=== PATIENT | female | born 1950 | race Caucasian/White ===

== ENCOUNTER 2017-08-06 16:18 | Inpatient (IN) ==
[2017-08-06] MEDS ORDERED: GI Cocktail 40 ML EACH PO ONE (17:57)
[2017-08-06] MEDS ORDERED: Pantoprazole 40 MG VIAL IVP ONE (17:57)
[2017-08-06] MEDS ORDERED: 0.9 % Sodium Chloride 1,000 ML IVC ONE (17:57)
[2017-08-06] MEDS ORDERED: Ondansetron 4 MG/2 ML VIAL IVP ONE (17:57)
--- NOTE | 2017-08-06 18:02 | Emergency Department Note ---
Disposition Clinical Impression: Pancreatic abnormality, Hypokalemia, Brugada syndrome type 3 Disposition: Admitted As Inpatient Condition: Fair Time of Disposition: 20:23 Abdominal Pain HPI - General Chief Complaint: ED Abdominal Pain Stated Complaint: N/V; abominal pain Time Seen by Provider: 08/06/17 17:39 Source: patient Mode of arrival: ambulatory Limitations: no limitations Nursing Notes Reviewed: Yes Vital Signs Reviewed: Yes - History of Present Illness HPI Narrative: Patient presents to the ED with the chief complaint of epigastric abdominal pain and nausea and vomiting. Started about 3 days ago, intermittent abdominal pain in her epigastrium, right flank and right side. States that eating seems to make it worse and she vomits yellow after every time she eats. Had 3-4 episodes of emesis today. No fever, chills, chest pain or shortness of breath. Reports sometimes pushing on her xiphoid process makes it feel a little better. Does still have her gallbladder and appendix. Previous surgeries include repair of a perforated gastric ulcer. Denies any recent NSAID use. States that she also felt really lightheaded and dizzy a few days ago when she was at her grandson's graduation and was having near syncope. No previous history of coronary artery disease. States she is otherwise fairly healthy. HAs had some unintentional weight loss over the last few months and decreased appetite. Pain Scale: 8 - Related Data Home Medications Medication Instructions Recorded Confirmed Amlodipine Besylate [Amlodipine 10 mg PO DAILY 08/06/17 08/06/17 Besylate] Atorvastatin Calcium [Lipitor] 20 mg PO HS 08/06/17 08/06/17 Escitalopram [Lexapro] 20 mg PO DAILY 08/06/17 08/06/17 Multivitamin [One Daily 1 tab PO DAILY 08/06/17 08/06/17 Multivitamin] Omeprazole [PriLOSEC] 20 mg PO DAILY 08/06/17 08/06/17 Triamterene/HCTZ 37.5/25mg 1 tab PO DAILY 08/06/17 08/06/17 [Dyazide] diazePAM [Valium] 5 mg PO DAILY PRN 08/06/17 08/06/17 Allergies Allergy/AdvReac Type Severity Reaction Status Date / Time Penicillins Allergy Hives Verified 08/06/17 19:41 Sulfa (Sulfonamide Allergy Hives Verified 08/06/17 19:41 Antibiotics) Review of Systems: As reviewed in the HPI. All other systems reviewed are negative or normal. Abdominal Pain PMH - Past Medical History Medical history: Reports: hypertension Female Surgical History: Reports: other Psychiatric history: Reports: anxiety - Social History Smoking status: Current every day smoker Alcohol use: Reports: none Drug use: Reports: none Physical Exam CONSTITUTIONAL: [well appearing in no acute distress but does appear uncomfortable] SKIN: [Warm, dry, and intact without rash] EYES: [extraocular movements are grossly intact, clear conjunctiva] HENT: [Normocephalic, atraumatic, moist mucus membranes] NECK: [no obvious swelling, normal range of motion] PULMONARY: [normal chest rise and fall, no respiratory distress or stridor CARDIOVASCULAR: [regular rate, distal extremities are warm and well perfused] GASTROINSTESTINAL: [nondistended, non-tender, large midline well-healed surgical scar, patient points to her epigastrium where she is tender, but states it does not hurt when I press, Ramírez sign negative] GENITOURINARY: [deferred] NEUROLOGIC: [normal speech, moves all extremities] MUSCULOSKELETAL: [no gross deformities, atraumatic] PSYCHIATRIC: [Anxious, seems to be in pain] - General Limitations: no limitations General appearance: alert, in no apparent distress Course Course Narrative: Patient presenting ED with weight loss, epigastric pain, nausea and vomiting. We will get labs and a CT scan. Could have an obstruction versus malignancy. - Reevaluation(s) Reevaluation #1: Patient CT scan shows concern over a pancreatic mass versus mesenteric mass. She does have metastatic disease to liver. The mass is wrapped around her SMA and resulting and biliary dilation. Her LFTs and bilirubin are normal. Admitted to the hospital service. Will attempt PO replacement as we would like to avoid the IV potassium since it has Lidocaine in it and her EKG showed concern over brugada. Vital Signs Temperature 97.6 F 08/06/17 16:39 Pulse Rate 104 08/06/17 16:39 Respiratory Rate 16 08/06/17 16:39 Blood Pressure 115/67 08/06/17 16:39 O2 Sat by Pulse Oximetry 100 08/06/17 16:39 Temperature 97.6 F 08/06/17 16:39 Pulse Rate 104 08/06/17 20:36 Respiratory Rate 18 08/06/17 21:18 Blood Pressure 162/80 08/06/17 21:18 O2 Sat by Pulse Oximetry 100 08/06/17 20:36 Oxygen Delivery Oxygen Delivery Room Air Abdominal Pain - Medical Records Medical records reviewed: Yes I reviewed the patient's medical records. - Lab Data Lab results reviewed: Yes I reviewed the patient's lab results. Result diagrams: 08/06/17 18:44 08/06/17 18:44 Lab Results 08/06/17 08/06/17 08/06/17 Range/Units 18:44 18:44 18:44 WBC 13.6 H (4.3-11.1) K/mcL RBC 3.99 (3.82-4.97) M/mcL Hgb 11.5 (11.5-15.4) g/dL Hct 33.2 L (35.3-44.9) % MCV 83.2 (83.0-100.0) fL MCH 28.8 (28.0-33.3) pg MCHC 34.6 (31.6-35.5) g/dL RDW 13.2 (11.5-14.5) % Plt Count 390 (140-400) K/mcL MPV 10.3 (9.4-12.4) fL Immature Gran % 0.4 (0-4) % Seg Neutrophils % 72.2 % Lymphocytes % 19.8 % Monocytes % 5.6 % Eosinophils % 1.6 % Basophils % 0.4 % Neutrophils # 9.8 H (1.6-8.9) K/mcL Lymphocytes # 2.7 (0.6-4.6) K/mcL Monocytes # 0.8 (0.0-1.3) K/mcL Eosinophils # 0.2 (0.0-0.6) K/mcL Basophils # 0.1 (0.0-0.2) K/mcL Sodium 137 (136-145) mEq/L Potassium 2.2 L* (3.5-5.1) mEq/L Chloride 102 (98-107) mEq/L Carbon Dioxide 19 L (23-29) mEq/L BUN 35 H (8-23) mg/dL Creatinine 0.98 (0.60-1.20) mg/dL Est GFR ( Amer) > 60 (> 60) Est GFR (Non-Af Amer) 56 L (> 60) BUN/Creatinine Ratio 36 H (6-26) Glucose 90 (70-105) mg/dL Calculated Osmolality 292 (280-300) Lactic Acid 1.3 (0.5-2.2) mmol/L Calcium 9.2 (8.6-10.3) mg/dL Total Bilirubin 0.5 (0.3-1.0) mg/dL Direct Bilirubin 0.1 (0.0-0.2) mg/dL Indirect Bilirubin 0.4 (0.0-1.2) mg/dL AST 22 (13-39) Units/L ALT 19 (7-52) Units/L Alkaline Phosphatase 90 (34-104) Units/L Troponin I < 0.03 (< 0.04) ng/mL Serum Total Protein 6.5 (6.4-8.9) g/dL Albumin 3.7 (3.5-5.7) g/dL Globulin 2.8 (2.4-3.5) g/dL Albumin/Globulin Ratio 1.3 (1.1-2.2) Lipase 15 (11-82) Units/L - Radiology Data Radiology results reviewed: Yes I reviewed the patient's radiology results. - EKG Data EKG attestation: Yes I reviewed and interpreted this EKG. EKG results narrative: Sinus rhythm, rate 98, NM interval 164, QRS 125, QTC 448, normal axis, Brugada type 3 pattern Critical Care Time Critical Care Time: Yes Total Critical Care Time: 30 Attestation: I personally spent ___30___ minutes devoted to the care of this critically ill patient. This time excludes the time for billable procedures. S.B.A.R. - S.B.A.R. Situation: Demographics, MOA Background: Presenting Complaint, Relevant PMH, Meds, & Allergies Assessment: Vital Signs, Course and respsone to treatment, Exam Concerns, Patient/Family Expectation, Pertinant Lab Results, Outstanding Labs Recommendation: Recommendation based on pending studies, treatments, or consults S.B.A.R. Report Given to: Dr. Delgado Aiken Repor Time: 20:30 Attestation Statement - Attestation Attestation: I examined this patient and my medical decision-making was reviewed with the Resident Physician. I agree with the documented findings, disposition and treatment plan as described except to the extent set forth below.
[2017-08-06 19:02] LABS: Basophils # 0.1 K/mcL (0.0-0.2); Basophils % 0.4 %; Eosinophils # 0.2 K/mcL (0.0-0.6); Eosinophils % 1.6 %; Hematocrit 33.2 % (35.3-44.9); Hemoglobin 11.5 g/dL (11.5-15.4); Immature Granulocytes % 0.4 % (0-4); Lymphocytes # 2.7 K/mcL (0.6-4.6); Lymphocytes % 19.8 %; Mean Corpuscular HGB Conc 34.6 g/dL (31.6-35.5); Mean Corpuscular Hemoglobin 28.8 pg (28.0-33.3); Mean Corpuscular Volume 83.2 fL (83.0-100.0); Mean Platelet Volume 10.3 fL (9.4-12.4); Monocytes # 0.8 K/mcL (0.0-1.3); Monocytes % 5.6 %; Neutrophils # 9.8 K/mcL (1.6-8.9); Platelet Count 390 K/mcL (140-400); Red Blood Count 3.99 M/mcL (3.82-4.97); Red Cell Distribution Width 13.2 % (11.5-14.5); Segmented Neutrophils % 72.2 %
[2017-08-06 19:20] LABS: Troponin I < 0.03 ng/mL (< 0.04)
[2017-08-06 19:22] LABS: Alanine Aminotransferase 19 Units/L (7-52); Albumin 3.7 g/dL (3.5-5.7); Albumin/Globulin Ratio 1.3 (1.1-2.2); Alkaline Phosphatase 90 Units/L (34-104); Aspartate Amino Transferase 22 Units/L (13-39); BUN/Creatinine Ratio 36 (6-26); Bilirubin,Direct 0.1 mg/dL (0.0-0.2); Bilirubin,Indirect 0.4 mg/dL (0.0-1.2); Bilirubin,Total 0.5 mg/dL (0.3-1.0); Blood Urea Nitrogen 35 mg/dL (8-23); Calcium 9.2 mg/dL (8.6-10.3); Carbon Dioxide 19 mEq/L (23-29); Chloride 102 mEq/L (98-107); Globulin 2.8 g/dL (2.4-3.5); Glucose 90 mg/dL (70-105); Lipase 15 Units/L (11-82); Osmolality,Calculated 292 (280-300); Sodium 137 mEq/L (136-145); Total Protein 6.5 g/dL (6.4-8.9); eGFR For African Americans > 60 (> 60); eGFR For Non-African Americans 56 (> 60)
[2017-08-06] MEDS ORDERED: Ringers Solution, Lactated 1,000 ML IVC ONE (19:34)
[2017-08-06] MEDS ORDERED: Potassium Chloride Elixir 20 MEQ/15 ML UDC PO ONE ×2 (19:35→20:30)
[2017-08-06] MEDS ORDERED: Ondansetron 4 MG/2 ML VIAL IVP PRN (20:01)
[2017-08-06] MEDS ORDERED: Potassium Chloride 10 MEQ in 0.9 % Sodium Chloride 100 ML IVPB SCH (20:45)
[2017-08-06] MEDS ORDERED: Naloxone 0.4 MG/ML INJ IVP PRN ×2 (20:54)
[2017-08-06] MEDS ORDERED: OXYCODONE Oral CONC 10 MG/0.5 ML ORAL.SYG SL PRN (20:54)
[2017-08-06] MEDS ORDERED: D5% in 0.45% NACL 1,000 ML IVC SCH (21:00)
[2017-08-06] MEDS ORDERED: diazePAM 5 MG TABLET PO PRN (21:05)
--- NOTE | 2017-08-06 21:12 | Internal Med History&Physical ---
Date of Encounter: 08/06/17 Time of Encounter: 20:00 Internal Medicine - H&P: HPI Chief complaint: Abdominal pain, nausea and vomiting Admitted From: Home Plans for Post Hospital Care: Home History of present illness: Ms. Salas is a 67 year old female present to ER for abdominal pain and nausea vomiting for about 1-2 weeks. Past medical history is significant for peptic ulcer, hypertension. Patient said she started to have epigastric area pain 1-2 weeks ago, radiated to back. Patient also has nausea and vomiting. The vomiting is yellowish fluid , no blood in it. Patient has average 2-3 times vomiting a day. Patient has generally poor intake. Patient denies fever. Patient has lost around 9 pounds in last 1-2 weeks. Patient denies chest pain, shortness of breath, diarrhea, or leg swelling or leg pain. In the emergency room, CT abdomen shows abdominal mass, most likely pancreas mass with liver metastasis. Patient also has significant hypokalemia with potassium level 2.2. EKG shows Brugada pattern on V1 and V2. Patient was admitted for further management. Past Med Surg Social Fam HX - Past Medical History Medical history: hypertension Psychiatric history: anxiety - Social History Smoking Status: Current every day smoker Smokeless Tobacco Status: No Alcohol use: none Drug use: none - Family History Father Living Status: Still Living Internal Medicine - H&P: Meds Amlodipine Besylate [Amlodipine Besylate] 10 mg PO DAILY 08/06/17 [History] Atorvastatin Calcium [Lipitor] 20 mg PO HS 08/06/17 [History] Escitalopram [Lexapro] 20 mg PO DAILY 08/06/17 [History] Multivitamin [One Daily Multivitamin] 1 tab PO DAILY 08/06/17 [History] Omeprazole [PriLOSEC] 20 mg PO DAILY 08/06/17 [History] Triamterene/HCTZ 37.5/25mg [Dyazide] 1 tab PO DAILY 08/06/17 [History] diazePAM [Valium] 5 mg PO DAILY PRN 08/06/17 [History] 3 Allergy/AdvReac Type Severity Reaction Status Date / Time Penicillins Allergy Hives Verified 08/06/17 19:41 Sulfa (Sulfonamide Allergy Hives Verified 08/06/17 19:41 Antibiotics) All Systems PM: A 10-system review of systems was performed and is negative for pertinent findings except as documented above in the HPI. - Constitutional Vitals: Temp Pulse Resp BP Pulse Ox 97.6 F 104 18 146/76 100 08/06/17 16:39 08/06/17 20:36 08/06/17 20:36 08/06/17 20:36 08/06/17 20:36 General appearance: Present: mild distress, A&O X 3, answers questions appropriately - Head Head exam: Present: atraumatic, normocephalic - Eye Eye exam: Present: PERRL, conjuntiva pink, sclera anicteric Pupils: Present: PERRL - Neck Neck exam general surgery: Present: supple, trachea midline. Absent: lymphadenopathy - Respiratory Respiratory exam: Present: CTAB. Absent: accessory muscle use, rales, rhonchi, wheezes - Cardiovascular Cardiovascular exam: Present: RRR, +S1, +S2. Absent: diastolic murmur, gallop, rubs, systolic murmur - GI/Abdominal GI/Abdominal exam: Present: normal bowel sounds, soft, tenderness (Mild tenderness on epigastric area), no peritoneal signs. Absent: distended - Extremities Exam Extremities exam: Present: warm, radial pulses palpable and symmetrical. Absent : calf tenderness, cyanotic, pedal edema - Neurological Exam Neurological exam: Present: CN II-XII intact, oriented X3, no focal deficits. Absent: pronater drift, facial droop, speech deficit - Skin Skin exam: Present: dry, intact Internal Med - H&P Results - Labs CBC & Chem 7: 08/06/17 18:44 08/06/17 18:44 - Assessment and plan (1) Abdominal mass Current Visit: Yes Status: Acute Assessment and plan: Abdominal CT reveals abdominal mass, most likely pancreas mass. Also has signs of liver metastasis. Most likely malignant neoplasm. Will consult oncology and GI for recommendation of further workup. Qualifiers: Abdominal location: epigastric Qualified Code(s): R19.06 - Epigastric swelling, mass or lump (2) Hypertension Current Visit: Yes Status: Acute Assessment and plan: We will continue home medication amlodipine. Hold diuretics as patient has signs of dehydration. Closely monitor BP. Qualifiers: Hypertension type: essential hypertension Qualified Code(s): I10 - Essential (primary) hypertension (3) Abnormal finding on EKG Current Visit: Yes Status: Acute Assessment and plan: EKG shows Brugada pattern on V1 and V2. Patient has no previous EKG available to compare. Patient has no symptoms of syncope, chest pain, or palpitation. - Continuous cardiac monitoring - correct electrolyte abnormalities. - Repeat EKG in a.m. Echocardiogram in a.m. - Consul cardiology (4) DVT prophylaxis Current Visit: Yes Status: Acute Assessment and plan: Heparin subcutaneously (5) Dehydration Current Visit: Yes Status: Acute Assessment and plan: Patient has nausea and vomiting for around 2 weeks. BUN/creatinine ratio 36, consider dehydration. Will give patient IV fluid and closely monitor BMP. (6) Hypokalemia Current Visit: Yes Status: Acute Assessment and plan: Most likely due to continuous vomiting and per oral intake. Will give patient by mouth and IV potassium supplement. Closely monitor potassium level. Place patient on continuous cardiac monitoring. (7) Nausea and vomiting Current Visit: Yes Status: Acute Assessment and plan: Most likely due to abdominal mass. Place patient on clear liquid diet. Zofran IV when necessary for symptomatic control. Pain medication as needed for abdominal pain. IV fluid for dehydration. Closely monitor electrolytes level and give supplement accordingly. Qualifiers: Vomiting type: unspecified Vomiting Intractability: non-intractable Qualified Code(s): R11.2 - Nausea with vomiting, unspecified - Time Spent With Patient Total time spent is greater than 50% in coordination of care (as documented) at patient's floor/unit and/or counseling patient: 40 minutes Greater than 35 minutes
--- NOTE | 2017-08-06 21:47 | Emergency Department Note ---
Disposition Clinical Impression: Pancreatic abnormality, Hypokalemia, Brugada syndrome type 3 Disposition: Admitted As Inpatient Condition: Fair General Adult HPI - General Chief complaint: ED Abdominal Pain Stated complaint: N/V; abominal pain Time Seen by Provider: 08/06/17 17:39 Source: patient Mode of arrival: ambulatory Limitations: no limitations - History of Present Illness Pain Scale: 0 - Related Data Home Medications Medication Instructions Recorded Confirmed Amlodipine Besylate [Amlodipine 10 mg PO DAILY 08/06/17 08/06/17 Besylate] Atorvastatin Calcium [Lipitor] 20 mg PO HS 08/06/17 08/06/17 Escitalopram [Lexapro] 20 mg PO DAILY 08/06/17 08/06/17 Multivitamin [One Daily 1 tab PO DAILY 08/06/17 08/06/17 Multivitamin] Omeprazole [PriLOSEC] 20 mg PO DAILY 08/06/17 08/06/17 Triamterene/HCTZ 37.5/25mg 1 tab PO DAILY 08/06/17 08/06/17 [Dyazide] diazePAM [Valium] 5 mg PO DAILY PRN 08/06/17 08/06/17 Allergies Allergy/AdvReac Type Severity Reaction Status Date / Time Penicillins Allergy Hives Verified 08/06/17 19:41 Sulfa (Sulfonamide Allergy Hives Verified 08/06/17 19:41 Antibiotics) Past Medical History - Past Medical History Medical history: Reports: hypertension Psychiatric history: Reports: anxiety - Social History Smoking Status: Current every day smoker Smokeless Tobacco Status: No Alcohol use: Reports: none Drug use: Reports: none Physical Exam - General Limitations: no limitations General appearance: alert, in no apparent distress Course Vital Signs Temperature 97.6 F 08/06/17 16:39 Pulse Rate 104 08/06/17 16:39 Respiratory Rate 16 08/06/17 16:39 Blood Pressure 115/67 08/06/17 16:39 O2 Sat by Pulse Oximetry 100 08/06/17 16:39 Temperature 97.6 F 08/06/17 16:39 Pulse Rate 104 08/06/17 20:36 Respiratory Rate 18 08/06/17 21:18 Blood Pressure 162/80 08/06/17 21:18 O2 Sat by Pulse Oximetry 100 08/06/17 20:36 Oxygen Delivery Oxygen Delivery Room Air Medical Decision Making - Lab Data Result diagrams: 08/06/17 18:44 08/06/17 18:44 Lab Results 08/06/17 08/06/17 08/06/17 Range/Units 18:44 18:44 18:44 WBC 13.6 H (4.3-11.1) K/mcL RBC 3.99 (3.82-4.97) M/mcL Hgb 11.5 (11.5-15.4) g/dL Hct 33.2 L (35.3-44.9) % MCV 83.2 (83.0-100.0) fL MCH 28.8 (28.0-33.3) pg MCHC 34.6 (31.6-35.5) g/dL RDW 13.2 (11.5-14.5) % Plt Count 390 (140-400) K/mcL MPV 10.3 (9.4-12.4) fL Immature Gran % 0.4 (0-4) % Seg Neutrophils % 72.2 % Lymphocytes % 19.8 % Monocytes % 5.6 % Eosinophils % 1.6 % Basophils % 0.4 % Neutrophils # 9.8 H (1.6-8.9) K/mcL Lymphocytes # 2.7 (0.6-4.6) K/mcL Monocytes # 0.8 (0.0-1.3) K/mcL Eosinophils # 0.2 (0.0-0.6) K/mcL Basophils # 0.1 (0.0-0.2) K/mcL Sodium 137 (136-145) mEq/L Potassium 2.2 L* (3.5-5.1) mEq/L Chloride 102 (98-107) mEq/L Carbon Dioxide 19 L (23-29) mEq/L BUN 35 H (8-23) mg/dL Creatinine 0.98 (0.60-1.20) mg/dL Est GFR ( Amer) > 60 (> 60) Est GFR (Non-Af Amer) 56 L (> 60) BUN/Creatinine Ratio 36 H (6-26) Glucose 90 (70-105) mg/dL Calculated Osmolality 292 (280-300) Lactic Acid 1.3 (0.5-2.2) mmol/L Calcium 9.2 (8.6-10.3) mg/dL Total Bilirubin 0.5 (0.3-1.0) mg/dL Direct Bilirubin 0.1 (0.0-0.2) mg/dL Indirect Bilirubin 0.4 (0.0-1.2) mg/dL AST 22 (13-39) Units/L ALT 19 (7-52) Units/L Alkaline Phosphatase 90 (34-104) Units/L Troponin I < 0.03 (< 0.04) ng/mL Serum Total Protein 6.5 (6.4-8.9) g/dL Albumin 3.7 (3.5-5.7) g/dL Globulin 2.8 (2.4-3.5) g/dL Albumin/Globulin Ratio 1.3 (1.1-2.2) Lipase 15 (11-82) Units/L Attestation Statement - Attestation Attestation: I examined this patient and my medical decision-making was reviewed with the Resident Physician. I agree with the documented findings, disposition and treatment plan as described except to the extent set forth below. 67-year-old female presents ED because of abdominal pain, vomiting and weight loss. Symptoms of been evolving for the past month. Denies diarrhea. Denies abdominal bloating. No chest pain or dyspnea. Complains of feeling generally weak because she is unable to eat and has a decrease in fluid intake. No change in medications. No productive cough. No exertional symptoms. No headache. No focal weakness. She has been a pack-a-day smoker for 40 years. Pleasant female in no apparent distress. She is awake alert and talkative. Oropharynx is clear mucous membranes membranes dry. Sclera is nonicteric. Neck is supple trachea midline. Chest is clear to auscultation bilaterally. Abdomen soft, nondistended but tender in the epigastrium. Lower abdomen unremarkable. Flanks nontender. Extremities warm and dry without edema. Liver functions and renal function is normal. Potassium is low at 2.2. CT abdomen suggestive of a pancreatic mass with metastatic still liver. EKG consistent with Brugada syndrome. Initiated IV replacement of her potassium minus any lidocaine infusion due to the EKG findings. She will be admitted for further workup and staging of this process in addition to IV hydration and treatment of the hypokalemia There has Not been any recent syncopal episodes so the findings of Brugada syndrome on EKG is incidental
[2017-08-06] MEDS: OXYCODONE Oral CONC 10 MG/0.5 ML ORAL.SYG SL PRN (22:19)
[2017-08-06] MEDS ORDERED: Potassium Chloride 40 MEQ, Lidocaine 1% 2 ML in D5% in Water 500 ML IVPB ONE (22:30)
[2017-08-07 00:23] LABS: Potassium 2.2 mEq/L (3.5-5.1)
[2017-08-07 02:00] LABS: Basophils # 0.1 K/mcL (0.0-0.2); Basophils % 0.5 %; Eosinophils # 0.2 K/mcL (0.0-0.6); Eosinophils % 1.9 %; Hematocrit 30.3 % (35.3-44.9); Hemoglobin 10.6 g/dL (11.5-15.4); Immature Granulocytes % 0.4 % (0-4); Lymphocytes # 2.4 K/mcL (0.6-4.6); Lymphocytes % 20.4 %; Mean Corpuscular Volume 82.8 fL (83.0-100.0); Mean Platelet Volume 10.4 fL (9.4-12.4); Monocytes # 0.7 K/mcL (0.0-1.3); Monocytes % 5.5 %; Neutrophils # 8.4 K/mcL (1.6-8.9); Platelet Count 329 K/mcL (140-400); Red Blood Count 3.66 M/mcL (3.82-4.97); Red Cell Distribution Width 13.2 % (11.5-14.5); Segmented Neutrophils % 71.3 %
[2017-08-07] MEDS: OXYCODONE Oral CONC 10 MG/0.5 ML ORAL.SYG SL PRN ×2 (03:48→08:35)
[2017-08-07 06:00] LABS: Prothrombin Time 12.7 Seconds (9.4-12.1)
[2017-08-07 06:01] LABS: INR 1.2
[2017-08-07] MEDS: *HR* Heparin 5,000 UNIT/ML VIAL SQ SCH ×2 (06:44→18:25)
[2017-08-07 07:35] LABS: BUN/Creatinine Ratio 36 (6-26); Blood Urea Nitrogen 28 mg/dL (8-23); Calcium 8.8 mg/dL (8.6-10.3); Carbon Dioxide 20 mEq/L (23-29); Chloride 104 mEq/L (98-107); Glucose 185 mg/dL (70-105); Magnesium 1.9 mg/dL (1.6-2.6); Osmolality,Calculated 290 (280-300); Phosphorous 2.8 mg/dL (2.7-4.5); Potassium 3.3 mEq/L (3.5-5.1); Sodium 135 mEq/L (136-145); eGFR For African Americans > 60 (> 60); eGFR For Non-African Americans > 60 (> 60)
[2017-08-07] MEDS: Multivit/Ca/Min/Fe/FA 1 TAB TABLET PO SCH (08:34)
[2017-08-07] MEDS: Ondansetron 4 MG/2 ML VIAL IVP PRN ×2 (08:35→18:23)
[2017-08-07] MEDS: amLODIPine 5 MG TABLET PO SCH (08:35)
[2017-08-07] MEDS: Pantoprazole 40 MG VIAL IVP SCH (08:35)
[2017-08-07] MEDS ORDERED: *HR* Promethazine 25 MG/ML VIAL IM PRN (08:43)
[2017-08-07] MEDS: 0.9 % Sodium Chloride 1,000 ML IVC SCH ×2 (09:14→19:00)
--- NOTE | 2017-08-07 09:53 | Cardiology Consult Note ---
Date of Encounter: 08/07/17 Time of Encounter: 09:00 Assessment and Plan (1) Abdominal mass Current Visit: Yes Status: Acute Per cardiology:; -Abdominal mass noted per CT. -Electrolyte imbalances noted. -Management per primary service. Qualifiers: Abdominal location: epigastric Qualified Code(s): R19.06 - Epigastric swelling, mass or lump (2) Abnormal finding on EKG Current Visit: Yes Status: Acute Per cardiology: -Brugada pattern noted per ECG. -Denies syncope, near syncope. Denies family history of syncope. -Denies family history of sudden cardiac . -TTE with LVEF preserved, no segmental wall motion abnormalities. -Anticipate cardiology sign off with outpatient follow up. Discussion w patient/family: The assessment and plan as outlined above was discussed with the patient and/or family members who expressed understanding and agreement. All questions were answered. Thank you for involving us in the care of your patient. Please call with any questions. Discussed and reviewed with . History of Present Illness Consult date: 08/06/17 Requesting physician: Florence Scott Consult reason: brugada pattern on ECG Chief complaint: abdominal pain History of present illness: Ms. Salas is a 67 year old female with a relevant past medical history of HTN, anxiety. Patient presented to [facility] with complaints of abdominal pain. Cardiology has been consulted for abnormal ECG. Patient denies chest pain or shortness of breath. Denies previous cardiac history or work up. Denies syncope or near syncope. Patient denies history of sudden cardiac . Past Med Surg Social Fam HX - Past Medical History Attestation: Yes The following information was validated with the patient. Source: patient, old records reviewed, obtained from family Medical history: cancer, GI bleed, hypertension, other Psychiatric history: anxiety - Past Surgical History Surgical History: no surgical history - Social History Smoking Status: Current every day smoker Packs per day: 1 pack/daily Smokeless Tobacco Status: No Alcohol use: none Drug use: none - Family History Father Adopted: No Twin of Family Member: Yes, Fraternal Living Status: Still Living Hx Family Cardiac Disorders: No Hx Family Respiratory Disorders: No Hx Family Cancer: No Hx Family GI Disorders: No Hx Family Genitourinary Disorders: No Hx Family Endocrine Disorder: No Hx Family Musculoskeletal Disorders: No Hx Family Neuromuscular Disorders: No Hx Family Neurologic Disorders: No Hx Family HEENT Disorders: No Hx Family Autoimmune Disorders: No Hx Family Reproductive Disorders: No Hx Family Psychosocial Disorders: No Hx Family Medical Disorders: No Medications and Allergies Amlodipine Besylate [Amlodipine Besylate] 10 mg PO DAILY 08/06/17 [History] Atorvastatin Calcium [Lipitor] 20 mg PO HS 08/06/17 [History] Escitalopram [Lexapro] 20 mg PO DAILY 08/06/17 [History] Multivitamin [One Daily Multivitamin] 1 tab PO DAILY 08/06/17 [History] Omeprazole [PriLOSEC] 20 mg PO DAILY 08/06/17 [History] Triamterene/HCTZ 37.5/25mg [Dyazide] 1 tab PO DAILY 08/06/17 [History] diazePAM [Valium] 5 mg PO DAILY PRN 08/06/17 [History] 3 Allergy/AdvReac Type Severity Reaction Status Date / Time Penicillins Allergy Hives Verified 08/06/17 19:41 Sulfa (Sulfonamide Allergy Hives Verified 08/06/17 19:41 Antibiotics) All Systems Review: The remainder of the systems were reviewed and are negative - Cardiovascular Cardiovascular: as per HPI Physical Examination Vital Signs, Last 4 Hours Temp Pulse Resp BP Pulse Ox 08/07/17 08:45 97 08/07/17 07:57 98.1 F 84 16 121/66 97 General: Conversant, No Apparent Distress HEENT: Atraumatic, Normocephaly, Mucus Membranes Moist Neck: No JVD, Normal carotid pulses Cardiac: Reg Rate and Rhythm, Normal S1 and S2, No Murmur Lungs: Normal Breath Sounds, No Wheeze, Rales, Rhonchi Neuro: Alert and responsive, No focal deficits noted Abdomen: Soft, Other (Tender. ) Skin: No rashes noted on visualized skin Musculoskeletal: No Chest Wall Tenderness Extremities: No Clubbing, No Cyanosis, No Edema, Normal Pulses Results 08/07/17 01:32 08/07/17 01:32 Lab Results Impressions Abdomen/Pelvis CT 08/06/17 17:58 IMPRESSION: 1. Mid abdominal mass slightly projecting to the left appears to be contiguous with the head of the pancreas and may originate from the pancreas. This may represent a pancreatic cancer. Alternatively, the mass may be mesenteric in origin and may represent a sarcoma or other neoplastic process. The mass appears to infiltrate around the SMA and also the portal confluence. 2. Extensive metastatic disease to the liver. 3. Cholelithiasis but no acute cholecystitis. 4. Some prominence of the biliary system which may be related to distal encasement of the common bile duct by the mass. RECOMMENDATIONS: Proper CT scan with contrast, biopsy, PET scan. D/ / 08/06/2017 18:49:07 Arlin Lenz MD / earnold Interpreting Provider: Arlin Lenz MD Echocardiogram 08/07/17 21:01 Impressions: LVEF 60-65%. Mild left ventricular diastolic dysfunction. Normal right ventricular structure and function. Mild tricuspid regurgitation. No pulmonary hypertension. Left Ventricular Wall Motion: Rest Echo Findings All wall segments showed normal motion. Findings: Study Quality * Technically adequate exam. ECG Findings * Normal sinus rhythm. Left Ventricle * LVEF 60-65%. * Normal LV chamber size, wall thickness and function. * Mild left ventricular diastolic dysfunction. Right Ventricle * Normal right ventricular structure and function. Left Atrium * Moderately dilated left atrium. Right Atrium * Normal right atrial size. Mitral Valve * No mitral stenosis. * No mitral regurgitation. * Possible mild billowing of the anterior mitral valve leaflet. Aortic Valve * No aortic regurgitation. * Aortic valve not well visualized. * No aortic stenosis. Tricuspid Valve * Tricuspid valve not well visualized. * Mild tricuspid regurgitation. * Estimated RA pressure is 3 mmHg. * Estimated RVSP is 25 mmHg. * No pulmonary hypertension. Pulmonic Valve * Pulmonic valve is not well visualized. * No pulmonic stenosis. * No pulmonic regurgitation. Pulmonary Artery * Pulmonary artery not well visualized. Aorta * Not well visualized. Pericardium * There is no pericardial effusion present. Interatrial Septum * No evidence of PFO by color Doppler. IVC * Normal IVC dimensions and inspiratory collapse. Active Medications Amlodipine Besylate (Norvasc) 10 mg PO DAILY PATTI Stop: 02/06/18 09:01 Last Admin: 08/07/17 08:35 Dose: 10 mg Atorvastatin Calcium (Lipitor) 20 mg PO HS PATTI Stop: 02/06/18 21:01 Diazepam (Valium) 5 mg PO DAILY PRN PRN Reason: Anxiety Stop: 02/05/18 21:06 Escitalopram Oxalate (Lexapro) 20 mg PO DAILY [facility] Stop: 02/06/18 09:01 Last Admin: 08/07/17 09:14 Dose: 20 mg Heparin Sodium (Porcine) (Heparin) 5,000 unit SQ Q12HR PATTI Stop: 02/06/18 06:01 Last Admin: 08/07/17 06:44 Dose: 5,000 unit Sodium Chloride (0.9 % Sodium Chloride) 1,000 mls @ 100 mls/hr IVC .Q10H [facility] Stop: 02/06/18 08:46 Last Admin: 08/07/17 09:14 Dose: 100 mls/hr Multivitamins/Calcium (Thera M Plus) 1 tab PO DAILY [facility] Stop: 02/06/18 09:01 Last Admin: 08/07/17 08:34 Dose: 1 tab Naloxone HCl (Narcan) 0.4 mg IVP Q2MIN PRN PRN Reason: SEE COMMENTS Stop: 02/05/18 20:55 Ondansetron HCl (Zofran) 4 mg IVP Q4H PRN PRN Reason: Nausea And Vomiting Stop: 02/05/18 20:55 Last Admin: 08/07/17 08:35 Dose: 4 mg Oxycodone HCl (Oxycodone Oral Conc) 5 mg SL Q4H PRN; Protocol PRN Reason: mild to moderate pain Stop: 02/05/18 20:55 Last Admin: 08/07/17 08:35 Dose: 5 mg Oxycodone HCl (Oxycodone Oral Conc) 10 mg SL Q4H PRN; Protocol PRN Reason: Severe Pain Stop: 02/05/18 20:55 Last Admin: 08/07/17 00:09 Dose: 10 mg Pantoprazole Sodium (Protonix) 40 mg IVP DAILY [facility] Stop: 02/06/18 09:01 Last Admin: 08/07/17 08:35 Dose: 40 mg Promethazine HCl (Phenergan) 12.5 mg IM Q6HR PRN PRN Reason: Nausea And Vomiting Stop: 02/06/18 08:44 Triamterene/HCTZ (Dyazide) 1 each PO DAILY [facility] Stop: 02/06/18 09:01 Last Admin: 08/07/17 09:14 Dose: 1 each Laboratory Tests 08/06/17 08/07/17 08/07/17 18:44 01:32 01:32 Hgb 10.6 L Potassium 2.2 L* 3.3 L D Creatinine 0.77 Troponin I < 0.03 - Imaging and Cardiology Chest Xray: report reviewed Echo: report reviewed - EKG Interpretation EKG results cardiology: personally reviewed (ECG with SR, brugada pattern in leads V1 and V2.), other (Telemetry reviewed with average HR previous 12 hours noted to be 88, SR. PVCs, PACs noted. One run of atrial tachycardia noted, lasting 7 beats.) Consult Discharge Plan - Plan Referrals: Brenda Titus MD [Primary Care Provider] -
--- NOTE | 2017-08-07 12:05 | Gastroenterology Consult Note ---
<Franklin Barfield Garfield - Last Filed: 08/07/17 12:03> Date of Encounter: 08/07/17 Time of Encounter: 11:30 - Assessment and plan (1) Pancreatic abnormality Current Visit: Yes Status: Acute Assessment and plan: CT A/P Mid abdominal mass slightly projecting to the left appears to be contiguous with the head of the pancreas and may originate from the pancreas. Alternatively, the mass may be mesenteric in origin and may represent a sarcoma or other neoplastic process. The mass appears to infiltrate around the SMA and also the portal confluence. Extensive metastatic disease to the liver. Some prominence of the biliary system which may be related to distal encasement of the common bile duct by the mass. Plan for EUS today with biopsy, possible ERCP as outpatient. - Time Spent With Patient Total time spent is greater than 50% in coordination of care (as documented) at patient's floor/unit and/or counseling patient: GI History of Present Illness - Data of Consult Patient: new to practice Consult date: 08/07/17 Requesting Physician: Quinton Natarajan MD - Consult Narrative Reason for consult: Pancreas cancer History of present illness: Ms. Salas is a 67 year old female with PMHx of HTN who presented to the ED for evaluation of abdominal pain, nausea, and vomiting for the past 1-2 weeks. Patient reports the pain started in the epigastric area 1-2 weeks ago and is associated with nausea and vomiting. He reports weight loss of around 9 lbs in the past 1-2 weeks. He denies fever, chills, chest pain, shortness of breath, diarrhea. CT A/P shows abdominal mass, most likely pancreas mass with liver metastasis. Procedures: None NSAIDs: None Anticoagulation: None Past Med Surg Social Fam HX - Past Medical History Medical history: cancer, GI bleed, hypertension, other Psychiatric history: anxiety - Past Surgical History Surgical History: no surgical history - Social History Smoking Status: Current every day smoker Packs per day: 1 pack/daily Smokeless Tobacco Status: No Alcohol use: none Drug use: none - Family History Father Adopted: No Twin of Family Member: Yes, Fraternal Living Status: Still Living Hx Family Cardiac Disorders: No Hx Family Respiratory Disorders: No Hx Family Cancer: No Hx Family GI Disorders: No Hx Family Genitourinary Disorders: No Hx Family Endocrine Disorder: No Hx Family Musculoskeletal Disorders: No Hx Family Neuromuscular Disorders: No Hx Family Neurologic Disorders: No Hx Family HEENT Disorders: No Hx Family Autoimmune Disorders: No Hx Family Reproductive Disorders: No Hx Family Psychosocial Disorders: No Hx Family Medical Disorders: No - Gastrointestinal Gastrointestinal: Present: as per HPI - Constitutional Constitutional: as per HPI - EENT Eyes: as per HPI Ears: Present: as per HPI Nose, mouth and throat: Present: as per HPI - Cardiovascular Cardiovascular ROS: Present: as per HPI - Respiratory Respiratory IM: Present: as per HPI - Genitourinary Genitourinary: Absent: change in color, Urinary frequency - Neurological ROS Neurological GI: Present: as per HPI - Hematologic/Lymphatic Hematologic/Lymphatic pediatric: Present: as per HPI - Musculoskeletal Musculoskeletal ROS GI: Present: as per HPI - Integumentary Integumentary GI: Present: as per HPI - Psychiatric ROS Psychiatric GI: Present: as per HPI - Endocrine Endocrine IM: Present: as per HPI - Constitutional Vitals: Temp Pulse Resp BP Pulse Ox 97.4 F L 98 16 148/75 98 08/07/17 11:31 08/07/17 11:31 08/07/17 11:31 08/07/17 11:31 08/07/17 11:31 General appearance: Present: cooperative, A&O X 3, no acute distress, answers questions appropriately - Head Head exam: Present: atraumatic, normocephalic - Eye Eye exam: Present: normal appearance, sclera anicteric - ENT ENT exam: Present: mucous membranes dry - Neck Neck exam general surgery: Present: normal inspection, trachea midline - Respiratory Respiratory exam: Present: CTAB. Absent: rales, rhonchi - Cardiovascular Cardiovascular exam: Present: RRR, +S1, +S2 - GI/Abdominal GI/Abdominal exam: Present: soft, tenderness (mild epigastric tenderness), no peritoneal signs. Absent: distended, firm, guarding - Rectal Rectal exam: Present: deferred - Extremities Exam Extremities exam: Present: warm - Neurological Exam Neurological exam: Present: no focal deficits - Psychiatric Psychiatric exam: Present: normal affect, normal mood - Skin Skin exam: Present: dry, intact, normal color, warm Results - Labs CBC & Chem 7: 08/07/17 01:32 08/07/17 01:32 Labs: Last Result Calcium 8.8 mg/dL (8.6-10.3) 08/07/17 01:32 Troponin I < 0.03 ng/mL (< 0.04) 08/06/17 18:44 Entire Visit Hgb 10.6 g/dL (11.5-15.4) L 08/07/17 01:32 Hct 30.3 % (35.3-44.9) L 08/07/17 01:32 PT 12.7 Seconds (9.4-12.1) H 08/07/17 01:32 Total Bilirubin 0.5 mg/dL (0.3-1.0) 08/06/17 18:44 AST 22 Units/L (13-39) 08/06/17 18:44 ALT 19 Units/L (7-52) 08/06/17 18:44 Lipase 15 Units/L (11-82) 08/06/17 18:44 - ABG ABG results: PT/INR, D-dimer PT 12.7 Seconds (9.4-12.1) H 08/07/17 01:32 - Impressions Impressions Echocardiogram 08/07/17 21:01 Impressions: LVEF 60-65%. Mild left ventricular diastolic dysfunction. Normal right ventricular structure and function. Mild tricuspid regurgitation. No pulmonary hypertension. Left Ventricular Wall Motion: Rest Echo Findings All wall segments showed normal motion. Findings: Study Quality * Technically adequate exam. ECG Findings * Normal sinus rhythm. Left Ventricle * LVEF 60-65%. * Normal LV chamber size, wall thickness and function. * Mild left ventricular diastolic dysfunction. Right Ventricle * Normal right ventricular structure and function. Left Atrium * Moderately dilated left atrium. Right Atrium * Normal right atrial size. Mitral Valve * No mitral stenosis. * No mitral regurgitation. * Possible mild billowing of the anterior mitral valve leaflet. Aortic Valve * No aortic regurgitation. * Aortic valve not well visualized. * No aortic stenosis. Tricuspid Valve * Tricuspid valve not well visualized. * Mild tricuspid regurgitation. * Estimated RA pressure is 3 mmHg. * Estimated RVSP is 25 mmHg. * No pulmonary hypertension. Pulmonic Valve * Pulmonic valve is not well visualized. * No pulmonic stenosis. * No pulmonic regurgitation. Pulmonary Artery * Pulmonary artery not well visualized. Aorta * Not well visualized. Pericardium * There is no pericardial effusion present. Interatrial Septum * No evidence of PFO by color Doppler. IVC * Normal IVC dimensions and inspiratory collapse. Consult Discharge Plan - Plan Referrals: Brenda Titus MD [Primary Care Provider] - <Jac Turner - Last Filed: 08/07/17 17:37> Date of Encounter: 08/07/17 Time of Encounter: 12:00 - Time Spent With Patient Total time spent is greater than 50% in coordination of care (as documented) at patient's floor/unit and/or counseling patient: GI History of Present Illness - Data of Consult Requesting Physician: Quinton Natarajan MD - Consult Narrative History of present illness: Ms. Salas is a 67 year old female - Constitutional Vitals: Temp Pulse Resp BP Pulse Ox 98.7 F 97 18 146/74 96 08/07/17 14:44 08/07/17 14:44 08/07/17 17:00 08/07/17 14:44 08/07/17 17:00 Results - Labs CBC & Chem 7: 08/07/17 01:32 08/07/17 01:32 Labs: Last Result Calcium 8.8 mg/dL (8.6-10.3) 08/07/17 01:32 Troponin I < 0.03 ng/mL (< 0.04) 08/06/17 18:44 Entire Visit Hgb 10.6 g/dL (11.5-15.4) L 08/07/17 01:32 Hct 30.3 % (35.3-44.9) L 08/07/17 01:32 PT 12.7 Seconds (9.4-12.1) H 08/07/17 01:32 Total Bilirubin 0.5 mg/dL (0.3-1.0) 08/06/17 18:44 AST 22 Units/L (13-39) 08/06/17 18:44 ALT 19 Units/L (7-52) 08/06/17 18:44 Lipase 15 Units/L (11-82) 08/06/17 18:44 - ABG ABG results: PT/INR, D-dimer PT 12.7 Seconds (9.4-12.1) H 08/07/17 01:32 - Impressions Impressions Chest X-Ray 08/07/17 15:55 IMPRESSION: Endotracheal tube in good position. Minimal patchy airspace opacity left lung base - differential diagnosis includes atelectasis, minimal pneumonia, or possible aspiration. D/ / Tito Bonilla MD / Tito Bonilla MD Interpreting Provider: Tito Bonilla MD Echocardiogram 08/07/17 21:01 Impressions: LVEF 60-65%. Mild left ventricular diastolic dysfunction. Normal right ventricular structure and function. Mild tricuspid regurgitation. No pulmonary hypertension. Left Ventricular Wall Motion: Rest Echo Findings All wall segments showed normal motion. Findings: Study Quality * Technically adequate exam. ECG Findings * Normal sinus rhythm. Left Ventricle * LVEF 60-65%. * Normal LV chamber size, wall thickness and function. * Mild left ventricular diastolic dysfunction. Right Ventricle * Normal right ventricular structure and function. Left Atrium * Moderately dilated left atrium. Right Atrium * Normal right atrial size. Mitral Valve * No mitral stenosis. * No mitral regurgitation. * Possible mild billowing of the anterior mitral valve leaflet. Aortic Valve * No aortic regurgitation. * Aortic valve not well visualized. * No aortic stenosis. Tricuspid Valve * Tricuspid valve not well visualized. * Mild tricuspid regurgitation. * Estimated RA pressure is 3 mmHg. * Estimated RVSP is 25 mmHg. * No pulmonary hypertension. Pulmonic Valve * Pulmonic valve is not well visualized. * No pulmonic stenosis. * No pulmonic regurgitation. Pulmonary Artery * Pulmonary artery not well visualized. Aorta * Not well visualized. Pericardium * There is no pericardial effusion present. Interatrial Septum * No evidence of PFO by color Doppler. IVC * Normal IVC dimensions and inspiratory collapse. - Attending Attestation I have personally performed a face to face evaluation on this patient. I have reviewed and agree with the care plan. History and Exam by me shows: Patient seen at the bedside. Complaining of abdominal pain and weight loss for the last 3-4 weeks. On examination does has mild epigastric tenderness. Assessment: Patient with possible pancreatic mass with liver metastases Recommendation: C 199 is pending, EUS with possible biopsy of the pancreatic and liver lesions
--- NOTE | 2017-08-07 13:32 | Electrocardiograph Report ---
[place] [facility] Test Date: 2017-08-06 Pat Name: Destiny Salas Department: 104 Room: 2A32 Gender: F Cto: TOD : 1950 Requested By: [id number] Order Number: [id number] Reading MD: Guilherme Hernandez MD Measurements Intervals [place] Rate: 98 P: 79 MD: 164 QRS: 12 QRSD: 125 T: 61 QT: 393 QTc: 448 Interpretive Statements SINUS RHYTHM POSSIBLE RIGHT VENTRICULAR CONDUCTION DELAY [RSR (QR) IN V1/V2] INFERIOR MYOCARDIAL INFARCTION [40+ ms Q WAVE AND/OR ST/T ABNORMALITY IN II/aVF], PROBABLY OLD PROBABLE ANTEROLATERAL MYOCARDIAL INFARCTION [35 ms Q WAVE IN I/aVL/V3-V6], PROBABLY OLD Electronically Signed On 08-07-2017 13:30:55 EDT by Guilherme Hernandez MD
--- NOTE | 2017-08-07 13:52 | Anesthesia Evaluation PreOp ---
Date of Encounter: 08/07/17 Time of Encounter: 13:47 - Past History Planned Operation: EUS Cardiac History: HTN, Hyperlipidemia, Other (ECHO 08/07/17: EV /EV echocardiogram Impressions: LVEF 60-65%. Mild left ventricular diastolic dysfunction. Normal right ventricular structure and function. Mild tricuspid regurgitation. No pulmonary hypertension.) Pulmonary History: Smoker, Pack/yr (20) [employer]OR [employer]ICATION[employer] History: Other (anxiety) Other Medical History: GERD, Other (abdominal mass) Anesthesia History: No Prior Anesthetic Complications, Past Anesthesia (exlap for GI bleed, csection) Alcohol Use: none Drug use: none Medications and Allergies Amlodipine Besylate [Amlodipine Besylate] 10 mg PO DAILY 08/06/17 [History] Atorvastatin Calcium [Lipitor] 20 mg PO HS 08/06/17 [History] Escitalopram [Lexapro] 20 mg PO DAILY 08/06/17 [History] Multivitamin [One Daily Multivitamin] 1 tab PO DAILY 08/06/17 [History] Omeprazole [PriLOSEC] 20 mg PO DAILY 08/06/17 [History] Triamterene/HCTZ 37.5/25mg [Dyazide] 1 tab PO DAILY 08/06/17 [History] diazePAM [Valium] 5 mg PO DAILY PRN 08/06/17 [History] 3 Allergy/AdvReac Type Severity Reaction Status Date / Time Penicillins Allergy Hives Verified 08/06/17 19:41 Sulfa (Sulfonamide Allergy Hives Verified 08/06/17 19:41 Antibiotics) - Meds/Allergy Pre-op Review Medications Reviewed: Yes Allergies Reviewed: Yes Beta Blockers on Current Med List: No Anesthesia Results - Labs 08/07/17 01:32 08/07/17 01:32 - Imaging EKG: report reviewed (SINUS RHYTHM POSSIBLE RIGHT VENTRICULAR CONDUCTION DELAY [ RSR (QR) IN V1/V2] INFERIOR MYOCARDIAL INFARCTION [40+ ms Q WAVE AND/OR ST/T ABNORMALITY IN II/aVF], PROBABLY OLD PROBABLE ANTEROLATERAL MYOCARDIAL INFARCTION [35 ms Q WAVE IN I/aVL/V3-V6], PROBABLY OLD Electronically Signed On 08-07-2017 13:30:55 EDT by Guilherme Hernandez MD) Anesthesia Exam Vital Signs/O2 Sat, Most Current Temp Pulse Resp BP Pulse Ox 97.4 F L 98 16 148/75 98 05/10/18 11:31 08/07/17 11:31 08/07/17 11:31 08/07/17 11:31 08/07/17 11:31 Height: 1.68m Weight: 60kg NPO (# of Hours): >8 - HEENT Pupil (Motor): Pupils equal, EOMI Mallampati: II Teeth: Edentulous Oral Opening: Greater than 3 - DIRECTOR INTERNAL COMMUNICATIONS LOC: Oriented [employer]OR INTERNAL COMMUNICATIONS Motor: Normal RUE, Normal LUE, Normal RLE, Normal LLE, Normal Face [employer] Sensory: Normal: RUE, LUE, RLE, LLE, Face - Cardiac Rhythm: Regular - Pulmonary Breath Sounds: bilateral Clear Respiratory Effort: Symmetrical Anesthesia Assess/Plan ASA Score: 2 Modified Raul Scale for Level of Consciousness: Cooperative, oriented, and tranquil Anesthetic Plan: General (plan b), MAC Monitoring Plan: Standard Monitors Recovery Plan: PACU
--- NOTE | 2017-08-07 15:06 | Electrocardiograph Report ---
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
[2017-08-07] MEDS ORDERED: Propofol 500 MG/50 ML INFUS..BTL ONE (15:56)
[2017-08-07] MEDS ORDERED: *HR* PHENYLEPHRINE 1,000 MCG/10 ML SYRINGE IVP ONE (15:56)
[2017-08-07] MEDS ORDERED: Ondansetron 4 MG/2 ML VIAL ONE (15:56)
[2017-08-07] MEDS ORDERED: *HR* Succinylcholine 200 MG/10 ML VIAL IVP ONE (15:56)
--- NOTE | 2017-08-07 16:17 | Anesthesia Progress Note ---
Date of Encounter: 08/07/17 Time of Encounter: 16:09 Anesthesia Note - Note Note: 08/07/17 16:09 Pt was undergoing an EUS per Dr Turner under mac anethesia and was doing well, however at the conclusion of the case, pt vomitted and dropped sats to 60%, aspiration was suspected, pt was intubated and sats came up to 100% on FIO2 I, i spoke to Dr Pope and pt will be admitted to ICU for further management. Vital signs are stable at this time
--- NOTE | 2017-08-07 16:49 | Pulmonology Consult Note ---
<Vinh Billy M - Last Filed: 08/07/17 17:43> Date of Encounter: 08/07/17 Medications and Allergies Amlodipine Besylate [Amlodipine Besylate] 10 mg PO DAILY 08/06/17 [History] Atorvastatin Calcium [Lipitor] 20 mg PO HS 08/06/17 [History] Escitalopram [Lexapro] 20 mg PO DAILY 08/06/17 [History] Multivitamin [One Daily Multivitamin] 1 tab PO DAILY 08/06/17 [History] Omeprazole [PriLOSEC] 20 mg PO DAILY 08/06/17 [History] Triamterene/HCTZ 37.5/25mg [Dyazide] 1 tab PO DAILY 08/06/17 [History] diazePAM [Valium] 5 mg PO DAILY PRN 08/06/17 [History] 3 Allergy/AdvReac Type Severity Reaction Status Date / Time Penicillins Allergy Hives Verified 08/06/17 19:41 Sulfa (Sulfonamide Allergy Hives Verified 08/06/17 19:41 Antibiotics) All Systems: The remainder of the systems were reviewed and are negative Physical Examination Vital Signs: Vital Signs, Last 4 Hours Temp Pulse Resp BP Pulse Ox 08/07/17 17:00 18 96 08/07/17 16:32 96 08/07/17 14:44 98.7 F 97 18 146/74 97 Ventilator Settings Ventilator Settings: Ventilator Settings, Last 8 Hours Actual Respiratory Rate 20 Positive End Expiratory 5 Pressure Peak Inspiratory Airway 15 Pressure Results - Laboratory Findings CBC and BMP: 08/07/17 01:32 08/07/17 01:32 PT/INR, D-dimer PT 12.7 Seconds (9.4-12.1) H 08/07/17 01:32 Abnormal lab findings: Abnormal lab results WBC 11.8 K/mcL (4.3-11.1) H 08/07/17 01:32 RBC 3.66 M/mcL (3.82-4.97) L 08/07/17 01:32 Hgb 10.6 g/dL (11.5-15.4) L 08/07/17 01:32 Hct 30.3 % (35.3-44.9) L 08/07/17 01:32 MCV 82.8 fL (83.0-100.0) L 08/07/17 01:32 PT 12.7 Seconds (9.4-12.1) H 08/07/17 01:32 Sodium 135 mEq/L (136-145) L 08/07/17 01:32 Potassium 3.3 mEq/L (3.5-5.1) L D 08/07/17 01:32 Carbon Dioxide 20 mEq/L (23-29) L 08/07/17 01:32 BUN 28 mg/dL (8-23) H 08/07/17 01:32 BUN/Creatinine Ratio 36 (6-26) H 08/07/17 01:32 Glucose 185 mg/dL (70-105) H 08/07/17 01:32 POC Glucose 129 mg/dL (70-99) H 08/07/17 16:30 - Clinical Findings Intake & Output: Intake & Output 08/07/17 08/07/17 08/07/17 07:59 15:59 23:59 Intake Total 240 / 240 Balance 240 / 240 Weight 60.328 kg Consult Discharge Plan - Plan Referrals: Brenda Titus MD [Primary Care Provider] - - Attending Attestation I examined this patient and my medical decision-making was reviewed with the Resident Physician. I agree with the documented findings, disposition and treatment plan as described except to the extent set forth below. Patient seen and examined. Labs, radiology, chart personally reviewed. I was called by the anesthesiologist is patient possibly had aspiration pneumonitis/pneumonia. Agree with resident's history and physical, assessment, plan with following comments: BI CONSULTANT: Patient follows commands after extubation, Pulmonary: Patient was transferred to ICU and after placing The Ventilator and Reviewing Her Chest X-Ray I Did Not See Any Significant Pneumonitis and She Already Have Underlying History of COPD. Patient Had Significant Secretion Which Was Suctioned and after That She Was Successfully Extubated to BiPAP without Any Significant Problem. Patient to be on bronchodilators and short course of systemic steroid. Cardiovascular: stable GI: Nutrition per dietary and GI prophylaxis per routine Heme: DVT prophylaxis per routine. Oncology follow-up. ID: Continue antibiotics and plan to de-escalation Renal; urine out put and renal funtion reviewed Endorcine: blood glucose is monitored Lines: all lines checked and no evidence of infections Skin: skin care to prevent pressure ulcers per nursing routine care I spent 35 min of Critical Care time with this patient. It involved decision making of high complexity to assess, manipulate, and support vital organ system failure and/or to prevent further life threatening deterioration of the patient' s condition. The time involved in the performance of separately reportable procedures was not counted toward critical care time. <Shin House - Last Filed: 08/07/17 18:11> Date of Encounter: 08/07/17 Time of Encounter: 16:49 Assessment and Plan (1) Aspiration pneumonia Current Visit: Yes Status: Acute Patient did have one episode of emesis during her endoscopic procedure which was done under propofol MAC sedation After the endoscopic tube was removed patient had bilious emesis, out. At that time there unable to protect her airway so they intubated the patient immediately and transferred to the ICU. Patient here was intubated. Patient was extubated and placed on CPAP. She was on CPAP for approximately 5- 10 minutes and then it was removed and she is on 4 L nasal cannula satting at 98 %. Patient was allergic to Zosyn our first choice for antibiotics so we place patient on Levaquin and Flagyl We will also give DuoNeb's every 4 hours and steroids 60 mg every 12 hours We will continue to monitor if patient does well overnight we will consider transfer of the ICU back to hospital floor bed. Qualifiers: Aspiration pneumonia type: due to vomit Laterality: unspecified laterality Lung location: unspecified part of lung Qualified Code(s): J69.0 - Pneumonitis due to inhalation of food and vomit (2) Hypokalemia Current Visit: Yes Status: Acute Patient was hypokalemic at 3.3 but up from 2.2 from previous. This is being managed by the hospitalist team. Please refer to their note for recommendations. (3) Abdominal mass Current Visit: Yes Status: Acute Patient does have an abdominal mass most likely pancreatic cancer that is why the endoscopic ultrasound is being done. This is being followed by both GI and the hospital team please refer to their note for recommendations Qualifiers: Abdominal location: epigastric Qualified Code(s): R19.06 - Epigastric swelling, mass or lump (4) Abnormal finding on EKG Current Visit: Yes Status: Acute Patient did have a finding of Brugada syndrome Will have continuous cardiac monitoring and repeat EKGs cardiology has been consulted this is being managed by both cardiology and the hospitalist team please refer to their note for recommendations (5) Dehydration Current Visit: Yes Status: Acute Patient does have nausea and vomiting for around 2 weeks BUN/creatinine was 36 patient was given IV fluids the hospital seen is monitoring this facility if there are no further recommendations (6) DVT prophylaxis Current Visit: Yes Status: Acute Heparin subcutaneously History of Present Illness Consult date: 08/07/17 Requesting physician: Florence Scott Reason for consult: other (Aspiration pneumonia) Chief complaint: Abdominal pain/nausea/vomiting History of present illness: Ms. Salas is a 67-year-old female presenting to the ER on 08/06/17 for abdominal pain and nausea and vomiting patient has had 9 pound weight loss in the last 1-2 weeks she has had bilious vomit but no hematemesis. CT abdomen was done in the emergency department which did show an abdominal mass most likely pancreatic mass with liver metastases. Patient also had significant hypokalemia which has been corrected. EKG did show a Brugada pattern. Patient was seen by GI and was having an endoscopic ultrasound done to look at the pancreas. During the endoscopy patient did vomit once as they removed the endoscopy tube patient had bilious vomit coming everywhere slightly medially intubated the patient as she was unable to protect her airway. She was then transferred to the ICU with worry for possible aspiration pneumonia. Past Med Surg Social Fam HX - Past Medical History Medical history: cancer, GI bleed, hypertension, other Psychiatric history: anxiety - Past Surgical History Surgical History: no surgical history - Social History Smoking Status: Current every day smoker Packs per day: 1 pack/daily Smokeless Tobacco Status: No Alcohol use: none Drug use: none - Family History Father Adopted: No Twin of Family Member: Yes, Fraternal Living Status: Still Living Hx Family Cardiac Disorders: No Hx Family Respiratory Disorders: No Hx Family Cancer: No Hx Family GI Disorders: No Hx Family Genitourinary Disorders: No Hx Family Endocrine Disorder: No Hx Family Musculoskeletal Disorders: No Hx Family Neuromuscular Disorders: No Hx Family Neurologic Disorders: No Hx Family HEENT Disorders: No Hx Family Autoimmune Disorders: No Hx Family Reproductive Disorders: No Hx Family Psychosocial Disorders: No Hx Family Medical Disorders: No ROS unobtainable: due to endotracheal tube All Systems: The remainder of the systems were reviewed and are negative Physical Examination Vital Signs: Vital Signs, Last 4 Hours Temp Pulse Resp BP Pulse Ox 05/10/18 16:32 96 08/07/17 14:44 98.7 F 97 18 146/74 97 General appearance: no acute distress, other (Patient is intubated and somnolent while sedated.) Eyes: nonicteric ENT: oropharynx moist Neck: supple Effort: normal Inspection: normal Auscultation: bilateral: diminished breath sounds, rhonchi Cardiovascular: regular rate and rhythm Gastrointestinal: normoactive bowel sounds, soft, non-tender, non-distended Integumentary: normal Extremities: no cyanosis, no edema, no clubbing Musculoskeletal: no deformities, ROM normal normal mental status, non-focal exam Ventilator Settings Ventilator Settings: Ventilator Settings, Last 8 Hours Actual Respiratory Rate 20 Positive End Expiratory 5 Pressure Peak Inspiratory Airway 15 Pressure Results - Laboratory Findings CBC and BMP: 08/07/17 01:32 08/07/17 01:32 PT/INR, D-dimer PT 12.7 Seconds (9.4-12.1) H 08/07/17 01:32 Abnormal lab findings: Abnormal lab results WBC 11.8 K/mcL (4.3-11.1) H 08/07/17 01:32 RBC 3.66 M/mcL (3.82-4.97) L 08/07/17 01:32 Hgb 10.6 g/dL (11.5-15.4) L 08/07/17 01:32 Hct 30.3 % (35.3-44.9) L 08/07/17 01:32 MCV 82.8 fL (83.0-100.0) L 08/07/17 01:32 PT 12.7 Seconds (9.4-12.1) H 08/07/17 01:32 Sodium 135 mEq/L (136-145) L 08/07/17 01:32 Potassium 3.3 mEq/L (3.5-5.1) L D 08/07/17 01:32 Carbon Dioxide 20 mEq/L (23-29) L 08/07/17 01:32 BUN 28 mg/dL (8-23) H 08/07/17 01:32 BUN/Creatinine Ratio 36 (6-26) H 08/07/17 01:32 Glucose 185 mg/dL (70-105) H 08/07/17 01:32 - Diagnostic Findings Chest x-ray: image reviewed - Clinical Findings Intake & Output: Intake & Output 08/07/17 08/07/17 08/07/17 07:59 15:59 23:59 Intake Total 240 / 240 Balance 240 / 240 Weight 60.328 kg
--- NOTE | 2017-08-07 16:53 | Anesthesia Evaluation Post Op ---
Date of Encounter: 08/07/17 Time of Encounter: 16:51 - Vital Signs Vital Signs: 103/51, hr 72, spo2 94% on 50%FiO2, rr 12, T 97.7F - Lungs Lungs: Rhonchi (NAOMI > RUL) - Airway Airway: Intubated - Cardiovascular Regular Rate, Baseline Rhythm - Mental Status Mental Status: Sedated - Pain Pain Scale used: Unable to assess - Nausea Vomiting Nausea Vomiting: Unable to assess - Hydration Hydration: NPO, Has not voided - Discharge PostOp Status: Transfer Patient to floor
[2017-08-07] MEDS ORDERED: Ipratropium/Albuterol Neb 3 ML ONE (16:55)
--- NOTE | 2017-08-07 16:57 | Oncology Inp Consult Note ---
<Karly Wallace S - Last Filed: 08/07/17 19:10> Date of Encounter: 08/07/17 - Data of Consult Requesting Physician: Quinton Natarajan MD Primary Care Provider: Brenda Packer-[facility] - Consult Narrative History of present illness: Ms. Salas is a 67 year old female Medications and Allergies Amlodipine Besylate 10 mg PO DAILY 08/06/17 [History] Atorvastatin Calcium [Lipitor] 20 mg PO HS 08/06/17 [History] Escitalopram [Lexapro] 20 mg PO DAILY 08/06/17 [History] Multivitamin [One Daily Multivitamin] 1 tab PO DAILY 08/06/17 [History] Omeprazole [PriLOSEC] 20 mg PO DAILY 08/06/17 [History] Triamterene/HCTZ 37.5/25mg [Dyazide] 1 tab PO DAILY 08/06/17 [History] diazePAM [Valium] 5 mg PO DAILY PRN 08/06/17 [History] Albuterol Sulfate [Albuterol Inhaler] 2 puff IH Q4HR PRN #1 hfa.aer.ad 08/08/17 [Rx] Doxycycline 100 mg PO BID 10 Days #20 capsule 08/08/17 [Rx] Ondansetron ODT [Zofran ODT] 4 mg SL Q6HR PRN #6 tab.rapdis 08/08/17 [Rx] Potassium Chloride 20 meq PO BID #4 tab.er.prt 08/08/17 [Rx] 3 Allergy/AdvReac Type Severity Reaction Status Date / Time Penicillins Allergy Hives Verified 08/06/17 19:41 Sulfa (Sulfonamide Allergy Hives Verified 08/06/17 19:41 Antibiotics) Oncology - Exam - Constitutional Vitals: Temp Pulse Resp BP Pulse Ox 97.7 F 89 18 129/60 97 08/07/17 17:00 08/07/17 17:00 08/07/17 18:00 08/07/17 18:00 08/07/17 18:00 Oncology - Results Labs: Short CBC 08/07/17 Range/Units 01:32 WBC 11.8 H (4.3-11.1) K/mcL Hgb 10.6 L (11.5-15.4) g/dL Hct 30.3 L (35.3-44.9) % Plt Count 329 (140-400) K/mcL Neutrophils # 8.4 (1.6-8.9) K/mcL BMP 08/07/17 01:32 Sodium 135 L Potassium 3.3 L D Chloride 104 Carbon Dioxide 20 L BUN 28 H Creatinine 0.77 Glucose 185 H Calcium 8.8 Consult Discharge Plan - Plan Additional Instructions: 1) follow-up with her primary care doctor as scheduled on Friday. 2) take antibiotics as well as the potassium as directed. You will need repeat labs on Friday. 3) follow-up with oncology as well as GI as discussed. 4) return to the emergency department give any worsening or concerning symptoms. Referrals: Karly Wallace MD [Partnered Physician] - Brenda Titus MD [Primary Care Provider] - 08/11/17 8:30 am Jac Turner MD [Partnered Physician] - Prescriptions: Albuterol Sulfate [Albuterol Inhaler] 2 puff IH Q4HR PRN #1 hfa.aer.ad PRN Reason: wheeze Ondansetron ODT [Zofran ODT] 4 mg SL Q6HR PRN #6 tab.rapdis PRN Reason: Nausea Doxycycline 100 mg PO BID 10 Days #20 capsule Potassium Chloride 20 meq PO BID #4 tab.er.prt - Attending Attestation 1. Likely metastatic pancreatic cancer. Stage IV. CT abdomen and pelvis 08/06/2017 showed mass in the uncinate process of pancreas. Also multiple liver lesions consistent with metastasis She had EUS and biopsy of the pancreas by which showed suspicious cells or malignancy. Final results pending. Discussed with . Currently she is not jaundiced. May consider ERCP and stent placement prophylactically if necessary to prevent jaundice CEA 2.6. CA 19-9 pending To complete workup may consider PET scan as an outpatient 2. After the EUS she had desaturation was temporarily intubated and smoked ICU. Currently she is extubated She has long-term history of smoking. But no major COPD Follow up as an outpatient in 1 week. Further treatment recommendation after above results <Katya Mullins - Last Filed: 08/11/17 13:02> Date of Encounter: 08/11/17 Time of Encounter: 16:45 - Data of Consult Patient: new to practice Consult date: 08/07/17 Requesting Physician: Quinton Natarajan MD Primary Care Provider: Brenda Packer-[facility] - Consult Narrative Reason for consult: Mid abdominal mass History of present illness: Ms. Salas is a 67 year old female with past medical history significant for HTN who presented to the ED for evaluation of epi-gastric abdominal pain, nausea , and vomiting for the past 1-2 weeks. She reports weight loss of around 9 lbs in the past 1-[address] abdomen/pelvis without contrast reveals 1. Mid abdominal mass slightly projecting to the left appears to be contiguous with the head of the pancreas and may originate from the pancreas. This may represent a pancreatic cancer. Alternatively, the mass may be mesenteric in origin and may represent a sarcoma or other neoplastic process. The mass appears to infiltrate around the SMA and also the portal confluence. 2. Extensive metastatic disease to the liver. 3. Cholelithiasis but no acute cholecystitis. 4. Some prominence of the biliary system which may be related to distal encasement of the common bile duct by the mass. She underwent EUS today and has since been admitted to ICU. Following the conclusion of her EUS, patient vomited and her oxygen saturation dropped into the 60s, she was intubated as a result and transferred to the ICU in stable condition. Unable to obtain full ROS or exam at this time-will report to Dr. Wallace who will follow up with patient/family later after admission to ICU. Past Med Surg Social Fam HX - Past Medical History Medical history: cancer, GI bleed, hypertension, other Psychiatric history: anxiety - Past Surgical History Surgical History: no surgical history - Social History Smoking Status: Current every day smoker Packs per day: 1 pack/daily Smokeless Tobacco Status: No Alcohol use: none Drug use: none - Family History Father Adopted: No Twin of Family Member: Yes, Fraternal Living Status: Still Living Hx Family Cardiac Disorders: No Hx Family Respiratory Disorders: No Hx Family Cancer: No Hx Family GI Disorders: No Hx Family Genitourinary Disorders: No Hx Family Endocrine Disorder: No Hx Family Musculoskeletal Disorders: No Hx Family Neuromuscular Disorders: No Hx Family Neurologic Disorders: No Hx Family HEENT Disorders: No Hx Family Autoimmune Disorders: No Hx Family Reproductive Disorders: No Hx Family Psychosocial Disorders: No Hx Family Medical Disorders: No ROS unobtainable: due to endotracheal tube Oncology - Exam - Constitutional Vitals: Temp Pulse Resp BP Pulse Ox 98.7 F 97 18 146/74 96 08/07/17 14:44 08/07/17 14:44 08/07/17 14:44 08/07/17 14:44 08/07/17 16:32 Oncology - Results Labs: Short CBC 08/07/17 Range/Units 01:32 WBC 11.8 H (4.3-11.1) K/mcL Hgb 10.6 L (11.5-15.4) g/dL Hct 30.3 L (35.3-44.9) % Plt Count 329 (140-400) K/mcL Neutrophils # 8.4 (1.6-8.9) K/mcL BMP 08/07/17 01:32 Sodium 135 L Potassium 3.3 L D Chloride 104 Carbon Dioxide 20 L BUN 28 H Creatinine 0.77 Glucose 185 H Calcium 8.8
[2017-08-07] MEDS: methylPREDNISolone 125 MG/2 ML VIAL IVP SCH (18:23)
[2017-08-07] MEDS: Levofloxacin 750 MG/150 ML 750 MG/150 ML BAG IVPB SCH (18:25)
[2017-08-07] MEDS: Ipratropium/Albuterol Neb 3 ML IH SCH ×2 (20:24→23:32)
[2017-08-08] MEDS: Ondansetron 4 MG/2 ML VIAL IVP PRN (01:18)
[2017-08-08] MEDS: MetroNIDAZOLE 500 MG/100 ML 500 MG/100 ML BAG IVPB SCH ×2 (01:19→08:20)
[2017-08-08] MEDS: Ipratropium/Albuterol Neb 3 ML IH SCH ×4 (03:36→16:27)
[2017-08-08 04:40] LABS: Basophils % 0.1 %; Hematocrit 29.1 % (35.3-44.9); Hemoglobin 10.3 g/dL (11.5-15.4); Immature Granulocytes % 0.5 % (0-4); Lymphocytes # 0.7 K/mcL (0.6-4.6); Mean Corpuscular HGB Conc 35.4 g/dL (31.6-35.5); Mean Corpuscular Hemoglobin 30.1 pg (28.0-33.3); Mean Corpuscular Volume 85.1 fL (83.0-100.0); Mean Platelet Volume 10.3 fL (9.4-12.4); Monocytes # 0.4 K/mcL (0.0-1.3); Monocytes % 1.7 %; Platelet Count 282 K/mcL (140-400); Red Blood Count 3.42 M/mcL (3.82-4.97); Red Cell Distribution Width 13.3 % (11.5-14.5); Segmented Neutrophils % 94.7 %
[2017-08-08 04:54] LABS: Neutrophils # 22.1 K/mcL (1.6-8.9)
[2017-08-08 05:00] LABS: BUN/Creatinine Ratio 21 (6-26); Blood Urea Nitrogen 11 mg/dL (8-23); Calcium 8.6 mg/dL (8.6-10.3); Carbon Dioxide 24 mEq/L (23-29); Chloride 106 mEq/L (98-107); Glucose 129 mg/dL (70-105); Osmolality,Calculated 289 (280-300); Potassium 2.6 mEq/L (3.5-5.1); Sodium 139 mEq/L (136-145); eGFR For African Americans > 60 (> 60); eGFR For Non-African Americans > 60 (> 60)
[2017-08-08 05:31] LABS: Platelet Estimate Normal (Normal)
[2017-08-08] MEDS: *HR* Heparin 5,000 UNIT/ML VIAL SQ SCH (06:27)
[2017-08-08] MEDS: methylPREDNISolone 125 MG/2 ML VIAL IVP SCH (06:29)
--- NOTE | 2017-08-08 07:39 | Pulmonology Progress Note ---
<Junior Wheatley - Last Filed: 08/08/17 09:35> Date of Encounter: 08/08/17 Time of Encounter: 07:41 Assessment and Plan (1) Aspiration pneumonia Current Visit: Yes Status: Acute During her procedures reported the patient aspirated bilious emesis. Patient became hypoxic requiring intubation. Patient was transferred to the ICU where the patient was extubated. Patient was activated without difficulty. Patient required some supplemental oxygen which has since improved. Immediate chest x- ray showed possible aspiration the left lung base. Repeat chest x-ray shows a questionable patchy airspace disease at the lung base. Patient was started on antibiotics for presumed aspiration pneumonia. Patient appears to be improving clinically. Patient will be transferred from the ICU. PLAN -Antibiotics for aspiration pneumonia -Supplemental oxygen as needed -Bedside swallow study -Aerosols Qualifiers: Aspiration pneumonia type: due to vomit Laterality: unspecified laterality Lung location: unspecified part of lung Qualified Code(s): J69.0 - Pneumonitis due to inhalation of food and vomit (2) Abdominal mass Current Visit: Yes Status: Acute Identified by imaging. Hematology/oncology consulted. Concerns for pancreatic malignancy. Oncology is on board. Patient underwent an EUS yesterday with GI. Discussed the case with Dr. Riggins who does not plan on further interventions today. Patient is okay to go home today from a GI standpoint with instructions to follow-up next week in the office. Qualifiers: Abdominal location: epigastric Qualified Code(s): R19.06 - Epigastric swelling, mass or lump (3) Hypokalemia Current Visit: Yes Status: Acute Potassium 2.6. Mag pending, prior magnesium levels were unremarkable. No changes on tele. PLAN: -Potassium replacement per protocol. Subjective Principal diagnosis: abdominal mass, aspiration Interval history: Patient seen and examined this morning. Patient was extubated without difficulty yesterday following transfer to ICU for likely aspiration. Patient had an uneventful overnight. Patient denies any issues at this time. Patient denies any significant cough. No increased work of breathing. No abdominal pain. Patient states that she has a wedding that she needs to attend tomorrow. Patient's requesting to be discharged today. Objective PUL Vital signs: Last Vital Signs Temp 99.0 F 08/08/17 03:49 Pulse 105 08/08/17 06:00 Resp 14 08/08/17 06:00 BP 141/62 05/11/18 06:00 Pulse Ox 98 08/08/17 06:00 General appearance: no acute distress Eyes: nonicteric ENT: oropharynx moist Neck: supple Effort: normal Auscultation: bilateral: clear Cardiovascular: other (Tachycardic) Gastrointestinal: normoactive bowel sounds, soft Integumentary: normal Extremities: no cyanosis Musculoskeletal: no deformities normal mental status, non-focal exam mood appropriate Results - Laboratory Findings CBC and BMP: 08/08/17 04:15 08/08/17 04:15 PT/INR, D-dimer PT 12.7 Seconds (9.4-12.1) H 08/07/17 01:32 Abnormal lab findings: Abnormal lab results WBC 23.3 K/mcL (4.3-11.1) H D 08/08/17 04:15 RBC 3.42 M/mcL (3.82-4.97) L 08/08/17 04:15 Hgb 10.3 g/dL (11.5-15.4) L 08/08/17 04:15 Hct 29.1 % (35.3-44.9) L 08/08/17 04:15 Neutrophils # 22.1 K/mcL (1.6-8.9) H 08/08/17 04:15 PT 12.7 Seconds (9.4-12.1) H 08/07/17 01:32 Potassium 2.6 mEq/L (3.5-5.1) L 08/08/17 04:15 Creatinine 0.53 mg/dL (0.60-1.20) L 08/08/17 04:15 Glucose 129 mg/dL (70-105) H 08/08/17 04:15 POC Glucose 129 mg/dL (70-99) H 08/07/17 16:30 - Diagnostic Findings Chest x-ray: report reviewed, image reviewed - Clinical Findings Intake & Output: Intake & Output 08/07/17 08/07/17 08/08/17 15:59 23:59 07:59 Intake Total 240 / 240 1150 / 1150 100 / 100 Output Total 0 / 0 Balance 240 / 240 1150 / 1150 100 / 100 Consult Discharge Plan - Plan Referrals: Brenda Titus MD [Primary Care Provider] - Karly Wallace MD [Partnered Physician] - Jac Turner MD [Partnered Physician] - <RebekaranjithVinh hartman M - Last Filed: 08/08/17 12:59> Date of Encounter: 08/08/17 Objective PUL Vital signs: Last Vital Signs Temp 98.8 F 08/08/17 07:55 Pulse 117 08/08/17 12:00 Resp 16 08/08/17 12:00 BP 137/68 08/08/17 12:00 Pulse Ox 97 08/08/17 11:22 Results - Laboratory Findings CBC and BMP: 08/08/17 04:15 08/08/17 04:15 PT/INR, D-dimer PT 12.7 Seconds (9.4-12.1) H 08/07/17 01:32 Abnormal lab findings: Abnormal lab results WBC 23.3 K/mcL (4.3-11.1) H D 08/08/17 04:15 RBC 3.42 M/mcL (3.82-4.97) L 08/08/17 04:15 Hgb 10.3 g/dL (11.5-15.4) L 08/08/17 04:15 Hct 29.1 % (35.3-44.9) L 08/08/17 04:15 Neutrophils # 22.1 K/mcL (1.6-8.9) H 08/08/17 04:15 PT 12.7 Seconds (9.4-12.1) H 08/07/17 01:32 Potassium 2.6 mEq/L (3.5-5.1) L 08/08/17 04:15 Creatinine 0.53 mg/dL (0.60-1.20) L 08/08/17 04:15 Glucose 129 mg/dL (70-105) H 08/08/17 04:15 POC Glucose 129 mg/dL (70-99) H 08/07/17 16:30 Magnesium 1.5 mg/dL (1.6-2.6) L 08/08/17 04:15 - Clinical Findings Intake & Output: Intake & Output 08/07/17 08/08/17 08/08/17 23:59 07:59 15:59 Intake Total 1150 / 1150 100 / 100 1940 / 1940 Output Total 100 / 100 225 / 225 Balance 1150 / 1150 0 / 0 1715 / 1715 - Attending Attestation I examined this patient and my medical decision-making was reviewed with the Resident Physician. I agree with the documented findings, disposition and treatment plan as described except to the extent set forth below. Patient seen and examined. Labs, radiology, chart personally reviewed. Agree with resident's history and physical, assessment, plan with following comments: SR. OPERATIONS MANAGER: Patient follows commands, Pulmonary: Acceptable oxygenation and ventilation and continue bronchodilators Cardiovascular: stable GI: Nutrition per dietary and GI prophylaxis per routine. Follow up with oncology and GI Heme: DVT prophylaxis per routine ID: Continue antibiotics and plan to de-escalation Renal; urine out put and renal funtion reviewed. Replace electrolytes Endorcine: blood glucose is monitored Lines: all lines checked and no evidence of infections Skin: skin care to prevent pressure ulcers per nursing routine care Patient hemodynamically stable and can be transferred to the floor.
[2017-08-08 08:07] LABS: Magnesium 1.5 mg/dL (1.6-2.6)
[2017-08-08] MEDS: Multivit/Ca/Min/Fe/FA 1 TAB TABLET PO SCH (08:09)
[2017-08-08] MEDS: amLODIPine 5 MG TABLET PO SCH (08:12)
[2017-08-08] MEDS: Pantoprazole 40 MG VIAL IVP SCH (08:12)
[2017-08-08] MEDS: 0.9 % Sodium Chloride 1,000 ML IVC SCH ×2 (09:58→15:55)
[2017-08-08] MEDS: Levofloxacin 750 MG/150 ML 750 MG/150 ML BAG IVPB SCH (10:37)
--- NOTE | 2017-08-08 15:52 | Discharge Summary ---
<Junior Wheatley - Last Filed: 08/08/17 16:55> - NOTES TO OUTPATIENT PROVIDER Notes to Outpatient Provider: Being treated for aspiration during EUS procedure. Would benefit from follow-up chest XRY. Also has been on Potassium and will need repeat labs. Expected to follow-up with GI and Onc. Orders not resulted at time of discharge: Pending orders 08/07/17 15:49 Surgical Pathology [PTH] Routine 08/08/17 16:00 Magnesium Routine Potassium Timed 08/09/17 07:00 Basic Metabolic Panel DAILY 08/10/17 07:00 Basic Metabolic Panel DAILY Date of Encounter: 08/08/17 Time of Encounter: 15:54 - Discharge Diagnosis (1) Aspiration pneumonia Priority: Primary Status: Acute Qualifiers: Aspiration pneumonia type: due to vomit Laterality: unspecified laterality Lung location: unspecified part of lung Qualified Code(s): J69.0 - Pneumonitis due to inhalation of food and vomit (2) Abdominal mass Priority: Secondary Status: Acute Qualifiers: Abdominal location: epigastric Qualified Code(s): R19.06 - Epigastric swelling, mass or lump (3) Hypokalemia Priority: Secondary Status: Acute (4) Tobacco abuse Priority: Secondary Status: Acute - Discharge Medications Prescriptions: Albuterol Sulfate [Albuterol Inhaler] 2 puff IH Q4HR PRN #1 hfa.aer.ad PRN Reason: wheeze Ondansetron ODT [Zofran ODT] 4 mg SL Q6HR PRN #6 tab.rapdis PRN Reason: Nausea Doxycycline 100 mg PO BID 10 Days #20 capsule Potassium Chloride 20 meq PO BID #4 tab.er.prt Home Medications: Amlodipine Besylate 10 mg PO DAILY 08/06/17 [History] Atorvastatin Calcium [Lipitor] 20 mg PO HS 08/06/17 [History] Escitalopram [Lexapro] 20 mg PO DAILY 08/06/17 [History] Multivitamin [One Daily Multivitamin] 1 tab PO DAILY 08/06/17 [History] Omeprazole [PriLOSEC] 20 mg PO DAILY 08/06/17 [History] Triamterene/HCTZ 37.5/25mg [Dyazide] 1 tab PO DAILY 08/06/17 [History] diazePAM [Valium] 5 mg PO DAILY PRN 08/06/17 [History] Albuterol Sulfate [Albuterol Inhaler] 2 puff IH Q4HR PRN #1 hfa.aer.ad 08/08/17 [Rx] Doxycycline 100 mg PO BID 10 Days #20 capsule 08/08/17 [Rx] Ondansetron ODT [Zofran ODT] 4 mg SL Q6HR PRN #6 tab.rapdis 08/08/17 [Rx] Potassium Chloride 20 meq PO BID #4 tab.er.prt 08/08/17 [Rx] Allergies/Adverse Reactions: 3 Allergy/AdvReac Type Severity Reaction Status Date / Time Penicillins Allergy Hives Verified 08/06/17 19:41 Sulfa (Sulfonamide Allergy Hives Verified 08/06/17 19:41 Antibiotics) Labs on day of discharge: Labs from last 24 hours 08/08/17 08/08/17 08/07/17 04:15 04:15 18:12 WBC 23.3 H D RBC 3.42 L Hgb 10.3 L Hct 29.1 L MCV 85.1 MCH 30.1 MCHC 35.4 RDW 13.3 Plt Count 282 MPV 10.3 Immature Gran % 0.5 Seg Neutrophils % 94.7 Lymphocytes % 3.0 Monocytes % 1.7 Eosinophils % 0.0 Basophils % 0.1 Neutrophils # 22.1 H Lymphocytes # 0.7 Monocytes # 0.4 Eosinophils # 0.0 Basophils # 0.0 Platelet Estimate Normal Sodium 139 Potassium 2.6 L Chloride 106 Carbon Dioxide 24 BUN 11 Creatinine 0.53 L Est GFR ( Amer) > 60 Est GFR (Non-Af Amer) > 60 BUN/Creatinine Ratio 21 Glucose 129 H POC Glucose Calculated Osmolality 289 Calcium 8.6 Magnesium 1.5 L Carcinoembryonic Ag 2.6 CA 19-9 Antigen 08/07/17 08/07/17 16:30 01:32 WBC RBC Hgb Hct MCV MCH MCHC RDW Plt Count MPV Immature Gran % Seg Neutrophils % Lymphocytes % Monocytes % Eosinophils % Basophils % Neutrophils # Lymphocytes # Monocytes # Eosinophils # Basophils # Platelet Estimate Sodium Potassium Chloride Carbon Dioxide BUN Creatinine Est GFR ( Amer) Est GFR (Non-Af Amer) BUN/Creatinine Ratio Glucose POC Glucose 129 H Calculated Osmolality Calcium Magnesium Carcinoembryonic Ag CA 19-9 Antigen 1251 H - Impressions ITS Impressions Chest X-Ray 08/07/17 15:55 IMPRESSION: Endotracheal tube in good position. Minimal patchy airspace opacity left lung base - differential diagnosis includes atelectasis, minimal pneumonia, or possible aspiration. D/ / Tito Bonilla MD / Tito Bonilla MD Interpreting Provider: Tito Bonilla MD Echocardiogram 08/07/17 21:01 Impressions: LVEF 60-65%. Mild left ventricular diastolic dysfunction. Normal right ventricular structure and function. Mild tricuspid regurgitation. No pulmonary hypertension. Left Ventricular Wall Motion: Rest Echo Findings All wall segments showed normal motion. Findings: Study Quality * Technically adequate exam. ECG Findings * Normal sinus rhythm. Left Ventricle * LVEF 60-65%. * Normal LV chamber size, wall thickness and function. * Mild left ventricular diastolic dysfunction. Right Ventricle * Normal right ventricular structure and function. Left Atrium * Moderately dilated left atrium. Right Atrium * Normal right atrial size. Mitral Valve * No mitral stenosis. * No mitral regurgitation. * Possible mild billowing of the anterior mitral valve leaflet. Aortic Valve * No aortic regurgitation. * Aortic valve not well visualized. * No aortic stenosis. Tricuspid Valve * Tricuspid valve not well visualized. * Mild tricuspid regurgitation. * Estimated RA pressure is 3 mmHg. * Estimated RVSP is 25 mmHg. * No pulmonary hypertension. Pulmonic Valve * Pulmonic valve is not well visualized. * No pulmonic stenosis. * No pulmonic regurgitation. Pulmonary Artery * Pulmonary artery not well visualized. Aorta * Not well visualized. Pericardium * There is no pericardial effusion present. Interatrial Septum * No evidence of PFO by color Doppler. IVC * Normal IVC dimensions and inspiratory collapse. Chest X-Ray 08/08/17 04:00 IMPRESSION: Questionable patchy airspace disease at left lung base versus summation artifact with overlying ribs. Interval extubation. No pneumothorax. D/ / Julito Martinez / Julito Martinez Interpreting Provider: Julito Martinez Date of admission: 08/06/17 20:54 Primary care physician: Brenda Kaufman Consults: 08/06/17 21:01 Consult to Gastroenterology [CONS] Routine Consulting Provider: Riya Faye Reason for Consult: New diagnosed pancrease cancer Call Completed: No Consult to Oncology Hematology [CONS] Routine Consulting Provider: Karly Wallace Reason for Consult: Newly find pancrease cancer Call Completed: Yes Discharging clinician: Junior Wheatley Anticipated date of discharge: 08/08/17 - Patient Status Disposition: Home, Self-Care Condition: Fair Overall status at discharge: patient is progressing back to baseline - Discharge Instructions Follow Up With: Karly Wallace MD [Partnered Physician] - Jac Turner MD [Partnered Physician] - Brenda Titus MD [Primary Care Provider] - 08/11/17 8:30 am Additional Instructions: 1) follow-up with her primary care doctor as scheduled on Friday. 2) take antibiotics as well as the potassium as directed. You will need repeat labs on Friday. 3) follow-up with oncology as well as GI as discussed. 4) return to the emergency department give any worsening or concerning symptoms. - Diet and Activity Activity: increase activity as tolerated Diet: advance to your usual diet (increase the amount of potassium containing foods in your diet.) - Hospital Course Hospital course: Ms. Salas is a 67 year old female who is admitted for nausea vomiting and abdominal pain. Throughout the patient's hospital stay the patient had a pancreatic mass which was suspicious for malignancy. Patient also had evidence of likely metastatic disease. Patient was admitted to the hospitalist service. Oncology as well as gastroenterology were consulted. Patient was undergoing a procedure with gastroenterology where she likely aspirated requiring intubation and transfer to the ICU. Immediately upon arrival to the ICU, the patient was extubated to nasal cannula and gradually decrease oxygen support. Patient was observed in the ICU overnight. Patient has required multiple replacements of potassium. Initially the patient's potassium is likely related to GI losses and vomiting. Patient states that she would like to be discharged as she has a wedding that she has a family wedding to go to tomorrow. Patient did get repleted several times with IV as well as enteral potassium and magnesium. At time of discharge the potassium level was appropriate and the patient will be discharged on additional potassium supplementation over the next 2 days with instructions to follow-up with her primary care doctor on Friday. Patient does have a scheduled appointment on Friday. This case was also discussed with Dr. Turner who felt it was appropriate for the patient from a GI standpoint to be discharged. Patient is aware of the risks of leaving prior to continue the evaluation however despite these risks the patient states that she would like to go to a wedding tomorrow. Patient's [place] family agree. Believe this is a reasonable compromise of the patient does have close follow- up with an appointment rescheduled in 2 days. Patient is aware to return to the emergency department if symptoms worsen. Patient was instructed that she is going to need additional potassium over the next couple days with repeat evaluation. Patient was covered initially for possible aspiration pneumonia. Given the post chest x-ray and the fact the patient respiratory status is improving patient less likely has a significant aspiration. Patient will be discharged on doxycycline for potential aspiration as there is no or little concern for anaerobes. Patient also be prescribed albuterol inhaler, Zofran. At time of discharge the patient is able to ambulate without difficulty without being hypoxic and is expected to progress with outpatient treatment plan. Time spent discussing smoking cessation with patient: 3 to 10 minutes - Time Spent with Patient Total time spent providing and/or coordinating discharge services: Greater than 30 minutes Physical Examination Vital Signs: Vital Signs, Last 4 Hours Pulse Resp BP 08/08/17 14:00 108 18 133/63 08/08/17 12:00 117 16 137/68 General appearance: no acute distress Eyes: nonicteric ENT: oropharynx moist Neck: supple Effort: normal Inspection: normal Auscultation: bilateral: clear Cardiovascular: regular rate and rhythm Gastrointestinal: normoactive bowel sounds Integumentary: normal Extremities: no cyanosis Musculoskeletal: no deformities normal mental status, non-focal exam <Vinh Billy M - Last Filed: 08/08/17 17:12> Orders not resulted at time of discharge: Pending orders 08/07/17 15:49 Surgical Pathology [PTH] Routine Date of Encounter: 08/08/17 Labs on day of discharge: Labs from last 24 hours 08/08/17 08/08/17 08/08/17 15:43 15:43 04:15 WBC RBC Hgb Hct MCV MCH MCHC RDW Plt Count MPV Immature Gran % Seg Neutrophils % Lymphocytes % Monocytes % Eosinophils % Basophils % Neutrophils # Lymphocytes # Monocytes # Eosinophils # Basophils # Platelet Estimate Sodium 139 Potassium 3.0 L 2.6 L Chloride 106 Carbon Dioxide 24 BUN 11 Creatinine 0.53 L Est GFR ( Amer) > 60 Est GFR (Non-Af Amer) > 60 BUN/Creatinine Ratio 21 Glucose 129 H Calculated Osmolality 289 Calcium 8.6 Magnesium 1.9 1.5 L Carcinoembryonic Ag CA 19-9 Antigen 08/08/17 08/07/17 08/07/17 04:15 18:12 01:32 WBC 23.3 H D RBC 3.42 L Hgb 10.3 L Hct 29.1 L MCV 85.1 MCH 30.1 MCHC 35.4 RDW 13.3 Plt Count 282 MPV 10.3 Immature Gran % 0.5 Seg Neutrophils % 94.7 Lymphocytes % 3.0 Monocytes % 1.7 Eosinophils % 0.0 Basophils % 0.1 Neutrophils # 22.1 H Lymphocytes # 0.7 Monocytes # 0.4 Eosinophils # 0.0 Basophils # 0.0 Platelet Estimate Normal Sodium Potassium Chloride Carbon Dioxide BUN Creatinine Est GFR ( Amer) Est GFR (Non-Af Amer) BUN/Creatinine Ratio Glucose Calculated Osmolality Calcium Magnesium Carcinoembryonic Ag 2.6 CA 19-9 Antigen 1251 H - Impressions ITS Impressions Chest X-Ray 08/07/17 15:55 IMPRESSION: Endotracheal tube in good position. Minimal patchy airspace opacity left lung base - differential diagnosis includes atelectasis, minimal pneumonia, or possible aspiration. D/ / Tito Bonilla MD / Tito Bonilla MD Interpreting Provider: Tito Bonilla MD Echocardiogram 08/07/17 21:01 Impressions: LVEF 60-65%. Mild left ventricular diastolic dysfunction. Normal right ventricular structure and function. Mild tricuspid regurgitation. No pulmonary hypertension. Left Ventricular Wall Motion: Rest Echo Findings All wall segments showed normal motion. Findings: Study Quality * Technically adequate exam. ECG Findings * Normal sinus rhythm. Left Ventricle * LVEF 60-65%. * Normal LV chamber size, wall thickness and function. * Mild left ventricular diastolic dysfunction. Right Ventricle * Normal right ventricular structure and function. Left Atrium * Moderately dilated left atrium. Right Atrium * Normal right atrial size. Mitral Valve * No mitral stenosis. * No mitral regurgitation. * Possible mild billowing of the anterior mitral valve leaflet. Aortic Valve * No aortic regurgitation. * Aortic valve not well visualized. * No aortic stenosis. Tricuspid Valve * Tricuspid valve not well visualized. * Mild tricuspid regurgitation. * Estimated RA pressure is 3 mmHg. * Estimated RVSP is 25 mmHg. * No pulmonary hypertension. Pulmonic Valve * Pulmonic valve is not well visualized. * No pulmonic stenosis. * No pulmonic regurgitation. Pulmonary Artery * Pulmonary artery not well visualized. Aorta * Not well visualized. Pericardium * There is no pericardial effusion present. Interatrial Septum * No evidence of PFO by color Doppler. IVC * Normal IVC dimensions and inspiratory collapse. Chest X-Ray 08/08/17 04:00 IMPRESSION: Questionable patchy airspace disease at left lung base versus summation artifact with overlying ribs. Interval extubation. No pneumothorax. D/ / Julito Martinez / Julito Martinez Interpreting Provider: Julito Martinez Date of admission: 08/06/17 20:54 Primary care physician: Brenda Packer-Bisi Consults: 08/06/17 21:01 Consult to Gastroenterology [CONS] Routine Consulting Provider: Gastroenterology Neyda Reason for Consult: New diagnosed pancrease cancer Call Completed: No Consult to Oncology Hematology [CONS] Routine Consulting Provider: Karly Wallace Reason for Consult: Newly find pancrease cancer Call Completed: Yes - Hospital Course Hospital course: Ms. Salas is a 67 year old female - Time Spent with Patient Total time spent providing and/or coordinating discharge services: Physical Examination Vital Signs: Vital Signs, Last 4 Hours Pulse Resp BP 08/08/17 16:00 106 20 130/67 08/08/17 14:00 108 18 133/63 - Attending Attestation I examined this patient and my medical decision-making was reviewed with the Resident Physician. I agree with the documented findings, disposition and treatment plan as described except to the extent set forth below. Patient remained hemodynamically stable and she insisted that she wants to go home and she understand her electrolyte still needs to be corrected, however is mild and can be treated as outpatient. Patient already has a follow-up appointment with the primary care to follow up with blood work. Patient also to follow up with oncology and gastroenterology. Continue empiric antibiotics for possible aspiration pneumonia.
[2017-08-08 16:09] VITALS: BP 130/67
== END 2017-08-08 17:10 | disposition home or self-care (01) | DRG 435 ==
LOC: EMEROO 16:18 → 2ANU 16:18 → ICNU 08-07 15:57
PROVIDERS: ADMIT Pediatrics; ATTEND Pediatrics
PROC: ENDOEUS (2017-08-07 14:00)

== ENCOUNTER 2017-08-19 12:43 | Inpatient (IN) ==
[2017-08-19] MEDS ORDERED: Metoclopramide 10 MG/2 ML VIAL IVP ONE (13:09)
[2017-08-19] MEDS ORDERED: 0.9 % Sodium Chloride 1,000 ML IVC ONE (13:09)
[2017-08-19] MEDS ORDERED: *HR* FentaNYL (PF) 100 MCG/2 ML VIAL IVP ONE (13:35)
--- NOTE | 2017-08-19 13:36 | Emergency Department Note ---
Disposition Clinical Impression: Hypokalemia, Acute kidney injury, Dehydration Nausea and vomiting Qualifiers: Vomiting type: unspecified Vomiting Intractability: unspecified Qualified Code( s): R11.2 - Nausea with vomiting, unspecified Disposition: Admitted As Inpatient Condition: Fair Forms: ED Satisfaction Letter, Work/School Release Time of Disposition: 14:45 General Adult HPI - General Chief complaint: ED General Medical Stated complaint: N/V, Hypotension Time Seen by Provider: 08/19/17 12:52 Source: patient, EMS Mode of arrival: ambulatory Limitations: no limitations Nursing Notes Reviewed: Yes Vital Signs Reviewed: Yes - History of Present Illness HPI Narrative: 67-year-old female presents emergency Department with concerns of persistent nausea and vomiting. Patient states she was recently diagnosed with pancreatic cancer, she had endoscopy performed within the past few weeks and aspirated and has since been on antibiotics. Patient states that she has not syncopized, she denies hematemesis or coffee-ground emesis. Family states she vomits at least 4 -5 times a day and is unable to keep down her medications or other by mouth intake. Patient denies fever, chest pain, shortness of breath, palpitations. Patient has not started chemotherapy prior to today. She is following with Dr. Wallace regarding her pancreatic cancer. She is scheduled for placement of a port as well as for a repeat endoscopy to place a stent in her pancreas and common bile duct. Pain Scale: 0 - Related Data Home Medications Medication Instructions Recorded Confirmed Amlodipine Besylate 10 mg PO DAILY 08/06/17 08/19/17 Atorvastatin Calcium [Lipitor] 20 mg PO HS 08/06/17 08/19/17 Escitalopram [Lexapro] 20 mg PO DAILY 08/06/17 08/19/17 Multivitamin [One Daily 1 tab PO DAILY 08/06/17 08/19/17 Multivitamin] Omeprazole [PriLOSEC] 20 mg PO DAILY 08/06/17 08/19/17 Triamterene/HCTZ 37.5/25mg 1 tab PO DAILY 08/06/17 08/19/17 [Dyazide] diazePAM [Valium] 5 mg PO DAILY PRN 08/06/17 08/19/17 Previous Rx's Medication Instructions Recorded Albuterol Sulfate [Albuterol 2 puff IH Q4HR PRN #1 hfa.aer.ad 08/08/17 Inhaler] Doxycycline 100 mg PO BID 10 Days #20 capsule 08/08/17 Ondansetron ODT [Zofran ODT] 4 mg SL Q6HR PRN #6 tab.rapdis 08/08/17 Potassium Chloride 20 meq PO BID #4 tab.er.prt 08/08/17 Docusate Sodium [Colace] 1 cap PO BID #60 capsule 08/14/17 FentaNYL PATCH [Duragesic] 1 patch TD Q72H 30 Days #10 08/14/17 patch.td72 Hydromorphone HCl [Dilaudid] 1 tab PO Q6H PRN 15 Days #60 tablet 08/14/17 Lipase/Protease/Amylase [Creon Dr 1 each PO ACHS #90 cap 08/14/17 24,000 Units Capsule] Polyethylene Glycol 3350 [MiraLAX] 17 gm PO DAILY #30 powd.pack 08/14/17 Allergies Allergy/AdvReac Type Severity Reaction Status Date / Time Penicillins Allergy Hives Verified 08/19/17 11:49 Sulfa (Sulfonamide Allergy Hives Verified 08/19/17 11:49 Antibiotics) All systems ED: reviewed and negative except as stated. Review of Systems: As Per HPI Past Medical History - Past Medical History Attestation: Yes The following information was validated with the patient. Source: patient, obtained from family Medical history: Reports: cancer, GI bleed, hypertension, other Surgical history: Reports: no surgical history Psychiatric history: Reports: anxiety - Social History Smoking Status: Former smoker Smokeless Tobacco Status: No Alcohol use: Reports: none Drug use: Reports: none Physical Exam General: Alert and in no acute distress Skin: Warm, dry, intact Head: Normocephalic and atraumatic Neck: Supple, trachea midline and no tenderness Cardiovascular: Tachycardia, no murmur, normal perfusion Respiratory: CTAB, no wheezing, cough, or respiratory distress Musculoskeletal: Normal strength, no tenderness, swelling or deformity GI: Soft, nontender, nondistended. Bowel sounds present Neuro: A&O to person, place, time and situation. No focal deficits noted on exam Psychiatric: cooperative and appropriate mood and affect. - General Limitations: no limitations General appearance: alert, in no apparent distress Course Vital Signs Temperature 98.3 F 08/19/17 12:50 Pulse Rate 113 08/19/17 12:50 Respiratory Rate 18 08/19/17 12:50 Blood Pressure 123/82 08/19/17 12:50 O2 Sat by Pulse Oximetry 98 08/19/17 12:50 Temperature 98.3 F 08/19/17 12:50 Pulse Rate 99 08/19/17 13:27 Respiratory Rate 20 08/19/17 13:27 Blood Pressure 119/76 08/19/17 13:27 O2 Sat by Pulse Oximetry 97 08/19/17 13:27 Oxygen Delivery Oxygen Delivery Room Air Medical Decision Making - MDM Narrative Medical decision making narrative: Patient given potassium to treat her hypokalemia. Patient has acute kidney injury likely from dehydration. Patient's nausea and vomiting improved with Reglan and Benadryl and IV fluids in the emergency department. Patient will be admitted to the hospitalist for further care and evaluation - Medical Records Medical records reviewed: Yes I reviewed the patient's medical records. - Lab Data Lab results reviewed: Yes I reviewed the patient's lab results. Result diagrams: 08/19/17 13:08 08/19/17 13:08 Lab Results 08/19/17 08/19/17 08/19/17 Range/Units 13:08 13:08 13:08 WBC 19.4 H (4.3-11.1) K/mcL RBC 4.50 (3.82-4.97) M/mcL Hgb 12.7 (11.5-15.4) g/dL Hct 37.8 (35.3-44.9) % MCV 84.0 (83.0-100.0) fL MCH 28.2 (28.0-33.3) pg MCHC 33.6 (31.6-35.5) g/dL RDW 13.2 (11.5-14.5) % Plt Count 387 (140-400) K/mcL MPV 10.5 (9.4-12.4) fL Immature Gran % 0.6 (0-4) % Seg Neutrophils % 86.9 % Lymphocytes % 7.9 % Monocytes % 3.7 % Eosinophils % 0.4 % Basophils % 0.5 % Neutrophils # 16.9 H (1.6-8.9) K/mcL Lymphocytes # 1.5 (0.6-4.6) K/mcL Monocytes # 0.7 (0.0-1.3) K/mcL Eosinophils # 0.1 (0.0-0.6) K/mcL Basophils # 0.1 (0.0-0.2) K/mcL PT 18.0 H (9.4-12.1) Seconds INR 1.7 APTT 33.3 (26.0-36.0) Seconds Sodium 135 L (136-145) mEq/L Potassium 2.7 L (3.5-5.1) mEq/L Chloride 83 L (98-107) mEq/L Carbon Dioxide 30 H (23-29) mEq/L BUN 48 H (8-23) mg/dL Creatinine 1.43 H (0.60-1.20) mg/dL Est GFR ( Amer) 44 L (> 60) Est GFR (Non-Af Amer) 36 L (> 60) BUN/Creatinine Ratio 34 H (6-26) Glucose 81 (70-105) mg/dL Calculated Osmolality 292 (280-300) Lactic Acid (0.5-2.2) mmol/L Calcium 10.4 H (8.6-10.3) mg/dL Total Bilirubin 0.6 (0.3-1.0) mg/dL Direct Bilirubin 0.2 (0.0-0.2) mg/dL Indirect Bilirubin 0.4 (0.0-1.2) mg/dL AST 44 H (13-39) Units/L ALT 32 (7-52) Units/L Alkaline Phosphatase 162 H (34-104) Units/L Troponin I 0.03 (< 0.04) ng/mL Serum Total Protein 7.4 (6.4-8.9) g/dL Albumin 3.8 (3.5-5.7) g/dL Globulin 3.6 H (2.4-3.5) g/dL Albumin/Globulin Ratio 1.1 (1.1-2.2) Amylase 84 (29-103) Units/L Lipase 48 (11-82) Units/L Specimen Rejected 08/19/17 08/19/17 Range/Units 13:19 14:27 WBC (4.3-11.1) K/mcL RBC (3.82-4.97) M/mcL Hgb (11.5-15.4) g/dL Hct (35.3-44.9) % MCV (83.0-100.0) fL MCH (28.0-33.3) pg MCHC (31.6-35.5) g/dL RDW (11.5-14.5) % Plt Count (140-400) K/mcL MPV (9.4-12.4) fL Immature Gran % (0-4) % Seg Neutrophils % % Lymphocytes % % Monocytes % % Eosinophils % % Basophils % % Neutrophils # (1.6-8.9) K/mcL Lymphocytes # (0.6-4.6) K/mcL Monocytes # (0.0-1.3) K/mcL Eosinophils # (0.0-0.6) K/mcL Basophils # (0.0-0.2) K/mcL PT (9.4-12.1) Seconds INR APTT (26.0-36.0) Seconds Sodium (136-145) mEq/L Potassium (3.5-5.1) mEq/L Chloride (98-107) mEq/L Carbon Dioxide (23-29) mEq/L BUN (8-23) mg/dL Creatinine (0.60-1.20) mg/dL Est GFR ( Amer) (> 60) Est GFR (Non-Af Amer) (> 60) BUN/Creatinine Ratio (6-26) Glucose (70-105) mg/dL Calculated Osmolality (280-300) Lactic Acid 0.9 (0.5-2.2) mmol/L Calcium (8.6-10.3) mg/dL Total Bilirubin (0.3-1.0) mg/dL Direct Bilirubin (0.0-0.2) mg/dL Indirect Bilirubin (0.0-1.2) mg/dL AST (13-39) Units/L ALT (7-52) Units/L Alkaline Phosphatase (34-104) Units/L Troponin I (< 0.04) ng/mL Serum Total Protein (6.4-8.9) g/dL Albumin (3.5-5.7) g/dL Globulin (2.4-3.5) g/dL Albumin/Globulin Ratio (1.1-2.2) Amylase (29-103) Units/L Lipase (11-82) Units/L Specimen Rejected Accident - Radiology Data Radiology results reviewed: Yes I reviewed the patient's radiology results.
[2017-08-19 13:43] LABS: Basophils # 0.1 K/mcL (0.0-0.2); Basophils % 0.5 %; Eosinophils # 0.1 K/mcL (0.0-0.6); Eosinophils % 0.4 %; Hematocrit 37.8 % (35.3-44.9); Hemoglobin 12.7 g/dL (11.5-15.4); Immature Granulocytes % 0.6 % (0-4); Lymphocytes # 1.5 K/mcL (0.6-4.6); Lymphocytes % 7.9 %; Mean Corpuscular HGB Conc 33.6 g/dL (31.6-35.5); Mean Corpuscular Hemoglobin 28.2 pg (28.0-33.3); Mean Platelet Volume 10.5 fL (9.4-12.4); Monocytes # 0.7 K/mcL (0.0-1.3); Monocytes % 3.7 %; Neutrophils # 16.9 K/mcL (1.6-8.9); Platelet Count 387 K/mcL (140-400); Red Cell Distribution Width 13.2 % (11.5-14.5); Segmented Neutrophils % 86.9 %
[2017-08-19 13:44] LABS: INR 1.7
[2017-08-19 13:52] LABS: Activated Partial Thrombo Time 33.3 Seconds (26.0-36.0)
[2017-08-19 14:00] LABS: Troponin I 0.03 ng/mL (< 0.04)
[2017-08-19 14:06] LABS: Albumin 3.8 g/dL (3.5-5.7); Albumin/Globulin Ratio 1.1 (1.1-2.2); Bilirubin,Direct 0.2 mg/dL (0.0-0.2); Bilirubin,Indirect 0.4 mg/dL (0.0-1.2); Bilirubin,Total 0.6 mg/dL (0.3-1.0); Calcium 10.4 mg/dL (8.6-10.3); Globulin 3.6 g/dL (2.4-3.5); Potassium 2.7 mEq/L (3.5-5.1); Total Protein 7.4 g/dL (6.4-8.9)
[2017-08-19] MEDS ORDERED: Potassium Chloride Elixir 20 MEQ/15 ML UDC PO ONE (15:45)
[2017-08-19 15:51] LABS: Magnesium 2.4 mg/dL (1.6-2.6)
--- NOTE | 2017-08-19 15:57 | Internal Med History&Physical ---
Date of Encounter: 08/19/17 Time of Encounter: 04:00 Internal Medicine - H&P: HPI Chief complaint: N/V History of present illness: Ms. Salas is a 67 year old female was best medical history significant for recently diagnosed with pancreatic cancer, s/p aspiration during endoscopy who presents emergency Department with concerns of persistent nausea and vomiting and unable to keep anything down including her medication. She is following with Dr. Wallace for pancreatic cancer. She is scheduled for placement of a port as well as for a repeat endoscopy to place a stent in her pancreas and common bile duct. the patient was evaluated by the ER staff and her laboratory data revealed significant hypokalemia associated with acute kidney injury and hyponatremia, she was admitted for further evaluation and management. Past Med Surg Social Fam HX - Past Medical History Medical history: cancer, GI bleed, hypertension, other Psychiatric history: anxiety - Past Surgical History Surgical History: no surgical history - Social History Smoking Status: Former smoker Smokeless Tobacco Status: No Alcohol use: none Drug use: none - Family History Father Adopted: No Twin of Family Member: Yes, Fraternal Living Status: Still Living Hx Family Cardiac Disorders: No Hx Family Respiratory Disorders: No Hx Family Cancer: No Hx Family GI Disorders: No Hx Family Endocrine Disorder: No Hx Family Neuromuscular Disorders: No Hx Family Neurologic Disorders: No Hx Family HEENT Disorders: No Hx Family Autoimmune Disorders: No Internal Medicine - H&P: Meds Amlodipine Besylate 10 mg PO DAILY 08/06/17 [History] Atorvastatin Calcium [Lipitor] 20 mg PO HS 08/06/17 [History] Escitalopram [Lexapro] 20 mg PO DAILY 08/06/17 [History] Multivitamin [One Daily Multivitamin] 1 tab PO DAILY 08/06/17 [History] Omeprazole [PriLOSEC] 20 mg PO DAILY 08/06/17 [History] Triamterene/HCTZ 37.5/25mg [Dyazide] 1 tab PO DAILY 08/06/17 [History] diazePAM [Valium] 5 mg PO DAILY PRN 08/06/17 [History] Albuterol Sulfate [Albuterol Inhaler] 2 puff IH Q4HR PRN #1 hfa.aer.ad 08/08/17 [Rx] Ondansetron ODT [Zofran ODT] 4 mg SL Q6HR PRN #6 tab.rapdis 08/08/17 [Rx] Potassium Chloride 20 meq PO BID #4 tab.er.prt 08/08/17 [Rx] Docusate Sodium [Colace] 1 cap PO BID #60 capsule 08/14/17 [Rx] FentaNYL PATCH [Duragesic] 1 patch TD Q72H 30 Days #10 patch.td72 08/14/17 [Rx] Hydromorphone HCl [Dilaudid] 1 tab PO Q6H PRN 15 Days #60 tablet 08/14/17 [Rx] Lipase/Protease/Amylase [Creon Dr 24,000 Units Capsule] 1 each PO ACHS #90 cap 08/14/17 [Rx] Polyethylene Glycol 3350 [MiraLAX] 17 gm PO DAILY #30 powd.pack 08/14/17 [Rx] 3 Allergy/AdvReac Type Severity Reaction Status Date / Time Penicillins Allergy Hives Verified 08/19/17 15:30 Sulfa (Sulfonamide Allergy Hives Verified 08/19/17 15:30 Antibiotics) All Systems PM: A 10-system review of systems was performed and is negative for pertinent findings except as documented above in the HPI. - Constitutional Constitutional: fatigue, no chills, no fever(s), no night sweats - Cardiovascular Cardiovascular ROS IM: no chest pain, no diaphoresis, no dyspnea, no lightheadedness, no palpitations, no syncope - Respiratory Respiratory: no cough, no dyspnea, no wheezing, no excessive phlegm production - Gastrointestinal Gastrointestinal: abdominal pain, nausea, vomiting, no diarrhea, no hematemesis , no hematochezia, no melena - Neurological Neurological ROS: no confusion, no convulsions, no focal weakness, no numbness, no tingling, no tremor(s) - Constitutional Vitals: Temp Pulse Resp BP Pulse Ox 98.3 F 99 20 119/76 97 08/19/17 12:50 08/19/17 13:27 08/19/17 13:27 08/19/17 13:27 08/19/17 13:27 General appearance: Present: A&O X 3 - Head Head exam: Present: atraumatic, normocephalic - Respiratory Respiratory exam: Present: CTAB. Absent: accessory muscle use, rales, rhonchi, wheezes - Cardiovascular Cardiovascular exam: Present: RRR, +S1, +S2. Absent: diastolic murmur, gallop, rubs, systolic murmur - GI/Abdominal GI/Abdominal exam: Present: normal bowel sounds, soft, no peritoneal signs. Absent: distended, tenderness - Extremities Exam Extremities exam: Present: warm, radial pulses palpable and symmetrical. Absent : calf tenderness, cyanotic, pedal edema Internal Med - H&P Results - Labs CBC & Chem 7: 08/20/17 00:54 08/20/17 00:54 Labs: Short CBC 08/19/17 Range/Units 13:08 WBC 19.4 H (4.3-11.1) K/mcL Hgb 12.7 (11.5-15.4) g/dL Hct 37.8 (35.3-44.9) % Plt Count 387 (140-400) K/mcL Neutrophils # 16.9 H (1.6-8.9) K/mcL BMP 08/19/17 13:08 Sodium 135 L Potassium 2.7 L Chloride 83 L Carbon Dioxide 30 H BUN 48 H Creatinine 1.43 H Glucose 81 Calcium 10.4 H Cardiac Enzymes 08/19/17 Range/Units 13:08 Troponin I 0.03 (< 0.04) ng/mL Liver Function 08/19/17 Range/Units 13:08 Total Bilirubin 0.6 (0.3-1.0) mg/dL Direct Bilirubin 0.2 (0.0-0.2) mg/dL AST 44 H (13-39) Units/L ALT 32 (7-52) Units/L Alkaline Phosphatase 162 H (34-104) Units/L Albumin 3.8 (3.5-5.7) g/dL - Impressions ITS Impressions Chest X-Ray 08/19/17 14:01 IMPRESSION: No evidence of acute cardiopulmonary disease. D/ / Yair Cotto MD / Yair Cotto MD Interpreting Provider: Yair Cotto MD - Assessment and plan (1) Hypokalemia Current Visit: Yes Status: Acute Assessment and plan: Most likely 2/2 volume depletion in the setting of persistent nausea and vomiting, we will replace and repeat potassium level (2) Dehydration Current Visit: Yes Status: Acute Assessment and plan: we will start the patient on isotonic fluid for hydration, starting PPIs and antiemetics, strict I&O's. (3) Hypertension Current Visit: No Status: Acute Assessment and plan: we will continue home medication was holding parameters Qualifiers: Hypertension type: essential hypertension Qualified Code(s): I10 - Essential (primary) hypertension (4) Nausea and vomiting Current Visit: Yes Status: Acute Assessment and plan: the patient is not on chemotherapy yet, symptoms might be secondary to self- limited gastritis, we will start IV fluid hydration and antiemetics and protein pump inhibitors Qualifiers: Vomiting type: unspecified Vomiting Intractability: unspecified Qualified Code(s): R11.2 - Nausea with vomiting, unspecified (5) Acute kidney injury Current Visit: Yes Status: Acute Assessment and plan: most likely secondary to prerenal etiology due to decreased renal perfusion in the setting of persistent nausea and vomiting and Molina and the patient, we'll restart IV hydration was isotonic fluid and repeat renal panel, renal dosing of medication but current EGFR, avoid nephrotoxins. (6) Adenocarcinoma of pancreas, stage 4 Current Visit: No Status: Acute Assessment and plan: the patient is following with oncology as an outpatient and declined inpatient consult. (7) DVT prophylaxis Current Visit: No Status: Acute Assessment and plan: subcutaneous heparin - Time Spent With Patient Total time spent is greater than 50% in coordination of care (as documented) at patient's floor/unit and/or counseling patient:
[2017-08-19] MEDS ORDERED: *HR* HYDROcodone/Acet 7.5/325 mg TABLET PO PRN (17:49)
[2017-08-19] MEDS ORDERED: Acetaminophen 325 MG TABLET PO PRN (17:49)
[2017-08-19] MEDS ORDERED: diazePAM 5 MG TABLET PO PRN (17:54)
[2017-08-19] MEDS ORDERED: *HR* FentaNYL PATCH 25 MCG PATCH TD SCH (18:00)
[2017-08-19] MEDS ORDERED: Naloxone 0.4 MG/ML INJ IVP PRN (18:02)
[2017-08-19] MEDS: 0.9 % Sodium Chloride 1,000 ML IVC SCH (18:29)
[2017-08-19] MEDS: *HR* HYDROmorphone 2 MG TABLET PO PRN (18:30)
[2017-08-19] MEDS: Ondansetron ODT 4 MG TAB.RAPDIS SL PRN (18:37)
[2017-08-19] MEDS ORDERED: traMADol 50 MG TABLET PO PRN (21:13)
[2017-08-19 22:30] LABS: Bilirubin,Urine Moderate (Negative); Blood,Urine Negative (Negative); Clarity,Urine Cloudy (Clear); Color,Urine Yellow (Yellow); Glucose,Urine (UA) Normal (Normal); Ketones,Urine 80 mg/dL (Negative); Leukocyte Esterase,Urine Small (Negative); Nitrite,Urine Negative (Negative); PH,Urine 5.5 pH Units (5.0-8.0); Protein,Urine Trace mg/dL (Neg-Trace); Specific Gravity,Urine 1.022 (1.010-1.025); Urobilinogen,Urine Normal (Normal)
[2017-08-19 22:32] LABS: Squamous Epithelial Cell,Urine Many per lpf (None-Few)
[2017-08-19 22:44] LABS: Bacteria,Urine Few per hpf (None-Few); Hyaline Casts,Urine Few per lpf (None-Few)
[2017-08-20 01:10] LABS: Basophils % 0.4 %; Eosinophils % 1.6 %; Hematocrit 37.1 % (35.3-44.9); Hemoglobin 12.3 g/dL (11.5-15.4); Immature Granulocytes % 0.5 % (0-4); Lymphocytes % 19.3 %; Mean Corpuscular HGB Conc 33.2 g/dL (31.6-35.5); Mean Corpuscular Hemoglobin 28.3 pg (28.0-33.3); Mean Corpuscular Volume 85.5 fL (83.0-100.0); Mean Platelet Volume 10.1 fL (9.4-12.4); Monocytes % 4.1 %; Platelet Count 307 K/mcL (140-400); Red Blood Count 4.34 M/mcL (3.82-4.97); Red Cell Distribution Width 13.2 % (11.5-14.5); Segmented Neutrophils % 74.1 %
[2017-08-20 01:11] LABS: Basophils # 0.1 K/mcL (0.0-0.2); Eosinophils # 0.2 K/mcL (0.0-0.6); Lymphocytes # 2.3 K/mcL (0.6-4.6); Monocytes # 0.5 K/mcL (0.0-1.3); Neutrophils # 8.7 K/mcL (1.6-8.9)
[2017-08-20 01:16] LABS: INR 1.7; Prothrombin Time 18.1 Seconds (9.4-12.1)
[2017-08-20 01:30] LABS: Alanine Aminotransferase 29 Units/L (7-52); Albumin 3.7 g/dL (3.5-5.7); Albumin/Globulin Ratio 1.1 (1.1-2.2); Alkaline Phosphatase 151 Units/L (34-104); Aspartate Amino Transferase 41 Units/L (13-39); BUN/Creatinine Ratio 38 (6-26); Bilirubin,Total 0.5 mg/dL (0.3-1.0); Blood Urea Nitrogen 40 mg/dL (8-23); Calcium 9.3 mg/dL (8.6-10.3); Carbon Dioxide 28 mEq/L (23-29); Chloride 91 mEq/L (98-107); Chol/HDL Ratio 4.2 (0-4.9); Cholesterol 144 mg/dL (< 200); Globulin 3.3 g/dL (2.4-3.5); Glucose 81 mg/dL (70-105); HDL Cholesterol 34 mg/dL (40-59); LDL Cholesterol,Calculated 74 mg/dL (0-99); Osmolality,Calculated 289 (280-300); Phosphorous 3.5 mg/dL (2.7-4.5); Potassium 3.1 mEq/L (3.5-5.1); Sodium 135 mEq/L (136-145); Triglycerides 179 mg/dL (< 150); eGFR For African Americans > 60 (> 60); eGFR For Non-African Americans 51 (> 60)
[2017-08-20 01:45] LABS: Activated Partial Thrombo Time 30.9 Seconds (26.0-36.0)
[2017-08-20] MEDS: 0.9 % Sodium Chloride 1,000 ML IVC SCH (04:47)
[2017-08-20] MEDS: *HR* Heparin 5,000 UNIT/ML VIAL SQ SCH ×2 (05:44→18:43)
[2017-08-20] MEDS ORDERED: *HR* FentaNYL PATCH 25 MCG PATCH TD SCH (08:00)
[2017-08-20] MEDS: Ondansetron ODT 4 MG TAB.RAPDIS SL PRN ×2 (08:35→14:46)
[2017-08-20] MEDS: *HR* HYDROmorphone 2 MG TABLET PO PRN (08:35)
[2017-08-20] MEDS: amLODIPine 5 MG TABLET PO SCH (08:39)
[2017-08-20] MEDS ORDERED: Multivit/Ca/Min/Fe/FA 1 TAB TABLET PO SCH (09:00)
[2017-08-20] MEDS ORDERED: Potassium Chloride 40 MEQ, Lidocaine 1% 2 ML in D5% in Water 500 ML IVPB ONE (11:58)
[2017-08-20] MEDS ORDERED: Saliva Stimulant 100ml BOTTLE PO PRN (12:00)
[2017-08-20] MEDS ORDERED: OXYCODONE Oral CONC 10 MG/0.5 ML ORAL.SYG SL PRN (12:04)
[2017-08-20] MEDS ORDERED: *HR* FentaNYL PATCH 50 MCG PATCH TD SCH (12:15)
--- NOTE | 2017-08-20 12:50 | Oncology Inp Consult Note ---
<Vernon Perez - Last Filed: 08/21/17 07:32> Date of Encounter: 08/21/17 - Data of Consult Requesting Physician: Beto Dave Primary Care Provider: [facility] - Consult Narrative History of present illness: I examined this patient and my medical decision-making was reviewed with the Advanced Practice Nurse, Katya Mullins. I agree with the documented findings, disposition and treatment plan as described except to the extent set forth below. Medications and Allergies Amlodipine Besylate 10 mg PO DAILY 08/06/17 [History] Atorvastatin Calcium [Lipitor] 20 mg PO HS 08/06/17 [History] Escitalopram [Lexapro] 20 mg PO DAILY 08/06/17 [History] Multivitamin [One Daily Multivitamin] 1 tab PO DAILY 08/06/17 [History] Omeprazole [PriLOSEC] 20 mg PO DAILY 08/06/17 [History] Triamterene/HCTZ 37.5/25mg [Dyazide] 1 tab PO DAILY 08/06/17 [History] diazePAM [Valium] 5 mg PO DAILY PRN 08/06/17 [History] Albuterol Sulfate [Albuterol Inhaler] 2 puff IH Q4HR PRN #1 hfa.aer.ad 08/08/17 [Rx] Ondansetron ODT [Zofran ODT] 4 mg SL Q6HR PRN #6 tab.rapdis 08/08/17 [Rx] Potassium Chloride 20 meq PO BID #4 tab.er.prt 08/08/17 [Rx] Docusate Sodium [Colace] 1 cap PO BID #60 capsule 08/14/17 [Rx] FentaNYL PATCH [Duragesic] 1 patch TD Q72H 30 Days #10 patch.td72 08/14/17 [Rx] Hydromorphone HCl [Dilaudid] 1 tab PO Q6H PRN 15 Days #60 tablet 08/14/17 [Rx] Lipase/Protease/Amylase [Creon Dr 24,000 Units Capsule] 1 each PO ACHS #90 cap 08/14/17 [Rx] Polyethylene Glycol 3350 [MiraLAX] 17 gm PO DAILY #30 powd.pack 08/14/17 [Rx] 3 Allergy/AdvReac Type Severity Reaction Status Date / Time Penicillins Allergy Hives Verified 08/19/17 15:30 Sulfa (Sulfonamide Allergy Hives Verified 08/19/17 15:30 Antibiotics) Oncology - Exam - Constitutional Vitals: Temp Pulse Resp BP Pulse Ox 98.2 F 97 16 148/73 93 08/21/17 07:28 08/21/17 07:28 08/21/17 07:28 08/21/17 07:28 08/21/17 07:28 Oncology - Results Labs: 08/21/17 08/20/17 08/20/17 05:36 16:12 06:38 WBC RBC Hgb Hct MCV MCH MCHC RDW Plt Count MPV Immature Gran % Seg Neutrophils % Lymphocytes % Monocytes % Eosinophils % Basophils % Neutrophils # Lymphocytes # Monocytes # Eosinophils # Basophils # PT 21.4 H INR 2.0 APTT Sodium Potassium Chloride Carbon Dioxide BUN Creatinine Est GFR ( Amer) Est GFR (Non-Af Amer) BUN/Creatinine Ratio Glucose Calculated Osmolality Calcium Phosphorus Total Bilirubin AST ALT Alkaline Phosphatase Troponin I 0.03 Serum Total Protein Albumin Globulin Albumin/Globulin Ratio Triglycerides Cholesterol LDL Cholesterol, Calc VLDL Cholesterol, Calc HDL Cholesterol Cholesterol/HDL Ratio Urine Color Urine Clarity Urine pH Ur Specific [place] Urine Protein Urine Glucose (UA) Urine Ketones Urine Blood Urine Nitrite Urine Bilirubin Urine Urobilinogen Ur Leukocyte Esterase Urine Microscopic RBC Urine Microscopic WBC Ur Squamous Epith Cells Urine Bacteria Hyaline Casts Blood Type O POSITIVE Antibody Screen NEGATIVE 08/20/17 08/20/17 08/20/17 00:54 00:54 00:54 WBC 11.8 H RBC 4.34 Hgb 12.3 Hct 37.1 MCV 85.5 MCH 28.3 MCHC 33.2 RDW 13.2 Plt Count 307 MPV 10.1 Immature Gran % 0.5 Seg Neutrophils % 74.1 Lymphocytes % 19.3 Monocytes % 4.1 Eosinophils % 1.6 Basophils % 0.4 Neutrophils # 8.7 Lymphocytes # 2.3 Monocytes # 0.5 Eosinophils # 0.2 Basophils # 0.1 PT 18.1 H INR 1.7 APTT 30.9 Sodium 135 L Potassium 3.1 L Chloride 91 L Carbon Dioxide 28 BUN 40 H Creatinine 1.06 Est GFR ( Amer) > 60 Est GFR (Non-Af Amer) 51 L BUN/Creatinine Ratio 38 H Glucose 81 Calculated Osmolality 289 Calcium 9.3 Phosphorus 3.5 Total Bilirubin 0.5 AST 41 H ALT 29 Alkaline Phosphatase 151 H Troponin I Serum Total Protein 7.0 Albumin 3.7 Globulin 3.3 Albumin/Globulin Ratio 1.1 Triglycerides 179 H Cholesterol 144 LDL Cholesterol, Calc 74 VLDL Cholesterol, Calc 36 H HDL Cholesterol 34 L Cholesterol/HDL Ratio 4.2 Urine Color Urine Clarity Urine pH Ur Specific [place] Urine Protein Urine Glucose (UA) Urine Ketones Urine Blood Urine Nitrite Urine Bilirubin Urine Urobilinogen Ur Leukocyte Esterase Urine Microscopic RBC Urine Microscopic WBC Ur Squamous Epith Cells Urine Bacteria Hyaline Casts Blood Type Antibody Screen 08/20/17 08/19/17 08/19/17 00:54 22:10 18:39 WBC RBC Hgb Hct MCV MCH MCHC RDW Plt Count MPV Immature Gran % Seg Neutrophils % Lymphocytes % Monocytes % Eosinophils % Basophils % Neutrophils # Lymphocytes # Monocytes # Eosinophils # Basophils # PT INR APTT Sodium Potassium Chloride Carbon Dioxide BUN Creatinine Est GFR ( Amer) Est GFR (Non-Af Amer) BUN/Creatinine Ratio Glucose Calculated Osmolality Calcium Phosphorus Total Bilirubin AST ALT Alkaline Phosphatase Troponin I 0.03 0.03 Serum Total Protein Albumin Globulin Albumin/Globulin Ratio Triglycerides Cholesterol LDL Cholesterol, Calc VLDL Cholesterol, Calc HDL Cholesterol Cholesterol/HDL Ratio Urine Color Yellow Urine Clarity Cloudy A Urine pH 5.5 Ur Specific [place] 1.022 Urine Protein Trace Urine Glucose (UA) Normal Urine Ketones 80 H Urine Blood Negative Urine Nitrite Negative Urine Bilirubin Moderate H Urine Urobilinogen Normal Ur Leukocyte Esterase Small H Urine Microscopic RBC 5-15 H Urine Microscopic WBC 5-15 H Ur Squamous Epith Cells Many H Urine Bacteria Few Hyaline Casts Few Blood Type Antibody Screen Consult Discharge Plan - Plan Referrals: Brenda Titus MD [Primary Care Provider] - <Katya Mullins - Last Filed: 08/21/17 16:48> Date of Encounter: 08/20/17 Time of Encounter: 11:30 Assessment and Plan (1) Adenocarcinoma of pancreas, stage 4 Status: Acute Assessment and plan: Newly diagnosed. Planned for upcoming second opinion at [facility] to discuss potential eligibility for clinical trials, otherwise planned to start Gemzar/Abraxane. Presented with intractable Nausea, Vomiting, Abdominal pain that is intense with eating and electrolyte abnormalities. Appreciate assistance from hospitalist team in treating electrolytes and dehydration. For better pain control, her fentanyl patch has been increased to 50 mcg and she has dilaudid IV for break through. Nutrition has been consulted. GI consultation reviewed- She is planned for EGD with celiac plexus block tomorrow with GI and potential repeat EUS/ERCP. She does not have evidence of obstruction presently with normal bilirubin. FFP to be administered prior to her procedure. She will need port placement in near future-plan to consult IR following GI procedures. Please refer to Dr. Yanez's attestation below for additional details. - Data of Consult Patient: known to practice within the last 3 years Consult date: 08/20/17 Requesting Physician: Beto Dave Primary Care Provider: [facility] - Consult Narrative Reason for consult: Pancreatic cancer stage IV History of present illness: Ms. Salas is a 67 year old female with newly diagnosed pancreatic adenocarcinoma, stage IV with multiple liver metastases. She presented following a clinic appointment at the cancer center for intractable nausea, vomiting, abdominal pain, weakness and dehydration. She was found to have hypokalemia, hyponatremia and PEEWEE. She was admitted with a GI consult and is planned for EGD/EUS/celiac block tomorrow following administration of FFP for an INR of 1.7. She is in the process to obtain a second opinion at [facility] to discuss any potential open clinical trials. If [facility] does not have other therapy options to offer she will likely proceed with palliative chemotherapy with Gemzar/Abraxane every 2 weeks. Past Med Surg Social Fam HX - Past Medical History Medical history: cancer, GI bleed, hypertension, other Psychiatric history: anxiety - Past Surgical History Surgical History: no surgical history - Social History Smoking Status: Former smoker Smokeless Tobacco Status: No Alcohol use: none Drug use: none - Family History Father Adopted: No Twin of Family Member: Yes, Fraternal Living Status: Still Living Hx Family Cardiac Disorders: No Hx Family Respiratory Disorders: No Hx Family Cancer: No Hx Family GI Disorders: No Hx Family Endocrine Disorder: No Hx Family Neuromuscular Disorders: No Hx Family Neurologic Disorders: No Hx Family HEENT Disorders: No Hx Family Autoimmune Disorders: No Constitutional: Present: as per HPI, anorexia, fatigue, weakness, weight loss. Absent: chills, fever(s) Eyes: Absent: change in vision Nose, mouth and throat: Absent: dysphagia Cardiovascular: Absent: chest pain, irregular heart rhythm Respiratory: Absent: cough, dyspnea Gastrointestinal: Present: as per HPI Genitourinary: Absent: dysuria, hematuria Musculoskeletal: Present: muscle weakness Integumentary: Absent: rash, wounds Neurological: Absent: focal weakness, frequent falls Hematologic/Lymphatic: Present: as per HPI Oncology - Exam - Constitutional Vitals: Temp Pulse Resp BP Pulse Ox 99.4 F 90 17 116/66 98 08/20/17 12:01 08/20/17 12:01 08/20/17 12:01 08/20/17 12:01 08/20/17 12:01 Oncology - Results Labs: Short CBC 08/20/17 Range/Units 00:54 WBC 11.8 H (4.3-11.1) K/mcL Hgb 12.3 (11.5-15.4) g/dL Hct 37.1 (35.3-44.9) % Plt Count 307 (140-400) K/mcL Neutrophils # 8.7 (1.6-8.9) K/mcL BMP 08/20/17 00:54 Sodium 135 L Potassium 3.1 L Chloride 91 L Carbon Dioxide 28 BUN 40 H Creatinine 1.06 Glucose 81 Calcium 9.3 Cardiac Enzymes 08/19/17 08/20/17 08/20/17 Range/Units 18:39 00:54 06:38 Troponin I 0.03 0.03 0.03 (< 0.04) ng/mL Liver Function 08/20/17 Range/Units 00:54 Total Bilirubin 0.5 (0.3-1.0) mg/dL AST 41 H (13-39) Units/L ALT 29 (7-52) Units/L Alkaline Phosphatase 151 H (34-104) Units/L Albumin 3.7 (3.5-5.7) g/dL Urine 08/19/17 Range/Units 22:10 Urine Color Yellow (Yellow) Urine Clarity Cloudy A (Clear) Urine pH 5.5 (5.0-8.0) pH Units Ur Specific [place] 1.022 (1.010-1.025) Urine Protein Trace (Neg-Trace) mg/dL Urine Glucose (UA) Normal (Normal) mg/dL
--- NOTE | 2017-08-20 13:19 | Gastroenterology Consult Note ---
<Ritu Camejo - Last Filed: 08/20/17 13:14> Date of Encounter: 08/20/17 Time of Encounter: 09:50 - Assessment and plan (1) Adenocarcinoma of pancreas, stage 4 Current Visit: No Status: Acute Assessment and plan: 67 year old female who was recently diagnosed with pancreatic CA. She presents with nausea, vomiting, and back pain with eating. She is being followed by Dr Wallace. Labs are normal, there does not appear to be an blockage at this time. Will proceed with EGD to rule out peptic ulcer, gastritis, esophagitis. She needs a repeat EUS with celiac block for pain control. She may need ERCP with stent if lab values become abnormal. She had aspiration pneumonia with last EUS. - Time Spent With Patient Total time spent is greater than 50% in coordination of care (as documented) at patient's floor/unit and/or counseling patient: GI History of Present Illness - Data of Consult Patient: known to practice within the last 3 years Consult date: 08/20/17 Requesting Physician: Beto Dave - Consult Narrative Reason for consult: nausea and vomiting, pancreatic cancer History of present illness: Ms. Salas is a 67 year old female with a past medical history significant for recently diagnosed with pancreatic cancer, s/p aspiration during endoscopy. She presented to the emergency Department with concerns of persistent nausea and vomiting and unable to keep anything down including her medication. She states has been ongoing since she had the EUS on August 06. She states she has lost approximately 20 pounds. She reports if she eats anything she will have severe pain in her mid back that can last for hours. She states water is the only thing she can tolerate at this time. She is following with Dr. Wallace for pancreatic cancer. She is scheduled for placement of a port. In ER her laboratory data revealed significant hypokalemia associated with acute kidney injury and hyponatremia, she was admitted for further evaluation and management. Past Med Surg Social Fam HX - Past Medical History Medical history: cancer, GI bleed, hypertension, other Psychiatric history: anxiety - Past Surgical History Surgical History: no surgical history - Social History Smoking Status: Former smoker Smokeless Tobacco Status: No Alcohol use: none Drug use: none - Family History Father Adopted: No Twin of Family Member: Yes, Fraternal Living Status: Still Living Hx Family Cardiac Disorders: No Hx Family Respiratory Disorders: No Hx Family Cancer: No Hx Family GI Disorders: No Hx Family Endocrine Disorder: No Hx Family Neuromuscular Disorders: No Hx Family Neurologic Disorders: No Hx Family HEENT Disorders: No Hx Family Autoimmune Disorders: No Review of Systems: GI: as per [place] [facility]: denies fever, has some chills EYES: denies yellow discoloration ENT: denies pain with swallowing or difficulty swallowing CARDIO: denies chest pain, palpitations RESP: No Shortness of breath with exertion : denies change in color of urine NEURO: weakness HEME: Denies any bruising MS: denies joint pain, joint swelling or back pain. DERM: denies rash or itching PSYCH: history of anxiety and depression - Constitutional Vitals: Temp Pulse Resp BP Pulse Ox 99.4 F 90 17 116/66 98 08/20/17 12:01 08/20/17 12:01 08/20/17 12:01 08/20/17 12:01 08/20/17 12:01 Exam: CONSTITUTIONAL:~alert, no acute distress.~HEAD:~normocephalic.~EYES:~no jaundice.~NECK:~no obvious swelling.~HEART:~regular rate and rhythm, no murmurs. ~LUNGS:~bilateral good air entry.~ABDOMEN:~non distended, soft, non tender, no masses palpable, no organomegaly.~RECTAL EXAM:~Deferred.~EXTREMITIES:~no clubbing, cyanosis or edema, cachectic.~SKIN:~no stigmata of chronic liver disease.~NEUROLOGIC:~no obvious focal defect.~~~~ Results - Labs CBC & Chem 7: 08/20/17 00:54 08/20/17 00:54 Labs: Last Result Calcium 9.3 mg/dL (8.6-10.3) 08/20/17 00:54 Troponin I 0.03 ng/mL (< 0.04) 08/20/17 06:38 Triglycerides 179 mg/dL (< 150) H 08/20/17 00:54 Entire Visit Hgb 12.3 g/dL (11.5-15.4) 08/20/17 00:54 Hct 37.1 % (35.3-44.9) 08/20/17 00:54 PT 18.1 Seconds (9.4-12.1) H 08/20/17 00:54 Total Bilirubin 0.5 mg/dL (0.3-1.0) 08/20/17 00:54 AST 41 Units/L (13-39) H 08/20/17 00:54 ALT 29 Units/L (7-52) 08/20/17 00:54 Amylase 84 Units/L (29-103) 08/19/17 13:08 Lipase 48 Units/L (11-82) 08/19/17 13:08 - ABG ABG results: PT/INR, D-dimer PT 18.1 Seconds (9.4-12.1) H 08/20/17 00:54 Consult Discharge Plan - Plan Referrals: Brenda Titus MD [Primary Care Provider] - <Jac Turner - Last Filed: 08/20/17 15:51> Date of Encounter: 08/20/17 Time of Encounter: 15:00 - Time Spent With Patient Total time spent is greater than 50% in coordination of care (as documented) at patient's floor/unit and/or counseling patient: GI History of Present Illness - Data of Consult Requesting Physician: Beto Dave - Consult Narrative History of present illness: Ms. Salas is a 67 year old female - Constitutional Vitals: Temp Pulse Resp BP Pulse Ox 99.4 F 90 17 116/66 98 08/20/17 12:01 08/20/17 12:01 08/20/17 12:01 08/20/17 12:01 08/20/17 12:01 Results - Labs CBC & Chem 7: 08/20/17 00:54 08/20/17 00:54 Labs: Last Result Calcium 9.3 mg/dL (8.6-10.3) 08/20/17 00:54 Troponin I 0.03 ng/mL (< 0.04) 08/20/17 06:38 Triglycerides 179 mg/dL (< 150) H 08/20/17 00:54 Entire Visit Hgb 12.3 g/dL (11.5-15.4) 08/20/17 00:54 Hct 37.1 % (35.3-44.9) 08/20/17 00:54 PT 18.1 Seconds (9.4-12.1) H 08/20/17 00:54 Total Bilirubin 0.5 mg/dL (0.3-1.0) 08/20/17 00:54 AST 41 Units/L (13-39) H 08/20/17 00:54 ALT 29 Units/L (7-52) 08/20/17 00:54 Amylase 84 Units/L (29-103) 08/19/17 13:08 Lipase 48 Units/L (11-82) 08/19/17 13:08 - ABG ABG results: PT/INR, D-dimer PT 18.1 Seconds (9.4-12.1) H 08/20/17 00:54 - Attending Attestation I have personally performed a face to face evaluation on this patient. I have reviewed and agree with the care plan. History and Exam by me shows: Patient seen patient with the pancreatic cancer with liver metastases now having significant the epigastric upper back pain along with nausea and vomiting. Lab reviewed no billary obstruction. Patient with a history of peptic ulcer disease in the past that required surgery in the s Rec: EGD and EUS with celiac block. No need for ERCP unless we start seeing a rise in her LFTs
[2017-08-20] MEDS ORDERED: OXYCODONE Oral CONC 10 MG/0.5 ML ORAL.SYG SL ONE (14:53)
[2017-08-20] MEDS: *HR* HYDROmorphone (PF) 1 MG/ML SYRINGE IVP PRN ×2 (15:09→19:11)
[2017-08-20] MEDS ORDERED: *HR* Phytonadione 5 MG TABLET PO ONE (15:49)
[2017-08-20] MEDS ORDERED: Metoclopramide 10 MG/2 ML VIAL IVP ONE (18:20)
[2017-08-20] MEDS: Pantoprazole 40 MG VIAL IVP SCH (18:45)
--- NOTE | 2017-08-20 20:24 | Electrocardiograph Report ---
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
--- NOTE | 2017-08-20 22:48 | Anesthesia Evaluation PreOp ---
<Ez Velasquez - Last Filed: 08/21/17 12:55> Date of Encounter: 08/21/17 - Past History Other Medical History: Other (pancreatic ca (recent diagnosis), Transfused with FFP x 1, a 2nd FFP is currently being infused for INR 2.0) Medications and Allergies Amlodipine Besylate 10 mg PO DAILY 08/06/17 [History] Atorvastatin Calcium [Lipitor] 20 mg PO HS 08/06/17 [History] Escitalopram [Lexapro] 20 mg PO DAILY 08/06/17 [History] Multivitamin [One Daily Multivitamin] 1 tab PO DAILY 08/06/17 [History] Omeprazole [PriLOSEC] 20 mg PO DAILY 08/06/17 [History] Triamterene/HCTZ 37.5/25mg [Dyazide] 1 tab PO DAILY 08/06/17 [History] diazePAM [Valium] 5 mg PO DAILY PRN 08/06/17 [History] Albuterol Sulfate [Albuterol Inhaler] 2 puff IH Q4HR PRN #1 hfa.aer.ad 08/08/17 [Rx] Ondansetron ODT [Zofran ODT] 4 mg SL Q6HR PRN #6 tab.rapdis 08/08/17 [Rx] Potassium Chloride 20 meq PO BID #4 tab.er.prt 08/08/17 [Rx] Docusate Sodium [Colace] 1 cap PO BID #60 capsule 08/14/17 [Rx] FentaNYL PATCH [Duragesic] 1 patch TD Q72H 30 Days #10 patch.td72 08/14/17 [Rx] Hydromorphone HCl [Dilaudid] 1 tab PO Q6H PRN 15 Days #60 tablet 08/14/17 [Rx] Lipase/Protease/Amylase [Creon Dr 24,000 Units Capsule] 1 each PO ACHS #90 cap 08/14/17 [Rx] Polyethylene Glycol 3350 [MiraLAX] 17 gm PO DAILY #30 powd.pack 08/14/17 [Rx] 3 Allergy/AdvReac Type Severity Reaction Status Date / Time Penicillins Allergy Hives Verified 08/19/17 15:30 Sulfa (Sulfonamide Allergy Hives Verified 08/19/17 15:30 Antibiotics) Anesthesia Results - Labs 08/20/17 00:54 08/20/17 00:54 <Hien Polanco - Last Filed: 08/21/17 19:55> Date of Encounter: 08/21/17 Time of Encounter: 19:55 - Past History Planned Operation: EUS with celiac block Cardiac History: HTN, Hyperlipidemia Pulmonary History: Smoker NURSE OFFICE History: Other (anxiety) Other Medical History: Hepatic (hepatic failure?? INR 1.7), GERD, Other ( pancreatic ca (recent diagnosis)) Anesthesia History: Problems (aspiration pneumonia with last EUS (started as MAC , was converted to general)) Alcohol Use: none Drug use: none - Meds/Allergy Pre-op Review Medications Reviewed: Yes Allergies Reviewed: Yes Beta Blockers on Current Med List: No Anesthesia Results - Labs 08/21/17 16:56 08/21/17 16:56 - Imaging EKG: report reviewed, image reviewed (SINUS RHYTHM INFERIOR MYOCARDIAL INFARCTION, OF INDETERMINATE AGE ANTEROLATERAL MYOCARDIAL INFARCTION, OF INDETERMINATE AGE cardiology consulted at the time of EKG; assessment was Abdominal mass concerning for pancreatic cancer Brugada pattern without history of syncope or SCD. Maintain K >4, Mag >2 and fu with outpatient EP.) Additional studies: TTE: Impressions: LVEF 60-65%. Mild left ventricular diastolic dysfunction. Normal right ventricular structure and function. Mild tricuspid regurgitation. No pulmonary hypertension. Anesthesia Exam Last Vital Signs Temp 99.0 F 08/20/17 18:45 Pulse 89 08/20/17 18:45 Resp 16 08/20/17 18:45 BP 128/73 08/20/17 18:45 Pulse Ox 95 08/20/17 18:45 Weight: 63 kg - HEENT Pupil (Motor): Pupils equal, EOMI Mallampati: II Teeth: Edentulous Oral Opening: Greater than 3 - NURSE OFFICE LOC: Oriented - Cardiac Rhythm: Regular - Pulmonary Breath Sounds: bilateral Clear Respiratory Effort: Symmetrical Anesthesia Assess/Plan ASA Score: 3 Modified Raul Scale for Level of Consciousness: Cooperative, oriented, and tranquil Anesthetic Plan: General Monitoring Plan: Standard Monitors Recovery Plan: PACU
--- NOTE | 2017-08-20 23:57 | Internal Med Progress Note ---
Date of Encounter: 08/20/17 Time of Encounter: 17:00 - Assessment and plan (1) Acute kidney injury Current Visit: Yes Status: Acute Assessment and plan: Her creatinine is better today. It is 1.06. It was 1.43 yesterday. Will continue IV fluids. The patient is on npo diet. Will monitor her kidney function closely. (2) Acute hypokalemia Current Visit: Yes Status: Acute Assessment and plan: This is secondary to nausea/vomiting. She will get potassium chlorate later today. Will check your Potassium/Magnesium tomorrow. She cannot take oral potassium chlorate. (3) Nausea and vomiting Current Visit: Yes Status: Acute Assessment and plan: Nausea and vomiting, are secondary to her pancreatic cancer. She will have endoscopy tomorrow. Will continue prn I-V Zofran. She is on npo diet. Qualifiers: Vomiting type: unspecified Vomiting Intractability: unspecified Qualified Code(s): R11.2 - Nausea with vomiting, unspecified (4) Adenocarcinoma of pancreas, stage 4 Current Visit: Yes Status: Chronic Assessment and plan: The treatment is as per onc. Egd scheduled for tomorrow. She will have endoscopic ultrasound with celiac bloc very soon. Will increase her dose of fentanyl patch. She will get prn IV Dilaudid for the next 24 hours. She's waiting for medical report. (5) Hypertension Current Visit: Yes Status: Chronic Assessment and plan: She does have increased blood pressure. Will start her on amlodipine at 10 mg daily. Qualifiers: Hypertension type: essential hypertension Qualified Code(s): I10 - Essential (primary) hypertension - Time Spent With Patient Total time spent is greater than 50% in coordination of care (as documented) at patient's floor/unit and/or counseling patient: 25 - 35 minutes - Subjective Interval history: The patient continues to have quite a bit of pain in mid epigastrium; with radiation to mid- back. It is associated with off-and-on nausea/vomiting. She feels weak and tired. Denies chest pain. Denies difficulty breathing, coughing and wheezing. She was seen by Je. They are planning endoscopy tomorrow. - Constitutional Vitals: Temp Pulse Resp BP Pulse Ox 98.4 F 95 16 120/64 93 08/20/17 23:11 08/20/17 23:11 08/20/17 23:11 08/20/17 23:11 08/20/17 23:11 General appearance: Present: A&O X 3, loss of weight, answers questions appropriately - Respiratory Respiratory exam: Present: CTAB. Absent: rales, rhonchi, wheezes - Cardiovascular Cardiovascular exam: Present: RRR, +S1, +S2. Absent: diastolic murmur, gallop, systolic murmur - GI/Abdominal GI/Abdominal exam: Present: normal bowel sounds, soft, no peritoneal signs. Absent: distended, tenderness Additional comments: She has mid-epigastrium tenderness. - Skin Skin exam: Present: dry, intact Internal Medicine: Result - Labs CBC & Chem 7: 08/28/17 04:00 08/28/17 04:00 Labs: Short CBC 08/20/17 Range/Units 00:54 WBC 11.8 H (4.3-11.1) K/mcL Hgb 12.3 (11.5-15.4) g/dL Hct 37.1 (35.3-44.9) % Plt Count 307 (140-400) K/mcL Neutrophils # 8.7 (1.6-8.9) K/mcL BMP 08/20/17 00:54 Sodium 135 L Potassium 3.1 L Chloride 91 L Carbon Dioxide 28 BUN 40 H Creatinine 1.06 Glucose 81 Calcium 9.3 Cardiac Enzymes 08/20/17 08/20/17 Range/Units 00:54 06:38 Troponin I 0.03 0.03 (< 0.04) ng/mL Liver Function 08/20/17 Range/Units 00:54 Total Bilirubin 0.5 (0.3-1.0) mg/dL AST 41 H (13-39) Units/L ALT 29 (7-52) Units/L Alkaline Phosphatase 151 H (34-104) Units/L Albumin 3.7 (3.5-5.7) g/dL - ABG Interpretation ABG results: PT/INR, D-dimer PT 18.1 Seconds (9.4-12.1) H 08/20/17 00:54 - VTE Deep Vein Thrombosis/Pulmonary Embolism Present on Admission: No Consult Discharge Plan - Plan Referrals: Brenda Titus MD [Primary Care Provider] -
[2017-08-21] MEDS: *HR* Heparin 5,000 UNIT/ML VIAL SQ SCH ×2 (06:09→17:29)
[2017-08-21] MEDS: Pantoprazole 40 MG VIAL IVP SCH ×2 (06:09→17:38)
[2017-08-21 06:17] LABS: Prothrombin Time 21.4 Seconds (9.4-12.1)
[2017-08-21] MEDS: *HR* HYDROmorphone (PF) 1 MG/ML SYRINGE IVP PRN ×3 (06:50→17:38)
[2017-08-21] MEDS ORDERED: 0.9 % Sodium Chloride 250 ML ONE ×2 (07:45→11:26)
[2017-08-21 10:42] LABS: Bilirubin,Urine Moderate (Negative); Blood,Urine Negative (Negative); Clarity,Urine Cloudy (Clear); Color,Urine Dark Yellow (Yellow); Glucose,Urine (UA) Normal (Normal); Ketones,Urine 80 mg/dL (Negative); Leukocyte Esterase,Urine Moderate (Negative); Nitrite,Urine Negative (Negative); Protein,Urine 30 mg/dL (Neg-Trace); Specific Gravity,Urine 1.024 (1.010-1.025); Urobilinogen,Urine Normal (Normal)
[2017-08-21 10:44] LABS: Bacteria,Urine None Seen per hpf (None-Few); Hyaline Casts,Urine Few per lpf (None-Few); Squamous Epithelial Cell,Urine Many per lpf (None-Few); WBC,Urine 30-50 per hpf (0-3)
[2017-08-21 11:06] LABS: Amorphous Sediment,Urine Few (Few)
[2017-08-21] MEDS ORDERED: *HR* Propofol 200 MG/20 ML VIAL IVP ONE (14:11)
[2017-08-21] MEDS ORDERED: Lidocaine -MPF 2% 2 ML VIAL ONE (14:11)
[2017-08-21] MEDS ORDERED: *HR* Succinylcholine 200 MG/10 ML VIAL IVP ONE (14:11)
[2017-08-21] MEDS ORDERED: Ondansetron 4 MG/2 ML VIAL ONE (14:49)
[2017-08-21 15:09] LABS: INR 1.6; Prothrombin Time 17.1 Seconds (9.4-12.1)
[2017-08-21] MEDS ORDERED: Potassium Chloride 40 MEQ, Lidocaine 1% 2 ML in D5% in Water 500 ML IVPB ONE (15:39)
--- NOTE | 2017-08-21 16:44 | Anesthesia Evaluation Post Op ---
Date of Encounter: 08/21/17 Time of Encounter: 16:43 - Vital Signs Vital Signs: Vital Signs/O2 Sat, Most Current Temp Pulse Resp BP Pulse Ox 99.3 F 90 16 132/54 99 08/21/17 16:40 08/21/17 16:40 08/21/17 16:40 08/21/17 16:40 08/21/17 16:40 - Lungs Lungs: Clear Ascult./Percussion - Airway Airway: Non-obstructed - Cardiovascular Regular Rate - Mental Status Mental Status: Alert & Oriented, Answers Appropriately - Pain Pain Scale: 0 Pain Scale used: Numeric (1 - 10) - Nausea Vomiting Nausea Vomiting: Not Present - Hydration Hydration: NPO, Has not voided - Discharge PostOp Status: Transfer Patient to floor
[2017-08-21 17:07] LABS: Mean Corpuscular HGB Conc 34.1 g/dL (31.6-35.5); Mean Corpuscular Hemoglobin 29.8 pg (28.0-33.3); Mean Corpuscular Volume 87.4 fL (83.0-100.0); Mean Platelet Volume 10.3 fL (9.4-12.4); Platelet Count 225 K/mcL (140-400); Red Blood Count 3.09 M/mcL (3.82-4.97); Red Cell Distribution Width 13.3 % (11.5-14.5)
[2017-08-21 17:08] LABS: Hemoglobin 9.2 g/dL (11.5-15.4)
[2017-08-21 17:25] LABS: BUN/Creatinine Ratio 29 (6-26); Blood Urea Nitrogen 17 mg/dL (8-23); Calcium 9.5 mg/dL (8.6-10.3); Carbon Dioxide 29 mEq/L (23-29); Chloride 101 mEq/L (98-107); Glucose 76 mg/dL (70-105); Magnesium 1.8 mg/dL (1.6-2.6); Osmolality,Calculated 288 (280-300); Potassium 3.2 mEq/L (3.5-5.1); Sodium 139 mEq/L (136-145); eGFR For African Americans > 60 (> 60); eGFR For Non-African Americans > 60 (> 60)
[2017-08-21] MEDS: amLODIPine 5 MG TABLET PO SCH (17:26)
--- NOTE | 2017-08-21 19:48 | General Surgery Consult Note ---
Date of Encounter: 08/21/17 Time of Encounter: 18:00 History of Present Illness Consult date: 08/21/17 Reason for consult: other (Nausea and vomiting) History of present illness: I was asked to see the patient acutely in the endoscopy unit. The daycare director was performing upper endoscopy. Upon viewing the images seen in consultation with gastroenterology and is clear that the patient had severe obstruction of the second and third portion of the duodenum. She initially presented with nausea and vomiting. She had been diagnosed with stage IV pancreatic cancer recently. She has been evaluated by hematology oncology and chemotherapy is planned. There is no evidence of obstructive jaundice. Her bilirubin is normal. She clearly has gastric outlet obstruction clinically. She initially presented with hypokalemic hypochloremic alkalosis. I personally reviewed her CAT scan films and findings are consistent with stage IV pancreatic cancer associated with gastric outlet obstruction. I spent a good deal of time talking with the patient about the difference between therapeutic and palliative surgery. The goal of palliative surgery is relief of symptoms and quality of life. 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 Past Med Surg Social Fam HX - Past Medical History Medical history: cancer, GI bleed, hypertension, other Psychiatric history: anxiety - Past Surgical History Surgical History: no surgical history - Social History Smoking Status: Former smoker Smokeless Tobacco Status: No Alcohol use: none Drug use: none - Family History Father Adopted: No Twin of Family Member: Yes, Fraternal Living Status: Still Living Hx Family Cardiac Disorders: No Hx Family Respiratory Disorders: No Hx Family Cancer: No Hx Family GI Disorders: No Hx Family Endocrine Disorder: No Hx Family Neuromuscular Disorders: No Hx Family Neurologic Disorders: No Hx Family HEENT Disorders: No Hx Family Autoimmune Disorders: No Medications and Allergies Amlodipine Besylate 10 mg PO DAILY 08/06/17 [History] Atorvastatin Calcium [Lipitor] 20 mg PO HS 08/06/17 [History] Escitalopram [Lexapro] 20 mg PO DAILY 08/06/17 [History] Multivitamin [One Daily Multivitamin] 1 tab PO DAILY 08/06/17 [History] Omeprazole [PriLOSEC] 20 mg PO DAILY 08/06/17 [History] Triamterene/HCTZ 37.5/25mg [Dyazide] 1 tab PO DAILY 08/06/17 [History] diazePAM [Valium] 5 mg PO DAILY PRN 08/06/17 [History] Albuterol Sulfate [Albuterol Inhaler] 2 puff IH Q4HR PRN #1 hfa.aer.ad 08/08/17 [Rx] Ondansetron ODT [Zofran ODT] 4 mg SL Q6HR PRN #6 tab.rapdis 08/08/17 [Rx] Potassium Chloride 20 meq PO BID #4 tab.er.prt 08/08/17 [Rx] Docusate Sodium [Colace] 1 cap PO BID #60 capsule 08/14/17 [Rx] FentaNYL PATCH [Duragesic] 1 patch TD Q72H 30 Days #10 patch.td72 08/14/17 [Rx] Hydromorphone HCl [Dilaudid] 1 tab PO Q6H PRN 15 Days #60 tablet 08/14/17 [Rx] Lipase/Protease/Amylase [Creon Dr 24,000 Units Capsule] 1 each PO ACHS #90 cap 08/14/17 [Rx] Polyethylene Glycol 3350 [MiraLAX] 17 gm PO DAILY #30 powd.pack 08/14/17 [Rx] 3 Allergy/AdvReac Type Severity Reaction Status Date / Time Penicillins Allergy Hives Verified 08/19/17 15:30 Sulfa (Sulfonamide Allergy Hives Verified 08/19/17 15:30 Antibiotics) Review of Systems All systems PM: The remainder of the systems were reviewed and are negative General Surgery Exam Initial Vital Signs Temp Pulse Resp BP Pulse Ox 98.3 F 113 18 123/82 98 08/19/17 12:50 08/19/17 12:50 08/19/17 12:50 08/19/17 12:50 08/19/17 12:50 - General physical appearance well developed, no distress, other (Weak and frail) - Neck no masses, no bruits, trachea midline, no lymphadectomy, no venous distension - Respiratory normal expansion, normal respiratory effort, clear to percussion, clear to auscultation - Cardiovascular Cardiovascular exam: Present: RRR, 15, 16 - Abdomen Abdomen general surgery: Present: distended Abdominal Tenderness: Present: diffusely - Neurologic Present: CN 2-12 grossly intact, normal coordination, normal sensation - Psychiatric Psychiatric general surgery: Present: appropriate, oriented to person, oriented to place, oriented to time, speech is normal, memory intact Exam Initial Vital Signs Temp Pulse Resp BP Pulse Ox 98.3 F 113 18 123/82 98 08/19/17 12:50 08/19/17 12:50 08/19/17 12:50 08/19/17 12:50 08/19/17 12:50 Results - Labs 08/21/17 16:56 08/21/17 16:56 Abnormal lab results RBC 3.09 M/mcL (3.82-4.97) L 08/21/17 16:56 Hgb 9.2 g/dL (11.5-15.4) L D 08/21/17 16:56 Hct 27.0 % (35.3-44.9) L 08/21/17 16:56 PT 17.1 Seconds (9.4-12.1) H 08/21/17 14:41 Potassium 3.2 mEq/L (3.5-5.1) L 08/21/17 16:56 Creatinine 0.59 mg/dL (0.60-1.20) L 08/21/17 16:56 BUN/Creatinine Ratio 29 (6-26) H 08/21/17 16:56 AST 41 Units/L (13-39) H 08/20/17 00:54 Alkaline Phosphatase 151 Units/L (34-104) H 08/20/17 00:54 Triglycerides 179 mg/dL (< 150) H 08/20/17 00:54 VLDL Cholesterol, Calc 36 mg/dL (< 31) H 08/20/17 00:54 HDL Cholesterol 34 mg/dL (40-59) L 08/20/17 00:54 Urine Clarity Cloudy (Clear) A 08/21/17 10:20 Urine Protein 30 mg/dL (Neg-Trace) H 08/21/17 10:20 Urine Ketones 80 mg/dL (Negative) H 08/21/17 10:20 Urine Bilirubin Moderate (Negative) H 08/21/17 10:20 Ur Leukocyte Esterase Moderate (Negative) H 08/21/17 10:20 Urine Microscopic RBC 5-15 per hpf (0-3) H 08/21/17 10:20 Urine Microscopic WBC 30-50 per hpf (0-3) H 08/21/17 10:20 Ur Squamous Epith Cells Many per lpf (None-Few) H 08/21/17 10:20 Ur Culture Indicated? NO. (NO) A 08/21/17 10:20 Diabetes panel 08/21/17 Range/Units 16:56 Sodium 139 (136-145) mEq/L Potassium 3.2 L (3.5-5.1) mEq/L Chloride 101 (98-107) mEq/L Carbon Dioxide 29 (23-29) mEq/L BUN 17 (8-23) mg/dL Creatinine 0.59 L (0.60-1.20) mg/dL Glucose 76 (70-105) mg/dL Calcium 9.5 (8.6-10.3) mg/dL Calcium panel 08/21/17 Range/Units 16:56 Calcium 9.5 (8.6-10.3) mg/dL Pituitary panel 08/21/17 Range/Units 16:56 Sodium 139 (136-145) mEq/L Potassium 3.2 L (3.5-5.1) mEq/L Chloride 101 (98-107) mEq/L Carbon Dioxide 29 (23-29) mEq/L BUN 17 (8-23) mg/dL Creatinine 0.59 L (0.60-1.20) mg/dL Glucose 76 (70-105) mg/dL Calcium 9.5 (8.6-10.3) mg/dL Adrenal panel 08/21/17 Range/Units 16:56 Sodium 139 (136-145) mEq/L Potassium 3.2 L (3.5-5.1) mEq/L Chloride 101 (98-107) mEq/L Carbon Dioxide 29 (23-29) mEq/L BUN 17 (8-23) mg/dL Creatinine 0.59 L (0.60-1.20) mg/dL Glucose 76 (70-105) mg/dL Calcium 9.5 (8.6-10.3) mg/dL All other labs normal. Consult Discharge Plan - Plan Referrals: Brenda Titus MD [Primary Care Provider] -
--- NOTE | 2017-08-21 21:18 | Internal Med Progress Note ---
Date of Encounter: 08/21/17 Time of Encounter: 19:00 - Assessment and plan (1) Bowel obstruction Current Visit: Yes Status: Acute Assessment and plan: The patient is getting ready for gastrojejunostomy. She is on npo diet. She gets IV fluids. Will give her potassium chloride riders. Her acute kidney injury resolved. Her anemia is likely due to hemodilutional secondary to IV fluids. Qualifiers: Intestinal obstruction type: other intestinal obstruction Intestinal obstruction extent: complete Qualified Code(s): K56.691 - Other complete intestinal obstruction (2) Adenocarcinoma of pancreas, stage 4 Current Visit: Yes Status: Chronic Assessment and plan: as above (3) Acute kidney injury Current Visit: Yes Status: Resolved Assessment and plan: as above (4) Acute hypokalemia Current Visit: Yes Status: Acute Assessment and plan: as above (5) Anemia Current Visit: Yes Status: Acute Assessment and plan: as above Qualifiers: Anemia type: unspecified type Qualified Code(s): D64.9 - Anemia, unspecified - Time Spent With Patient Total time spent is greater than 50% in coordination of care (as documented) at patient's floor/unit and/or counseling patient: 25 - 35 minutes (The patient is getting for gastrojejunostomy. She is on npo diet. She gets IV fluids. We give her potassium chlorate riders. Her acute kidney injury resolved. Her anemia is likely due to hemodilutional secondary to IV fluids.) - Subjective Interval history: The patient had endoscopy today. Gastric outlet obstruction was found. She's npo. General surgery has consulted her. They are planning a gastrojejunostomy. Her pain is under control. We haven't observed any nausea or vomiting recently. We haven't observed any nausea or vomiting recently. - Constitutional Vitals: Temp Pulse Resp BP Pulse Ox 98.6 F 94 16 113/59 93 08/21/17 19:21 08/21/17 19:21 08/21/17 19:21 08/21/17 19:21 08/21/17 19:21 General appearance: Present: A&O X 3, pleasant, no acute distress, loss of weight - Respiratory Respiratory exam: Present: CTAB. Absent: respiratory distress, rhonchi, wheezes - Cardiovascular Cardiovascular exam: Present: RRR. Absent: diastolic murmur, gallop, systolic murmur - GI/Abdominal GI/Abdominal exam: Present: normal bowel sounds, soft, no peritoneal signs. Absent: distended, tenderness - Skin Skin exam: Present: dry, intact Internal Medicine: Result - Labs CBC & Chem 7: 08/28/17 04:00 08/28/17 04:00 Labs: Short CBC 08/21/17 Range/Units 16:56 WBC 9.4 (4.3-11.1) K/mcL Hgb 9.2 L D (11.5-15.4) g/dL Hct 27.0 L (35.3-44.9) % Plt Count 225 (140-400) K/mcL BMP 08/21/17 16:56 Sodium 139 Potassium 3.2 L Chloride 101 Carbon Dioxide 29 BUN 17 Creatinine 0.59 L Glucose 76 Calcium 9.5 Urine 08/21/17 Range/Units 10:20 Urine Color Dark Yellow (Yellow) Urine Clarity Cloudy A (Clear) Urine pH 6.0 (5.0-8.0) pH Units Ur Specific [place] 1.024 (1.010-1.025) Urine Protein 30 H (Neg-Trace) mg/dL Urine Glucose (UA) Normal (Normal) mg/dL - ABG Interpretation ABG results: PT/INR, D-dimer PT 17.1 Seconds (9.4-12.1) H 08/21/17 14:41 - VTE Deep Vein Thrombosis/Pulmonary Embolism Present on Admission: No Consult Discharge Plan - Plan Referrals: Brenda Titus MD [Primary Care Provider] -
--- NOTE | 2017-08-22 00:21 | Anesthesia Evaluation PreOp ---
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) -- INR currently 1.6), Other (metastatic pancreatic ca, gastric outlet obstruction due to metastatic pancreatic CA) Anesthesia History: Problems (aspiration pneumonia after MAC) Alcohol Use: none Drug use: none Medications and Allergies Amlodipine Besylate 10 mg PO DAILY 08/06/17 [History] Atorvastatin Calcium [Lipitor] 20 mg PO HS 08/06/17 [History] Escitalopram [Lexapro] 20 mg PO DAILY 08/06/17 [History] Multivitamin [One Daily Multivitamin] 1 tab PO DAILY 08/06/17 [History] Omeprazole [PriLOSEC] 20 mg PO DAILY 08/06/17 [History] Triamterene/HCTZ 37.5/25mg [Dyazide] 1 tab PO DAILY 08/06/17 [History] diazePAM [Valium] 5 mg PO DAILY PRN 08/06/17 [History] Albuterol Sulfate [Albuterol Inhaler] 2 puff IH Q4HR PRN #1 hfa.aer.ad 08/08/17 [Rx] Ondansetron ODT [Zofran ODT] 4 mg SL Q6HR PRN #6 tab.rapdis 08/08/17 [Rx] Potassium Chloride 20 meq PO BID #4 tab.er.prt 08/08/17 [Rx] Docusate Sodium [Colace] 1 cap PO BID #60 capsule 08/14/17 [Rx] FentaNYL PATCH [Duragesic] 1 patch TD Q72H 30 Days #10 patch.td72 08/14/17 [Rx] Hydromorphone HCl [Dilaudid] 1 tab PO Q6H PRN 15 Days #60 tablet 08/14/17 [Rx] Lipase/Protease/Amylase [Creon Dr 24,000 Units Capsule] 1 each PO ACHS #90 cap 08/14/17 [Rx] Polyethylene Glycol 3350 [MiraLAX] 17 gm PO DAILY #30 powd.pack 08/14/17 [Rx] 3 Allergy/AdvReac Type Severity Reaction Status Date / Time Penicillins Allergy Hives Verified 08/19/17 15:30 Sulfa (Sulfonamide Allergy Hives Verified 08/19/17 15:30 Antibiotics) - Meds/Allergy Pre-op Review Medications Reviewed: Yes Allergies Reviewed: Yes Beta Blockers on Current Med List: No Anesthesia Results - Labs 08/22/17 04:47 08/22/17 04:47 - Imaging EKG: report reviewed, image reviewed (report reviewed, image reviewed (SINUS RHYTHM INFERIOR MYOCARDIAL INFARCTION, OF INDETERMINATE AGE ANTEROLATERAL MYOCARDIAL INFARCTION, OF INDETERMINATE AGE cardiology consulted at the time of EKG; assessment was Abdominal mass concerning for pancreatic cancer Brugada pattern without history of syncope or SCD. Maintain K >4, Mag >2 and fu with outpatient EP currently scheduled .)) Additional studies: TTE: Impressions: LVEF 60-65%. Mild left ventricular diastolic dysfunction. Normal right ventricular structure and function. Mild tricuspid regurgitation. No pulmonary hypertension Anesthesia Exam Last Vital Signs Temp 98.9 F 08/21/17 22:58 Pulse 86 08/21/17 22:58 Resp 16 08/21/17 22:58 BP 123/66 08/21/17 22:58 Pulse Ox 100 08/21/17 22:58 Weight: 63 kg - HEENT Pupil (Motor): Pupils equal, EOMI Mallampati: II Teeth: Edentulous Oral Opening: Greater than 3 - SYSTEMS DEVELOPER LOC: Oriented - Cardiac Rhythm: Regular - Pulmonary Breath Sounds: bilateral Clear Respiratory Effort: Symmetrical Anesthesia Assess/Plan ASA Score: 3 Anesthetic Plan: General Monitoring Plan: Standard Monitors Recovery Plan: PACU
[2017-08-22] MEDS ORDERED: *HR* FentaNYL (PF) 100 MCG/2 ML VIAL IVP ONE ×2 (00:44→05:01)
[2017-08-22 05:14] LABS: Hematocrit 24.3 % (35.3-44.9); Hemoglobin 8.1 g/dL (11.5-15.4); Mean Corpuscular HGB Conc 33.3 g/dL (31.6-35.5); Mean Corpuscular Hemoglobin 29.5 pg (28.0-33.3); Mean Corpuscular Volume 88.4 fL (83.0-100.0); Mean Platelet Volume 10.8 fL (9.4-12.4); Platelet Count 197 K/mcL (140-400); Red Blood Count 2.75 M/mcL (3.82-4.97); Red Cell Distribution Width 13.3 % (11.5-14.5)
[2017-08-22] MEDS: *HR* Heparin 5,000 UNIT/ML VIAL SQ SCH ×2 (05:19→17:59)
[2017-08-22] MEDS: Pantoprazole 40 MG VIAL IVP SCH ×2 (05:19→17:58)
[2017-08-22 05:35] LABS: BUN/Creatinine Ratio 28 (6-26); Blood Urea Nitrogen 15 mg/dL (8-23); Calcium 8.9 mg/dL (8.6-10.3); Carbon Dioxide 27 mEq/L (23-29); Chloride 104 mEq/L (98-107); Glucose 80 mg/dL (70-105); Osmolality,Calculated 292 (280-300); Potassium 3.6 mEq/L (3.5-5.1); Sodium 141 mEq/L (136-145); eGFR For African Americans > 60 (> 60); eGFR For Non-African Americans > 60 (> 60)
[2017-08-22] MEDS ORDERED: Lidocaine -MPF 1% 5 ML AMPUL INFILT ONE ×2 (08:19→15:56)
[2017-08-22] MEDS ORDERED: *HR* Nalbuphine 20 MG/ML AMPUL IVP PRN (08:22)
[2017-08-22] MEDS ORDERED: *HR* Nalbuphine 10 MG/ML AMPUL IVP PRN (09:45)
[2017-08-22] MEDS: amLODIPine 5 MG TABLET PO SCH (10:07)
--- NOTE | 2017-08-22 10:28 | Oncology Inp Progress Note ---
Date of Encounter: 08/22/17 Time of Encounter: 10:28 (1) Adenocarcinoma of pancreas, stage 4 Current Visit: No Status: Acute Assessment and plan: Newly diagnosed. Planned for upcoming second opinion at [facility] to discuss potential eligibility for clinical trials, otherwise planned to start palliative chemotherapy with Gemzar/ Abraxane. Presented with intractable Nausea, Vomiting, Abdominal pain that is intense with eating and electrolyte abnormalities. Concern for gastric outlet obstruction. Reviewed general surgery consultation note- patient has severe obstruction of the second and third portion of the duodenum evident on images from upper endoscopy and is planned for gastrojejunostomy with Dr. Burns today to provide relief from malignant gastric outlet obstruction. Although she does not present with obstructive jaundice, she has clinical evidence of obstruction. Further treatment options to be pursued on outpatient basis following her recovery. Plan as above discussed with patient and patients at bedside. She will need port placement in future. Please refer to Dr. Yanez's attestation below for additional details. Oncology: Subj Interval history: Resting in bed with at bedside. Denies nausea. Received pain medication about 20 minutes ago for back pain radiating into abdomen. Planned for gastrojejunostomy soon - Constitutional Vitals: Vital Signs Temp Pulse Resp BP Pulse Ox 08/22/17 07:36 98.3 F 89 16 113/73 94 08/22/17 03:23 98.7 F 88 15 125/72 98 08/21/17 22:58 98.9 F 86 16 123/66 100 08/21/17 19:21 98.6 F 94 16 113/59 93 08/21/17 18:00 96 16 113/59 93 08/21/17 17:00 90 14 120/66 98 08/21/17 16:40 99.3 F 90 16 132/54 99 08/21/17 16:30 90 14 133/72 100 08/21/17 16:20 93 16 133/70 92 08/21/17 16:10 99.2 F 93 18 139/73 100 08/21/17 16:00 91 16 131/70 99 08/21/17 15:45 98.0 F 90 14 130/64 98 08/21/17 13:01 97.8 F 93 16 139/70 94 08/21/17 12:28 98.2 F 91 14 121/72 08/21/17 12:12 98.7 F 90 14 08/21/17 11:08 98.6 F 93 14 138/69 96 Intake and Output 08/21/17 08/22/17 08/22/17 23:59 07:59 15:59 Intake Total 0 / 0 Output Total 200 / 200 Balance -200 / -200 Intake: Oral 0 / 0 Output: Catheter 200 / 200 Other: Meal NPO Weight 63 kg Patient Weight 08/22/17 23:59 Weight 63 kg General appearance: cooperative, no acute distress, thin, no febrile - Head Head exam: Present: atraumatic - ENT ENT exam: Present: mucous membranes moist - Respiratory Respiratory exam: Present: decreased breath sounds, CTAB. Absent: respiratory distress - Cardiovascular Cardiovascular exam: Present: RRR, +S1, +S2 - GI/Abdominal GI/Abdominal exam: Present: hypoactive bowel sounds, soft, tenderness - Extremities Exam Extremities exam: Present: normal inspection. Absent: calf tenderness - Neurological Exam Neurological exam: Present: alert, oriented X3, no focal deficits, strengths equal and symetr throughout - Psychiatric Psychiatric exam: Present: normal affect, normal mood - Skin Skin exam: Present: dry, intact, normal color, warm Oncology: Obj Data - Labs CBC & Chem 7: 08/22/17 04:47 08/22/17 04:47 - ABG Interpretation ABG results: PT/INR, D-dimer PT 17.1 Seconds (9.4-12.1) H 08/21/17 14:41 Consult Discharge Plan - Plan Referrals: Brenda Titus MD [Primary Care Provider] -
[2017-08-22] MEDS ORDERED: Lidocaine -MPF 2% 2 ML VIAL ONE (12:51)
[2017-08-22] MEDS ORDERED: *HR* Rocuronium Bromide 50 MG/5 ML VIAL ONE (12:51)
[2017-08-22] MEDS ORDERED: Ondansetron 4 MG/2 ML VIAL ONE (12:51)
[2017-08-22] MEDS ORDERED: *HR* FentaNYL (PF) 100 MCG/2 ML VIAL ONE ×2 (12:51→13:43)
[2017-08-22] MEDS ORDERED: Dexamethasone 4 MG/ML VIAL ONE (12:51)
[2017-08-22] MEDS ORDERED: Lidocaine -MPF 4% 5 ML AMPUL ONE (12:52)
[2017-08-22] MEDS ORDERED: *HR* Propofol 200 MG/20 ML VIAL IVP ONE (12:52)
[2017-08-22] MEDS ORDERED: *HR* Midazolam HCl 2 MG/2 ML VIAL ONE (12:52)
[2017-08-22] MEDS ORDERED: D10% in Water 500 ML IVC PRN ×4 (13:30→15:56)
[2017-08-22] MEDS ORDERED: MORPHINE SUL Oral CONC 10 MG/0.5 ML ORAL.SYG SL PRN ×2 (14:17→15:56)
[2017-08-22] MEDS ORDERED: Bupivacaine/EPI 1:200k 0.25%PF 10 ML VIAL INFILT ONE ×2 (14:17→14:20)
[2017-08-22] MEDS ORDERED: Albuterol 2.5 MG/3 ML NEBULIZER IH PRN ×2 (14:17→15:56)
[2017-08-22] MEDS ORDERED: Ondansetron 4 MG/2 ML VIAL IVP PRN ×2 (14:17→15:56)
[2017-08-22] MEDS ORDERED: Neostigmine Methylsulfate 3 MG/3 ML SYRINGE ONE (14:21)
--- NOTE | 2017-08-22 14:34 | Operative Note ---
Date of procedure: 08/22/17 Pre-op diagnosis: Stage IV metastatic pancreatic cancer with gastric outlet obstruction Post-op diagnosis: same Procedure: #1 gastrojejunostomy #2 liver biopsy Anesthesia: LIZBETH Surgeon: Jet Burns Was there an sales office assistant present: No Estimated blood loss (cc): 25 Specimen: Liver biopsy Condition: stable Disposition: PACU Procedure in Detail: After informed consent the patient is taking major operative suite placed in supine position and given adequate general endotracheal anesthesia. The abdomen is prepped and draped in sterile fashion utilizing ChloraPrep standard draping techniques. Timeout was taken and the patient was identified. I made an upper abdominal midline incision through the old scar. I used electrocautery to lyse the adhesions to the anterior abdominal wall I mobilize the stomach and transverse colon. There is metastatic pancreatic cancer in the vicki hepatis and throughout both lobes of the liver. I lifted the transverse mesocolon was able to visualize the backside of the antrum through the lesser sac. I visualize the stomach and divided the scar tissue. I identified the ligament of Treitz and isolated the segment of jejunum just distal at 30 cm. I performed a gastrojejunostomy using 2-0 silk seromuscular stitches and running 2 -0 chromic gut mucosal stitch with a running locking back wall in a baseball stitch front wall. This gave an excellent technical result. I performed a needle biopsy of the pancreatic metastases in the liver. Direct pressure failed to provide hemostasis I used electrocautery on Ana Lilia's capsule. The anastomosis was intact the abdomen was irrigated with copious amounts of antibiotic containing solution. Midline was closed with looped 0 PDS. The skin was reapproximated with Vicryl and skin clips. She tolerated the procedure was transferred to recovery in stable condition
[2017-08-22] MEDS: *HR* HYDROmorphone (PF) 1 MG/ML SYRINGE IVP PRN ×2 (14:55→15:30)
[2017-08-22] MEDS ORDERED: Ringers Solution, Lactated 1,000 ML ONE (14:58)
--- NOTE | 2017-08-22 15:25 | Anesthesia Evaluation Post Op ---
Date of Encounter: 08/22/17 Time of Encounter: 15:24 - Vital Signs Vital Signs: Vital Signs/O2 Sat/Glucose, Most Current Temp Pulse Resp BP Pulse Ox 08/22/17 15:09 99.7 F H 86 16 158/75 96 08/22/17 14:59 93 16 165/79 95 08/22/17 14:49 92 16 174/87 95 08/22/17 14:39 98.5 F 95 16 159/84 98 08/22/17 13:19 78 18 155/73 98 - Lungs Lungs: Clear Ascult./Percussion - Airway Airway: Non-obstructed - Cardiovascular Regular Rate - Mental Status Mental Status: Asleep with brisk response to light stimulation - Pain Pain Scale used: Giovanny (Faces) (1) - Nausea Vomiting Nausea Vomiting: Not Present - Hydration Hydration: NPO, Has not voided - Discharge PostOp Status: Transfer Patient to floor Anes Supervising Prov Stmt: Pt seen/evaluated, VSS And pt has met criteria for discharge to home. - MD Romario
[2017-08-22] MEDS ORDERED: *HR* HYDROmorphone (PF) 1 MG/ML SYRINGE IVP PRN (15:56)
[2017-08-22] MEDS ORDERED: Ondansetron ODT 4 MG TAB.RAPDIS SL PRN (15:56)
[2017-08-22] MEDS ORDERED: Saliva Stimulant 100ml BOTTLE PO PRN (15:56)
[2017-08-22] MEDS ORDERED: Naloxone 0.4 MG/ML INJ IVP PRN (15:56)
[2017-08-22] MEDS ORDERED: *HR* OxyCODONE/APAP 10/325 TABLET PO PRN (17:25)
[2017-08-22] MEDS ORDERED: cefOXitin 1,000 MG, Sodium Chloride IRRigation 1,000 ML IR ONE ×2 (17:35)
[2017-08-22] MEDS: *HR* Nalbuphine 10 MG/ML AMPUL IVP PRN ×2 (17:58→23:03)
[2017-08-23] MEDS: *HR* Nalbuphine 10 MG/ML AMPUL IVP PRN (03:55)
[2017-08-23 04:22] LABS: Hematocrit 26.6 % (35.3-44.9); Hemoglobin 8.8 g/dL (11.5-15.4); Mean Corpuscular HGB Conc 33.1 g/dL (31.6-35.5); Mean Corpuscular Hemoglobin 29.2 pg (28.0-33.3); Mean Corpuscular Volume 88.4 fL (83.0-100.0); Mean Platelet Volume 10.8 fL (9.4-12.4); Platelet Count 231 K/mcL (140-400); Red Blood Count 3.01 M/mcL (3.82-4.97); Red Cell Distribution Width 13.4 % (11.5-14.5)
[2017-08-23 04:42] LABS: BUN/Creatinine Ratio 27 (6-26); Blood Urea Nitrogen 13 mg/dL (8-23); Calcium 8.8 mg/dL (8.6-10.3); Carbon Dioxide 25 mEq/L (23-29); Chloride 104 mEq/L (98-107); Glucose 127 mg/dL (70-105); Magnesium 1.2 mg/dL (1.6-2.6); Osmolality,Calculated 296 (280-300); Phosphorous 3.5 mg/dL (2.7-4.5); Sodium 142 mEq/L (136-145); eGFR For African Americans > 60 (> 60); eGFR For Non-African Americans > 60 (> 60)
[2017-08-23] MEDS: Pantoprazole 40 MG VIAL IVP SCH ×2 (05:17→20:08)
[2017-08-23] MEDS: *HR* Heparin 5,000 UNIT/ML VIAL SQ SCH ×2 (05:17→20:07)
[2017-08-23] MEDS: OXYCODONE Oral CONC 10 MG/0.5 ML ORAL.SYG SL PRN ×2 (05:17→12:24)
[2017-08-23] MEDS ORDERED: amLODIPine 5 MG TABLET PO SCH (09:00)
[2017-08-23] MEDS ORDERED: Chloraseptic Spray 177 ML BOTTLE MM PRN (11:28)
[2017-08-23] MEDS: *HR* FentaNYL PATCH 50 MCG PATCH TD SCH (12:23)
[2017-08-23] MEDS ORDERED: D5% in Water 1,000 ML IVC PRN (13:01)
[2017-08-23] MEDS ORDERED: *HR* Dextrose 50 % in Water (Syg) 50 ML SYRINGE IVP PRN (13:01)
[2017-08-23] MEDS ORDERED: Dextrose Gel 15 GM/37.5 ML TUBE PO PRN ×2 (13:01)
--- NOTE | 2017-08-23 14:12 | General Surgery Progress Note ---
Date of Encounter: 08/23/17 Time of Encounter: 14:10 - Assessment and Plan (1) Adenocarcinoma of pancreas, stage 4 Current Visit: Yes Status: Acute 67F POD #1 s/p gastrojejunostomy for bypass 2/2 pancreatic cancer, s/p liver biopsy as well; pain controlled; NG tube in place; cont with current pain regimen pulm toileting cont with NG tube; can reassess for d/c NG at return of bowel function plan for TPN due to time without PO intake will cont to follow Subjective Patient reports: no new complaints, feels better, still having pain, pain is less, no flatus Objective Vital Signs - Last 8 Hours Temp Pulse Resp BP Pulse Ox 08/23/17 11:00 97.6 F 106 16 118/76 99 08/23/17 09:07 98 08/23/17 07:37 98.1 F 100 16 136/77 98 Intake and Output 08/22/17 08/23/17 08/23/17 23:59 07:59 15:59 Output Total 130 / 130 210 / 210 Balance -130 / -130 -210 / -210 Output: Urine 90 / 90 Gastric Drainage 130 / 130 120 / 120 Other: Meal NPO for breakfast. Percent of Meal Consumed 0% Weight 61.9 kg Blood Glucose* 108 Patient Weight 08/23/17 23:59 Weight 61.9 kg - General physical appearance no distress - Respiratory normal expansion, normal respiratory effort - Cardiovascular Cardiovascular exam: Present: RRR - Abdomen Abdomen: Present: soft, tender (appropriately tender) - Integumentary no rash - Neurologic CN 2-12 grossly intact - Musculoskeletal normal posture - Psychiatric oriented to time, oriented to person - Labs 08/23/17 03:50 08/23/17 04:00 Diabetes panel 08/23/17 Range/Units 04:00 Sodium 142 (136-145) mEq/L Potassium 4.0 (3.5-5.1) mEq/L Chloride 104 (98-107) mEq/L Carbon Dioxide 25 (23-29) mEq/L BUN 13 (8-23) mg/dL Creatinine 0.48 L (0.60-1.20) mg/dL Glucose 127 H (70-105) mg/dL Calcium 8.8 (8.6-10.3) mg/dL Calcium panel 08/23/17 08/23/17 Range/Units 04:00 04:00 Calcium 8.8 (8.6-10.3) mg/dL Phosphorus 3.5 (2.7-4.5) mg/dL Pituitary panel 08/23/17 Range/Units 04:00 Sodium 142 (136-145) mEq/L Potassium 4.0 (3.5-5.1) mEq/L Chloride 104 (98-107) mEq/L Carbon Dioxide 25 (23-29) mEq/L BUN 13 (8-23) mg/dL Creatinine 0.48 L (0.60-1.20) mg/dL Glucose 127 H (70-105) mg/dL Calcium 8.8 (8.6-10.3) mg/dL Adrenal panel 08/23/17 Range/Units 04:00 Sodium 142 (136-145) mEq/L Potassium 4.0 (3.5-5.1) mEq/L Chloride 104 (98-107) mEq/L Carbon Dioxide 25 (23-29) mEq/L BUN 13 (8-23) mg/dL Creatinine 0.48 L (0.60-1.20) mg/dL Glucose 127 H (70-105) mg/dL Calcium 8.8 (8.6-10.3) mg/dL - VTE Documentation of Mechanical Device: Venous foot pump, device Consult Discharge Plan - Plan Referrals: Brenda Titus MD [Primary Care Provider] -
[2017-08-23] MEDS ORDERED: *HR* Metoprolol 5 MG/5 ML VIAL IVP ONE ×2 (14:33→14:36)
[2017-08-23] MEDS ORDERED: *HR* LORazepam 2 MG/ML VIAL IVP ONE (14:56)
[2017-08-23] MEDS ORDERED: *HR* Metoprolol 5 MG/5 ML VIAL IVP PRN (15:08)
[2017-08-23] MEDS ORDERED: 0.9 % Sodium Chloride w KCl 20 MEQ/1,000 ML MLS IVC SCH (16:30)
[2017-08-23 16:32] LABS: Eosinophils % 0.4 %; Hematocrit 24.4 % (35.3-44.9); Immature Granulocytes % 0.4 % (0-4); Lymphocytes # 0.2 K/mcL (0.6-4.6); Mean Corpuscular HGB Conc 32.8 g/dL (31.6-35.5); Mean Corpuscular Volume 88.4 fL (83.0-100.0); Mean Platelet Volume 10.1 fL (9.4-12.4); Monocytes % 1.2 %; Neutrophils # 2.3 K/mcL (1.6-8.9); Platelet Count 163 K/mcL (140-400); Red Blood Count 2.76 M/mcL (3.82-4.97); Red Cell Distribution Width 13.5 % (11.5-14.5)
[2017-08-23] MEDS ORDERED: Clinimix E 5%-15% SOLUTION 2,000 ML with MVI, adult with vitamin K 10 ML IVC SCH ×2 (17:00)
[2017-08-23 17:09] LABS: Platelet Estimate Normal (Normal)
[2017-08-23 17:21] LABS: Alanine Aminotransferase 28 Units/L (7-52); Albumin 2.8 g/dL (3.5-5.7); Alkaline Phosphatase 143 Units/L (34-104); Aspartate Amino Transferase 35 Units/L (13-39); BUN/Creatinine Ratio 23 (6-26); Bilirubin,Direct 0.8 mg/dL (0.0-0.2); Bilirubin,Indirect 0.5 mg/dL (0.0-1.2); Bilirubin,Total 1.3 mg/dL (0.3-1.0); Blood Urea Nitrogen 18 mg/dL (8-23); Carbon Dioxide 27 mEq/L (23-29); Chloride 105 mEq/L (98-107); Globulin 2.7 g/dL (2.4-3.5); Glucose 115 mg/dL (70-105); Osmolality,Calculated 299 (280-300); Potassium 3.5 mEq/L (3.5-5.1); Sodium 143 mEq/L (136-145); Total Protein 5.5 g/dL (6.4-8.9); eGFR For African Americans > 60 (> 60); eGFR For Non-African Americans > 60 (> 60)
[2017-08-23 17:41] LABS: INR 2.3; Prothrombin Time 25.6 Seconds (9.4-12.1)
[2017-08-23 17:44] LABS: Activated Partial Thrombo Time 28.6 Seconds (26.0-36.0)
[2017-08-23] MEDS ORDERED: 0.9 % Sodium Chloride 1,000 ML IVC ONE ×2 (19:36→22:47)
[2017-08-23] MEDS ORDERED: Ringers Solution, Lactated 1,000 ML IVC SCH (19:45)
[2017-08-23] MEDS ORDERED: Acetaminophen IV 1,000 MG/100 ML INFUS..BTL IVPB ONE (19:46)
[2017-08-23] MEDS ORDERED: 0.9 % Sodium Chloride 1,000 ML ONE (19:48)
--- NOTE | 2017-08-23 19:57 | Event Note ---
Date of Encounter: 08/23/17 Time of Encounter: 19:55 Called to the bedside for tachycardia and hypotension. Patient also had a fever. Concerns of infection. Blood cultures obtained earlier today. Patient will get IV fluid bolus increase rate to 125ml/hr, 2 units of PRBCs given the hypotension and anemia in the setting of recent surgery. Patient will be started on meropenem to cover intra-abdominal organisms. Chest x-ray, lactate pending.
[2017-08-23] MEDS: Insulin LISPRO 300 UNITS/3 ML VIAL SQ SCH (20:00)
--- NOTE | 2017-08-23 21:34 | Event Note ---
Date of Encounter: 08/23/17 Time of Encounter: 17:00 Called to evaluate patient due to concern for altered mental status, tachycardia (130s, sinus tach on EKG), BP ~ 90s SBP, now requiring oxygen; labs were ordered with leukopenia; h/h were largely unchanged; she did receive a new fentanyl patch with 10mg of oxycodone at the same time; suspect she was affected by the narcotics; she is being transferred to ; the fent patch was d/ c'd; 2099 - she was re-evaluated; improved mental status; pain controlled; HR wnl; cont to hold narcotics at present
--- NOTE | 2017-08-23 21:51 | Internal Med Progress Note ---
Date of Encounter: 08/23/17 Time of Encounter: 18:00 - Assessment and plan (1) SIRS (systemic inflammatory response syndrome) Current Visit: Yes Status: Acute Assessment and plan: The patient has developed SIRS. She does have mild grade fever together with tachycardia and leukopenia. Blood cultures have been taken. Her hemoglobin is 8.0. It was 8.1 yesterday. We notified surgery about the patient's possible GI bleeding. They evaluated the patient at her bedside. I started this patient on normal saline with the addition of potassium chloride. She is mildly hypokalemic. I gave her magnesium sulfate rider; her magnesium is 1.2. The patient will be transferred to . I discussed the case with the patient, her family, the surgeon and Dr. Dolan, the nocturnalist. When I wrote the order for Metoprolol, I was thinking about possible anxiety/ panic attack. There was only tachycardia at that time. Then, I stop that order, as the patient become hypotensive. (2) Hypotension Current Visit: Yes Status: Acute Assessment and plan: As above. Qualifiers: Hypotension type: unspecified hypotension type Qualified Code(s): I95.9 - Hypotension, unspecified (3) Bowel obstruction Current Visit: Yes Status: Acute Assessment and plan: As above. Had gastrojejunostomy yesterday. Qualifiers: Intestinal obstruction type: other intestinal obstruction Intestinal obstruction extent: complete Qualified Code(s): K56.691 - Other complete intestinal obstruction (4) Adenocarcinoma of pancreas, stage 4 Current Visit: Yes Status: Chronic Assessment and plan: As above. The pain is under control. (5) Acute hypokalemia Current Visit: Yes Status: Acute Assessment and plan: As above. (6) Hypomagnesemia Current Visit: Yes Status: Acute Assessment and plan: As above. - Time Spent With Patient Total time spent is greater than 50% in coordination of care (as documented) at patient's floor/unit and/or counseling patient: Greater than 35 minutes - Subjective Interval history: Today morning the patient complained of sore throat. I ordered Chloraseptic spray for her. A couple hours later she quite suddenly developed a tachycardia with heart rate of 145. It was not associated with her chest pain or other symptoms. Her heart rate got to around 100, after 5 mg IV Metoprolol. Then, she became tachycardic and mildly hypotensive. We decided to move her to . Small amounts of blood was found in the suctioning from NG tube. Also, the patient developed mild grade fever. - Constitutional Vitals: Temp Pulse Resp BP Pulse Ox 101.4 F H 122 18 84/46 95 08/23/17 18:45 08/23/17 19:00 08/23/17 18:45 08/23/17 19:00 08/23/17 19:00 General appearance: Present: A&O X 3 Internal Medicine: Result - Labs CBC & Chem 7: 08/28/17 04:00 08/28/17 04:00 Labs: Short CBC 08/23/17 08/23/17 Range/Units 03:50 16:15 WBC 14.2 H D 2.6 L D (4.3-11.1) K/mcL Hgb 8.8 L 8.0 L (11.5-15.4) g/dL Hct 26.6 L 24.4 L (35.3-44.9) % Plt Count 231 163 (140-400) K/mcL Neutrophils # 2.3 (1.6-8.9) K/mcL BMP 08/23/17 08/23/17 04:00 16:49 Sodium 142 143 Potassium 4.0 3.5 Chloride 104 105 Carbon Dioxide 25 27 BUN 13 18 Creatinine 0.48 L 0.79 Glucose 127 H 115 H Calcium 8.8 9.0 Liver Function 08/23/17 Range/Units 16:49 Total Bilirubin 1.3 H (0.3-1.0) mg/dL Direct Bilirubin 0.8 H (0.0-0.2) mg/dL AST 35 (13-39) Units/L ALT 28 (7-52) Units/L Alkaline Phosphatase 143 H (34-104) Units/L Albumin 2.8 L (3.5-5.7) g/dL - ABG Interpretation ABG results: PT/INR, D-dimer PT 25.6 Seconds (9.4-12.1) H 08/23/17 16:34 - Impressions Impressions Chest X-Ray 08/23/17 19:38 IMPRESSION: Mild left basilar atelectasis. D/ / Mickie Doan MD / Mickie Doan MD Interpreting Provider: Mickie Doan MD - VTE Documentation of Mechanical Device: Intermittent pneumatic compression device Consult Discharge Plan - Plan Referrals: Brenda Titus MD [Primary Care Provider] -
[2017-08-23] MEDS: Meropenem 1,000 MG in Water for inj. (sterile) 20 ML 10 ML IVP SCH (22:00)
[2017-08-23] MEDS: Ringers Solution, Lactated 1,000 ML IVC SCH (22:32)
--- NOTE | 2017-08-23 23:10 | Event Note ---
Date of Encounter: 08/23/17 Time of Encounter: 23:08 Patient seen and examined. Appeared to initially respond IV fluids however patient is now hypotensive with systolics in the 70s. 0.9 normal saline bolus ordered now. Patient may need closer monitoring in the intensive care setting with some vasopressor support. Gen surgery was aware of the patient's hypotension.
[2017-08-23] MEDS: Norepinephrine 4 MG in D5% in Water 250 ML IVC SCH (23:20)
[2017-08-24] MEDS: Insulin LISPRO 300 UNITS/3 ML VIAL SQ SCH ×8 (00:40→21:10)
[2017-08-24] MEDS: Ringers Solution, Lactated 1,000 ML IVC SCH (00:44)
[2017-08-24] MEDS ORDERED: 0.9 % Sodium Chloride 250 ML ONE (01:22)
--- NOTE | 2017-08-24 01:46 | Pulmonology Consult Note ---
<Junior Wheatley - Last Filed: 08/24/17 01:38> Date of Encounter: 08/24/17 Time of Encounter: 01:38 Assessment and Plan (1) Septic shock Current Visit: Yes Status: Acute Patient had Sirs, febrile, tachycardic, leukopenia with a potential source in the intra-abdominal. Patient was initially responsive to IV crystalloids. Patient received 2 L of 0.9%. Patient also had maintenance IV fluid rate increased. Given the patient's postoperative status and anemia with hypotension 2 units of PRBCs were ordered. Patient's chest x-ray shows no acute abnormalities. General surgery was aware the patient's hypotension and did not feel that it was related to recent surgery. Plan -Resuscitation with IV fluids, products -MAP goal >65 tirate Levophed -Monitor UOP 50cc/kg/hr -Lactate trend -UA pending and Chest XRY -Meropenem for intra-abdominal infection-once the patient is more stable consider CT the abdomen and pelvis (2) Anemia Current Visit: Yes Status: Acute Hemoglobin of 8. Etiology likely secondary to acute blood loss anemia related to recent procedures. Plan to transfuse 2 units of PRBCs in the setting of hypotension. Transfusion goal hemoglobin greater than 7. Monitor for signs symptoms of bleeding. Qualifiers: Anemia type: unspecified type Qualified Code(s): D64.9 - Anemia, unspecified (3) Adenocarcinoma of pancreas, stage 4 Current Visit: Yes Status: Acute Postop from gastrojejunostomy for palliative therapies. Oncology following. Appreciate recommendations. (4) DVT prophylaxis Current Visit: No Status: Acute Subcutaneous heparin History of Present Illness Consult date: 08/24/17 Requesting physician: Florence Scott Reason for consult: other (shock) Chief complaint: Nausea and vomiting History of present illness: 67-year-old female with a history of newly diagnosed stage IV pancreatic cancer status post upper endoscopy with subsequent gastrojejunostomy. Patient was admitted on 08/19/17 for intractable nausea vomiting. Patient has had an extensive hospital course including evaluation by oncology with planned upcoming second opinion at [facility] for potential clinical trials. Patient is clinically not undergoing chemotherapy. Patient was evaluated by general surgery who performed a gastrojejunostomy given the patient's gastric outlet obstruction. At the time of my examination the patient was noted be hypotensive. Patient's blood pressure initially improved with IV crystalloid boluses. Increase the patient's IV fluid rate. Given the patient's postoperative status patient likely benefit from 2 units of PRBCs. Patient then became febrile, tachycardic with leukopenia and hypotension. Patient's lactate was not significantly elevated. General surgery was aware the patient's hypotension who evaluated the patient and did not feel that it was related to the recent surgery. Given the patient's hypotension the patient would likely need closer monitoring and was transferred to the ICU for pressor support. With the temperature in signs of infection broad-spectrum antibiotics was initiated. Patient to get blood cultures, chest x-ray and urinalysis. Patient's abdominal exam shows appropriate postoperative tenderness. Past Med Surg Social Fam HX - Past Medical History Medical history: cancer, GI bleed, hypertension, other Psychiatric history: anxiety - Past Surgical History Surgical History: no surgical history - Social History Smoking Status: Former smoker Smokeless Tobacco Status: No Alcohol use: none Drug use: none - Family History Father Adopted: No Twin of Family Member: Yes, Fraternal Living Status: Still Living Hx Family Cardiac Disorders: No Hx Family Respiratory Disorders: No Hx Family Cancer: No Hx Family GI Disorders: No Hx Family Endocrine Disorder: No Hx Family Neuromuscular Disorders: No Hx Family Neurologic Disorders: No Hx Family HEENT Disorders: No Hx Family Autoimmune Disorders: No Medications and Allergies Amlodipine Besylate 10 mg PO DAILY 08/06/17 [History] Atorvastatin Calcium [Lipitor] 20 mg PO HS 08/06/17 [History] Escitalopram [Lexapro] 20 mg PO DAILY 08/06/17 [History] Multivitamin [One Daily Multivitamin] 1 tab PO DAILY 08/06/17 [History] Omeprazole [PriLOSEC] 20 mg PO DAILY 08/06/17 [History] Triamterene/HCTZ 37.5/25mg [Dyazide] 1 tab PO DAILY 08/06/17 [History] diazePAM [Valium] 5 mg PO DAILY PRN 08/06/17 [History] Albuterol Sulfate [Albuterol Inhaler] 2 puff IH Q4HR PRN #1 hfa.aer.ad 08/08/17 [Rx] Ondansetron ODT [Zofran ODT] 4 mg SL Q6HR PRN #6 tab.rapdis 08/08/17 [Rx] Potassium Chloride 20 meq PO BID #4 tab.er.prt 08/08/17 [Rx] Docusate Sodium [Colace] 1 cap PO BID #60 capsule 08/14/17 [Rx] FentaNYL PATCH [Duragesic] 1 patch TD Q72H 30 Days #10 patch.td72 08/14/17 [Rx] Hydromorphone HCl [Dilaudid] 1 tab PO Q6H PRN 15 Days #60 tablet 08/14/17 [Rx] Lipase/Protease/Amylase [Creon Dr 24,000 Units Capsule] 1 each PO ACHS #90 cap 08/14/17 [Rx] Polyethylene Glycol 3350 [MiraLAX] 17 gm PO DAILY #30 powd.pack 08/14/17 [Rx] 3 Allergy/AdvReac Type Severity Reaction Status Date / Time Penicillins Allergy Hives Verified 08/19/17 15:30 Sulfa (Sulfonamide Allergy Hives Verified 08/19/17 15:30 Antibiotics) All Systems: The remainder of the systems were reviewed and are negative - Constitutional Constitutional: as per HPI, fever(s), no chills - EENT Eyes: as per HPI - Cardiovascular Cardiovascular: as per HPI, no chest pain, no edema - Respiratory Respiratory: as per HPI, no cough, no dyspnea - Gastrointestinal Gastrointestinal: as per HPI, abdominal pain, no vomiting - Genitourinary Genitourinary: as per HPI - Musculoskeletal Musculoskeletal: joint pain - Integumentary Integumentary: as per HPI - Neurological Neurological: as per HPI Physical Examination Vital Signs: Vital Signs, Last 4 Hours Temp Pulse Resp BP Pulse Ox 08/24/17 01:00 93 14 78/42 98 08/24/17 00:27 97.7 F 101 16 91/47 99 General appearance: alert Eyes: nonicteric ENT: oropharynx moist Neck: supple Effort: normal Auscultation: bilateral: clear Cardiovascular: regular rate and rhythm Gastrointestinal: tender, non-distended, guarding (Voluntary), other (Dressing is clean dry and intact) Integumentary: normal Extremities: no cyanosis, no edema Musculoskeletal: no deformities normal mental status, non-focal exam Results - Laboratory Findings CBC and BMP: 08/23/17 16:15 08/23/17 16:49 PT/INR, D-dimer PT 25.6 Seconds (9.4-12.1) H 08/23/17 16:34 Abnormal lab findings: Abnormal lab results WBC 2.6 K/mcL (4.3-11.1) L D 08/23/17 16:15 RBC 2.76 M/mcL (3.82-4.97) L 08/23/17 16:15 Hgb 8.0 g/dL (11.5-15.4) L 08/23/17 16:15 Hct 24.4 % (35.3-44.9) L 08/23/17 16:15 Lymphocytes # 0.2 K/mcL (0.6-4.6) L 08/23/17 16:15 PT 25.6 Seconds (9.4-12.1) H 08/23/17 16:34 Glucose 115 mg/dL (70-105) H 08/23/17 16:49 Magnesium 1.2 mg/dL (1.6-2.6) L 08/23/17 04:00 Total Bilirubin 1.3 mg/dL (0.3-1.0) H 08/23/17 16:49 Direct Bilirubin 0.8 mg/dL (0.0-0.2) H 08/23/17 16:49 Alkaline Phosphatase 143 Units/L (34-104) H 08/23/17 16:49 Serum Total Protein 5.5 g/dL (6.4-8.9) L 08/23/17 16:49 Albumin 2.8 g/dL (3.5-5.7) L 08/23/17 16:49 Albumin/Globulin Ratio 1.0 (1.1-2.2) L 08/23/17 16:49 Triglycerides 179 mg/dL (< 150) H 08/20/17 00:54 VLDL Cholesterol, Calc 36 mg/dL (< 31) H 08/20/17 00:54 HDL Cholesterol 34 mg/dL (40-59) L 08/20/17 00:54 Urine Clarity Cloudy (Clear) A 08/21/17 10:20 Urine Protein 30 mg/dL (Neg-Trace) H 08/21/17 10:20 Urine Ketones 80 mg/dL (Negative) H 08/21/17 10:20 Urine Bilirubin Moderate (Negative) H 08/21/17 10:20 Ur Leukocyte Esterase Moderate (Negative) H 08/21/17 10:20 Urine Microscopic RBC 5-15 per hpf (0-3) H 08/21/17 10:20 Urine Microscopic WBC 30-50 per hpf (0-3) H 08/21/17 10:20 Ur Squamous Epith Cells Many per lpf (None-Few) H 08/21/17 10:20 Ur Culture Indicated? NO. (NO) A 08/21/17 10:20 - Diagnostic Findings Chest x-ray: report reviewed, image reviewed - Clinical Findings Intake & Output: Intake & Output 08/23/17 08/23/17 08/24/17 15:59 23:59 07:59 Intake Total 600 / 600 638 / 638 Output Total 50 / 50 Balance -50 / -50 600 / 600 638 / 638 Weight 62 kg Consult Discharge Plan - Plan Referrals: Brenda Titus MD [Primary Care Provider] - <Josh Rich W - Last Filed: 08/24/17 10:43> Date of Encounter: 08/24/17 All Systems: The remainder of the systems were reviewed and are negative Physical Examination Vital Signs: Vital Signs, Last 4 Hours Temp Pulse Resp BP Pulse Ox 08/24/17 07:17 98.2 F 99 14 109/65 98 08/24/17 06:00 99 14 116/70 98 08/24/17 05:00 99 14 123/72 98 08/24/17 04:55 98 F 99 14 104/64 98 08/24/17 04:40 97.7 F 93 14 106/60 98 08/24/17 04:08 97.7 F 93 14 104/61 98 08/24/17 04:00 93 14 104/61 98 08/24/17 03:36 97.7 F Results - Laboratory Findings CBC and BMP: 08/24/17 10:00 08/24/17 06:43 PT/INR, D-dimer PT 25.6 Seconds (9.4-12.1) H 08/23/17 16:34 Abnormal lab findings: Abnormal lab results WBC 16.4 K/mcL (4.3-11.1) H D 08/24/17 01:20 RBC 2.34 M/mcL (3.82-4.97) L 08/24/17 01:20 Hgb 6.9 g/dL (11.5-15.4) L 08/24/17 01:20 Hct 20.9 % (35.3-44.9) L 08/24/17 01:20 Band Neutrophils % 14.5 % (0-4) H 08/24/17 01:20 Neutrophils # 14.6 K/mcL (1.6-8.9) H 08/24/17 01:20 PT 25.6 Seconds (9.4-12.1) H 08/23/17 16:34 Potassium 3.2 mEq/L (3.5-5.1) L 08/24/17 01:20 Chloride 110 mEq/L (98-107) H 08/24/17 01:20 Creatinine 1.26 mg/dL (0.60-1.20) H 08/24/17 01:20 Est GFR ( Amer) 51 (> 60) L 08/24/17 01:20 Est GFR (Non-Af Amer) 42 (> 60) L 08/24/17 01:20 Glucose 157 mg/dL (70-105) H 08/24/17 01:20 POC Glucose 181 mg/dL (70-99) H 08/24/17 03:39 Calcium 8.0 mg/dL (8.6-10.3) L 08/24/17 01:20 Phosphorus 1.7 mg/dL (2.7-4.5) L 08/24/17 01:20 Total Bilirubin 1.7 mg/dL (0.3-1.0) H 08/24/17 01:20 Direct Bilirubin 0.8 mg/dL (0.0-0.2) H 08/23/17 16:49 AST 80 Units/L (13-39) H 08/24/17 01:20 Alkaline Phosphatase 120 Units/L (34-104) H 08/24/17 01:20 Serum Total Protein 4.6 g/dL (6.4-8.9) L 08/24/17 01:20 Albumin 2.3 g/dL (3.5-5.7) L 08/24/17 01:20 Globulin 2.3 g/dL (2.4-3.5) L 08/24/17 01:20 Albumin/Globulin Ratio 1.0 (1.1-2.2) L 08/24/17 01:20 Triglycerides 179 mg/dL (< 150) H 08/20/17 00:54 VLDL Cholesterol, Calc 36 mg/dL (< 31) H 08/20/17 00:54 HDL Cholesterol 34 mg/dL (40-59) L 08/20/17 00:54 Urine Color Giles (Yellow) A 08/24/17 03:00 Urine Clarity Cloudy (Clear) A 08/24/17 03:00 Ur Specific [place]el[place] 1.027 (1.010-1.025) H 08/24/17 03:00 Urine Protein 30 mg/dL (Neg-Trace) H 08/24/17 03:00 Urine Ketones Trace mg/dL (Negative) H 08/24/17 03:00 Urine Bilirubin Moderate (Negative) H 08/24/17 03:00 Urine Microscopic WBC 5-15 per hpf (0-3) H 08/24/17 03:00 Ur Squamous Epith Cells Many per lpf (None-Few) H 08/24/17 03:00 Hyaline Casts Moderate per lpf (None-Few) H 08/24/17 03:00 Ur Culture Indicated? NO. (NO) A 08/21/17 10:20 Enterobacteriac sp PCR DETECTED (Not Detect) A 08/23/17 17:19 E. cloacae complex PCR DETECTED (Not Detect) A 08/23/17 17:19 - Microbiology Findings Microbiology Findings: Microbiology, Last 48 Hours 08/23/17 17:19 Blood Culture - Preliminary Peripheral Venipuncture Gram Negative Braeden 08/23/17 17:19 Blood Culture - Preliminary Peripheral Central Cath, Picc Gram Negative Braeden - Clinical Findings Intake & Output: Intake & Output 08/23/17 08/23/17 08/24/17 15:59 23:59 07:59 Intake Total 1600 / 1600 2714 / 2714 Output Total 50 / 50 50 / 50 500 / 500 Balance -50 / -50 1550 / 1550 2214 / 2214 Weight 62 kg - Attending Attestation I examined this patient and my medical decision-making was reviewed with the Resident Physician. I agree with the documented findings, disposition and treatment plan as described except to the extent set forth below. We independently had [id number] contact with the patient I spent 33min of Critical Care time with this patient. It involved decision making of high complexity to assess, manipulate, and support vital organ system failure and/or to prevent further life threatening deterioration of the patient' s condition. The time involved in the performance of separately reportable procedures was not counted toward critical care time. Patient seen and examined at bedside Labs, radiology, chart personally reviewed. Management was reviewed during multidisciplinary critical care rounds. TUBE PULLER: Awake and alert following commands increased narcotic for pain control Pulm: Acceptable oxygenation on room air continue to monitor she is at high risk for development of ARDS Cards: Distributive shock secondary to sepsis will trial volume expansion with colloid today. Continue norepinephrine for goal map around 65. Encouragingly lactate is trending down FEN-GI: Nothing by mouth for now. She is status post palliative gastrojejunostomy for outlet obstruction. Appreciate general surgery managing the postoperative care Renal: Urine output monitored she has a slight kidney injury related to shock monitor this carefully continue to trend electrolytes daily ID: Gram-negative bacteremia secondary to intra-abdominal source likely secondary to translocation from small bowel obstruction final cultures pending patient is on antibiotics with planned to de-escalate based upon sensitivities Heme/Onc: DVT prophylaxis given. She has a mild postoperative anemia status post transfusion we will monitor H&H closely. I do not think that this is the cause of her shock however but will need to be monitored closely Endo: Glucose Monitored Integ/MSK: Skin Care per routine ICU Nursing Protocol to prevent ulcers. Lines: All lines examined without evidence of infection : Dispo: Remain in ICU for critical illness CODE: Full
[2017-08-24 01:51] LABS: Hematocrit 20.9 % (35.3-44.9); Hemoglobin 6.9 g/dL (11.5-15.4); Red Blood Count 2.34 M/mcL (3.82-4.97)
[2017-08-24 01:52] LABS: Mean Corpuscular Hemoglobin 29.5 pg (28.0-33.3); Mean Corpuscular Volume 89.3 fL (83.0-100.0); Mean Platelet Volume 11.1 fL (9.4-12.4); Platelet Count 217 K/mcL (140-400); Red Cell Distribution Width 13.7 % (11.5-14.5)
[2017-08-24 02:04] LABS: Phosphorous 1.7 mg/dL (2.7-4.5)
[2017-08-24 02:05] LABS: Albumin 2.3 g/dL (3.5-5.7); Bilirubin,Total 1.7 mg/dL (0.3-1.0); Globulin 2.3 g/dL (2.4-3.5); Potassium 3.2 mEq/L (3.5-5.1); Total Protein 4.6 g/dL (6.4-8.9)
[2017-08-24 02:06] LABS: Platelet Estimate Normal (Normal)
[2017-08-24 02:09] LABS: Band Neutrophils % 14.5 % (0-4); Lymphocytes # 0.9 K/mcL (0.6-4.6); Lymphocytes % 5.5 %; Monocytes # 0.9 K/mcL (0.0-1.3); Monocytes % 5.5 %; Neutrophils # 14.6 K/mcL (1.6-8.9); Segmented Neutrophils % 74.5 %
[2017-08-24 03:23] LABS: Bilirubin,Urine Moderate (Negative); Blood,Urine Negative (Negative); Clarity,Urine Cloudy (Clear); Color,Urine Orange (Yellow); Glucose,Urine (UA) Normal (Normal); Ketones,Urine Trace mg/dL (Negative); Leukocyte Esterase,Urine Negative (Negative); Nitrite,Urine Negative (Negative); PH,Urine 5.5 pH Units (5.0-8.0); Protein,Urine 30 mg/dL (Neg-Trace); Specific Gravity,Urine 1.027 (1.010-1.025); Urobilinogen,Urine Normal (Normal)
[2017-08-24 03:25] LABS: Bacteria,Urine None Seen per hpf (None-Few); RBC,Urine 0-3 per hpf (0-3); Squamous Epithelial Cell,Urine Many per lpf (None-Few)
[2017-08-24 03:38] LABS: Hyaline Casts,Urine Moderate per lpf (None-Few)
[2017-08-24] MEDS: Meropenem 1,000 MG in Water for inj. (sterile) 20 ML 10 ML IVP SCH ×3 (03:46→20:55)
[2017-08-24 04:47] LABS: Acinetobacter baumannii by PCR Not Detected (Not Detect); Enterococcus by PCR Not Detected (Not Detect); Staphylococcus aureus by PCR Not Detected (Not Detect); Streptococcus agalactiae(B)PCR Not Detected (Not Detect); Streptococcus by PCR Not Detected (Not Detect); Streptococcus pneumoniae PCR Not Detected (Not Detect); Streptococcus pyogenes (A) PCR Not Detected (Not Detect); blaKPC Carbapenem-Resist Gene Not Detected (Not Detect); mecA Methicillin-Resist Gene Not Detected (Not Detect); vanA/B Vancomycin-Resist Genes Not Detected (Not Detect)
[2017-08-24 04:48] LABS: Candida albicans by PCR Not Detected (Not Detect); Candida glabrata by PCR Not Detected (Not Detect); Candida krusei by PCR Not Detected (Not Detect); Candida parapsilosis by PCR Not Detected (Not Detect); Candida tropicalis by PCR Not Detected (Not Detect); Escherichia coli by PCR Not Detected (Not Detect); Klebsiella oxytoca by PCR Not Detected (Not Detect); Klebsiella pneumoniae by PCR Not Detected (Not Detect); Pseudomonas aeruginosa by PCR Not Detected (Not Detect); Serratia marcescens by PCR Not Detected (Not Detect)
[2017-08-24] MEDS: OXYCODONE Oral CONC 10 MG/0.5 ML ORAL.SYG SL PRN ×3 (05:13→14:07)
[2017-08-24] MEDS: Pantoprazole 40 MG VIAL IVP SCH ×2 (05:31→18:05)
[2017-08-24] MEDS: Norepinephrine 4 MG in D5% in Water 250 ML IVC SCH (05:32)
[2017-08-24] MEDS: *HR* Heparin 5,000 UNIT/ML VIAL SQ SCH ×2 (05:32→18:05)
[2017-08-24] MEDS ORDERED: Meropenem 1,000 MG in Water for inj. (sterile) 20 ML 10 ML IVP SCH (06:00)
[2017-08-24 08:26] LABS: Mean Corpuscular Hemoglobin 29.2 pg (28.0-33.3)
[2017-08-24 08:27] LABS: Hematocrit 29.4 % (35.3-44.9); Hemoglobin 9.8 g/dL (11.5-15.4); Mean Corpuscular HGB Conc 33.3 g/dL (31.6-35.5); Mean Corpuscular Volume 87.5 fL (83.0-100.0); Mean Platelet Volume 11.9 fL (9.4-12.4); Platelet Count 204 K/mcL (140-400); Red Blood Count 3.36 M/mcL (3.82-4.97); Red Cell Distribution Width 14.3 % (11.5-14.5)
--- NOTE | 2017-08-24 08:59 | Oncology Inp Progress Note ---
Date of Encounter: 08/24/17 Time of Encounter: 08:00 (1) Adenocarcinoma of pancreas, stage 4 Current Visit: Yes Status: Acute Assessment and plan: Patient was hospitalized with the obstructive symptoms she underwent palliative estrogen jejunostomy on 08/22/17. She was noted to be hypotensive and was transferred to intensive care unit, blood cultures growing gram-negative rods on broad-spectrum antibiotics. Blood pressure appears stable, anemia likely multifactorial, postsurgical and infection. Requiring pain medications. Continue ICU monitoring, overnight events noted. Transfuse PRBC as necessary per ICU. Plan discussed with ICU attending, ICU staff patient and . Oncology: Subj Interval history: Status post GJ, denies complaints other than abd discomfort post surgery - Constitutional Vitals: Vital Signs Temp Pulse Resp BP Pulse Ox 08/24/17 08:23 97.9 F 08/24/17 08:00 97.9 F 94 16 114/67 98 08/24/17 07:17 98.2 F 99 14 109/65 98 08/24/17 07:00 99 16 113/65 97 08/24/17 06:00 99 14 116/70 98 08/24/17 05:00 99 14 123/72 98 08/24/17 04:55 98 F 99 14 104/64 98 08/24/17 04:40 97.7 F 93 14 106/60 98 08/24/17 04:08 97.7 F 93 14 104/61 98 08/24/17 04:00 93 14 104/61 98 08/24/17 03:36 97.7 F 08/24/17 03:00 93 14 108/54 98 08/24/17 01:44 97.7 F 90 14 98/52 98 08/24/17 01:00 92 14 78/42 98 08/24/17 00:27 97.7 F 101 16 91/47 99 08/23/17 20:00 123 73/47 98 08/23/17 19:30 125 76/44 08/23/17 19:15 119 81/46 08/23/17 19:00 122 16 84/46 97 08/23/17 18:45 101.4 F H 125 18 80/43 95 08/23/17 17:48 99.3 F 132 21 80/52 92 08/23/17 16:30 95/61 93 08/23/17 16:00 100.3 F H 139 17 92/61 93 08/23/17 14:28 158 08/23/17 14:23 97.9 F 147 20 161/84 99 08/23/17 11:00 97.6 F 106 16 118/76 99 08/23/17 09:07 98 Intake and Output 08/23/17 08/24/17 08/24/17 23:59 07:59 15:59 Intake Total 1600 / 1600 2714 / 2714 Output Total 50 / 50 500 / 500 425 / 425 Balance 1550 / 1550 2214 / 2214 -425 / -425 Intake: IV Fluids 1600 / 1600 2013 / 2013 0.9 % Sodium Chloride 1,000 ML 1000 / 1000 1000 / 1000 @ 3750 mls/hr IVC .Q16M ONE Rx# :[id number] Levophed 4 MG In Dextrose 5% 304 / 304 250 ML @ 5 MCG/MIN 19.05 mls/hr IVC CONT PATTI Rx#:[id number] Lactated Ringers 1,000 ML @ 125 400 / 400 600 / 600 mls/hr IVC [facility]8H [facility] Rx#: [id number] Merrem 1,000 MG In Water for 100 / 100 10 / 10 inj. (sterile) 10 ML @ 120 mls/ hr IVP Q8H [facility] Rx#:[id number] Ofirmev 1,000 mg/100 ml 1,000 100 / 100 mg In 100 ml @ 400 mls/hr IVPB ONCE ONE Rx#:[id number] Potassium Chloride 10 mEq/100mL 100 / 100 10 meq In 100 ml @ 100 mls/hr IVPB Q1H PRN Rx#:[id number] Blood Product 700 / 700 Rbcs Leuko Poor As-3 2nd Unit 350 / 350 [id number] Rbcs Leuko Poor As-3 Ph Unit 350 / 350 [id number] Output: Gastric Tube Lavage Amount 50 / 50 Right Nare 50 / 50 Catheter 500 / 500 125 / 125 Urethral ([place]) 450 / 450 Gastric Drainage 300 / 300 Other: Weight 62 kg Blood Glucose* 181 142 General appearance: no acute distress - Head Head exam: Present: atraumatic, normal inspection - Eye Eye exam: Present: EOMI, sclera anicteric - Neck Neck exam: Present: normal inspection - Respiratory Respiratory exam: Present: CTAB - GI/Abdominal GI/Abdominal exam: Present: soft Additional comments: s/p gastrojejunostomy - Extremities Exam Extremities exam: Present: normal inspection - Neurological Exam Neurological exam: Present: alert, CN II-XII intact, oriented X3, no focal deficits Oncology: Obj Data - Labs CBC & Chem 7: 08/24/17 06:43 08/24/17 01:20 Labs: Laboratory Results - last 24 hr 08/20/17 08/23/17 08/23/17 16:12 09:20 13:16 WBC RBC Hgb Hct MCV MCH MCHC RDW Plt Count MPV Immature Gran % Seg Neutrophils % Band Neutrophils % Lymphocytes % Monocytes % Eosinophils % Basophils % Neutrophils # Lymphocytes # Monocytes # Eosinophils # Basophils # Platelet Estimate PT INR APTT Sodium Potassium Chloride Carbon Dioxide BUN Creatinine Est GFR ( Amer) Est GFR (Non-Af Amer) BUN/Creatinine Ratio Glucose POC Glucose 108 H Calculated Osmolality Lactic Acid 0.7 Calcium Phosphorus Magnesium Total Bilirubin Direct Bilirubin Indirect Bilirubin AST ALT Alkaline Phosphatase Serum Total Protein Albumin Globulin Albumin/Globulin Ratio Urine Color Urine Clarity Urine pH Ur Specific Newman Urine Protein Urine Glucose (UA) Urine Ketones Urine Blood Urine Nitrite Urine Bilirubin Urine Urobilinogen Ur Leukocyte Esterase Urine Microscopic RBC Urine Microscopic WBC Ur Squamous Epith Cells Urine Bacteria Hyaline Casts Urine Yeast A. baumannii (PCR) Cori albicans (PCR) C. glabrata (PCR) C. krusei (PCR) C. parapsilosis (PCR) C. tropicalis (PCR) Enterobacteriac sp PCR E. cloacae complex PCR Enterococcus sp PCR E. coli (PCR) H. influenzae (PCR) Klebsiella oxytoca PCR Klebsiella pneumoniae List. monocytogenes PCR N. meningitidis (PCR) Proteus species (PCR) Serratia marcescens PCR Staphylococcus sp PCR Staph aureus (PCR) mecA-Methicil Res Gene Streptococcus sp PCR Group A Strep DNA Group B Strep (PCR) Strep pneumoniae (PCR) P. aeruginosa (PCR) Hussain/B-Vanco Res Genes KPC (blaKPC) Detect PCR Blood Type O POSITIVE Antibody Screen NEGATIVE Crossmatch See Detail 08/23/17 08/23/17 08/23/17 14:17 16:15 16:34 WBC 2.6 L D RBC 2.76 L Hgb 8.0 L Hct 24.4 L MCV 88.4 MCH 29.0 MCHC 32.8 RDW 13.5 Plt Count 163 MPV 10.1 Immature Gran % 0.4 Seg Neutrophils % 89.0 Band Neutrophils % Lymphocytes % 9.0 Monocytes % 1.2 Eosinophils % 0.4 Basophils % 0.0 Neutrophils # 2.3 Lymphocytes # 0.2 L Monocytes # 0.0 Eosinophils # 0.0 Basophils # 0.0 Platelet Estimate Normal PT 25.6 H INR 2.3 APTT 28.6 Sodium Potassium Chloride Carbon Dioxide BUN Creatinine Est GFR ( Amer) Est GFR (Non-Af Amer) BUN/Creatinine Ratio Glucose POC Glucose 102 H Calculated Osmolality Lactic Acid Calcium Phosphorus Magnesium Total Bilirubin Direct Bilirubin Indirect Bilirubin AST ALT Alkaline Phosphatase Serum Total Protein Albumin Globulin Albumin/Globulin Ratio Urine Color Urine Clarity Urine pH Ur Specific Newman Urine Protein Urine Glucose (UA) Urine Ketones Urine Blood Urine Nitrite Urine Bilirubin Urine Urobilinogen Ur Leukocyte Esterase Urine Microscopic RBC Urine Microscopic WBC Ur Squamous Epith Cells Urine Bacteria Hyaline Casts Urine Yeast A. baumannii (PCR) Cori albicans (PCR) C. glabrata (PCR) C. krusei (PCR) C. parapsilosis (PCR) C. tropicalis (PCR) Enterobacteriac sp PCR E. cloacae complex PCR Enterococcus sp PCR E. coli (PCR) H. influenzae (PCR) Klebsiella oxytoca PCR Klebsiella pneumoniae List. monocytogenes PCR N. meningitidis (PCR) Proteus species (PCR) Serratia marcescens PCR Staphylococcus sp PCR Staph aureus (PCR) mecA-Methicil Res Gene Streptococcus sp PCR Group A Strep DNA Group B Strep (PCR) Strep pneumoniae (PCR) P. aeruginosa (PCR) Hussain/B-Vanco Res Genes KPC (blaKPC) Detect PCR Blood Type Antibody Screen Crossmatch 08/23/17 08/23/17 08/23/17 16:49 16:49 17:19 WBC RBC Hgb Hct MCV MCH MCHC RDW Plt Count MPV Immature Gran % Seg Neutrophils % Band Neutrophils % Lymphocytes % Monocytes % Eosinophils % Basophils % Neutrophils # Lymphocytes # Monocytes # Eosinophils # Basophils # Platelet Estimate PT INR APTT Sodium 143 Potassium 3.5 Chloride 105 Carbon Dioxide 27 BUN 18 Creatinine 0.79 Est GFR ( Amer) > 60 Est GFR (Non-Af Amer) > 60 BUN/Creatinine Ratio 23 Glucose 115 H POC Glucose Calculated Osmolality 299 Lactic Acid 2.1 Calcium 9.0 Phosphorus Magnesium Total Bilirubin 1.3 H Direct Bilirubin 0.8 H Indirect Bilirubin 0.5 AST 35 ALT 28 Alkaline Phosphatase 143 H Serum Total Protein 5.5 L Albumin 2.8 L Globulin 2.7 Albumin/Globulin Ratio 1.0 L Urine Color Urine Clarity Urine pH Ur Specific Newman Urine Protein Urine Glucose (UA) Urine Ketones Urine Blood Urine Nitrite Urine Bilirubin Urine Urobilinogen Ur Leukocyte Esterase Urine Microscopic RBC Urine Microscopic WBC Ur Squamous Epith Cells Urine Bacteria Hyaline Casts Urine Yeast A. baumannii (PCR) Not Detected Cori albicans (PCR) Not Detected C. glabrata (PCR) Not Detected C. krusei (PCR) Not Detected C. parapsilosis (PCR) Not Detected C. tropicalis (PCR) Not Detected Enterobacteriac sp PCR DETECTED A E. cloacae complex PCR DETECTED A Enterococcus sp PCR Not Detected E. coli (PCR) Not Detected H. influenzae (PCR) Not Detected Klebsiella oxytoca PCR Not Detected Klebsiella pneumoniae Not Detected List. monocytogenes PCR Not Detected N. meningitidis (PCR) Not Detected Proteus species (PCR) Not Detected Serratia marcescens PCR Not Detected Staphylococcus sp PCR Not Detected Staph aureus (PCR) Not Detected mecA-Methicil Res Gene Not Detected Streptococcus sp PCR Not Detected Group A Strep DNA Not Detected Group B Strep (PCR) Not Detected Strep pneumoniae (PCR) Not Detected P. aeruginosa (PCR) Not Detected Hussain/B-Vanco Res Genes Not Detected KPC (blaKPC) Detect PCR Not Detected Blood Type Antibody Screen Crossmatch 08/23/17 08/24/17 08/24/17 19:37 00:29 01:20 WBC 16.4 H D RBC 2.34 L Hgb 6.9 L Hct 20.9 L MCV 89.3 MCH 29.5 MCHC 33.0 RDW 13.7 Plt Count 217 MPV 11.1 Immature Gran % Test Not Performed Seg Neutrophils % 74.5 Band Neutrophils % 14.5 H Lymphocytes % 5.5 Monocytes % 5.5 Eosinophils % Test Not Performed Basophils % Test Not Performed Neutrophils # 14.6 H Lymphocytes # 0.9 Monocytes # 0.9 Eosinophils # Test Not Performed Basophils # Test Not Performed Platelet Estimate Normal PT INR APTT Sodium Potassium Chloride Carbon Dioxide BUN Creatinine Est GFR ( Amer) Est GFR (Non-Af Amer) BUN/Creatinine Ratio Glucose POC Glucose 155 H Calculated Osmolality Lactic Acid 2.0 Calcium Phosphorus Magnesium Total Bilirubin Direct Bilirubin Indirect Bilirubin AST ALT Alkaline Phosphatase Serum Total Protein Albumin Globulin Albumin/Globulin Ratio Urine Color Urine Clarity Urine pH Ur Specific Newman Urine Protein Urine Glucose (UA) Urine Ketones Urine Blood Urine Nitrite Urine Bilirubin Urine Urobilinogen Ur Leukocyte Esterase Urine Microscopic RBC Urine Microscopic WBC Ur Squamous Epith Cells Urine Bacteria Hyaline Casts Urine Yeast A. baumannii (PCR) Cori albicans (PCR) C. glabrata (PCR) C. krusei (PCR) C. parapsilosis (PCR) C. tropicalis (PCR) Enterobacteriac sp PCR E. cloacae complex PCR Enterococcus sp PCR E. coli (PCR) H. influenzae (PCR) Klebsiella oxytoca PCR Klebsiella pneumoniae List. monocytogenes PCR N. meningitidis (PCR) Proteus species (PCR) Serratia marcescens PCR Staphylococcus sp PCR Staph aureus (PCR) mecA-Methicil Res Gene Streptococcus sp PCR Group A Strep DNA Group B Strep (PCR) Strep pneumoniae (PCR) P. aeruginosa (PCR) Hussain/B-Vanco Res Genes KPC (blaKPC) Detect PCR Blood Type Antibody Screen Crossmatch 08/24/17 08/24/17 08/24/17 01:20 01:20 03:00 WBC RBC Hgb Hct MCV MCH MCHC RDW Plt Count MPV Immature Gran % Seg Neutrophils % Band Neutrophils % Lymphocytes % Monocytes % Eosinophils % Basophils % Neutrophils # Lymphocytes # Monocytes # Eosinophils # Basophils # Platelet Estimate PT INR APTT Sodium 142 Potassium 3.2 L Chloride 110 H Carbon Dioxide 25 BUN 20 Creatinine 1.26 H Est GFR ( Amer) 51 L Est GFR (Non-Af Amer) 42 L BUN/Creatinine Ratio 16 Glucose 157 H POC Glucose Calculated Osmolality 300 Lactic Acid Calcium 8.0 L Phosphorus 1.7 L Magnesium 2.0 Total Bilirubin 1.7 H Direct Bilirubin Indirect Bilirubin AST 80 H ALT 39 Alkaline Phosphatase 120 H Serum Total Protein 4.6 L Albumin 2.3 L Globulin 2.3 L Albumin/Globulin Ratio 1.0 L Urine Color [place] A Urine Clarity Cloudy A Urine pH 5.5 Ur Specific Newman 1.027 H Urine Protein 30 H Urine Glucose (UA) Normal Urine Ketones Trace H Urine Blood Negative Urine Nitrite Negative Urine Bilirubin Moderate H Urine Urobilinogen Normal Ur Leukocyte Esterase Negative Urine Microscopic RBC 0-3 Urine Microscopic WBC 5-15 H Ur Squamous Epith Cells Many H Urine Bacteria None Seen Hyaline Casts Moderate H Urine Yeast Test Not Performed A. baumannii (PCR) Cori albicans (PCR) C. glabrata (PCR) C. krusei (PCR) C. parapsilosis (PCR) C. tropicalis (PCR) Enterobacteriac sp PCR E. cloacae complex PCR Enterococcus sp PCR E. coli (PCR) H. influenzae (PCR) Klebsiella oxytoca PCR Klebsiella pneumoniae List. monocytogenes PCR N. meningitidis (PCR) Proteus species (PCR) Serratia marcescens PCR Staphylococcus sp PCR Staph aureus (PCR) mecA-Methicil Res Gene Streptococcus sp PCR Group A Strep DNA Group B Strep (PCR) Strep pneumoniae (PCR) P. aeruginosa (PCR) Hussain/B-Vanco Res Genes KPC (blaKPC) Detect PCR Blood Type Antibody Screen Crossmatch 08/24/17 08/24/17 03:39 06:43 WBC 26.3 H D RBC 3.36 L Hgb 9.8 L D Hct 29.4 L MCV 87.5 MCH 29.2 MCHC 33.3 RDW 14.3 Plt Count 204 MPV 11.9 Immature Gran % Seg Neutrophils % Band Neutrophils % Lymphocytes % Monocytes % Eosinophils % Basophils % Neutrophils # Lymphocytes # Monocytes # Eosinophils # Basophils # Platelet Estimate PT INR APTT Sodium Potassium Chloride Carbon Dioxide BUN Creatinine Est GFR ( Amer) Est GFR (Non-Af Amer) BUN/Creatinine Ratio Glucose POC Glucose 181 H Calculated Osmolality Lactic Acid Calcium Phosphorus Magnesium Total Bilirubin Direct Bilirubin Indirect Bilirubin AST ALT Alkaline Phosphatase Serum Total Protein Albumin Globulin Albumin/Globulin Ratio Urine Color Urine Clarity Urine pH Ur Specific Newman Urine Protein Urine Glucose (UA) Urine Ketones Urine Blood Urine Nitrite Urine Bilirubin Urine Urobilinogen Ur Leukocyte Esterase Urine Microscopic RBC Urine Microscopic WBC Ur Squamous Epith Cells Urine Bacteria Hyaline Casts Urine Yeast A. baumannii (PCR) Cori albicans (PCR) C. glabrata (PCR) C. krusei (PCR) C. parapsilosis (PCR) C. tropicalis (PCR) Enterobacteriac sp PCR E. cloacae complex PCR Enterococcus sp PCR E. coli (PCR) H. influenzae (PCR) Klebsiella oxytoca PCR Klebsiella pneumoniae List. monocytogenes PCR N. meningitidis (PCR) Proteus species (PCR) Serratia marcescens PCR Staphylococcus sp PCR Staph aureus (PCR) mecA-Methicil Res Gene Streptococcus sp PCR Group A Strep DNA Group B Strep (PCR) Strep pneumoniae (PCR) P. aeruginosa (PCR) Hussain/B-Vanco Res Genes KPC (blaKPC) Detect PCR Blood Type Antibody Screen Crossmatch - Impressions Impressions Chest X-Ray 08/23/17 19:38 IMPRESSION: Mild left basilar atelectasis. D/ / Mickie Doan MD / Mickie Doan MD Interpreting Provider: Mickie Doan MD - ABG Interpretation ABG results: PT/INR, D-dimer PT 25.6 Seconds (9.4-12.1) H 08/23/17 16:34 Consult Discharge Plan - Plan Referrals: Brenda Titus MD [Primary Care Provider] -
[2017-08-24 09:09] LABS: BUN/Creatinine Ratio 20 (6-26); Blood Urea Nitrogen 21 mg/dL (8-23); Calcium 8.1 mg/dL (8.6-10.3); Carbon Dioxide 23 mEq/L (23-29); Chloride 109 mEq/L (98-107); Glucose 124 mg/dL (70-105); Osmolality,Calculated 300 (280-300); Phosphorous 2.2 mg/dL (2.7-4.5); Potassium 4.1 mEq/L (3.5-5.1); Sodium 143 mEq/L (136-145); eGFR For African Americans > 60 (> 60); eGFR For Non-African Americans 51 (> 60)
[2017-08-24] MEDS: *HR* FentaNYL PATCH 50 MCG PATCH TD SCH (09:18)
[2017-08-24 10:22] LABS: Hematocrit 27.3 % (35.3-44.9); Hemoglobin 9.3 g/dL (11.5-15.4); Mean Corpuscular HGB Conc 34.1 g/dL (31.6-35.5); Mean Corpuscular Hemoglobin 30.1 pg (28.0-33.3); Mean Corpuscular Volume 88.3 fL (83.0-100.0); Mean Platelet Volume 11.2 fL (9.4-12.4); Platelet Count 184 K/mcL (140-400); Red Blood Count 3.09 M/mcL (3.82-4.97); Red Cell Distribution Width 14.4 % (11.5-14.5)
[2017-08-24 10:41] LABS: BUN/Creatinine Ratio 23 (6-26); Blood Urea Nitrogen 21 mg/dL (8-23); Calcium 7.9 mg/dL (8.6-10.3); Carbon Dioxide 24 mEq/L (23-29); Chloride 109 mEq/L (98-107); Glucose 170 mg/dL (70-105); Osmolality,Calculated 303 (280-300); Phosphorous 8.4 mg/dL (2.7-4.5); Sodium 143 mEq/L (136-145); eGFR For African Americans > 60 (> 60); eGFR For Non-African Americans > 60 (> 60)
[2017-08-24 10:42] LABS: Basophils # 0.5 K/mcL (0.0-0.2); Lymphocytes # 0.5 K/mcL (0.6-4.6); Monocytes # 1.1 K/mcL (0.0-1.3); Neutrophils # 24.9 K/mcL (1.6-8.9); Platelet Estimate Normal (Normal)
--- NOTE | 2017-08-24 13:03 | General Surgery Progress Note ---
<Onesimo Mancini - Last Filed: 08/24/17 13:01> Date of Encounter: 08/24/17 Time of Encounter: 10:15 - Assessment and Plan (1) Adenocarcinoma of pancreas, stage 4 Current Visit: Yes Status: Acute Associated duodenal obstruction -- POD#[address] Burns on . Bacteremic demonstrated on BC serology. - Liver Bx pending - BC final report pending; seropositive for enterobacteriaciae & E. cloacae - pt being managed in ICU with CC team onboard - still pressor-dependent - on Meropenem (day 1) - cont NG for now and monitor output - on TPN; monitor and correct lytes daily - IS 10x/hr when awake, serial exams Subjective Narrative: Patient demonstrates remarkable improvement over yesterday afternoon. Late afternoon 08/23/2017, patient was lethargic, and was unable to recognize me "Sree"; patient correctly identified me today as "Dr. Mancini". Patient was transferred to the ICU due to precipitous decline including tachycardia, progressively decreasing blood pressure, low-grade temperature elevations, and ultimately serologically demonstrated enteric bacteremia on blood cultures. Currently in the ICU on norepinephrine with adequate blood pressure; otherwise vitals are normal including temperature and heart rate. AOx3. CC team onboard and treating with Meropenem. BCx2 still pending final results. Pt comfortable with well-controlled pain. Objective Vital Signs - Last 8 Hours Temp Pulse Resp BP Pulse Ox 08/24/17 12:00 86 16 96/60 96 08/24/17 11:57 97.8 F 08/24/17 11:00 82 16 93/51 96 08/24/17 10:00 95 16 113/66 97 08/24/17 09:00 90 16 110/72 97 08/24/17 08:23 97.9 F 08/24/17 08:00 97.9 F 94 16 114/67 98 08/24/17 07:17 98.2 F 99 14 109/65 98 08/24/17 07:00 99 16 113/65 97 08/24/17 06:00 99 14 116/70 98 Intake and Output 08/23/17 08/24/17 08/24/17 23:59 07:59 15:59 Intake Total 1600 / 1600 2814 / 2814 Output Total 50 / 50 500 / 500 475 / 475 Balance 1550 / 1550 2314 / 2314 -475 / -475 Intake: IV Fluids 1600 / 1600 2114 / 2114 0.9 % Sodium Chloride 1,000 ML 1000 / 1000 1000 / 1000 @ 3750 mls/hr IVC .Q16M [facility] Rx# :[id number] Levophed 4 MG In Dextrose 5% 304 / 304 250 ML @ 5 MCG/MIN 19.05 mls/hr IVC CONT PATTI Rx#:[id number] Lactated Ringers 1,000 ML @ 125 400 / 400 600 / 600 mls/hr IVC .Q8H [facility] Rx#: [id number] Merrem 1,000 MG In Water for 100 / 100 10 / 10 inj. (sterile) 10 ML @ 120 mls/ hr IVP Q8H [facility] Rx#:[id number] Ofirmev 1,000 mg/100 ml 1,000 100 / 100 mg In 100 ml @ 400 mls/hr IVPB ONCE ONE Rx#:[id number] Potassium Chloride 10 mEq/100mL 200 / 200 10 meq In 100 ml @ 100 mls/hr IVPB Q1H PRN Rx#:[id number] Blood Product 700 / 700 Rbcs Leuko Poor As-3 2nd Unit 350 / 350 [id number] Rbcs Leuko Poor As-3 Ph Unit 350 / 350 [id number] Output: Gastric Tube Lavage Amount 50 / 50 Right Nare 50 / 50 Catheter 500 / 500 175 / 175 Urethral (Molina) 450 / 450 Gastric Drainage 300 / 300 Other: Weight 62 kg Blood Glucose* 181 127 VITAL SIGNS: Reviewed. See [employer]; tenuous to adequate BP on pressor support. GENERAL: alert and comfortable. AOx3 today. No acute distress. Answers questions appropriately. HEENT: PER, EOMi, oropharynx pink/moist NG: no apparent blood in line or reservoir CV: RRR, no murmurs or extra heart sounds RESPIRATORY: CTAB without wheezes, rales, or rhonchi ABD: normoactive, soft, non-tender, no guarding, no rigidity/distention INCISION: clean, dry, intact without purulence/bleeding/edema/rubor/calor EXTREMITY: grossly normal motor function, no pedal edema, radial pulse 2+ b/l NEUROLOGIC EXAM: AOx3, obeys commands, no speech deficits. PSYCHIATRIC: normal mood and affect SKIN: no gross lesions, rashes, or skin changes - Labs 08/24/17 10:00 08/24/17 10:00 Diabetes panel 08/23/17 08/24/17 08/24/17 Range/Units 16:49 01:20 06:43 Sodium 143 142 143 (136-145) mEq/L Potassium 3.5 3.2 L 4.1 D (3.5-5.1) mEq/L Chloride 105 110 H 109 H (98-107) mEq/L Carbon Dioxide 27 25 23 (23-29) mEq/L BUN 18 20 21 (8-23) mg/dL Creatinine 0.79 1.26 H 1.07 (0.60-1.20) mg/dL Glucose 115 H 157 H 124 H (70-105) mg/dL Calcium 9.0 8.0 L 8.1 L (8.6-10.3) mg/dL AST 35 80 H (13-39) Units/L ALT 28 39 (7-52) Units/L Alkaline Phosphatase 143 H 120 H (34-104) Units/L Albumin 2.8 L 2.3 L (3.5-5.7) g/dL 08/24/17 Range/Units 10:00 Sodium 143 (136-145) mEq/L Potassium 4.0 (3.5-5.1) mEq/L Chloride 109 H (98-107) mEq/L Carbon Dioxide 24 (23-29) mEq/L BUN 21 (8-23) mg/dL Creatinine 0.92 (0.60-1.20) mg/dL Glucose 170 H (70-105) mg/dL Calcium 7.9 L (8.6-10.3) mg/dL AST (13-39) Units/L ALT (7-52) Units/L Alkaline Phosphatase (34-104) Units/L Albumin (3.5-5.7) g/dL Calcium panel 08/23/17 08/24/17 08/24/17 Range/Units 16:49 01:20 01:20 Calcium 9.0 8.0 L (8.6-10.3) mg/dL Phosphorus 1.7 L (2.7-4.5) mg/dL Albumin 2.8 L 2.3 L (3.5-5.7) g/dL 08/24/17 08/24/17 Range/Units 06:43 10:00 Calcium 8.1 L 7.9 L (8.6-10.3) mg/dL Phosphorus 2.2 L 8.4 H (2.7-4.5) mg/dL Albumin (3.5-5.7) g/dL Pituitary panel 08/23/17 08/24/17 08/24/17 Range/Units 16:49 01:20 06:43 Sodium 143 142 143 (136-145) mEq/L Potassium 3.5 3.2 L 4.1 D (3.5-5.1) mEq/L Chloride 105 110 H 109 H (98-107) mEq/L Carbon Dioxide 27 25 23 (23-29) mEq/L BUN 18 20 21 (8-23) mg/dL Creatinine 0.79 1.26 H 1.07 (0.60-1.20) mg/dL Glucose 115 H 157 H 124 H (70-105) mg/dL Calcium 9.0 8.0 L 8.1 L (8.6-10.3) mg/dL 08/24/17 Range/Units 10:00 Sodium 143 (136-145) mEq/L Potassium 4.0 (3.5-5.1) mEq/L Chloride 109 H (98-107) mEq/L Carbon Dioxide 24 (23-29) mEq/L BUN 21 (8-23) mg/dL Creatinine 0.92 (0.60-1.20) mg/dL Glucose 170 H (70-105) mg/dL Calcium 7.9 L (8.6-10.3) mg/dL Adrenal panel 08/23/17 08/24/17 08/24/17 Range/Units 16:49 01:20 06:43 Sodium 143 142 143 (136-145) mEq/L Potassium 3.5 3.2 L 4.1 D (3.5-5.1) mEq/L Chloride 105 110 H 109 H (98-107) mEq/L Carbon Dioxide 27 25 23 (23-29) mEq/L BUN 18 20 21 (8-23) mg/dL Creatinine 0.79 1.26 H 1.07 (0.60-1.20) mg/dL Glucose 115 H 157 H 124 H (70-105) mg/dL Calcium 9.0 8.0 L 8.1 L (8.6-10.3) mg/dL Total Bilirubin 1.3 H 1.7 H (0.3-1.0) mg/dL AST 35 80 H (13-39) Units/L ALT 28 39 (7-52) Units/L Alkaline Phosphatase 143 H 120 H (34-104) Units/L Albumin 2.8 L 2.3 L (3.5-5.7) g/dL 08/24/17 Range/Units 10:00 Sodium 143 (136-145) mEq/L Potassium 4.0 (3.5-5.1) mEq/L Chloride 109 H (98-107) mEq/L Carbon Dioxide 24 (23-29) mEq/L BUN 21 (8-23) mg/dL Creatinine 0.92 (0.60-1.20) mg/dL Glucose 170 H (70-105) mg/dL Calcium 7.9 L (8.6-10.3) mg/dL Total Bilirubin (0.3-1.0) mg/dL AST (13-39) Units/L ALT (7-52) Units/L Alkaline Phosphatase (34-104) Units/L Albumin (3.5-5.7) g/dL - VTE Documentation of Mechanical Device: Intermittent pneumatic compression device Consult Discharge Plan - Plan Referrals: Brenda Titus MD [Primary Care Provider] - <Jeremy Velazco - Last Filed: 08/24/17 18:33> Date of Encounter: 08/24/17 - Assessment and Plan (1) Adenocarcinoma of pancreas, stage 4 Current Visit: Yes Status: Acute Objective Vital Signs - Last 8 Hours Temp Pulse Resp BP Pulse Ox 08/24/17 18:00 85 16 111/61 97 08/24/17 17:00 102 16 107/81 97 08/24/17 16:00 97.7 F 85 16 112/77 97 08/24/17 15:00 87 16 119/91 98 08/24/17 14:00 86 16 107/72 98 08/24/17 13:00 85 16 114/65 98 08/24/17 12:00 97.8 F 86 16 96/60 96 08/24/17 11:57 97.8 F 08/24/17 11:00 82 16 93/51 96 Intake and Output 08/24/17 08/24/17 08/24/17 07:59 15:59 23:59 Intake Total 2814 / 2814 500 / 500 250 / 250 Output Total 500 / 500 475 / 475 Balance 2314 / 2314 25 / 25 250 / 250 Intake: IV Fluids 2113 / 4 500 / 500 250 / 250 0.9 % Sodium Chloride 1,000 ML 1000 / 1000 @ 3750 mls/hr IVC .Q16M [facility] Rx# :[id number] ALBURX 5% 12.5 gm In 250 ml @ 250 / 250 250 / 250 60 mls/hr IVC .Q4H10M [facility] Rx#: [id number] Levophed 4 MG In Dextrose 5% 304 / 304 250 ML @ 5 MCG/MIN 19.05 mls/hr IVC CONT [facility] Rx#:[id number] Lactated Ringers 1,000 ML @ 125 600 / 600 mls/hr IVC .Q8H [facility] Rx#: [id number] Merrem 1,000 MG In Water for inj. (sterile) 10 ML @ 120 mls/ hr IVP Q8H [facility] Rx#:[id number] Intralipid 20% 250 ML @ 21 mls/ 250 / 250 hr IVPB DAILY@1700 [facility] Rx#: [id number] Potassium Chloride 10 mEq/100mL 200 / 200 10 meq In 100 ml @ 100 mls/hr IVPB Q1H PRN Rx#:[id number] Blood Product 700 / 700 Rbcs Leuko Poor As-3 2nd Unit 350 / 350 [id number] Rbcs Leuko Poor As-3 Ph Unit 350 / 350 [id number] Output: Catheter 500 / 500 175 / 175 Urethral (Molina) 450 / 450 Gastric Drainage 300 / 300 Other: Blood Glucose* 181 127 122 - Labs 08/24/17 10:00 08/24/17 10:00 Diabetes panel 08/24/17 08/24/17 08/24/17 Range/Units 01:20 06:43 10:00 Sodium 142 143 143 (136-145) mEq/L Potassium 3.2 L 4.1 D 4.0 (3.5-5.1) mEq/L Chloride 110 H 109 H 109 H (98-107) mEq/L Carbon Dioxide 25 23 24 (23-29) mEq/L BUN 20 21 21 (8-23) mg/dL Creatinine 1.26 H 1.07 0.92 (0.60-1.20) mg/dL Glucose 157 H 124 H 170 H (70-105) mg/dL Calcium 8.0 L 8.1 L 7.9 L (8.6-10.3) mg/dL AST 80 H (13-39) Units/L ALT 39 (7-52) Units/L Alkaline Phosphatase 120 H (34-104) Units/L Albumin 2.3 L (3.5-5.7) g/dL Calcium panel 08/24/17 08/24/17 08/24/17 Range/Units 01:20 01:20 06:43 Calcium 8.0 L 8.1 L (8.6-10.3) mg/dL Phosphorus 1.7 L 2.2 L (2.7-4.5) mg/dL Albumin 2.3 L (3.5-5.7) g/dL 08/24/17 Range/Units 10:00 Calcium 7.9 L (8.6-10.3) mg/dL Phosphorus 8.4 H (2.7-4.5) mg/dL Albumin (3.5-5.7) g/dL Pituitary panel 08/24/17 08/24/17 08/24/17 Range/Units 01:20 06:43 10:00 Sodium 142 143 143 (136-145) mEq/L Potassium 3.2 L 4.1 D 4.0 (3.5-5.1) mEq/L Chloride 110 H 109 H 109 H (98-107) mEq/L Carbon Dioxide 25 23 24 (23-29) mEq/L BUN 20 21 21 (8-23) mg/dL Creatinine 1.26 H 1.07 0.92 (0.60-1.20) mg/dL Glucose 157 H 124 H 170 H (70-105) mg/dL Calcium 8.0 L 8.1 L 7.9 L (8.6-10.3) mg/dL Adrenal panel 08/24/17 08/24/17 08/24/17 Range/Units 01:20 06:43 10:00 Sodium 142 143 143 (136-145) mEq/L Potassium 3.2 L 4.1 D 4.0 (3.5-5.1) mEq/L Chloride 110 H 109 H 109 H (98-107) mEq/L Carbon Dioxide 25 23 24 (23-29) mEq/L BUN 20 21 21 (8-23) mg/dL Creatinine 1.26 H 1.07 0.92 (0.60-1.20) mg/dL Glucose 157 H 124 H 170 H (70-105) mg/dL Calcium 8.0 L 8.1 L 7.9 L (8.6-10.3) mg/dL Total Bilirubin 1.7 H (0.3-1.0) mg/dL AST 80 H (13-39) Units/L ALT 39 (7-52) Units/L Alkaline Phosphatase 120 H (34-104) Units/L Albumin 2.3 L (3.5-5.7) g/dL - Attending Attestation patient seen and examined; transferred to ICU 2/2 hypotension; cultures obtained demonstrating bacteremia; currently on abx; awaiting culture results; keep nPO wean pressors as tolerated monitor UOP fent patch today; start with 25 and work up to 50mcg cont to monitor
[2017-08-24] MEDS ORDERED: Clinimix E 5%-15% SOLUTION 2,000 ML with MVI, adult with vitamin K 10 ML IVC SCH ×2 (17:00)
[2017-08-24 20:47] LABS: Hematocrit 25.5 % (35.3-44.9); Hemoglobin 8.8 g/dL (11.5-15.4)
[2017-08-25] MEDS: OXYCODONE Oral CONC 10 MG/0.5 ML ORAL.SYG SL PRN ×3 (00:03→20:35)
[2017-08-25] MEDS: Insulin LISPRO 300 UNITS/3 ML VIAL SQ SCH ×6 (00:12→20:27)
[2017-08-25] MEDS: Meropenem 1,000 MG in Water for inj. (sterile) 20 ML 10 ML IVP SCH ×3 (04:44→20:34)
[2017-08-25 04:55] LABS: Basophils # 0.1 K/mcL (0.0-0.2); Basophils % 0.3 %; Eosinophils # 0.5 K/mcL (0.0-0.6); Eosinophils % 2.7 %; Hematocrit 25.6 % (35.3-44.9); Hemoglobin 8.6 g/dL (11.5-15.4); Immature Granulocytes % 3.1 % (0-4); Lymphocytes # 2.4 K/mcL (0.6-4.6); Lymphocytes % 13.4 %; Mean Corpuscular HGB Conc 33.6 g/dL (31.6-35.5); Mean Corpuscular Hemoglobin 29.8 pg (28.0-33.3); Mean Corpuscular Volume 88.6 fL (83.0-100.0); Mean Platelet Volume 11.5 fL (9.4-12.4); Monocytes # 0.9 K/mcL (0.0-1.3); Monocytes % 5.2 %; Neutrophils # 13.2 K/mcL (1.6-8.9); Platelet Count 150 K/mcL (140-400); Red Blood Count 2.89 M/mcL (3.82-4.97); Red Cell Distribution Width 14.6 % (11.5-14.5); Segmented Neutrophils % 75.3 %
[2017-08-25 05:05] LABS: Magnesium 1.9 mg/dL (1.6-2.6); Phosphorous 2.1 mg/dL (2.7-4.5)
[2017-08-25 05:06] LABS: BUN/Creatinine Ratio 38 (6-26); Blood Urea Nitrogen 22 mg/dL (8-23); Calcium 8.2 mg/dL (8.6-10.3); Carbon Dioxide 26 mEq/L (23-29); Chloride 111 mEq/L (98-107); Glucose 117 mg/dL (70-105); Osmolality,Calculated 300 (280-300); Potassium 3.1 mEq/L (3.5-5.1); Sodium 143 mEq/L (136-145); eGFR For African Americans > 60 (> 60); eGFR For Non-African Americans > 60 (> 60)
[2017-08-25] MEDS: Pantoprazole 40 MG VIAL IVP SCH ×2 (05:14→16:35)
[2017-08-25] MEDS: *HR* Heparin 5,000 UNIT/ML VIAL SQ SCH ×2 (05:14→16:35)
--- NOTE | 2017-08-25 08:52 | Pulmonology Progress Note ---
<Junior Wheatley - Last Filed: 08/25/17 12:56> Date of Encounter: 08/25/17 Time of Encounter: 07:30 Assessment and Plan (1) Septic shock Current Visit: Yes Status: Resolved Resolving. Patient had Sirs, febrile, tachycardic, leukopenia with a potential source in the intra-abdominal. Patient was initially responsive to IV crystalloids. Patient received 2 L of 0.9% NS. Patient also received 2u PRBCs. Source likely 2/2 to intra-abdominal source with bacteremia Plan -MAP goal >65 -Monitor UOP with goal 30-50cc/kg/hr -Meropenem day 2 -If clinically worsens, consider CT abd/pelvis. (2) Bacteremia Current Visit: Yes Status: Acute Blood cultures obtained on 08/23- PICC gram-negative Enterobacteriacease Blood culture obtained 08/23- PIV gram-negative rods Preliminary cultures on peripheral as well as PICC 08/24 no growth Plan -Meropenem day 3 -Overall patient is clinically improving. Continue to monitor. (3) Anemia Current Visit: Yes Status: Acute Hemoglobin of 8.6. Stable Etiology likely secondary to acute blood loss anemia related to recent procedures. Plan to transfuse 2 units of PRBCs in the setting of hypotension. Transfusion goal hemoglobin greater than 7. Monitor for signs symptoms of bleeding. Qualifiers: Anemia type: unspecified type Qualified Code(s): D64.9 - Anemia, unspecified (4) Adenocarcinoma of pancreas, stage 4 Current Visit: Yes Status: Acute Postop from gastrojejunostomy for palliative therapies. Oncology following. Appreciate recommendations. (5) DVT prophylaxis Current Visit: No Status: Acute Subcutaneous heparin Subjective Principal diagnosis: Sepsis, pancreatic cancer, bacteremia Interval history: Patient seen and examined. Patient continues to improve. Patient reports abdominal pain. States she is feeling better. Patient has been off vasopressors since yesterday. Objective PUL Vital signs: Last Vital Signs Temp 97.6 F 08/25/17 08:00 Pulse 98 08/25/17 08:00 Resp 14 08/25/17 08:00 BP 117/73 08/25/17 08:00 Pulse Ox 94 08/25/17 08:00 General appearance: no acute distress Eyes: nonicteric ENT: oropharynx moist Neck: supple Effort: normal Auscultation: bilateral: clear Cardiovascular: regular rate and rhythm Gastrointestinal: hypoactive bowel sounds, soft, tender (Appropriately postoperative), other (Dressing appears clean dry and intact) Integumentary: normal Extremities: no cyanosis, no edema Musculoskeletal: no deformities normal mental status, non-focal exam Results - Laboratory Findings CBC and BMP: 08/25/17 04:32 08/25/17 04:32 PT/INR, D-dimer PT 25.6 Seconds (9.4-12.1) H 08/23/17 16:34 Abnormal lab findings: Abnormal lab results WBC 17.6 K/mcL (4.3-11.1) H 08/25/17 04:32 RBC 2.89 M/mcL (3.82-4.97) L 08/25/17 04:32 Hgb 8.6 g/dL (11.5-15.4) L 08/25/17 04:32 Hct 25.6 % (35.3-44.9) L 08/25/17 04:32 RDW 14.6 % (11.5-14.5) H 08/25/17 04:32 Band Neutrophils % 42.0 % (0-4) H 08/24/17 10:00 Neutrophils # 13.2 K/mcL (1.6-8.9) H 08/25/17 04:32 PT 25.6 Seconds (9.4-12.1) H 08/23/17 16:34 Potassium 3.1 mEq/L (3.5-5.1) L 08/25/17 04:32 Chloride 111 mEq/L (98-107) H 08/25/17 04:32 Creatinine 0.58 mg/dL (0.60-1.20) L 08/25/17 04:32 BUN/Creatinine Ratio 38 (6-26) H 08/25/17 04:32 Glucose 117 mg/dL (70-105) H 08/25/17 04:32 POC Glucose 130 mg/dL (70-99) H 08/24/17 23:42 Calcium 8.2 mg/dL (8.6-10.3) L 08/25/17 04:32 Phosphorus 2.1 mg/dL (2.7-4.5) L 08/25/17 04:32 Total Bilirubin 1.7 mg/dL (0.3-1.0) H 08/24/17 01:20 Direct Bilirubin 0.8 mg/dL (0.0-0.2) H 08/23/17 16:49 AST 80 Units/L (13-39) H 08/24/17 01:20 Alkaline Phosphatase 120 Units/L (34-104) H 08/24/17 01:20 Serum Total Protein 4.6 g/dL (6.4-8.9) L 08/24/17 01:20 Albumin 2.3 g/dL (3.5-5.7) L 08/24/17 01:20 Globulin 2.3 g/dL (2.4-3.5) L 08/24/17 01:20 Albumin/Globulin Ratio 1.0 (1.1-2.2) L 08/24/17 01:20 Triglycerides 179 mg/dL (< 150) H 08/20/17 00:54 VLDL Cholesterol, Calc 36 mg/dL (< 31) H 08/20/17 00:54 HDL Cholesterol 34 mg/dL (40-59) L 08/20/17 00:54 Urine Color Moffat (Yellow) A 08/24/17 03:00 Urine Clarity Cloudy (Clear) A 08/24/17 03:00 Ur Specific [place] 1.027 (1.010-1.025) H 08/24/17 03:00 Urine Protein 30 mg/dL (Neg-Trace) H 08/24/17 03:00 Urine Ketones Trace mg/dL (Negative) H 08/24/17 03:00 Urine Bilirubin Moderate (Negative) H 08/24/17 03:00 Urine Microscopic WBC 5-15 per hpf (0-3) H 08/24/17 03:00 Ur Squamous Epith Cells Many per lpf (None-Few) H 08/24/17 03:00 Hyaline Casts Moderate per lpf (None-Few) H 08/24/17 03:00 Ur Culture Indicated? NO. (NO) A 08/21/17 10:20 Enterobacteriac sp PCR DETECTED (Not Detect) A 08/23/17 17:19 E. cloacae complex PCR DETECTED (Not Detect) A 08/23/17 17:19 - Microbiology Findings Microbiology Findings: Microbiology, Last 48 Hours 08/24/17 07:00 Blood Culture - Preliminary Peripheral Central Cath, Picc No growth. 08/23/17 17:19 Blood Culture - Preliminary Peripheral Venipuncture Gram Negative Braeden 08/23/17 17:19 Blood Culture - Preliminary Peripheral Central Cath, Picc Gram Negative Braeden - Clinical Findings Intake & Output: Intake & Output 08/24/17 08/25/17 08/25/17 23:59 07:59 15:59 Intake Total 689.3 / 689.3 560 / 560 Output Total 400 / 400 325 / 325 150 / 150 Balance 289.3 / 289.3 235 / 235 -150 / -150 Weight 68.7 kg - VTE Documentation of Mechanical Device: Intermittent pneumatic compression device Consult Discharge Plan - Plan Referrals: Brenda Titus MD [Primary Care Provider] - <Geno Posada - Last Filed: 08/25/17 22:18> Date of Encounter: 08/25/17 Objective PUL Vital signs: Last Vital Signs Temp 98.1 F 08/25/17 20:30 Pulse 91 08/25/17 21:00 Resp 16 08/25/17 21:00 BP 133/78 08/25/17 21:00 Pulse Ox 96 08/25/17 21:00 Results - Laboratory Findings CBC and BMP: 08/25/17 04:32 08/25/17 15:24 PT/INR, D-dimer PT 25.6 Seconds (9.4-12.1) H 08/23/17 16:34 Abnormal lab findings: Abnormal lab results WBC 17.6 K/mcL (4.3-11.1) H 08/25/17 04:32 RBC 2.89 M/mcL (3.82-4.97) L 08/25/17 04:32 Hgb 8.6 g/dL (11.5-15.4) L 08/25/17 04:32 Hct 25.6 % (35.3-44.9) L 08/25/17 04:32 RDW 14.6 % (11.5-14.5) H 08/25/17 04:32 Band Neutrophils % 42.0 % (0-4) H 08/24/17 10:00 Neutrophils # 13.2 K/mcL (1.6-8.9) H 08/25/17 04:32 PT 25.6 Seconds (9.4-12.1) H 08/23/17 16:34 Chloride 111 mEq/L (98-107) H 08/25/17 04:32 Creatinine 0.58 mg/dL (0.60-1.20) L 08/25/17 04:32 BUN/Creatinine Ratio 38 (6-26) H 08/25/17 04:32 Glucose 117 mg/dL (70-105) H 08/25/17 04:32 POC Glucose 130 mg/dL (70-99) H 08/24/17 23:42 Calcium 8.2 mg/dL (8.6-10.3) L 08/25/17 04:32 Phosphorus 2.3 mg/dL (2.7-4.5) L 08/25/17 15:24 Total Bilirubin 1.7 mg/dL (0.3-1.0) H 08/24/17 01:20 Direct Bilirubin 0.8 mg/dL (0.0-0.2) H 08/23/17 16:49 AST 80 Units/L (13-39) H 08/24/17 01:20 Alkaline Phosphatase 120 Units/L (34-104) H 08/24/17 01:20 Serum Total Protein 4.6 g/dL (6.4-8.9) L 08/24/17 01:20 Albumin 2.3 g/dL (3.5-5.7) L 08/24/17 01:20 Globulin 2.3 g/dL (2.4-3.5) L 08/24/17 01:20 Albumin/Globulin Ratio 1.0 (1.1-2.2) L 08/24/17 01:20 Triglycerides 179 mg/dL (< 150) H 08/20/17 00:54 VLDL Cholesterol, Calc 36 mg/dL (< 31) H 08/20/17 00:54 HDL Cholesterol 34 mg/dL (40-59) L 08/20/17 00:54 Urine Color Moff[place] (Yellow) A 08/24/17 03:00 Urine Clarity Cloudy (Clear) A 08/24/17 03:00 Ur Specific [place] 1.027 (1.010-1.025) H 08/24/17 03:00 Urine Protein 30 mg/dL (Neg-Trace) H 08/24/17 03:00 Urine Ketones Trace mg/dL (Negative) H 08/24/17 03:00 Urine Bilirubin Moderate (Negative) H 08/24/17 03:00 Urine Microscopic WBC 5-15 per hpf (0-3) H 08/24/17 03:00 Ur Squamous Epith Cells Many per lpf (None-Few) H 08/24/17 03:00 Hyaline Casts Moderate per lpf (None-Few) H 08/24/17 03:00 Ur Culture Indicated? NO. (NO) A 08/21/17 10:20 Enterobacteriac sp PCR DETECTED (Not Detect) A 08/23/17 17:19 E. cloacae complex PCR DETECTED (Not Detect) A 08/23/17 17:19 - Microbiology Findings Microbiology Findings: Microbiology, Last 48 Hours 08/23/17 17:19 Blood Culture - Final Peripheral Venipuncture Enterobacter cloacae 08/23/17 17:19 Blood Culture - Final Peripheral Central Cath, Picc Enterobacter cloacae 08/24/17 07:00 Blood Culture - Preliminary Peripheral Central Cath, Picc No growth. - Clinical Findings Intake & Output: Intake & Output 08/25/17 08/25/17 08/25/17 07:59 15:59 23:59 Intake Total 660 / 660 210 / 210 10 / 10 Output Total 325 / 325 700 / 700 300 / 300 Balance 335 / 335 -490 / -490 -290 / -290 Weight 68.7 kg - Attending Attestation I saw and evaluated this patient and my medical decision-making was reviewed with the Resident Physician. I agree with the documented findings, disposition and treatment plan as described except to the extent set forth below. We independently had [id number] contact with the patient Patient seen and examined at bedside Labs, radiology, chart personally reviewed. 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 Cards: Patient septic shock is recovering today as she is off vasopressor today morning FEN-GI: Patient is NPO s/p gastrojejunostomy patient is on TPN . Advancement of diet according to surgery still has good NG output with sluggish bowel sounds Renal: Labs and Output monitored ID: Patient enterbacter bactremia on meropenem patient septic shock is improving Heme/Onc:Labs reviewed Endo: Glucose Monitored Integ/MSK: Skin Care per routine ICU Nursing Protocol to prevent ulcers. Lines: All lines examined without evidence of infection : Dispo: Remain in ICU today if she is off vasopressor for 24 hrs we can shfit to step down CODE: Full Code
[2017-08-25] MEDS: Potassium Chloride 40 MEQ/200 ML BAG IVPB PRN ×2 (09:34→16:34)
--- NOTE | 2017-08-25 14:34 | General Surgery Progress Note ---
Date of Encounter: 08/25/17 Time of Encounter: 10:35 - Assessment and Plan (1) Leukocytosis Current Visit: Yes Status: Acute contiue to trend, is decreasing, continue antibiotics Qualifiers: Leukocytosis type: unspecified Qualified Code(s): D72.829 - Elevated white blood cell count, unspecified (2) Status post bypass gastrojejunostomy Current Visit: Yes Status: Acute discussed with patient and family that she has no return of bowel function yet, no bowel sounds/no flatus Dr Burns will return tomorrow, continue npo, ngt to LIWS continue ivf hydration prn pain tontrol prn antiemetics patient looks much better today ok OOB to chair IS/pulmonary toilet (3) Adenocarcinoma of pancreas, stage 4 Current Visit: Yes Status: Chronic (4) Septic shock Current Visit: Yes Status: Resolved off pressors since yesterday normotensive continue abx blood cx x 2 E cloacae, abx per CCM leukocystosis improving (5) Bacteremia Current Visit: Yes Status: Acute continue antibiotics Subjective Narrative: patient without nausea or emesis states has abdominal pain but is decently controlled, does allow her to sleep/ rest no flatus or bm feeling better than 2 days ago Objective Vital Signs - Last 8 Hours Temp Pulse Resp BP Pulse Ox 08/25/17 14:00 93 16 120/73 98 08/25/17 13:00 98 14 132/76 96 08/25/17 12:00 90 16 116/67 96 08/25/17 11:47 97.7 F 08/25/17 11:42 89 08/25/17 11:00 89 14 129/72 96 08/25/17 10:00 88 18 124/71 96 08/25/17 09:00 90 16 146/88 98 08/25/17 08:00 97.6 F 98 14 117/73 94 08/25/17 07:00 93 16 132/73 95 Intake and Output 08/24/17 08/25/17 08/25/17 23:59 07:59 15:59 Intake Total 689.3 / 689.3 660 / 660 Output Total 400 / 400 325 / 325 350 / 350 Balance 289.3 / 289.3 335 / 335 -340 / -340 Intake: IV Fluids 689.3 / 689.3 660 / 660 ALBURX 5% 12.5 gm In 250 ml @ 500 / 500 250 / 250 60 mls/hr IVC .Q4H10M [facility] Rx#: [id number] Levophed 4 MG In Dextrose 5% 179.3 / 179.3 250 ML @ 5 MCG/MIN 19.05 mls/hr IVC CONT [facility] Rx#:[id number] Merrem 1,000 MG In Water for inj. (sterile) 10 ML @ 120 mls/ hr IVP Q8H [facility] Rx#:[id number] Intralipid 20% 250 ML @ 21 mls/ 250 / 250 hr IVPB DAILY@1700 [facility] Rx#: [id number] Magnesium Sulfate Premix 2gm/ 50 / 50 50mL 2 gm In 50 ml @ 50 mls/hr IVPB Q6H [facility] Rx#:[id number] Potassium Chloride 10 mEq/100mL 100 / 100 10 meq In 100 ml @ 100 mls/hr IVPB Q1H PRN Rx#:[id number] Output: Catheter 300 / 300 225 / 225 350 / 350 Gastric Drainage 100 / 100 100 / 100 0 / 0 Other: Weight 68.7 kg Blood Glucose* 124 111 112 Patient Weight 08/25/17 23:59 Weight 68.7 kg - General physical appearance well developed, no distress, moderate pain - Eyes PERRL, normal ocular movement - ENT normal mucosa, normocephalic - Neck Neck exam: trachea midline - Respiratory normal expansion, clear to auscultation - Cardiovascular Cardiovascular exam: Present: RRR - Abdomen Abdomen: Present: soft, tender (appropriate post op tenderness). Absent: bowel sounds present, guarding, rebound - Incision Incision: Present: clean and dry, intact - Integumentary no rash, no growths - Neurologic CN 2-12 grossly intact - Musculoskeletal normal posture - Psychiatric oriented to time, oriented to person, oriented to place, speech is normal, memory intact - Labs 08/25/17 04:32 08/25/17 04:32 Diabetes panel 08/25/17 Range/Units 04:32 Sodium 143 (136-145) mEq/L Potassium 3.1 L (3.5-5.1) mEq/L Chloride 111 H (98-107) mEq/L Carbon Dioxide 26 (23-29) mEq/L BUN 22 (8-23) mg/dL Creatinine 0.58 L (0.60-1.20) mg/dL Glucose 117 H (70-105) mg/dL Calcium 8.2 L (8.6-10.3) mg/dL Calcium panel 08/25/17 08/25/17 Range/Units 04:32 04:32 Calcium 8.2 L (8.6-10.3) mg/dL Phosphorus 2.1 L (2.7-4.5) mg/dL Pituitary panel 08/25/17 Range/Units 04:32 Sodium 143 (136-145) mEq/L Potassium 3.1 L (3.5-5.1) mEq/L Chloride 111 H (98-107) mEq/L Carbon Dioxide 26 (23-29) mEq/L BUN 22 (8-23) mg/dL Creatinine 0.58 L (0.60-1.20) mg/dL Glucose 117 H (70-105) mg/dL Calcium 8.2 L (8.6-10.3) mg/dL Adrenal panel 08/25/17 Range/Units 04:32 Sodium 143 (136-145) mEq/L Potassium 3.1 L (3.5-5.1) mEq/L Chloride 111 H (98-107) mEq/L Carbon Dioxide 26 (23-29) mEq/L BUN 22 (8-23) mg/dL Creatinine 0.58 L (0.60-1.20) mg/dL Glucose 117 H (70-105) mg/dL Calcium 8.2 L (8.6-10.3) mg/dL - VTE Documentation of Mechanical Device: Intermittent pneumatic compression device Consult Discharge Plan - Plan Referrals: Brenda Titus MD [Primary Care Provider] -
[2017-08-25] MEDS: *HR* FentaNYL (PF) 100 MCG/2 ML VIAL IVP PRN (15:38)
[2017-08-25] MEDS ORDERED: Clinimix E 5%-15% SOLUTION 2,000 ML with MVI, adult with vitamin K 10 ML IVC SCH ×2 (17:00)
[2017-08-25 17:14] LABS: Magnesium 2.1 mg/dL (1.6-2.6); Phosphorous 2.3 mg/dL (2.7-4.5); Potassium 3.8 mEq/L (3.5-5.1)
[2017-08-25] MEDS: Norepinephrine 4 MG in D5% in Water 250 ML IVC SCH (23:21)
[2017-08-26] MEDS: Insulin LISPRO 300 UNITS/3 ML VIAL SQ SCH ×6 (00:06→19:50)
[2017-08-26 00:07] LABS: Phosphorous 2.9 mg/dL (2.7-4.5); Potassium 4.2 mEq/L (3.5-5.1)
[2017-08-26] MEDS: Meropenem 1,000 MG in Water for inj. (sterile) 20 ML 10 ML IVP SCH (04:32)
[2017-08-26 04:39] LABS: Hematocrit 27.7 % (35.3-44.9); Mean Corpuscular HGB Conc 32.5 g/dL (31.6-35.5); Mean Corpuscular Hemoglobin 28.8 pg (28.0-33.3); Mean Corpuscular Volume 88.8 fL (83.0-100.0); Mean Platelet Volume 11.6 fL (9.4-12.4); Monocytes # 0.8 K/mcL (0.0-1.3); Platelet Count 157 K/mcL (140-400); Red Blood Count 3.12 M/mcL (3.82-4.97); Red Cell Distribution Width 14.6 % (11.5-14.5)
[2017-08-26] MEDS: *HR* FentaNYL (PF) 100 MCG/2 ML VIAL IVP PRN ×4 (04:57→19:49)
[2017-08-26 04:58] LABS: Magnesium 1.7 mg/dL (1.6-2.6); Phosphorous 3.4 mg/dL (2.7-4.5)
[2017-08-26 04:59] LABS: BUN/Creatinine Ratio 50 (6-26); Blood Urea Nitrogen 19 mg/dL (8-23); Calcium 8.5 mg/dL (8.6-10.3); Carbon Dioxide 26 mEq/L (23-29); Chloride 110 mEq/L (98-107); Glucose 223 mg/dL (70-105); Osmolality,Calculated 301 (280-300); Potassium 4.1 mEq/L (3.5-5.1); Sodium 141 mEq/L (136-145); eGFR For African Americans > 60 (> 60); eGFR For Non-African Americans > 60 (> 60)
[2017-08-26 05:02] LABS: Eosinophils # 0.6 K/mcL (0.0-0.6); Lymphocytes # 2.5 K/mcL (0.6-4.6); Neutrophils # 9.5 K/mcL (1.6-8.9); Platelet Estimate Normal (Normal)
[2017-08-26] MEDS: Pantoprazole 40 MG VIAL IVP SCH ×2 (06:09→16:47)
[2017-08-26] MEDS: *HR* Heparin 5,000 UNIT/ML VIAL SQ SCH ×2 (06:09→16:47)
--- NOTE | 2017-08-26 07:10 | Pulmonology Progress Note ---
<Junior Wheatley - Last Filed: 08/26/17 09:32> Date of Encounter: 08/26/17 Time of Encounter: 07:09 Assessment and Plan (1) Septic shock Current Visit: Yes Status: Resolved Resolving. Patient had SIRS, febrile, tachycardic, leukopenia with a potential source in the intra-abdominal. Patient was initially responsive to IV crystalloids. Patient received 2 L of 0.9% NS. Patient also received 2u PRBCs. Source likely 2/2 to intra-abdominal source with bacteremia. Patient continues to improve. Patient's been off vasopressors for greater than 24 hours. Plan -Continue to improve. -UOP adequate-Will initiate clear liquids per surgery. -Meropenem day 4 -Appropriate to transfer out of ICU- surgery is agreeable. (2) Bacteremia Current Visit: Yes Status: Acute Blood cultures obtained on 08/23- PICC gram-negative Enterobacteriacease Blood culture obtained 08/23- PIV gram-negative rods Preliminary cultures on peripheral as well as PICC 08/24 no growth Plan -Meropenem day 4 -Overall patient is clinically improving. Continue to monitor. (3) Anemia Current Visit: Yes Status: Acute Hemoglobin of 9. Stable Etiology likely secondary to acute blood loss anemia related to recent procedures/sepsis. Transfusion goal hemoglobin greater than 7. Monitor for signs symptoms of bleeding. Qualifiers: Anemia type: unspecified type Qualified Code(s): D64.9 - Anemia, unspecified (4) Adenocarcinoma of pancreas, stage 4 Current Visit: Yes Status: Chronic Postop from gastrojejunostomy for palliative therapies. Oncology following. Appreciate recommendations. (5) DVT prophylaxis Current Visit: No Status: Acute Subcutaneous heparin Subjective Principal diagnosis: Sepsis, pancreatic cancer, bacteremia Interval history: Patient seen and examined. Patient continues to improve. Patient verbalizes no needs at this time. Patient sitting in chair. Patient is eager for an appetite. Objective PUL Vital signs: Last Vital Signs Temp 98.5 F 08/26/17 04:16 Pulse 92 08/26/17 06:00 Resp 14 08/26/17 06:00 BP 133/74 08/26/17 06:00 Pulse Ox 96 08/26/17 06:00 General appearance: no acute distress Eyes: nonicteric ENT: oropharynx moist Neck: supple Effort: normal Auscultation: bilateral: clear Cardiovascular: regular rate and rhythm Gastrointestinal: normoactive bowel sounds Integumentary: normal Extremities: no cyanosis Results - Laboratory Findings CBC and BMP: 08/26/17 04:18 08/26/17 04:18 PT/INR, D-dimer PT 25.6 Seconds (9.4-12.1) H 08/23/17 16:34 Abnormal lab findings: Abnormal lab results WBC 14.0 K/mcL (4.3-11.1) H 08/26/17 04:18 RBC 3.12 M/mcL (3.82-4.97) L 08/26/17 04:18 Hgb 9.0 g/dL (11.5-15.4) L 08/26/17 04:18 Hct 27.7 % (35.3-44.9) L 08/26/17 04:18 RDW 14.6 % (11.5-14.5) H 08/26/17 04:18 Band Neutrophils % 22.0 % (0-4) H 08/26/17 04:18 Metamyelocytes % 4.0 % (0) H 08/26/17 04:18 Neutrophils # 9.5 K/mcL (1.6-8.9) H 08/26/17 04:18 PT 25.6 Seconds (9.4-12.1) H 08/23/17 16:34 Chloride 110 mEq/L (98-107) H 08/26/17 04:18 Creatinine 0.38 mg/dL (0.60-1.20) L 08/26/17 04:18 BUN/Creatinine Ratio 50 (6-26) H 08/26/17 04:18 Glucose 223 mg/dL (70-105) H 08/26/17 04:18 POC Glucose 131 mg/dL (70-99) H 08/25/17 23:37 Calculated Osmolality 301 (280-300) H 08/26/17 04:18 Calcium 8.5 mg/dL (8.6-10.3) L 08/26/17 04:18 Total Bilirubin 1.7 mg/dL (0.3-1.0) H 08/24/17 01:20 Direct Bilirubin 0.8 mg/dL (0.0-0.2) H 08/23/17 16:49 AST 80 Units/L (13-39) H 08/24/17 01:20 Alkaline Phosphatase 120 Units/L (34-104) H 08/24/17 01:20 Serum Total Protein 4.6 g/dL (6.4-8.9) L 08/24/17 01:20 Albumin 2.3 g/dL (3.5-5.7) L 08/24/17 01:20 Globulin 2.3 g/dL (2.4-3.5) L 08/24/17 01:20 Albumin/Globulin Ratio 1.0 (1.1-2.2) L 08/24/17 01:20 Triglycerides 179 mg/dL (< 150) H 08/20/17 00:54 VLDL Cholesterol, Calc 36 mg/dL (< 31) H 08/20/17 00:54 HDL Cholesterol 34 mg/dL (40-59) L 08/20/17 00:54 Urine Color [place] (Yellow) A 08/24/17 03:00 Urine Clarity Cloudy (Clear) A 08/24/17 03:00 Ur Specific [place] 1.027 (1.010-1.025) H 08/24/17 03:00 Urine Protein 30 mg/dL (Neg-Trace) H 08/24/17 03:00 Urine Ketones Trace mg/dL (Negative) H 08/24/17 03:00 Urine Bilirubin Moderate (Negative) H 08/24/17 03:00 Urine Microscopic WBC 5-15 per hpf (0-3) H 08/24/17 03:00 Ur Squamous Epith Cells Many per lpf (None-Few) H 08/24/17 03:00 Hyaline Casts Moderate per lpf (None-Few) H 08/24/17 03:00 Ur Culture Indicated? NO. (NO) A 08/21/17 10:20 Enterobacteriac sp PCR DETECTED (Not Detect) A 08/23/17 17:19 E. cloacae complex PCR DETECTED (Not Detect) A 08/23/17 17:19 - Microbiology Findings Microbiology Findings: Microbiology, Last 48 Hours 08/23/17 17:19 Blood Culture - Final Peripheral Venipuncture Enterobacter cloacae 08/23/17 17:19 Blood Culture - Final Peripheral Central Cath, Picc Enterobacter cloacae 08/24/17 07:00 Blood Culture - Preliminary Peripheral Central Cath, Picc No growth. - Clinical Findings Intake & Output: Intake & Output 08/25/17 08/25/17 08/26/17 15:59 23:59 07:59 Intake Total 210 / 210 10 310 / 310 Output Total 700 / 700 550 / 550 200 / 200 Balance -490 / -490 -540 / -540 110 / 110 Weight 69.6 kg - VTE Documentation of Mechanical Device: Intermittent pneumatic compression device Consult Discharge Plan - Plan Referrals: Brenda Titus MD [Primary Care Provider] - <Geno Posada - Last Filed: 08/26/17 21:29> Date of Encounter: 08/26/17 Objective PUL Vital signs: Last Vital Signs Temp 98.2 F 08/26/17 20:35 Pulse 115 08/26/17 20:00 Resp 16 08/26/17 20:00 BP 176/90 08/26/17 20:00 Pulse Ox 95 08/26/17 20:00 Results - Laboratory Findings CBC and BMP: 08/26/17 04:18 08/26/17 04:18 PT/INR, D-dimer PT 25.6 Seconds (9.4-12.1) H 08/23/17 16:34 Abnormal lab findings: Abnormal lab results WBC 14.0 K/mcL (4.3-11.1) H 08/26/17 04:18 RBC 3.12 M/mcL (3.82-4.97) L 08/26/17 04:18 Hgb 9.0 g/dL (11.5-15.4) L 08/26/17 04:18 Hct 27.7 % (35.3-44.9) L 08/26/17 04:18 RDW 14.6 % (11.5-14.5) H 08/26/17 04:18 Band Neutrophils % 22.0 % (0-4) H 08/26/17 04:18 Metamyelocytes % 4.0 % (0) H 08/26/17 04:18 Neutrophils # 9.5 K/mcL (1.6-8.9) H 08/26/17 04:18 PT 25.6 Seconds (9.4-12.1) H 08/23/17 16:34 Chloride 110 mEq/L (98-107) H 08/26/17 04:18 Creatinine 0.38 mg/dL (0.60-1.20) L 08/26/17 04:18 BUN/Creatinine Ratio 50 (6-26) H 08/26/17 04:18 Glucose 223 mg/dL (70-105) H 08/26/17 04:18 POC Glucose 131 mg/dL (70-99) H 08/25/17 23:37 Calculated Osmolality 301 (280-300) H 08/26/17 04:18 Calcium 8.5 mg/dL (8.6-10.3) L 08/26/17 04:18 Total Bilirubin 1.7 mg/dL (0.3-1.0) H 08/24/17 01:20 Direct Bilirubin 0.8 mg/dL (0.0-0.2) H 08/23/17 16:49 AST 80 Units/L (13-39) H 08/24/17 01:20 Alkaline Phosphatase 120 Units/L (34-104) H 08/24/17 01:20 Serum Total Protein 4.6 g/dL (6.4-8.9) L 08/24/17 01:20 Albumin 2.3 g/dL (3.5-5.7) L 08/24/17 01:20 Globulin 2.3 g/dL (2.4-3.5) L 08/24/17 01:20 Albumin/Globulin Ratio 1.0 (1.1-2.2) L 08/24/17 01:20 Triglycerides 179 mg/dL (< 150) H 08/20/17 00:54 VLDL Cholesterol, Calc 36 mg/dL (< 31) H 08/20/17 00:54 HDL Cholesterol 34 mg/dL (40-59) L 08/20/17 00:54 Urine Color [place] (Yellow) A 08/24/17 03:00 Urine Clarity Cloudy (Clear) A 08/24/17 03:00 Ur Specific [place] 1.027 (1.010-1.025) H 08/24/17 03:00 Urine Protein 30 mg/dL (Neg-Trace) H 08/24/17 03:00 Urine Ketones Trace mg/dL (Negative) H 08/24/17 03:00 Urine Bilirubin Moderate (Negative) H 08/24/17 03:00 Urine Microscopic WBC 5-15 per hpf (0-3) H 08/24/17 03:00 Ur Squamous Epith Cells Many per lpf (None-Few) H 08/24/17 03:00 Hyaline Casts Moderate per lpf (None-Few) H 08/24/17 03:00 Ur Culture Indicated? NO. (NO) A 08/21/17 10:20 Enterobacteriac sp PCR DETECTED (Not Detect) A 08/23/17 17:19 E. cloacae complex PCR DETECTED (Not Detect) A 08/23/17 17:19 - Microbiology Findings Microbiology Findings: Microbiology, Last 48 Hours 08/23/17 17:19 Blood Culture - Final Peripheral Venipuncture Enterobacter cloacae 08/23/17 17:19 Blood Culture - Final Peripheral Central Cath, Picc Enterobacter cloacae 08/24/17 07:00 Blood Culture - Preliminary Peripheral Central Cath, Picc No growth. - Clinical Findings Intake & Output: Intake & Output 08/26/17 08/26/17 08/26/17 07:59 15:59 23:59 Intake Total 310 / 310 100 / 100 Output Total 200 / 200 500 / 500 700 / 700 Balance 110 / 110 -500 / -500 -600 / -600 Weight 69.6 kg - Attending Attestation - Attending Attestation I saw and evaluated this patient and my medical decision-making was reviewed with the Resident Physician. I agree with the documented findings, disposition and treatment plan as described except to the extent set forth below. We independently had [id number] contact with the patient Patient seen and examined at bedside Labs, radiology, chart personally reviewed. 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 Cards: Patient septic shock is resolved off vasopressors for more than 24 hrs FEN-GI: Has pancreatic Ca with gastrojejunosotomy according to surgery to advance diet Renal: Labs and Output monitored ID: Patient enterbacter bactremia on meropenem will descalate to ertapenem Heme/Onc:Labs reviewed Endo: Glucose Monitored Integ/MSK: Skin Care per routine ICU Nursing Protocol to prevent ulcers. Lines: All lines examined without evidence of infection : Dispo: Patient can be transferred 2NE telemetry CODE: Full Code
--- NOTE | 2017-08-26 08:42 | General Surgery Progress Note ---
<Shahram Ibanez - Last Filed: 08/26/17 13:16> Date of Encounter: 08/26/17 Time of Encounter: 06:00 - Assessment and Plan (1) Status post bypass gastrojejunostomy Current Visit: Yes Status: Acute POD #4. Patient continues to deny any BM or passing gas, however she does display bowel sounds on exam. Hemoglobin stable at 9 (yesterday at 8.6). Pain is well managed. - NG tube removed. - Advance to limited clear liquid diet ( 300 cc per 8 hours). - PT/OT. - Continue PRN pain control. - PRN antiemetics. (2) Leukocytosis Current Visit: Yes Status: Acute WBC continues to downtrend. Dropped from 17.6 down to 14. Has been afebrile overnight. - Continue to trend. - Continue antibiotics. Qualifiers: Leukocytosis type: unspecified Qualified Code(s): D72.829 - Elevated white blood cell count, unspecified (3) Adenocarcinoma of pancreas, stage 4 Current Visit: Yes Status: Chronic (4) Bacteremia Current Visit: Yes Status: Acute - Continue antibiotics. Subjective Narrative: {Patient denies any nausea or vomiting. She denies any abdominal pain. Denies any fever or chills. Denies any chest pain or SOB. Denies any BM or passing gas. Objective VITAL SIGNS: Reviewed. See [facility] GENERAL: no apprent distress. HEENT: [Normocephalic, PER, EOMI, oropharynx pink/moist, no JVD noted.] CV: b/l rad pulses 2+, RRR, no murmurs or gallops, no JVD RESPIRATORY: CTAB without wheezes, rales, or rhonchi ABD: soft, minor abdominal pain with deep palpation around incision, no rebound/ guarding/rigidity, no peritoneal signs. Hypoactive bowel sounds present. INCISION: clean, dry, intact without purulence/bleeding/edema/rubor/calor EXTREMITY: grossly normal motor function, no pedal edema, peripheral pulses 2+ b /l NEUROLOGIC EXAM: AOx3, obeys commands, no speech deficits. PSYCHIATRIC: normal mood and affect SKIN: no gross lesions, rashes, or skin changes Vital Signs - Last 8 Hours Temp Pulse Resp BP Pulse Ox 08/26/17 08:00 98.1 F 96 14 140/89 98 08/26/17 07:00 94 16 145/81 98 08/26/17 06:00 92 14 133/74 96 08/26/17 05:00 98 16 149/89 96 08/26/17 04:30 104 18 140/90 96 08/26/17 04:16 98.5 F 08/26/17 03:00 102 16 120/80 97 08/26/17 02:00 89 14 120/83 96 08/26/17 01:00 92 14 115/75 96 Intake and Output 08/25/17 08/26/17 08/26/17 23:59 07:59 15:59 Intake Total 310 / 310 Output Total 550 / 550 200 / 200 275 / 275 Balance -540 / -540 110 / 110 -275 / -275 Intake: IV Fluids 310 / 310 Merrem 1,000 MG In Water for inj. (sterile) 10 ML @ 120 mls/ hr IVP Q8H [facility] Rx#:[id number] Intralipid 20% 250 ML @ 21 mls/ 250 / 250 hr IVPB DAILY@1700 [facility] Rx#: [id number] Magnesium Sulfate Premix 2gm/ 50 / 50 50mL 2 gm In 50 ml @ 50 mls/hr IVPB Q6H [facility] Rx#:[id number] Oral 0 / 0 Output: Catheter 500 / 500 200 / 200 275 / 275 Gastric Drainage 50 / 50 0 / 0 Other: Weight 69.6 kg Blood Glucose* 126 140 140 Patient Weight 08/26/17 23:59 Weight 69.6 kg - Labs 08/26/17 04:18 08/26/17 04:18 Diabetes panel 08/25/17 08/25/17 08/26/17 Range/Units 15:24 23:32 04:18 Sodium 141 (136-145) mEq/L Potassium 3.8 4.2 4.1 (3.5-5.1) mEq/L Chloride 110 H (98-107) mEq/L Carbon Dioxide 26 (23-29) mEq/L BUN 19 (8-23) mg/dL Creatinine 0.38 L (0.60-1.20) mg/dL Glucose 223 H (70-105) mg/dL Calcium 8.5 L (8.6-10.3) mg/dL Calcium panel 08/25/17 08/25/17 08/26/17 Range/Units 15:24 23:32 04:18 Calcium (8.6-10.3) mg/dL Phosphorus 2.3 L 2.9 3.4 (2.7-4.5) mg/dL 08/26/17 Range/Units 04:18 Calcium 8.5 L (8.6-10.3) mg/dL Phosphorus (2.7-4.5) mg/dL Pituitary panel 08/25/17 08/25/17 08/26/17 Range/Units 15:24 23:32 04:18 Sodium 141 (136-145) mEq/L Potassium 3.8 4.2 4.1 (3.5-5.1) mEq/L Chloride 110 H (98-107) mEq/L Carbon Dioxide 26 (23-29) mEq/L BUN 19 (8-23) mg/dL Creatinine 0.38 L (0.60-1.20) mg/dL Glucose 223 H (70-105) mg/dL Calcium 8.5 L (8.6-10.3) mg/dL Adrenal panel 08/25/17 08/25/17 08/26/17 Range/Units 15:24 23:32 04:18 Sodium 141 (136-145) mEq/L Potassium 3.8 4.2 4.1 (3.5-5.1) mEq/L Chloride 110 H (98-107) mEq/L Carbon Dioxide 26 (23-29) mEq/L BUN 19 (8-23) mg/dL Creatinine 0.38 L (0.60-1.20) mg/dL Glucose 223 H (70-105) mg/dL Calcium 8.5 L (8.6-10.3) mg/dL - VTE Documentation of Mechanical Device: Intermittent pneumatic compression device Consult Discharge Plan - Plan Referrals: Brenda Titus MD [Primary Care Provider] - <Jet Burns - Last Filed: 08/27/17 14:23> Date of Encounter: 08/26/17 Objective Vital Signs - Last 8 Hours Temp Pulse Resp BP Pulse Ox 08/27/17 12:00 98.0 F 93 16 128/70 93 08/27/17 08:00 98.2 F 106 14 154/84 95 08/27/17 07:58 98.2 F Intake and Output 08/26/17 08/27/17 08/27/17 23:59 07:59 15:59 Intake Total 100 / 100 300 / 300 Output Total 700 / 700 800 / 800 300 / 300 Balance -600 / -600 -500 / -500 -300 / -300 Intake: IV Fluids 100 / 100 300 / 300 INVanz 1,000 MG In 0.9 % Sodium 100 / 100 Chloride (Mini-Bag +) 100 ML @ 100 mls/hr IVPB Q24H [facility] Rx#: [id number] Intralipid 20% 250 ML @ 21 mls/ 250 / 250 hr IVPB DAILY@1700 [facility] Rx#: [id number] Magnesium Sulfate Premix 2gm/ 50 / 50 50mL 2 gm In 50 ml @ 50 mls/hr IVPB ONCE ONE Rx#:[id number] Output: Urine 200 / 200 300 / 300 Catheter 700 / 700 600 / 600 Other: Meal Breakfast Percent of Meal Consumed 0% # Voids 1 Weight 72.2 kg Blood Glucose* 131 121 129 Patient Weight 08/27/17 23:59 Weight 72.2 kg - Labs 08/27/17 03:25 08/27/17 03:25 Diabetes panel 08/27/17 Range/Units 03:25 Sodium 139 (136-145) mEq/L Potassium 3.6 (3.5-5.1) mEq/L Chloride 105 (98-107) mEq/L Carbon Dioxide 29 (23-29) mEq/L BUN 20 (8-23) mg/dL Creatinine 0.37 L (0.60-1.20) mg/dL Glucose 127 H (70-105) mg/dL Calcium 8.7 (8.6-10.3) mg/dL Calcium panel 08/27/17 Range/Units 03:25 Calcium 8.7 (8.6-10.3) mg/dL Phosphorus 3.7 (2.7-4.5) mg/dL Pituitary panel 08/27/17 Range/Units 03:25 Sodium 139 (136-145) mEq/L Potassium 3.6 (3.5-5.1) mEq/L Chloride 105 (98-107) mEq/L Carbon Dioxide 29 (23-29) mEq/L BUN 20 (8-23) mg/dL Creatinine 0.37 L (0.60-1.20) mg/dL Glucose 127 H (70-105) mg/dL Calcium 8.7 (8.6-10.3) mg/dL Adrenal panel 08/27/17 Range/Units 03:25 Sodium 139 (136-145) mEq/L Potassium 3.6 (3.5-5.1) mEq/L Chloride 105 (98-107) mEq/L Carbon Dioxide 29 (23-29) mEq/L BUN 20 (8-23) mg/dL Creatinine 0.37 L (0.60-1.20) mg/dL Glucose 127 H (70-105) mg/dL Calcium 8.7 (8.6-10.3) mg/dL - Attending Attestation I examined this patient and my medical decision-making was reviewed with the Resident Physician. I agree with the documented findings, disposition and treatment plan as described except to the extent set forth below. The patient is seen and evaluated with resident on morning rounds. We will remove the nasogastric tube and start her on volume restricted clear liquids. Her nausea and vomiting is completely gone after gastro-jejunostomy Jet Burns MD FACS
[2017-08-26] MEDS ORDERED: Ondansetron 4 MG/2 ML VIAL IVP PRN ×2 (09:32→10:08)
[2017-08-26] MEDS ORDERED: *HR* Nalbuphine 10 MG/ML AMPUL IVP PRN ×2 (09:32→10:08)
[2017-08-26] MEDS ORDERED: Clinimix E 5%-15% SOLUTION 2,000 ML with MVI, adult with vitamin K 10 ML IVC SCH ×4 (09:32→17:00)
[2017-08-26] MEDS ORDERED: Saliva Stimulant 100ml BOTTLE PO PRN ×2 (09:32→10:08)
[2017-08-26] MEDS ORDERED: *HR* OxyCODONE/APAP 10/325 TABLET PO PRN (09:32)
[2017-08-26] MEDS ORDERED: *HR* Dextrose 50 % in Water (Syg) 50 ML SYRINGE IVP PRN ×2 (09:32→10:08)
[2017-08-26] MEDS ORDERED: Albuterol 2.5 MG/3 ML NEBULIZER IH PRN ×2 (09:32→10:08)
[2017-08-26] MEDS ORDERED: *HR* FentaNYL (PF) 100 MCG/2 ML VIAL IVP PRN (09:32)
[2017-08-26] MEDS ORDERED: D10% in Water 500 ML IVC PRN ×3 (09:32→11:56)
[2017-08-26] MEDS ORDERED: Naloxone 0.4 MG/ML INJ IVP PRN ×2 (09:32→10:08)
[2017-08-26] MEDS ORDERED: D5% in Water 1,000 ML IVC PRN ×2 (09:32→10:08)
[2017-08-26] MEDS ORDERED: OXYCODONE Oral CONC 10 MG/0.5 ML ORAL.SYG SL PRN ×2 (09:32→10:08)
[2017-08-26] MEDS ORDERED: Ondansetron ODT 4 MG TAB.RAPDIS SL PRN ×2 (09:32→10:08)
[2017-08-26] MEDS ORDERED: Dextrose Gel 15 GM/37.5 ML TUBE PO PRN ×4 (09:32→10:08)
[2017-08-26] MEDS ORDERED: Chloraseptic Spray 177 ML BOTTLE MM PRN ×2 (09:32→10:08)
[2017-08-26] MEDS ORDERED: Meropenem 1,000 MG in Water for inj. (sterile) 20 ML 10 ML IVP SCH (12:00)
[2017-08-26] MEDS ORDERED: Insulin LISPRO 300 UNITS/3 ML VIAL SQ SCH (12:00)
[2017-08-26] MEDS: Ertapenem 1,000 MG in 0.9 % Sodium Chloride Mini Bag 100 ML IVPB SCH (16:46)
[2017-08-26] MEDS ORDERED: *HR* Heparin 5,000 UNIT/ML VIAL SQ SCH (18:00)
[2017-08-26] MEDS ORDERED: Pantoprazole 40 MG VIAL IVP SCH (18:00)
[2017-08-26] MEDS: *HR* OxyCODONE/APAP 10/325 TABLET PO PRN (22:06)
[2017-08-27] MEDS: Insulin LISPRO 300 UNITS/3 ML VIAL SQ SCH ×6 (00:11→20:59)
[2017-08-27 03:37] LABS: Basophils % 0.3 %; Eosinophils # 0.2 K/mcL (0.0-0.6); Eosinophils % 1.5 %; Hematocrit 28.4 % (35.3-44.9); Hemoglobin 9.2 g/dL (11.5-15.4); Immature Granulocytes % 0.8 % (0-4); Lymphocytes # 1.9 K/mcL (0.6-4.6); Mean Corpuscular HGB Conc 32.4 g/dL (31.6-35.5); Mean Corpuscular Hemoglobin 28.2 pg (28.0-33.3); Mean Corpuscular Volume 87.1 fL (83.0-100.0); Mean Platelet Volume 11.6 fL (9.4-12.4); Monocytes # 1.3 K/mcL (0.0-1.3); Monocytes % 9.8 %; Neutrophils # 9.4 K/mcL (1.6-8.9); Platelet Count 154 K/mcL (140-400); Red Blood Count 3.26 M/mcL (3.82-4.97); Red Cell Distribution Width 14.5 % (11.5-14.5); Segmented Neutrophils % 72.6 %
[2017-08-27 03:55] LABS: BUN/Creatinine Ratio 54 (6-26); Blood Urea Nitrogen 20 mg/dL (8-23); Calcium 8.7 mg/dL (8.6-10.3); Carbon Dioxide 29 mEq/L (23-29); Chloride 105 mEq/L (98-107); Glucose 127 mg/dL (70-105); Magnesium 1.5 mg/dL (1.6-2.6); Osmolality,Calculated 292 (280-300); Phosphorous 3.7 mg/dL (2.7-4.5); Potassium 3.6 mEq/L (3.5-5.1); Sodium 139 mEq/L (136-145); eGFR For African Americans > 60 (> 60); eGFR For Non-African Americans > 60 (> 60)
[2017-08-27] MEDS: Pantoprazole 40 MG VIAL IVP SCH ×2 (05:05→17:49)
[2017-08-27] MEDS: *HR* Heparin 5,000 UNIT/ML VIAL SQ SCH ×2 (05:05→17:50)
--- NOTE | 2017-08-27 06:40 | Electrocardiograph Report ---
[address] [place] [address] Test Date: 2017-08-23 Pat Name: Destiny Salas Department: 113 Room: [facility] Gender: F [employer] Manager: : [id number] Requested By: Beto Dave Order Number: [id number] Reading MD: Fran Trinidad Measurements Intervals [place] Rate: 113 P: 63 WV: 134 QRS: -11 QRSD: 105 T: 42 QT: 314 QTc: 381 Interpretive Statements SINUS TACHYCARDIA INFERIOR MYOCARDIAL INFARCTION, OF INDETERMINATE AGE Electronically Signed On 08-27-2017 6:38:40 EDT by Fran Trinidad
[2017-08-27] MEDS: *HR* FentaNYL (PF) 100 MCG/2 ML VIAL IVP PRN (08:10)
[2017-08-27] MEDS: *HR* OxyCODONE/APAP 10/325 TABLET PO PRN ×3 (09:37→23:42)
--- NOTE | 2017-08-27 10:55 | General Surgery Progress Note ---
<Shahram Ibanez - Last Filed: 08/27/17 11:34> Date of Encounter: 08/27/17 Time of Encounter: 06:20 - Assessment and Plan (1) Status post bypass gastrojejunostomy Current Visit: Yes Status: Acute POD #5. Patient continues to deny any BM or passing gas, however she does display bowel sounds on exam. Hemoglobin stable at 9.2 (yesterday at 9). Pain is well managed. - Advance to ular clear liquid diet. - PT/OT. - Continue PRN pain control. - PRN antiemetics. (2) Leukocytosis Current Visit: Yes Status: Acute WBC continues to downtrend. Dropped from 14 down to 12.9. Has been afebrile overnight. - Continue to trend. - Continue antibiotics. Qualifiers: Leukocytosis type: unspecified Qualified Code(s): D72.829 - Elevated white blood cell count, unspecified (3) Adenocarcinoma of pancreas, stage 4 Current Visit: Yes Status: Chronic (4) Bacteremia Current Visit: Yes Status: Chronic - Continue antibiotics. Subjective Narrative: Patient says that she is doing better than yesterday. She only has minimal abdominal pain with movement. She denies any BM or passing gas yet. She denies any nausea or vomiting. She denies any chest pain or SOB. Denies any fever or chills. Objective VITAL SIGNS: Reviewed. See [facility] GENERAL: no apparent distress. HEENT: [Normocephalic, PER, EOMi, oropharynx pink/moist, no JVD noted.] CV: b/l rad pulses 2+, RRR, no murmurs or gallops, no JVD RESPIRATORY: CTAB without wheezes, rales, or rhonchi ABD: soft, non-tender, no rebound/guarding/rigidity, no peritoneal signs. Hypoactive bowel sounds present. INCISION: clean, dry, intact without purulence/bleeding/edema/rubor/calor EXTREMITY: grossly normal motor function, no pedal edema, peripheral pulses 2+ b /l NEUROLOGIC EXAM: AOx3, obeys commands, no speech deficits. PSYCHIATRIC: normal mood and affect SKIN: no gross lesions, rashes, or skin changes Vital Signs - Last 8 Hours Temp Pulse Resp BP Pulse Ox 08/27/17 08:00 98.2 F 106 14 154/84 95 08/27/17 07:58 98.2 F 08/27/17 04:16 98 F 08/27/17 04:00 106 14 155/86 95 Intake and Output 08/26/17 08/27/17 08/27/17 23:59 07:59 15:59 Intake Total 100 / 100 300 / 300 Output Total 700 / 700 800 / 800 100 / 100 Balance -600 / -600 -500 / -500 -100 / -100 Intake: IV Fluids 100 / 100 300 / 300 INVanz 1,000 MG In 0.9 % Sodium 100 / 100 Chloride (Mini-Bag +) 100 ML @ 100 mls/hr IVPB Q24H [facility] Rx#: [id number] Intralipid 20% 250 ML @ 21 mls/ 250 / 250 hr IVPB DAILY@1700 [facility] Rx#: [id number] Magnesium Sulfate Premix 2gm/ 50 / 50 50mL 2 gm In 50 ml @ 50 mls/hr IVPB ONCE ONE Rx#:[id number] Output: Urine 200 / 200 100 / 100 Catheter 700 / 700 600 / 600 Other: Meal Breakfast Percent of Meal Consumed 0% # Voids 1 Weight 72.2 kg Blood Glucose* 131 121 Patient Weight 08/27/17 23:59 Weight 72.2 kg - Labs 08/27/17 03:25 08/27/17 03:25 Diabetes panel 08/27/17 Range/Units 03:25 Sodium 139 (136-145) mEq/L Potassium 3.6 (3.5-5.1) mEq/L Chloride 105 (98-107) mEq/L Carbon Dioxide 29 (23-29) mEq/L BUN 20 (8-23) mg/dL Creatinine 0.37 L (0.60-1.20) mg/dL Glucose 127 H (70-105) mg/dL Calcium 8.7 (8.6-10.3) mg/dL Calcium panel 08/27/17 Range/Units 03:25 Calcium 8.7 (8.6-10.3) mg/dL Phosphorus 3.7 (2.7-4.5) mg/dL Pituitary panel 08/27/17 Range/Units 03:25 Sodium 139 (136-145) mEq/L Potassium 3.6 (3.5-5.1) mEq/L Chloride 105 (98-107) mEq/L Carbon Dioxide 29 (23-29) mEq/L BUN 20 (8-23) mg/dL Creatinine 0.37 L (0.60-1.20) mg/dL Glucose 127 H (70-105) mg/dL Calcium 8.7 (8.6-10.3) mg/dL Adrenal panel 08/27/17 Range/Units 03:25 Sodium 139 (136-145) mEq/L Potassium 3.6 (3.5-5.1) mEq/L Chloride 105 (98-107) mEq/L Carbon Dioxide 29 (23-29) mEq/L BUN 20 (8-23) mg/dL Creatinine 0.37 L (0.60-1.20) mg/dL Glucose 127 H (70-105) mg/dL Calcium 8.7 (8.6-10.3) mg/dL - VTE Documentation of Mechanical Device: Intermittent pneumatic compression device Consult Discharge Plan - Plan Referrals: Brenda Titus MD [Primary Care Provider] - <Jet Burns - Last Filed: 08/27/17 18:26> Date of Encounter: 08/27/17 Objective Vital Signs - Last 8 Hours Temp Pulse Resp BP Pulse Ox 08/27/17 15:57 98.3 F 93 16 125/75 94 08/27/17 12:00 98.0 F 93 16 128/70 93 Intake and Output 08/27/17 08/27/17 08/27/17 07:59 15:59 23:59 Intake Total 300 / 300 Output Total 800 / 800 300 / 300 Balance -500 / -500 -300 / -300 Intake: IV Fluids 300 / 300 Intralipid 20% 250 ML @ 21 mls/ 250 / 250 hr IVPB DAILY@1700 [facility] Rx#: [id number] Magnesium Sulfate Premix 2gm/ 50 / 50 50mL 2 gm In 50 ml @ 50 mls/hr IVPB ONCE ONE Rx#:[id number] Output: Urine 200 / 200 300 / 300 Catheter 600 / 600 Other: Meal Breakfast Percent of Meal Consumed 0% # Voids 1 Weight 72.2 kg 74.2 kg Blood Glucose* 121 129 Patient Weight 08/27/17 23:59 Weight 74.2 kg - Labs 08/27/17 03:25 08/27/17 03:25 Diabetes panel 08/27/17 Range/Units 03:25 Sodium 139 (136-145) mEq/L Potassium 3.6 (3.5-5.1) mEq/L Chloride 105 (98-107) mEq/L Carbon Dioxide 29 (23-29) mEq/L BUN 20 (8-23) mg/dL Creatinine 0.37 L (0.60-1.20) mg/dL Glucose 127 H (70-105) mg/dL Calcium 8.7 (8.6-10.3) mg/dL Calcium panel 08/27/17 Range/Units 03:25 Calcium 8.7 (8.6-10.3) mg/dL Phosphorus 3.7 (2.7-4.5) mg/dL Pituitary panel 08/27/17 Range/Units 03:25 Sodium 139 (136-145) mEq/L Potassium 3.6 (3.5-5.1) mEq/L Chloride 105 (98-107) mEq/L Carbon Dioxide 29 (23-29) mEq/L BUN 20 (8-23) mg/dL Creatinine 0.37 L (0.60-1.20) mg/dL Glucose 127 H (70-105) mg/dL Calcium 8.7 (8.6-10.3) mg/dL Adrenal panel 08/27/17 Range/Units 03:25 Sodium 139 (136-145) mEq/L Potassium 3.6 (3.5-5.1) mEq/L Chloride 105 (98-107) mEq/L Carbon Dioxide 29 (23-29) mEq/L BUN 20 (8-23) mg/dL Creatinine 0.37 L (0.60-1.20) mg/dL Glucose 127 H (70-105) mg/dL Calcium 8.7 (8.6-10.3) mg/dL - Attending Attestation I examined this patient and my medical decision-making was reviewed with the Resident Physician. I agree with the documented findings, disposition and treatment plan as described except to the extent set forth below. The patient is seen and evaluated on morning rounds with resident. She has no nausea or vomiting. She does have some bowel sounds. I recommended a clear liquid diet. She remains asymptomatic after decompression via gastrojejunostomy Jet Burns MD FACS
--- NOTE | 2017-08-27 16:51 | Oncology Inp Progress Note ---
Date of Encounter: 08/27/17 Time of Encounter: 16:00 (1) Adenocarcinoma of pancreas, stage 4 Current Visit: Yes Status: Chronic Assessment and plan: Newly diagnosed. Planned for upcoming second opinion at [facility] to discuss potential eligibility for clinical trials, otherwise planned to start palliative chemotherapy with Gemzar/ Abraxane following recovery from recent operation. S/P palliative gastrojejunostomy on 08/22/17 with liver biopsy with effective results, patient now able to tolerate full liquid diet. Transferred to step down today following stay in ICU for septic shock/bacteremia , likely from intra-abdominal source. 2/2 blood cultures from August 23 grew Enterobacter cloacae. Repeat blood cultures from August 24 are negative. Currently on IV ertapenem. She is weak and debilitated- encouraged her to continue to work with PT/OT and increase intake as tolerated and advanced per surgery. She is passing gas tday but yet to have BM Will plan for mediport placement in the next few days now that she is out of ICU Oncology: Subj Interval history: Ms. Salas has just recently been admitted to step down unit from ICU. Her and daughter are at bedside. She was able to walk to and from the bathroom but with max assist from nursing staff while I was in the room. She is now sitting up in the chair. Her pain is controlled at this time. She is tolerated a full liquid diet with no nausea or vomiting. - Constitutional Vitals: Vital Signs Temp Pulse Resp BP Pulse Ox 08/27/17 15:57 98.3 F 93 16 125/75 94 08/27/17 12:00 98.0 F 93 16 128/70 93 08/27/17 08:00 98.2 F 106 14 154/84 95 08/27/17 07:58 98.2 F 08/27/17 04:16 98 F 08/27/17 04:00 106 14 155/86 95 08/27/17 00:40 98.3 F 08/27/17 00:00 92 12 135/78 96 08/26/17 20:35 98.2 F 08/26/17 20:00 115 16 176/90 95 Intake and Output 08/27/17 08/27/17 08/27/17 07:59 15:59 23:59 Intake Total 300 / 300 Output Total 800 / 800 300 / 300 Balance -500 / -500 -300 / -300 Intake: IV Fluids 300 / 300 Intralipid 20% 250 ML @ 21 mls/ 250 / 250 hr IVPB DAILY@1700 [facility] Rx#: [id number] Magnesium Sulfate Premix 2gm/ 50 / 50 50mL 2 gm In 50 ml @ 50 mls/hr IVPB ONCE ONE Rx#:[id number] Output: Urine 200 / 200 300 / 300 Catheter 600 / 600 Other: Meal Breakfast Percent of Meal Consumed 0% # Voids 1 Weight 72.2 kg 74.2 kg Blood Glucose* 121 129 Patient Weight 08/27/17 23:59 Weight 74.2 kg General appearance: cooperative, no acute distress, thin, no febrile - Head Head exam: Present: atraumatic - ENT ENT exam: Present: mucous membranes moist - Respiratory Respiratory exam: Present: CTAB. Absent: respiratory distress - Cardiovascular Cardiovascular exam: Present: RRR, +S1, +S2 - GI/Abdominal GI/Abdominal exam: Present: hypoactive bowel sounds, soft, tenderness - Extremities Exam Extremities exam: Present: normal inspection. Absent: calf tenderness - Neurological Exam Neurological exam: Present: alert, oriented X3, no focal deficits, strengths equal and symetr throughout - Psychiatric Psychiatric exam: Present: normal affect, normal mood - Skin Skin exam: Present: dry, intact, normal color, warm Oncology: Obj Data - Labs CBC & Chem 7: 08/29/17 04:00 08/29/17 04:00 - ABG Interpretation ABG results: PT/INR, D-dimer PT 25.6 Seconds (9.4-12.1) H 08/23/17 16:34 Consult Discharge Plan - Plan Referrals: Brenda Titus MD [Primary Care Provider] -
[2017-08-27] MEDS ORDERED: Clinimix E 5%-15% SOLUTION 2,000 ML with MVI, adult with vitamin K 10 ML, Magnesium S... IVC SCH (17:00)
--- NOTE | 2017-08-27 17:03 | Internal Med Progress Note ---
Date of Encounter: 08/27/17 Time of Encounter: 09:10 - Assessment and plan (1) Bacteremia Current Visit: Yes Status: Acute Assessment and plan: Likely secondary to intra-abdominal source. 2 out of 2 blood cultures from August 23 grew Enterobacter cloacae. Continue IV ertapenem. Repeat blood cultures from August 24 are negative. (2) Septic shock Current Visit: Yes Status: Resolved Assessment and plan: Septic shock thought to be secondary to intra-abdominal source. Patient is status post gastrojejunostomy due to gastric outlet obstruction due to pancreatic adenocarcinoma. (3) Adenocarcinoma of pancreas, stage 4 Current Visit: Yes Status: Chronic Assessment and plan: Patient was recently diagnosed with stage IV pancreatic adenocarcinoma. Oncology is following patient. Underwent palliative surgery for gastric outlet obstruction with gastrojejunostomy and liver biopsy on August 22. Continue TPN, clear liquid diet, advance per surgery recommendations. Continue pain control with when necessary oxycodone and IV fentanyl. Yet to have bowel movements. Physical and occupational therapy evaluation noted, recommend inpatient rehabilitation placement. manager clinical services consulted. (4) Hypertension Current Visit: Yes Status: Chronic Qualifiers: Hypertension type: essential hypertension Qualified Code(s): I10 - Essential (primary) hypertension (5) DVT prophylaxis Current Visit: No Status: Acute (6) Acute kidney injury Current Visit: Yes Status: Resolved Assessment and plan: Likely secondary to dehydration and GI losses due to persistent vomiting. Currently resolved. - Time Spent With Patient Total time spent is greater than 50% in coordination of care (as documented) at patient's floor/unit and/or counseling patient: - Subjective Interval history: Reports feeling tired, reports abdominal pain at surgical site. Tolerates clear liquid diet, no nausea or vomiting. Reports flatus, no bowel movements yet. - Constitutional Vitals: Temp Pulse Resp BP Pulse Ox 98.3 F 93 16 125/75 94 08/27/17 15:57 08/27/17 15:57 08/27/17 15:57 08/27/17 15:57 08/27/17 15:57 General appearance: Present: A&O X 3, answers questions appropriately - Respiratory Respiratory exam: Present: CTAB. Absent: accessory muscle use, rales, rhonchi, wheezes - Cardiovascular Cardiovascular exam: Present: RRR, +S1, +S2, tachycardia. Absent: diastolic murmur, gallop, rubs, systolic murmur - GI/Abdominal GI/Abdominal exam: Present: normal bowel sounds, soft (abdominal binder in place over surgical dressing, mild tenderness+), no peritoneal signs. Absent: distended, tenderness - Extremities Exam Extremities exam: Present: full ROM, pedal edema (trace), warm, radial pulses palpable and symmetrical. Absent: calf tenderness, cyanotic - Neurological Exam Neurological exam: Present: CN II-XII intact, oriented X3, no focal deficits. Absent: pronater drift, facial droop, speech deficit Internal Medicine: Result - Labs CBC & Chem 7: 08/27/17 03:25 08/27/17 03:25 Labs: Short CBC 08/27/17 Range/Units 03:25 WBC 12.9 H (4.3-11.1) K/mcL Hgb 9.2 L (11.5-15.4) g/dL Hct 28.4 L (35.3-44.9) % Plt Count 154 (140-400) K/mcL Neutrophils # 9.4 H (1.6-8.9) K/mcL BMP 08/27/17 03:25 Sodium 139 Potassium 3.6 Chloride 105 Carbon Dioxide 29 BUN 20 Creatinine 0.37 L Glucose 127 H Calcium 8.7 - ABG Interpretation ABG results: PT/INR, D-dimer PT 25.6 Seconds (9.4-12.1) H 08/23/17 16:34 - VTE Documentation of Mechanical Device: Intermittent pneumatic compression device Consult Discharge Plan - Plan Referrals: Brenda Titus MD [Primary Care Provider] -
[2017-08-27] MEDS: Ertapenem 1,000 MG in 0.9 % Sodium Chloride Mini Bag 100 ML IVPB SCH (18:37)
[2017-08-28] MEDS: Insulin LISPRO 300 UNITS/3 ML VIAL SQ SCH ×6 (00:15→22:17)
[2017-08-28] MEDS: *HR* Heparin 5,000 UNIT/ML VIAL SQ SCH ×2 (05:11→18:01)
[2017-08-28] MEDS: *HR* OxyCODONE/APAP 10/325 TABLET PO PRN ×3 (05:13→22:34)
[2017-08-28] MEDS: Pantoprazole 40 MG VIAL IVP SCH ×2 (05:14→18:01)
[2017-08-28 06:30] LABS: BUN/Creatinine Ratio 61 (6-26); Blood Urea Nitrogen 20 mg/dL (8-23); Calcium 8.7 mg/dL (8.6-10.3); Carbon Dioxide 28 mEq/L (23-29); Chloride 103 mEq/L (98-107); Glucose 112 mg/dL (70-105); Magnesium 1.6 mg/dL (1.6-2.6); Osmolality,Calculated 289 (280-300); Potassium 3.5 mEq/L (3.5-5.1); Sodium 138 mEq/L (136-145); eGFR For African Americans > 60 (> 60); eGFR For Non-African Americans > 60 (> 60)
[2017-08-28 06:42] LABS: Basophils % 0.3 %; Eosinophils # 0.2 K/mcL (0.0-0.6); Eosinophils % 1.8 %; Hematocrit 27.7 % (35.3-44.9); Hemoglobin 8.9 g/dL (11.5-15.4); Immature Granulocytes % 1.3 % (0-4); Lymphocytes # 1.8 K/mcL (0.6-4.6); Lymphocytes % 14.8 %; Mean Corpuscular HGB Conc 32.1 g/dL (31.6-35.5); Mean Corpuscular Hemoglobin 28.3 pg (28.0-33.3); Mean Corpuscular Volume 87.9 fL (83.0-100.0); Mean Platelet Volume 11.6 fL (9.4-12.4); Monocytes # 1.5 K/mcL (0.0-1.3); Monocytes % 12.8 %; Neutrophils # 8.3 K/mcL (1.6-8.9); Platelet Count 177 K/mcL (140-400); Red Blood Count 3.15 M/mcL (3.82-4.97); Red Cell Distribution Width 14.3 % (11.5-14.5)
[2017-08-28] MEDS: *HR* FentaNYL PATCH 50 MCG PATCH TD SCH (09:33)
--- NOTE | 2017-08-28 11:18 | General Surgery Progress Note ---
<Shahram Ibanez - Last Filed: 08/28/17 11:14> Date of Encounter: 08/28/17 Time of Encounter: 06:45 - Assessment and Plan (1) Status post bypass gastrojejunostomy Current Visit: Yes Status: Acute POD #6. Patient continues to deny any BM but admits to passing gas. She does display bowel sounds on exam. Hemoglobin stable at 8.9 (yesterday at 9.2). Pain is well managed. - Advance to full liquid diet. - Continue TPN for one day. - PT/OT. - Continue PRN pain control. - PRN antiemetics. (2) Leukocytosis Current Visit: Yes Status: Acute WBC continues to downtrend. Dropped from 12.9 down to 12. Has been afebrile overnight. - Continue to trend. - Continue antibiotics. Qualifiers: Leukocytosis type: unspecified Qualified Code(s): D72.829 - Elevated white blood cell count, unspecified (3) Adenocarcinoma of pancreas, stage 4 Current Visit: Yes Status: Chronic (4) Bacteremia Current Visit: Yes Status: Acute - Continue antibiotics. Subjective Narrative: Patient denies any BM but admits to passing gas. She denies any nausea or vomiting. Denies any chest pain or shortness of breath. Denies any fever. She does admit to minor abdominal pain with movement. Objective VITAL SIGNS: Reviewed. See [facility] GENERAL: no apparent distress. HEENT: [Normocephalic, PER, EOMi, oropharynx pink/moist, no JVD noted.] CV: b/l rad pulses 2+, RRR, no murmurs or gallops, no JVD RESPIRATORY: CTAB without wheezes, rales, or rhonchi ABD: soft, non-tender, no rebound/guarding/rigidity, no peritoneal signs. Hypoactive bowel sounds present. INCISION: abdominal incision clean, dry, intact without purulence/bleeding/edema /rubor/calor EXTREMITY: grossly normal motor function, no pedal edema, peripheral pulses 2+ b /l NEUROLOGIC EXAM: AOx3, obeys commands, no speech deficits. PSYCHIATRIC: normal mood and affect SKIN: no gross lesions, rashes, or skin changes Vital Signs - Last 8 Hours Temp Pulse Resp BP Pulse Ox 08/28/17 07:32 97.7 F 93 18 135/75 94 08/28/17 04:20 97.9 F 94 16 136/72 95 Intake and Output 08/27/17 08/28/17 08/28/17 23:59 07:59 15:59 Intake Total 0 / 0 300 / 300 310 / 310 Output Total 0 / 0 300 / 300 220 / 220 Balance 0 / 0 0 / 0 90 / 90 Intake: IV Fluids 100 / 100 250 / 250 INVanz 1,000 MG In 0.9 % Sodium 100 / 100 Chloride (Mini-Bag +) 100 ML @ 100 mls/hr IVPB Q24H [facility] Rx#: [id number] Intralipid 20% 250 ML @ 21 mls/ 250 / 250 hr IVPB DAILY@1700 [facility] Rx#: [id number] Oral 0 / 0 200 / 200 60 / 60 Output: Urine 0 / 0 300 / 300 220 / 220 Other: Meal Breakfast Blood Glucose* 125 130 - Labs 08/28/17 04:00 08/28/17 04:00 Diabetes panel 08/28/17 08/28/17 Range/Units 04:00 04:00 Sodium 138 (136-145) mEq/L Potassium 3.5 (3.5-5.1) mEq/L Chloride 103 (98-107) mEq/L Carbon Dioxide 28 (23-29) mEq/L BUN 20 (8-23) mg/dL Creatinine 0.33 L (0.60-1.20) mg/dL Glucose 112 H (70-105) mg/dL Calcium 8.7 (8.6-10.3) mg/dL Triglycerides 168 H (< 150) mg/dL Calcium panel 08/28/17 08/28/17 Range/Units 04:00 04:00 Calcium 8.7 (8.6-10.3) mg/dL Phosphorus 3.0 (2.7-4.5) mg/dL Pituitary panel 08/28/17 Range/Units 04:00 Sodium 138 (136-145) mEq/L Potassium 3.5 (3.5-5.1) mEq/L Chloride 103 (98-107) mEq/L Carbon Dioxide 28 (23-29) mEq/L BUN 20 (8-23) mg/dL Creatinine 0.33 L (0.60-1.20) mg/dL Glucose 112 H (70-105) mg/dL Calcium 8.7 (8.6-10.3) mg/dL Adrenal panel 08/28/17 Range/Units 04:00 Sodium 138 (136-145) mEq/L Potassium 3.5 (3.5-5.1) mEq/L Chloride 103 (98-107) mEq/L Carbon Dioxide 28 (23-29) mEq/L BUN 20 (8-23) mg/dL Creatinine 0.33 L (0.60-1.20) mg/dL Glucose 112 H (70-105) mg/dL Calcium 8.7 (8.6-10.3) mg/dL - VTE Documentation of Mechanical Device: Intermittent pneumatic compression device Consult Discharge Plan - Plan Referrals: Brenda Titus MD [Primary Care Provider] - <Jet Burns - Last Filed: 08/28/17 14:03> Date of Encounter: 08/28/17 Objective Vital Signs - Last 8 Hours Temp Pulse Resp BP Pulse Ox 08/28/17 11:54 93 14 136/72 94 08/28/17 07:32 97.7 F 93 18 135/75 94 Intake and Output 08/27/17 08/28/17 08/28/17 23:59 07:59 15:59 Intake Total 0 / 0 300 / 300 310 / 310 Output Total 0 / 0 300 / 300 420 / 420 Balance 0 / 0 0 / 0 -110 / -110 Intake: IV Fluids 100 / 100 250 / 250 INVanz 1,000 MG In 0.9 % Sodium 100 / 100 Chloride (Mini-Bag +) 100 ML @ 100 mls/hr IVPB Q24H [facility] Rx#: [id number] Intralipid 20% 250 ML @ 21 mls/ 250 / 250 hr IVPB DAILY@1700 [facility] Rx#: [id number] Oral 0 / 0 200 / 200 60 / 60 Output: Urine 0 / 0 300 / 300 420 / 420 Other: Meal Breakfast Blood Glucose* 125 130 135 - Labs 08/28/17 04:00 08/28/17 04:00 Diabetes panel 08/28/17 08/28/17 Range/Units 04:00 04:00 Sodium 138 (136-145) mEq/L Potassium 3.5 (3.5-5.1) mEq/L Chloride 103 (98-107) mEq/L Carbon Dioxide 28 (23-29) mEq/L BUN 20 (8-23) mg/dL Creatinine 0.33 L (0.60-1.20) mg/dL Glucose 112 H (70-105) mg/dL Calcium 8.7 (8.6-10.3) mg/dL Triglycerides 168 H (< 150) mg/dL Calcium panel 08/28/17 08/28/17 Range/Units 04:00 04:00 Calcium 8.7 (8.6-10.3) mg/dL Phosphorus 3.0 (2.7-4.5) mg/dL Pituitary panel 08/28/17 Range/Units 04:00 Sodium 138 (136-145) mEq/L Potassium 3.5 (3.5-5.1) mEq/L Chloride 103 (98-107) mEq/L Carbon Dioxide 28 (23-29) mEq/L BUN 20 (8-23) mg/dL Creatinine 0.33 L (0.60-1.20) mg/dL Glucose 112 H (70-105) mg/dL Calcium 8.7 (8.6-10.3) mg/dL Adrenal panel 08/28/17 Range/Units 04:00 Sodium 138 (136-145) mEq/L Potassium 3.5 (3.5-5.1) mEq/L Chloride 103 (98-107) mEq/L Carbon Dioxide 28 (23-29) mEq/L BUN 20 (8-23) mg/dL Creatinine 0.33 L (0.60-1.20) mg/dL Glucose 112 H (70-105) mg/dL Calcium 8.7 (8.6-10.3) mg/dL - Attending Attestation I examined this patient and my medical decision-making was reviewed with the Resident Physician. I agree with the documented findings, disposition and treatment plan as described except to the extent set forth below. The patient is seen and evaluated on morning rounds with resident. She has no nausea or vomiting. She does have epigastric pain this may represent incisional pain or tumor burden pain. Advance diet. Jet Burns MD FACS
--- NOTE | 2017-08-28 13:13 | Internal Med Progress Note ---
Date of Encounter: 08/22/17 Time of Encounter: 18:00 - Assessment and plan (1) Bowel obstruction Current Visit: Yes Status: Acute Assessment and plan: The patient had a gastrojejunostomy today. She's on npo diet. See notes from general surgery. Hopefully, we will start feeding her tomorrow. She has underlying pancreatic adenocarcinoma, stage IV. Treatment, as per onc. Her pain is under control with the prn IV Nubain. Her potassium level is better today. It is a 3.6. It was 3.2 yesterday. Will continue IV potassium riders. Will monitor closely. Anaemia. Likely hemodilutional. There is no evidence for GI bleeding. She's on proton pump inhibitor. Qualifiers: Intestinal obstruction type: other intestinal obstruction Intestinal obstruction extent: complete Qualified Code(s): K56.691 - Other complete intestinal obstruction (2) Adenocarcinoma of pancreas, stage 4 Current Visit: Yes Status: Chronic Assessment and plan: As above. (3) Acute hypokalemia Current Visit: Yes Status: Acute Assessment and plan: As above. (4) Anemia Current Visit: Yes Status: Acute Assessment and plan: As above. Qualifiers: Anemia type: unspecified type Qualified Code(s): D64.9 - Anemia, unspecified - Time Spent With Patient Total time spent is greater than 50% in coordination of care (as documented) at patient's floor/unit and/or counseling patient: 25 - 35 minutes - Subjective Interval history: The patient had the gastrojejunostomy today. She is feeling okay. Her pain seems to be under control. Denies nausea and vomiting. She doesn't feel hungry. She's on NPO diet. - Constitutional Vitals: Temp Pulse Resp BP Pulse Ox 97.7 F 93 14 136/72 94 08/28/17 07:32 08/28/17 11:54 08/28/17 11:54 08/28/17 11:54 08/28/17 11:54 General appearance: Present: A&O X 3, pleasant, no acute distress, loss of weight - Respiratory Respiratory exam: Present: CTAB. Absent: rales, rhonchi, wheezes - Cardiovascular Cardiovascular exam: Present: RRR, +S1, +S2. Absent: diastolic murmur, gallop, systolic murmur - GI/Abdominal GI/Abdominal exam: Present: normal bowel sounds, soft, no peritoneal signs. Absent: distended Additional comments: There is a surgical dressing located in mid-epigastrium. - Skin Skin exam: Present: dry, intact Internal Medicine: Result - Labs CBC & Chem 7: 08/28/17 04:00 08/28/17 04:00 Labs: Short CBC 08/28/17 Range/Units 04:00 WBC 12.0 H (4.3-11.1) K/mcL Hgb 8.9 L (11.5-15.4) g/dL Hct 27.7 L (35.3-44.9) % Plt Count 177 (140-400) K/mcL Neutrophils # 8.3 (1.6-8.9) K/mcL BMP 08/28/17 04:00 Sodium 138 Potassium 3.5 Chloride 103 Carbon Dioxide 28 BUN 20 Creatinine 0.33 L Glucose 112 H Calcium 8.7 - ABG Interpretation ABG results: PT/INR, D-dimer PT 25.6 Seconds (9.4-12.1) H 08/23/17 16:34 - VTE Documentation of Mechanical Device: Intermittent pneumatic compression device Deep Vein Thrombosis/Pulmonary Embolism Present on Admission: No Consult Discharge Plan - Plan Referrals: Brenda Titus MD [Primary Care Provider] -
[2017-08-28 13:47] LABS: INR 1.2; Prothrombin Time 12.9 Seconds (9.4-12.1)
--- NOTE | 2017-08-28 15:21 | Internal Med Progress Note ---
Date of Encounter: 08/28/17 Time of Encounter: 11:15 - Assessment and plan (1) Bacteremia Current Visit: Yes Status: Acute Assessment and plan: Likely secondary to intra-abdominal source. 2 out of 2 blood cultures from August 23 grew Enterobacter cloacae. Continue IV ertapenem. Repeat blood cultures from August 24 are negative. (2) Septic shock Current Visit: Yes Status: Resolved (3) Adenocarcinoma of pancreas, stage 4 Current Visit: Yes Status: Chronic Assessment and plan: Patient was recently diagnosed with stage IV pancreatic adenocarcinoma. Oncology is following patient. Underwent palliative surgery for gastric outlet obstruction with gastrojejunostomy and liver biopsy on August 22. Continue TPN, full liquid diet, advance per surgery recommendations. Continue pain control with when necessary oxycodone and Fentanyl patch. Yet to have bowel movements. Defer to Surgery team regarding feasibility of celiac block for pain control, per patient request; Physical and occupational therapy evaluation noted, recommend inpatient rehabilitation placement. career services manager on board; (4) Hypertension Current Visit: Yes Status: Chronic Assessment and plan: home meds are on hold; BP well-controlled; Qualifiers: Hypertension type: essential hypertension Qualified Code(s): I10 - Essential (primary) hypertension (5) DVT prophylaxis Current Visit: Yes Status: Acute (6) Acute kidney injury Current Visit: Yes Status: Resolved - Time Spent With Patient Total time spent is greater than 50% in coordination of care (as documented) at patient's floor/unit and/or counseling patient: - Subjective Interval history: Noted to be drowsy today, due to pain medications. Discussed with patient's at bedside. He wants the patient to get celiac block to avoid narcotic pain medications, which are making her more confused and drowsy. Tolerates full liquid diet, no nausea, vomiting. Continues to have abdominal pain at surgical site, has flatus, no bowel movements yet. - Constitutional Vitals: Temp Pulse Resp BP Pulse Ox 97.6 F 95 16 146/74 95 08/28/17 14:44 08/28/17 14:44 08/28/17 14:44 08/28/17 14:44 08/28/17 14:44 General appearance: Present: A&O X 2 (somnolent). Absent: answers questions appropriately - Respiratory Respiratory exam: Present: decreased breath sounds (at B/Lbases), CTAB. Absent : accessory muscle use, rales, rhonchi, wheezes - Cardiovascular Cardiovascular exam: Present: RRR, +S1, +S2. Absent: diastolic murmur, gallop, rubs, systolic murmur - GI/Abdominal GI/Abdominal exam: Present: hypoactive bowel sounds, soft (abdominal binder in place, mildly tender), no peritoneal signs. Absent: distended, tenderness - Extremities Exam Extremities exam: Present: full ROM, warm, radial pulses palpable and symmetrical. Absent: calf tenderness, cyanotic, pedal edema - Neurological Exam Neurological exam: Present: CN II-XII intact, oriented X3 (somnolent), no focal deficits. Absent: pronater drift, facial droop, speech deficit Internal Medicine: Result - Labs CBC & Chem 7: 08/28/17 04:00 08/28/17 04:00 Labs: Short CBC 08/28/17 Range/Units 04:00 WBC 12.0 H (4.3-11.1) K/mcL Hgb 8.9 L (11.5-15.4) g/dL Hct 27.7 L (35.3-44.9) % Plt Count 177 (140-400) K/mcL Neutrophils # 8.3 (1.6-8.9) K/mcL BMP 08/28/17 04:00 Sodium 138 Potassium 3.5 Chloride 103 Carbon Dioxide 28 BUN 20 Creatinine 0.33 L Glucose 112 H Calcium 8.7 - ABG Interpretation ABG results: PT/INR, D-dimer PT 12.9 Seconds (9.4-12.1) H 08/28/17 11:52 - VTE Documentation of Mechanical Device: Intermittent pneumatic compression device Deep Vein Thrombosis/Pulmonary Embolism Present on Admission: No Consult Discharge Plan - Plan Referrals: Brenda Titus MD [Primary Care Provider] -
[2017-08-28] MEDS ORDERED: *HR* FentaNYL (PF) 100 MCG/2 ML VIAL IVP ONE (16:04)
[2017-08-28] MEDS ORDERED: *HR* Midazolam HCl 2 MG/2 ML VIAL IVP ONE (16:04)
[2017-08-28] MEDS ORDERED: *HR* Midazolam HCl 2 MG/2 ML VIAL ONE (16:08)
[2017-08-28] MEDS ORDERED: *HR* FentaNYL (PF) 100 MCG/2 ML VIAL ONE (16:08)
[2017-08-28] MEDS ORDERED: Clinimix E 5%-15% SOLUTION 2,000 ML with MVI, adult with vitamin K 10 ML, Magnesium S... IVC SCH (17:00)
[2017-08-28] MEDS: Ertapenem 1,000 MG in 0.9 % Sodium Chloride Mini Bag 100 ML IVPB SCH (18:00)
[2017-08-29] MEDS: Insulin LISPRO 300 UNITS/3 ML VIAL SQ SCH ×6 (03:35→19:50)
[2017-08-29] MEDS: *HR* OxyCODONE/APAP 10/325 TABLET PO PRN ×4 (04:39→21:12)
[2017-08-29 05:23] LABS: Basophils % 0.3 %; Eosinophils # 0.2 K/mcL (0.0-0.6); Eosinophils % 1.3 %; Hematocrit 28.2 % (35.3-44.9); Immature Granulocytes % 1.8 % (0-4); Lymphocytes # 1.7 K/mcL (0.6-4.6); Lymphocytes % 14.5 %; Mean Corpuscular HGB Conc 31.9 g/dL (31.6-35.5); Mean Corpuscular Hemoglobin 27.7 pg (28.0-33.3); Mean Corpuscular Volume 86.8 fL (83.0-100.0); Mean Platelet Volume 11.3 fL (9.4-12.4); Monocytes # 1.4 K/mcL (0.0-1.3); Neutrophils # 8.4 K/mcL (1.6-8.9); Platelet Count 226 K/mcL (140-400); Red Blood Count 3.25 M/mcL (3.82-4.97); Red Cell Distribution Width 14.4 % (11.5-14.5); Segmented Neutrophils % 70.1 %
[2017-08-29 05:41] LABS: BUN/Creatinine Ratio 61 (6-26); Blood Urea Nitrogen 20 mg/dL (8-23); Carbon Dioxide 27 mEq/L (23-29); Chloride 104 mEq/L (98-107); Glucose 105 mg/dL (70-105); Magnesium 1.8 mg/dL (1.6-2.6); Osmolality,Calculated 287 (280-300); Phosphorous 3.1 mg/dL (2.7-4.5); Potassium 3.7 mEq/L (3.5-5.1); Sodium 137 mEq/L (136-145); eGFR For African Americans > 60 (> 60); eGFR For Non-African Americans > 60 (> 60)
[2017-08-29] MEDS: Pantoprazole 40 MG VIAL IVP SCH ×2 (06:34→17:50)
[2017-08-29] MEDS: *HR* Heparin 5,000 UNIT/ML VIAL SQ SCH ×2 (06:34→17:51)
--- NOTE | 2017-08-29 07:28 | IR Procedure Note ---
Date of procedure: 08/28/17 Consent Obtained: Written consent Timeout: Correct patient and procedure verified, Correct site verified, Time out performed, Skin prep completed Local anesthetic: Lidocaine 1% Indications: Metastatic panc cancer, difficulty with oral/patch medications, abd pain Procedure Performed: Celiac block Was there an office assistant present: No Site/Technique: Transhepatic epigastric approach. 25ml of alcohol placed. Results/Findings: Pt reported some improved pain prior to leaving our dept after procedure. Estimated blood loss (cc): 0 Complications: None; Tolerated procedure well Post Procedure Treatment Plan: Monitoring in pts room Specimen: n/a
--- NOTE | 2017-08-29 10:37 | General Surgery Progress Note ---
<Shahram Ibanez - Last Filed: 08/29/17 10:35> Date of Encounter: 08/29/17 Time of Encounter: 06:50 - Assessment and Plan (1) Status post bypass gastrojejunostomy Current Visit: Yes Status: Acute POD #7. Patient is able to tolerate her full liquid diet. She denies any nausea or vomiting. She denies any abdominal pain. Patient continues to deny any BM but admits to passing gas. She does display bowel sounds on exam. Hemoglobin stable at 9 (yesterday at 8.9). Patient was seen by IR yesterday to have a celiac block placed. Today she feels that her back pain has not improved since the procedure yesterday. IR is to follow-up with patient. - Continue full liquid diet. Advance as tolerated. - PT/OT. - Continue PRN pain control. - PRN antiemetics. Patient has a follow-up appointment with Dr. Burns on 09/15/17 at 10:05 AM. Surgery will sign off on this patient now. (2) Leukocytosis Current Visit: Yes Status: Acute WBC continues to downtrend. Dropped from 12 down to 11.9. Has been afebrile overnight. - Continue to trend. - Continue antibiotics. Qualifiers: Leukocytosis type: unspecified Qualified Code(s): D72.829 - Elevated white blood cell count, unspecified (3) Adenocarcinoma of pancreas, stage 4 Current Visit: Yes Status: Chronic (4) Bacteremia Current Visit: Yes Status: Acute - Continue antibiotics. Subjective Narrative: Patient denies any abdominal pain today put says that her back pain is the same as yesterday. She denies any nausea or vomiting. She denies any BM yet but admits to passing gas. She says she was able to tolerate the full liquid diet yesterday. Objective VITAL SIGNS: Reviewed. See [facility] GENERAL: no apparent distress. HEENT: [Normocephalic, PER, EOMi, oropharynx pink/moist, no JVD noted.] CV: b/l rad pulses 2+, RRR, no murmurs or gallops, no JVD RESPIRATORY: CTAB without wheezes, rales, or rhonchi ABD: soft, non-tender, no rebound/guarding/rigidity, no peritoneal signs. Normal bowel sounds present. INCISION: clean, dry, intact without purulence/bleeding/edema/rubor/calor EXTREMITY: grossly normal motor function, no pedal edema, peripheral pulses 2+ b /l NEUROLOGIC EXAM: AOx3, obeys commands, no speech deficits. PSYCHIATRIC: normal mood and affect SKIN: no gross lesions, rashes, or skin changes Vital Signs - Last 8 Hours Temp Pulse Resp BP Pulse Ox 08/29/17 06:41 97.7 F 84 14 128/68 96 08/29/17 03:47 98.4 F 97 14 96 Intake and Output 08/28/17 08/29/17 08/29/17 23:59 07:59 15:59 Intake Total 100 / 100 0 / 0 Output Total 300 / 300 200 / 200 Balance -200 / -200 -200 / -200 Intake: IV Fluids 100 / 100 INVanz 1,000 MG In 0.9 % Sodium 100 / 100 Chloride (Mini-Bag +) 100 ML @ 100 mls/hr IVPB Q24H [facility] Rx#: [id number] Oral 0 / 0 Output: Urine 300 / 300 200 / 200 Other: Meal NPO BREAKFAST Blood Glucose* 117 124 - Labs 08/29/17 04:00 08/29/17 04:00 Diabetes panel 08/29/17 Range/Units 04:00 Sodium 137 (136-145) mEq/L Potassium 3.7 (3.5-5.1) mEq/L Chloride 104 (98-107) mEq/L Carbon Dioxide 27 (23-29) mEq/L BUN 20 (8-23) mg/dL Creatinine 0.33 L (0.60-1.20) mg/dL Glucose 105 (70-105) mg/dL Calcium 9.0 (8.6-10.3) mg/dL Calcium panel 08/29/17 Range/Units 04:00 Calcium 9.0 (8.6-10.3) mg/dL Phosphorus 3.1 (2.7-4.5) mg/dL Pituitary panel 08/29/17 Range/Units 04:00 Sodium 137 (136-145) mEq/L Potassium 3.7 (3.5-5.1) mEq/L Chloride 104 (98-107) mEq/L Carbon Dioxide 27 (23-29) mEq/L BUN 20 (8-23) mg/dL Creatinine 0.33 L (0.60-1.20) mg/dL Glucose 105 (70-105) mg/dL Calcium 9.0 (8.6-10.3) mg/dL Adrenal panel 08/29/17 Range/Units 04:00 Sodium 137 (136-145) mEq/L Potassium 3.7 (3.5-5.1) mEq/L Chloride 104 (98-107) mEq/L Carbon Dioxide 27 (23-29) mEq/L BUN 20 (8-23) mg/dL Creatinine 0.33 L (0.60-1.20) mg/dL Glucose 105 (70-105) mg/dL Calcium 9.0 (8.6-10.3) mg/dL - VTE Documentation of Mechanical Device: Intermittent pneumatic compression device Deep Vein Thrombosis/Pulmonary Embolism Present on Admission: No Consult Discharge Plan - Plan Additional Instructions: General Surgical Discharge Instructions 1. No pushing, pulling, or lifting greater than 15 lbs for 4 weeks (depending upon procedure). 2. You may shower beginning today, but no tub baths, soaking, or swimming for 2 weeks. 3. You may resume driving when you are off narcotics and are safe to react in a car. 4. Continue your home narcotics for discomfort. 5. Take stool softeners (Colace) or a water based laxative (Miralax) while taking narcotics. You may hold for loose stools. 6. Report any fevers greater than 100.5F, increase abdominal discomfort, drainage that looks like pus, increased redness or pain at the surgical site, or any vomiting. 7. Report any pain in the calves, shortness of breath, or rapid heartbeat. 8. Follow-up in the office as directed. 9. If you were prescribed antibiotics, do not stop them without talking to your provider. Referrals: Jet Burns MD [Partnered Physician] - 09/05/17 10:05 am <Jet Burns - Last Filed: 09/01/17 12:36> Date of Encounter: 08/29/17 Objective Vital Signs - Last 8 Hours Temp Pulse Resp BP Pulse Ox 09/01/17 11:46 98.2 F 99 15 129/71 94 09/01/17 07:56 97.3 F L 102 16 123/71 95 Intake and Output 08/31/17 09/01/17 09/01/17 23:59 07:59 15:59 Intake Total 200 / 200 100 / 100 0 / 0 Output Total 0 / 0 400 / 400 0 / 0 Balance 200 / 200 -300 / -300 0 / 0 Intake: Oral 200 / 200 100 / 100 0 / 0 Output: Urine 0 / 0 400 / 400 0 / 0 Other: Meal Breakfast Percent of Meal Consumed 0% # Bowel Movements 0 0 Weight 74.2 kg Patient Weight 09/01/17 23:59 Weight 74.2 kg - Labs 08/31/17 03:49 08/31/17 03:49 - Attending Attestation I examined this patient and my medical decision-making was reviewed with the Resident Physician. I agree with the documented findings, disposition and treatment plan as described except to the extent set forth below. The patient is seen and evaluated with the resident on morning rounds. She is doing quite well and tolerating diet. Surgery will sign off. Successful palliative gastrojejunostomy Jet Burns MD FACS
--- NOTE | 2017-08-29 13:49 | Event Note ---
Date of Encounter: 08/29/17 Time of Encounter: 13:46 For d/c planning - Patient Status Disposition: Still a Patient Condition: Fair - Discharge Instructions Follow Up With: Brenda Titus MD [Primary Care Provider] - Jet Burns MD [Partnered Physician] - 09/05/17 10:05 am Additional Instructions: General Surgical Discharge Instructions 1. No pushing, pulling, or lifting greater than 15 lbs for 4 weeks (depending upon procedure). 2. You may shower beginning today, but no tub baths, soaking, or swimming for 2 weeks. 3. You may resume driving when you are off narcotics and are safe to react in a car. 4. Continue your home narcotics for discomfort. 5. Take stool softeners (Colace) or a water based laxative (Miralax) while taking narcotics. You may hold for loose stools. 6. Report any fevers greater than 100.5F, increase abdominal discomfort, drainage that looks like pus, increased redness or pain at the surgical site, or any vomiting. 7. Report any pain in the calves, shortness of breath, or rapid heartbeat. 8. Follow-up in the office as directed. 9. If you were prescribed antibiotics, do not stop them without talking to your provider.
--- NOTE | 2017-08-29 15:51 | Internal Med Progress Note ---
Date of Encounter: 08/29/17 Time of Encounter: 11:40 - Assessment and plan (1) Bacteremia Current Visit: Yes Status: Acute Assessment and plan: Likely secondary to intra-abdominal source. 2 out of 2 blood cultures from August 23 grew Enterobacter cloacae. Continue IV ertapenem- day 6, to complete a 14- day course. Repeat blood cultures from August 24 are negative. (2) Septic shock Current Visit: Yes Status: Resolved (3) Adenocarcinoma of pancreas, stage 4 Current Visit: Yes Status: Chronic Assessment and plan: Patient was recently diagnosed with stage IV pancreatic adenocarcinoma. Oncology is following patient. Underwent palliative surgery for gastric outlet obstruction with gastrojejunostomy and liver biopsy on August 22. Continue TPN, full liquid diet for today, advance to soft diet in am, per surgery recommendations. Continue pain control with when necessary oxycodone and Fentanyl patch. Yet to have bowel movements. s/p IR-celiac block for pain control; Physical and occupational therapy evaluation noted, recommend inpatient rehabilitation placement. support services tech on board; (4) Hypertension Current Visit: Yes Status: Chronic Assessment and plan: BP noted to be increasing, will resume home meds; Qualifiers: Hypertension type: essential hypertension Qualified Code(s): I10 - Essential (primary) hypertension (5) DVT prophylaxis Current Visit: Yes Status: Acute (6) Acute kidney injury Current Visit: Yes Status: Resolved - Time Spent With Patient Total time spent is greater than 50% in coordination of care (as documented) at patient's floor/unit and/or counseling patient: - Subjective Interval history: Appears more awake and alert than yesterday; still has some amnesia and drowsiness; tolerates full liquid diet; no nausea, vomiting, BM; has flatus; received celiac block yesterday, continues to have back pain, just slightly improved; - Constitutional Vitals: Temp Pulse Resp BP Pulse Ox 97.7 F 94 18 156/79 96 08/29/17 15:00 08/29/17 15:00 08/29/17 15:00 08/29/17 15:08/29/17 15:00 General appearance: Present: A&O X 3, answers questions appropriately - Respiratory Respiratory exam: Present: CTAB. Absent: accessory muscle use, rales, rhonchi, wheezes - Cardiovascular Cardiovascular exam: Present: RRR, +S1, +S2. Absent: diastolic murmur, gallop, rubs, systolic murmur - GI/Abdominal GI/Abdominal exam: Present: normal bowel sounds, soft (abdominal binder in place ), no peritoneal signs. Absent: distended, tenderness - Extremities Exam Extremities exam: Present: full ROM, pedal edema (1+ pitting pedal edema B/L), warm, radial pulses palpable and symmetrical. Absent: calf tenderness, cyanotic Internal Medicine: Result - Labs CBC & Chem 7: 08/29/17 04:00 08/29/17 04:00 Labs: Short CBC 08/29/17 Range/Units 04:00 WBC 11.9 H (4.3-11.1) K/mcL Hgb 9.0 L (11.5-15.4) g/dL Hct 28.2 L (35.3-44.9) % Plt Count 226 (140-400) K/mcL Neutrophils # 8.4 (1.6-8.9) K/mcL BMP 08/29/17 04:00 Sodium 137 Potassium 3.7 Chloride 104 Carbon Dioxide 27 BUN 20 Creatinine 0.33 L Glucose 105 Calcium 9.0 - ABG Interpretation ABG results: PT/INR, D-dimer PT 12.9 Seconds (9.4-12.1) H 08/28/17 11:52 - Impressions Impressions Needle Aspiration CT 08/28/17 00:00 IMPRESSION: Successful CT-guided celiac plexus block as described above. D/ / Sree Kline MD / Sree Kline MD Interpreting Provider: Sree Kline MD - VTE Documentation of Mechanical Device: Intermittent pneumatic compression device Deep Vein Thrombosis/Pulmonary Embolism Present on Admission: No Consult Discharge Plan - Plan Additional Instructions: General Surgical Discharge Instructions 1. No pushing, pulling, or lifting greater than 15 lbs for 4 weeks (depending upon procedure). 2. You may shower beginning today, but no tub baths, soaking, or swimming for 2 weeks. 3. You may resume driving when you are off narcotics and are safe to react in a car. 4. Continue your home narcotics for discomfort. 5. Take stool softeners (Colace) or a water based laxative (Miralax) while taking narcotics. You may hold for loose stools. 6. Report any fevers greater than 100.5F, increase abdominal discomfort, drainage that looks like pus, increased redness or pain at the surgical site, or any vomiting. 7. Report any pain in the calves, shortness of breath, or rapid heartbeat. 8. Follow-up in the office as directed. 9. If you were prescribed antibiotics, do not stop them without talking to your provider. Referrals: Jet Burns MD [Partnered Physician] - 09/05/17 10:05 am Brenda Titus MD [Primary Care Provider] -
[2017-08-29] MEDS: Ertapenem 1,000 MG in 0.9 % Sodium Chloride Mini Bag 100 ML IVPB SCH (17:50)
[2017-08-30] MEDS: Insulin LISPRO 300 UNITS/3 ML VIAL SQ SCH ×5 (01:02→17:21)
[2017-08-30] MEDS: Pantoprazole 40 MG VIAL IVP SCH ×2 (04:41→18:23)
[2017-08-30] MEDS: *HR* OxyCODONE/APAP 10/325 TABLET PO PRN ×3 (04:41→13:58)
[2017-08-30] MEDS: *HR* Heparin 5,000 UNIT/ML VIAL SQ SCH ×2 (04:41→18:23)
[2017-08-30] MEDS: *HR* FentaNYL (PF) 100 MCG/2 ML VIAL IVP PRN ×2 (12:37→16:12)
--- NOTE | 2017-08-30 16:50 | Internal Med Progress Note ---
Date of Encounter: 08/30/17 Time of Encounter: 13:30 - Assessment and plan (1) Bacteremia Current Visit: Yes Status: Acute Assessment and plan: Likely secondary to intra-abdominal source. 2 out of 2 blood cultures from August 23 grew Enterobacter cloacae. Continue IV ertapenem- day 7, to complete a 14- day course. Repeat blood cultures from August 24 are negative. (2) Septic shock Current Visit: Yes Status: Resolved (3) Adenocarcinoma of pancreas, stage 4 Current Visit: Yes Status: Chronic Assessment and plan: Patient was recently diagnosed with stage IV pancreatic adenocarcinoma. Oncology is following patient. Underwent palliative surgery for gastric outlet obstruction with gastrojejunostomy and liver biopsy on August 22. Doing well, s/p celiac block for pain control, Off TPN,advanced to soft diet today; Continue pain control with when necessary oxycodone and Fentanyl patch. Yet to have bowel movements. Physical and occupational therapy evaluation noted, recommend inpatient rehabilitation placement. government services professional on board; (4) Hypertension Current Visit: Yes Status: Chronic Assessment and plan: BP noted to be increasing, resume home meds; Qualifiers: Hypertension type: essential hypertension Qualified Code(s): I10 - Essential (primary) hypertension (5) DVT prophylaxis Current Visit: Yes Status: Acute (6) Acute kidney injury Current Visit: Yes Status: Resolved - Time Spent With Patient Total time spent is greater than 50% in coordination of care (as documented) at patient's floor/unit and/or counseling patient: - Subjective Interval history: Feels better. Improving abdominal pain. Continues to have leg swelling. No nausea, vomiting, bowel movements yet. Reports that at baseline, she only has bowel movements once in every 10-14 days. Awaiting rehabilitation placement. - Constitutional Vitals: Temp Pulse Resp BP Pulse Ox 98.3 F 99 17 149/72 94 08/30/17 15:49 08/30/17 15:49 08/30/17 15:49 08/30/17 15:49 08/30/17 15:49 General appearance: Present: A&O X 3, answers questions appropriately - Respiratory Respiratory exam: Present: CTAB. Absent: accessory muscle use, rales, rhonchi, wheezes - Cardiovascular Cardiovascular exam: Present: RRR, +S1, +S2, tachycardia. Absent: diastolic murmur, gallop, rubs, systolic murmur - GI/Abdominal GI/Abdominal exam: Present: normal bowel sounds, soft, no peritoneal signs. Absent: distended, tenderness - Extremities Exam Extremities exam: Present: pedal edema, warm, radial pulses palpable and symmetrical. Absent: calf tenderness, cyanotic - Neurological Exam Neurological exam: Present: CN II-XII intact, oriented X3, no focal deficits. Absent: pronater drift, facial droop, speech deficit Internal Medicine: Result - Labs CBC & Chem 7: 08/29/17 04:00 08/29/17 04:00 - ABG Interpretation ABG results: PT/INR, D-dimer PT 12.9 Seconds (9.4-12.1) H 08/28/17 11:52 - VTE Documentation of Mechanical Device: Intermittent pneumatic compression device Deep Vein Thrombosis/Pulmonary Embolism Present on Admission: No Consult Discharge Plan - Plan Additional Instructions: General Surgical Discharge Instructions 1. No pushing, pulling, or lifting greater than 15 lbs for 4 weeks (depending upon procedure). 2. You may shower beginning today, but no tub baths, soaking, or swimming for 2 weeks. 3. You may resume driving when you are off narcotics and are safe to react in a car. 4. Continue your home narcotics for discomfort. 5. Take stool softeners (Colace) or a water based laxative (Miralax) while taking narcotics. You may hold for loose stools. 6. Report any fevers greater than 100.5F, increase abdominal discomfort, drainage that looks like pus, increased redness or pain at the surgical site, or any vomiting. 7. Report any pain in the calves, shortness of breath, or rapid heartbeat. 8. Follow-up in the office as directed. 9. If you were prescribed antibiotics, do not stop them without talking to your provider. Referrals: Jet Burns MD [Partnered Physician] - 09/05/17 10:05 am
[2017-08-30] MEDS: amLODIPine 5 MG TABLET PO SCH (17:53)
[2017-08-30] MEDS: OXYCODONE Oral CONC 10 MG/0.5 ML ORAL.SYG SL PRN (18:19)
[2017-08-30] MEDS: Ertapenem 1,000 MG in 0.9 % Sodium Chloride Mini Bag 100 ML IVPB SCH (18:23)
[2017-08-30] MEDS: *HR* OxyCODONE Oral Soln 5 MG/5 ML UD.LIQ PO PRN (21:07)
[2017-08-31] MEDS: OXYCODONE Oral CONC 10 MG/0.5 ML ORAL.SYG SL PRN ×6 (00:37→22:06)
[2017-08-31] MEDS: *HR* OxyCODONE Oral Soln 5 MG/5 ML UD.LIQ PO PRN (02:57)
[2017-08-31 03:59] LABS: Basophils % 0.4 %; Eosinophils # 0.1 K/mcL (0.0-0.6); Eosinophils % 1.1 %; Hematocrit 25.6 % (35.3-44.9); Hemoglobin 8.1 g/dL (11.5-15.4); Immature Granulocytes % 1.1 % (0-4); Lymphocytes # 1.5 K/mcL (0.6-4.6); Lymphocytes % 14.7 %; Mean Corpuscular HGB Conc 31.6 g/dL (31.6-35.5); Mean Corpuscular Volume 88.6 fL (83.0-100.0); Mean Platelet Volume 10.6 fL (9.4-12.4); Monocytes # 0.9 K/mcL (0.0-1.3); Monocytes % 8.2 %; Neutrophils # 7.8 K/mcL (1.6-8.9); Platelet Count 280 K/mcL (140-400); Red Blood Count 2.89 M/mcL (3.82-4.97); Red Cell Distribution Width 14.4 % (11.5-14.5); Segmented Neutrophils % 74.5 %
[2017-08-31 04:15] LABS: BUN/Creatinine Ratio 41 (6-26); Blood Urea Nitrogen 15 mg/dL (8-23); Calcium 8.9 mg/dL (8.6-10.3); Carbon Dioxide 27 mEq/L (23-29); Chloride 105 mEq/L (98-107); Glucose 84 mg/dL (70-105); Osmolality,Calculated 282 (280-300); Sodium 136 mEq/L (136-145); eGFR For African Americans > 60 (> 60); eGFR For Non-African Americans > 60 (> 60)
[2017-08-31] MEDS: Pantoprazole 40 MG VIAL IVP SCH ×2 (06:06→19:07)
[2017-08-31] MEDS: *HR* Heparin 5,000 UNIT/ML VIAL SQ SCH ×2 (06:07→19:06)
[2017-08-31] MEDS: amLODIPine 5 MG TABLET PO SCH (08:09)
[2017-08-31] MEDS: *HR* FentaNYL PATCH 50 MCG PATCH TD SCH (09:13)
[2017-08-31] MEDS ORDERED: ALPRAZolam 0.25 MG TABLET PO PRN (15:01)
--- NOTE | 2017-08-31 15:45 | Internal Med Progress Note ---
Date of Encounter: 08/31/17 Time of Encounter: 12:20 - Assessment and plan (1) Bacteremia Current Visit: Yes Status: Acute Assessment and plan: Likely secondary to intra-abdominal source. 2 out of 2 blood cultures from August 23 grew Enterobacter cloacae. Continue IV ertapenem- day 8, to complete a 14- day course. Repeat blood cultures from August 24 are negative. (2) Septic shock Current Visit: Yes Status: Resolved (3) Adenocarcinoma of pancreas, stage 4 Current Visit: Yes Status: Chronic Assessment and plan: Patient was recently diagnosed with stage IV pancreatic adenocarcinoma. Oncology is following patient. Underwent palliative surgery for gastric outlet obstruction with gastrojejunostomy and liver biopsy on August 22. Doing well, s/p celiac block for pain control, on soft diet; Continue pain control with when necessary oxycodone and Fentanyl patch. Will increase Fentanyl dose. Yet to have bowel movements, which patient reports is normal for her. Will consult IR for repeat celiac block; will add low dose anxiolytic Xanax and appetite stimulant Megace; Physical and occupational therapy evaluation noted, recommend inpatient rehabilitation placement. learning support services director on board; (4) Hypertension Current Visit: Yes Status: Chronic Assessment and plan: BP noted to be increasing, resume home meds; Qualifiers: Hypertension type: essential hypertension Qualified Code(s): I10 - Essential (primary) hypertension (5) DVT prophylaxis Current Visit: Yes Status: Acute (6) Acute kidney injury Current Visit: Yes Status: Resolved - Time Spent With Patient Total time spent is greater than 50% in coordination of care (as documented) at patient's floor/unit and/or counseling patient: - Subjective Interval history: Feels better, however she continues to have persistent upper abdominal and back pain. Poor appetite. No nausea, vomiting, no bowel movements yet. Patient's family requests for an appetite stimulant and repeat celiac block for appropriate pain control. - Constitutional Vitals: Temp Pulse Resp BP Pulse Ox 97.9 F 90 18 153/69 96 08/31/17 15:20 08/31/17 15:20 08/31/17 15:20 08/31/17 15:20 08/31/17 15:20 General appearance: Present: A&O X 3, answers questions appropriately (Noted to have some extremity tremors and anxiety) - Respiratory Respiratory exam: Present: CTAB. Absent: accessory muscle use, rales, rhonchi, wheezes - Cardiovascular Cardiovascular exam: Present: RRR, +S1, +S2. Absent: diastolic murmur, gallop, rubs, systolic murmur Internal Medicine: Result - Labs CBC & Chem 7: 08/31/17 03:49 08/31/17 03:49 Labs: Short CBC 08/31/17 Range/Units 03:49 WBC 10.4 (4.3-11.1) K/mcL Hgb 8.1 L (11.5-15.4) g/dL Hct 25.6 L (35.3-44.9) % Plt Count 280 (140-400) K/mcL Neutrophils # 7.8 (1.6-8.9) K/mcL BMP 08/31/17 03:49 Sodium 136 Potassium 4.0 Chloride 105 Carbon Dioxide 27 BUN 15 Creatinine 0.37 L Glucose 84 Calcium 8.9 - ABG Interpretation ABG results: PT/INR, D-dimer PT 12.9 Seconds (9.4-12.1) H 08/28/17 11:52 - VTE Documentation of Mechanical Device: Intermittent pneumatic compression device Deep Vein Thrombosis/Pulmonary Embolism Present on Admission: No Consult Discharge Plan - Plan Additional Instructions: General Surgical Discharge Instructions 1. No pushing, pulling, or lifting greater than 15 lbs for 4 weeks (depending upon procedure). 2. You may shower beginning today, but no tub baths, soaking, or swimming for 2 weeks. 3. You may resume driving when you are off narcotics and are safe to react in a car. 4. Continue your home narcotics for discomfort. 5. Take stool softeners (Colace) or a water based laxative (Miralax) while taking narcotics. You may hold for loose stools. 6. Report any fevers greater than 100.5F, increase abdominal discomfort, drainage that looks like pus, increased redness or pain at the surgical site, or any vomiting. 7. Report any pain in the calves, shortness of breath, or rapid heartbeat. 8. Follow-up in the office as directed. 9. If you were prescribed antibiotics, do not stop them without talking to your provider. Referrals: Jet Burns MD [Partnered Physician] - 09/05/17 10:05 am
[2017-08-31] MEDS: Megestrol Acetate 400 MG/10 ML UDC PO SCH (15:51)
[2017-08-31] MEDS: Ertapenem 1,000 MG in 0.9 % Sodium Chloride Mini Bag 100 ML IVPB SCH (19:07)
--- NOTE | 2017-08-31 23:02 | Event Note ---
Date of Encounter: 08/21/17 Time of Encounter: 19:00 This patient suffers from severe protein calorie malnutrition. See our clinical dietitian notes.
[2017-09-01] MEDS: OXYCODONE Oral CONC 10 MG/0.5 ML ORAL.SYG SL PRN ×2 (06:18→22:12)
[2017-09-01] MEDS: Pantoprazole 40 MG VIAL IVP SCH ×2 (06:18→17:54)
[2017-09-01] MEDS: *HR* Heparin 5,000 UNIT/ML VIAL SQ SCH ×2 (06:18→17:53)
[2017-09-01] MEDS: *HR* OxyCODONE Oral Soln 5 MG/5 ML UD.LIQ PO PRN (10:43)
[2017-09-01] MEDS: Megestrol Acetate 400 MG/10 ML UDC PO SCH (10:43)
[2017-09-01] MEDS: amLODIPine 5 MG TABLET PO SCH (10:43)
--- NOTE | 2017-09-01 10:58 | IR Progress Note ---
Patient reports: still having pain Date of IR Procedure: 08/28/17 Vital Signs: Vital Signs/O2 Sat, Most Current Temp Pulse Resp BP Pulse Ox 97.3 F L 102 16 123/71 95 09/01/17 07:56 09/01/17 07:56 09/01/17 07:56 09/01/17 07:56 09/01/17 07:56 Recent Labs: Lab Results 08/31/17 08/31/17 03:49 03:49 WBC 10.4 RBC 2.89 L Hgb 8.1 L Hct 25.6 L MCV 88.6 MCH 28.0 MCHC 31.6 RDW 14.4 Plt Count 280 MPV 10.6 Neutrophils # 7.8 Lymphocytes # 1.5 Monocytes # 0.9 Eosinophils # 0.1 Basophils # 0.0 Sodium 136 Potassium 4.0 Chloride 105 Carbon Dioxide 27 BUN 15 Creatinine 0.37 L Est GFR ( Amer) > 60 Est GFR (Non-Af Amer) > 60 BUN/Creatinine Ratio 41 H Glucose 84 Calcium 8.9 Assessment and Plan 67 y/o female status post recent celiac plexus block for abdominal pain due to pancreatic cancer. Patient continues to have abdominal pain, but is feeling better than prior to the block. IR was consulted to assess if the patient would benefit from a repeat celiac plexus block. 1. The celiac block was performed 4 days ago. I do not think enough time has passed to warrant a repeat block at this time. The patient and her are looking to be discharged from the hospital soon so they can attempt to travel to [place] for a yearly family vacation. My recommendation is to go on the trip if physically able, and when they return if the pain is still significant and not controlled, IR can perform a repeat celiac block. The patient and her were ammenable with this plan. Scott العراقي MD
[2017-09-01] MEDS: Metoprolol XL (24 HR) Succ 25 MG TAB.ER.24H PO SCH (11:05)
--- NOTE | 2017-09-01 11:22 | Oncology Inp Progress Note ---
<Katya Mullins L - Last Filed: 09/02/17 13:05> Date of Encounter: 09/01/17 Time of Encounter: 10:00 (1) Adenocarcinoma of pancreas, stage 4 Current Visit: Yes Status: Chronic Assessment and plan: Newly diagnosed, planned for potential second opinion at [facility]/palliative treatment with Gemzar/Abraxane S/P palliative gastrojejunostomy on 08/22/17 with liver biopsy which confirmed metastatic poorly differentiated carcinoma, favor pancreatic origin (pancreatic carcinoma) Post op period complicated by septic shock/bacteremia, likely from intra- abdominal source. 2/2 blood cultures from August 23 grew Enterobacter cloacae. Repeat blood cultures from August 24 are negative. Currently on IV ertapenem. Over weekend, patient has remained quite drowsy,now with hallucinations likely secondary to pain medication. IR consulted for role for repeat celiac block, reviewed IR consult note, holding off on repeat block at this time to allow adequate time for prior celiac block to take effect. Patient continues to report lower back pain, ordered MRI lumbar/sacral spine, however, patient/ family declining imaging at this time. Discussed decreasing pain medication usage to allow patient to be more alert and able to participate with therapy. We discussed obtaining a "manageable" level of pain which may not include pain level at a 0 necessarily, but a manageable level. Discussed concern over patients current performance status. Patient is fatigued , has become progressively debilitated and has a poor appetite with little intake. She is tolerating food/liquid well with no nausea/vomiting, but has no appetite with early satiety. Hospitalist team has started Megace. We discussed palliative care consult and the option for hospice, however, patients family decline consult and are very firm on pursuing rehabilitation/future chemotherapy. Patient/family seem hopeful to go to [facility], pending approval, for the remainder of the week in time for her to be strong enough for discharge prior to their family beach vacation next week. Following multiple conversations today with patient/patients family, they are requesting d/c home with if not accepted by [facility]. They wish to take patient to the beach next week, we expressed concern over her taking trip, they understand risks involved. Will arrange for follow up with Dr. Wallace, treating oncologist in two weeks. Please refer to Dr. Wallace's attestation for additional details. Oncology: Subj Interval history: Mrs. Salas is resting in the chair, her is at bedside. She is drowsy but easily arouses to voice. She reports pain to her lower back but pain level is manageable at this time. Patients at bedside states he has discussed backing off on amount of pain medications as patient is quite drowsy and hallucinating at times. When pain medication wears off she is quite lucid, patients /family state that her pain is under adequate control but if patients asked she will always rate her pain 10/10.We discussed pain control methods and goals of care. - Constitutional Vitals: Vital Signs Temp Pulse Resp BP Pulse Ox 09/01/17 07:56 97.3 F L 102 16 123/71 95 09/01/17 03:40 98 F 100 15 116/72 96 09/01/17 00:43 98.4 F 93 16 154/73 100 08/31/17 19:28 97.9 F 63 14 144/73 98 08/31/17 15:20 97.9 F 90 18 153/69 96 Intake and Output 08/31/17 09/01/17 09/01/17 23:59 07:59 15:59 Intake Total 200 / 200 100 / 100 0 / 0 Output Total 0 / 0 400 / 400 Balance 200 / 200 -300 / -300 0 / 0 Intake: Oral 200 / 200 100 / 100 0 / 0 Output: Urine 0 / 0 400 / 400 Other: Meal Breakfast Percent of Meal Consumed 0% # Bowel Movements 0 0 Weight 74.2 kg Patient Weight 09/01/17 23:59 Weight 74.2 kg General appearance: cooperative, no acute distress, thin, no febrile Exam: drowsy but easily arouses to voice - Head Head exam: Present: atraumatic - ENT ENT exam: Present: mucous membranes moist - Respiratory Respiratory exam: Present: CTAB. Absent: respiratory distress - Cardiovascular Cardiovascular exam: Present: RRR, +S1, +S2 - GI/Abdominal GI/Abdominal exam: Present: hypoactive bowel sounds, soft. Absent: guarding, rebound, tenderness - Extremities Exam Extremities exam: Present: normal inspection. Absent: calf tenderness - Neurological Exam Neurological exam: Present: alert, oriented X3, no focal deficits, strengths equal and symetr throughout - Psychiatric Psychiatric exam: Present: flat affect - Skin Skin exam: Present: dry, intact, normal color, warm Oncology: Obj Data - Labs CBC & Chem 7: 08/31/17 03:49 08/31/17 03:49 Labs: Laboratory Results - last 24 hr 08/29/17 12:15 POC Glucose 126 H - ABG Interpretation ABG results: PT/INR, D-dimer PT 12.9 Seconds (9.4-12.1) H 08/28/17 11:52 Consult Discharge Plan - Plan Additional Instructions: General Surgical Discharge Instructions 1. No pushing, pulling, or lifting greater than 15 lbs for 4 weeks (depending upon procedure). 2. You may shower beginning today, but no tub baths, soaking, or swimming for 2 weeks. 3. You may resume driving when you are off narcotics and are safe to react in a car. 4. Continue your home narcotics for discomfort. 5. Take stool softeners (Colace) or a water based laxative (Miralax) while taking narcotics. You may hold for loose stools. 6. Report any fevers greater than 100.5F, increase abdominal discomfort, drainage that looks like pus, increased redness or pain at the surgical site, or any vomiting. 7. Report any pain in the calves, shortness of breath, or rapid heartbeat. 8. Follow-up in the office as directed. 9. If you were prescribed antibiotics, do not stop them without talking to your provider. Referrals: Jet Burns MD [Partnered Physician] - 09/05/17 10:05 am Karly Wallace MD [Partnered Physician] - 09/16/17 8:30 am (Oncology follow up pancreatic cancer ) Prescriptions: ALPRAZolam [Xanax 0.25 MG Tablet] 0.25 mg PO Q8HR PRN 14 Days #42 tablet PRN Reason: Anxiety Ertapenem [INVanz] 1,000 mg IVPB DAILY #5 vial FentaNYL PATCH [Duragesic] 1 each TD Q72H 14 Days #5 patch.td72 OXYCODONE Oral CONC [Oxycodone Oral Conc] 10 mg PO Q6H PRN 14 Days #56 oral.syg PRN Reason: cancer related pain <Karly Wallace - Last Filed: 09/02/17 17:53> Date of Encounter: 09/02/17 - Constitutional Vitals: Vital Signs Temp Pulse Resp BP Pulse Ox 09/02/17 06:51 97.9 F 99 11 143/76 96 09/02/17 03:55 97.6 F 93 15 148/75 96 09/01/17 23:52 97.3 F L 96 16 153/73 96 09/01/17 18:57 97.6 F 97 15 159/76 94 09/01/17 11:46 98.2 F 99 15 129/71 94 Intake and Output 09/01/17 09/02/17 09/02/17 23:59 07:59 15:59 Intake Total 200 / 200 0 / 0 480 / 480 Output Total 0 / 0 Balance 200 / 200 0 / 0 480 / 480 Intake: IV Fluids 200 / 200 INVanz 1,000 MG In 0.9 % Sodium 200 / 200 Chloride (Mini-Bag +) 100 ML @ 100 mls/hr IVPB Q24H PATTI Rx#: [id number] Oral 0 / 0 0 / 0 480 / 480 Output: Urine 0 / 0 Other: Meal Breakfast Percent of Meal Consumed 25% Stool Size Small Stool Consistency soft formed Stool Characteristics Normal for Patient Stool Color Brown # Voids 1 1 # Bowel Movements 1 Oncology: Obj Data - Labs CBC & Chem 7: 08/31/17 03:49 08/31/17 03:49 - ABG Interpretation ABG results: PT/INR, D-dimer PT 12.9 Seconds (9.4-12.1) H 08/28/17 11:52 - Attending Attestation I examined this patient and my medical decision-making was reviewed with the Advanced Practice Nurse. I agree with the documented findings, disposition and treatment plan as described except to the extent set forth below. 1. Metastatic pancreatic cancer with liver metastasis 2. Gastric outlet obstruction from pancreatic cancer. She underwent palliative gastrojejunostomy during this hospital. She is able to tolerate soft food and I screen. But has not had a bowel movement 3. Enterobacteria bacteremia. Currently receiving Etrapenum 1 g IV daily He may be going to [facility]. But if she has not had a bowel movement she may not be able to go to rehabilitation and she may go home. Had a long discussion with the patient and the family. She wants to go to [place] for vacation next week. Advised to take all the medical records with them. Also advised to take frequent breaks and rest. She is also due to high risk for DVT The patient and family are still not interested in hospice and one consider active chemotherapy If she gets stronger may consider dose reduced Abraxane/Gemzar every 2 weeks
[2017-09-01] MEDS ORDERED: Gadolinium Contrast Agent (WT Based) IV PRN (11:49)
[2017-09-01] MEDS: Sennosides/Docusate Sodium TABLET PO SCH ×2 (13:15→22:11)
--- NOTE | 2017-09-01 16:35 | Discharge Summary ---
- NOTES TO OUTPATIENT PROVIDER Notes to Outpatient Provider: s/p palliative surgery for gastric outlet obstruction due to pancreatic cancer;. bacteremia, on IV Ertapenem Orders not resulted at time of discharge: Pending orders 09/01/17 11:49 MR lumbar spine wo/w con [MR] Routine MR sacrum wo/w con [MR] Routine Date of Encounter: 09/01/17 Time of Encounter: 11:50 - Discharge Diagnosis (1) Bacteremia Priority: Primary Status: Acute (2) Septic shock Priority: Primary Status: Resolved (3) Adenocarcinoma of pancreas, stage 4 Priority: Primary Status: Chronic (4) Hypertension Priority: Secondary Status: Chronic Qualifiers: Hypertension type: essential hypertension Qualified Code(s): I10 - Essential (primary) hypertension (5) Acute kidney injury Priority: Primary Status: Resolved Hospital course: Ms. Salas is a 67 year old female with recently diagnosed stage pancreatic adenocarcinoma was admitted for nausea, vomiting and back pain and possible celiac block for pain control. GI was consulted, during endoscopy patient was noted to have gastric outlet obstruction due to cancer mass. Oncology and surgery was consulted and patient underwent palliative surgery for relief of gastric outlet obstruction. She underwent gastrojejunostomy and liver biopsy on 08/22/2017. She was initially on bowel rest with TPN and gradually advanced, she currently tolerates soft diet. She also underwent celiac block by interventional radiology, with inadequate pain control per family. However, patient and family declined increasing narcotic pain medication dosage due to confusion and hallucinations. Unfortunately, patient cannot have 0 pain control due to underlying cancer and they understand this. Patient is significantly debilitated and deconditioned following surgery, she cannot do independent transfers or walk a few steps without 1-2 person assist. Physical and occupational therapy evaluation recommended inpatient rehabilitation. Patient tolerates diet, has flatus, however no bowel movements yet. Patient reports that at baseline, she only has bowel movements every 14 days or more. Started on stool softeners and laxatives. She also has poor appetite, started on Megace. Patient is medically stable for discharge to rehabilitation, with outpatient Surgery and Oncology followup. Oncology plans for port placement and chemotherapy when shes better functioning. Discharge discussed with: patient, family, social work - Time Spent with Patient Total time spent providing and/or coordinating discharge services: Greater than 30 minutes (55 min) - Discharge Medications Prescriptions: OXYCODONE Oral CONC [Oxycodone Oral Conc] 10 mg SL Q6HR PRN 5 Days #10 oral.syg PRN Reason: Severe Pain ALPRAZolam [Xanax 0.25 MG Tablet] 0.25 mg PO Q8HR PRN 3 Days #5 tablet PRN Reason: Anxiety Ertapenem [INVanz] 1,000 mg IVPB DAILY #5 vial FentaNYL PATCH [Duragesic] 50 mcg TD Q72H 9 Days #3 patch.td72 Home Medications: Amlodipine Besylate 10 mg PO DAILY 08/06/17 [History] Atorvastatin Calcium [Lipitor] 20 mg PO HS 08/06/17 [History] Escitalopram [Lexapro] 20 mg PO DAILY 08/06/17 [History] Multivitamin [One Daily Multivitamin] 1 tab PO DAILY 08/06/17 [History] Omeprazole [PriLOSEC] 20 mg PO DAILY 08/06/17 [History] Triamterene/HCTZ 37.5/25mg [Dyazide] 1 tab PO DAILY 08/06/17 [History] Albuterol Sulfate [Albuterol Inhaler] 2 puff IH Q4HR PRN #1 hfa.aer.ad 08/08/17 [Rx] Ondansetron ODT [Zofran ODT] 4 mg SL Q6HR PRN #6 tab.rapdis 08/08/17 [Rx] Potassium Chloride 20 meq PO BID #4 tab.er.prt 08/08/17 [Rx] Docusate Sodium [Colace] 1 cap PO BID #60 capsule 08/14/17 [Rx] Lipase/Protease/Amylase [Creon Dr 24,000 Units Capsule] 1 each PO ACHS #90 cap 08/14/17 [Rx] Polyethylene Glycol 3350 [MiraLAX] 17 gm PO DAILY #30 powd.pack 08/14/17 [Rx] ALPRAZolam [Xanax 0.25 MG Tablet] 0.25 mg PO Q8HR PRN 3 Days #5 tablet 09/01/17 [Rx] Ertapenem [INVanz] 1,000 mg IVPB DAILY #5 vial 09/01/17 [Rx] FentaNYL PATCH [Duragesic] 50 mcg TD Q72H 9 Days #3 patch.td72 09/01/17 [Rx] Megestrol Acetate [Megace] 400 mg PO DAILY udc 09/01/17 [Rx] Metoprolol XL (24 HR) Succ [Toprol Xl] 12.5 mg PO DAILY tab.er.24h 09/01/17 [Rx ] OXYCODONE Oral CONC [Oxycodone Oral Conc] 10 mg SL Q6HR PRN 5 Days #10 oral.syg 09/01/17 [Rx] Sennosides/Docusate Sodium [Senna Plus] 2 each PO BID tablet 09/01/17 [Rx] Allergies/Adverse Reactions: 3 Allergy/AdvReac Type Severity Reaction Status Date / Time Penicillins Allergy Hives Verified 08/19/17 15:30 Sulfa (Sulfonamide Allergy Hives Verified 08/19/17 15:30 Antibiotics) Date of admission: 08/19/17 18:02 Primary care physician: Brenda Kaufman Consults: 08/20/17 10:16 Consult to Physician [CONS] Routine Consulting Provider: Jac Turner Reason for Consult: Family requested consultation to f/u on the prior plan of repeat endoscopy to place a stent in her pancreas and common bile duct. Time Notified: 10:18 Call Completed: No 08/21/17 15:57 Consult to Surgery [CONS] Routine Consulting Provider: Surgery [facility] Reason for Consult: gastric obstruction, pt requests Dr Burns Call Completed: Yes 08/22/17 08:19 Consult to Invasive Line Access Team [CONS] Routine Reason for Consult: Picc Line Insertion Line Type: PICC 08/23/17 07:00 Consult to Nutrition [CONS] Routine Comment: To be initiated 08/23/17 Consulting Provider: NUTRITION Reason for Dietary Consult: TPN Start and Manage 08/26/17 08:00 Consult to Physical Therapy [CONS] Routine Comment: Evaluate, develop and implement POC Reason for Consult: S/P bypass gastrojejunostomy Does patient have active BEDREST order?: No Is patient medically & hemodynamically stable?: Yes 08/27/17 17:15 Consult to Deputy Chief Sheriff [CONS] Routine Reason for SW Consult: Placement 08/28/17 11:35 Consult to Interventional Radiology [CONS] Routine Consulting Provider: Radiology Interventional Cols Reason for Consult: Celiac block Time Notified: 11:36 Call Completed: Yes 08/29/17 15:12 Consult to Occupational Therapy [CONS] Routine Comment: Evaluate, develop and implement POC Reason for Consult: Inpatient rehab recommended per PT. Rehab requesting OT evals for insurance. Does patient have active BEDREST order?: No Is patient medically & hemodynamically stable?: Yes Patient assessed for mobility or mobilized this visit?: Yes 08/31/17 15:40 Consult to Interventional Radiology [CONS] Routine Consulting Provider: Radiology Interventional Cols Reason for Consult: Repeat celiac block due to persistent pain Call Completed: No Discharging clinician: Luann Canales Anticipated date of discharge: 09/01/17 - Constitutional Vitals: Temp Pulse Resp BP Pulse Ox 98.2 F 99 15 129/71 94 09/01/17 11:46 09/01/17 11:46 09/01/17 11:46 09/01/17 11:46 09/01/17 11:46 General appearance: Present: A&O X 3, answers questions appropriately (Noted to have some extremity tremors and anxiety) - Cardiovascular Cardiovascular exam: Present: RRR, +S1, +S2. Absent: diastolic murmur, gallop, rubs, systolic murmur - Patient Status Disposition: Transfer Inpatient Rehab Fac Condition: Fair Functional capacity at discharge: wheelchair bound Overall status at discharge: patient is progressing back to baseline - Discharge Instructions Follow Up With: Jet Burns MD [Partnered Physician] - 09/05/17 10:05 am Additional Instructions: General Surgical Discharge Instructions 1. No pushing, pulling, or lifting greater than 15 lbs for 4 weeks (depending upon procedure). 2. You may shower beginning today, but no tub baths, soaking, or swimming for 2 weeks. 3. You may resume driving when you are off narcotics and are safe to react in a car. 4. Continue your home narcotics for discomfort. 5. Take stool softeners (Colace) or a water based laxative (Miralax) while taking narcotics. You may hold for loose stools. 6. Report any fevers greater than 100.5F, increase abdominal discomfort, drainage that looks like pus, increased redness or pain at the surgical site, or any vomiting. 7. Report any pain in the calves, shortness of breath, or rapid heartbeat. 8. Follow-up in the office as directed. 9. If you were prescribed antibiotics, do not stop them without talking to your provider. - Diet and Activity Activity: as per physical therapy Diet: advance to your usual diet, low fat, low cholesterol, low salt diet - VTE Documentation of Mechanical Device: Intermittent pneumatic compression device Deep Vein Thrombosis/Pulmonary Embolism Present on Admission: No
--- NOTE | 2017-09-01 16:47 | Physician Discharge Referral ---
ExtendedCare Referral Info [facility] Provider in Charge: Luann Canales Provider in Charge after Transfer: PCP Institutional Level of Care: Intermediate - Diagnosis (1) Bacteremia Priority: Primary Status: Acute (2) Septic shock Priority: Primary Status: Resolved (3) Adenocarcinoma of pancreas, stage 4 Priority: Primary Status: Chronic (4) Hypertension Priority: Secondary Status: Chronic (5) Acute kidney injury Priority: Primary Status: Resolved Expected Duration of Placement: 3 weeks Prognosis: Fair Aware of Diagnosis: Patient, Family Aware of Prognosis: Patient, Family - Transfer Medications Prescriptions: OXYCODONE Oral CONC [Oxycodone Oral Conc] 10 mg SL Q6HR PRN 5 Days #10 oral.syg PRN Reason: Severe Pain ALPRAZolam [Xanax 0.25 MG Tablet] 0.25 mg PO Q8HR PRN 3 Days #5 tablet PRN Reason: Anxiety Ertapenem [INVanz] 1,000 mg IVPB DAILY #5 vial FentaNYL PATCH [Duragesic] 50 mcg TD Q72H 9 Days #3 patch.td72 Home Medications: Amlodipine Besylate 10 mg PO DAILY 08/06/17 [History] Atorvastatin Calcium [Lipitor] 20 mg PO HS 08/06/17 [History] Escitalopram [Lexapro] 20 mg PO DAILY 08/06/17 [History] Multivitamin [One Daily Multivitamin] 1 tab PO DAILY 08/06/17 [History] Omeprazole [PriLOSEC] 20 mg PO DAILY 08/06/17 [History] Triamterene/HCTZ 37.5/25mg [Dyazide] 1 tab PO DAILY 08/06/17 [History] Albuterol Sulfate [Albuterol Inhaler] 2 puff IH Q4HR PRN #1 hfa.aer.ad 08/08/17 [Rx] Ondansetron ODT [Zofran ODT] 4 mg SL Q6HR PRN #6 tab.rapdis 08/08/17 [Rx] Potassium Chloride 20 meq PO BID #4 tab.er.prt 08/08/17 [Rx] Docusate Sodium [Colace] 1 cap PO BID #60 capsule 08/14/17 [Rx] Lipase/Protease/Amylase [Creon Dr 24,000 Units Capsule] 1 each PO ACHS #90 cap 05/17/18 [Rx] Polyethylene Glycol 3350 [MiraLAX] 17 gm PO DAILY #30 powd.pack 08/14/17 [Rx] ALPRAZolam [Xanax 0.25 MG Tablet] 0.25 mg PO Q8HR PRN 3 Days #5 tablet 09/01/17 [Rx] Ertapenem [INVanz] 1,000 mg IVPB DAILY #5 vial 09/01/17 [Rx] FentaNYL PATCH [Duragesic] 50 mcg TD Q72H 9 Days #3 patch.td72 09/01/17 [Rx] Megestrol Acetate [Megace] 400 mg PO DAILY udc 09/01/17 [Rx] Metoprolol XL (24 HR) Succ [Toprol Xl] 12.5 mg PO DAILY tab.er.24h 09/01/17 [Rx ] OXYCODONE Oral CONC [Oxycodone Oral Conc] 10 mg SL Q6HR PRN 5 Days #10 oral.syg 09/01/17 [Rx] Sennosides/Docusate Sodium [Senna Plus] 2 each PO BID tablet 09/01/17 [Rx] Allergies/Adverse Reactions: 3 Allergy/AdvReac Type Severity Reaction Status Date / Time Penicillins Allergy Hives Verified 08/19/17 15:30 Sulfa (Sulfonamide Allergy Hives Verified 08/19/17 15:30 Antibiotics) - Respiratory Orders Smoking Cessation: Smoking cessation has been advised. For more information, call the [place] Tobacco Quit Line at 6-467-BKWG-NOW. - Advance Directives Code Status: Full Code - Mobility Orders Ambulate - Rehabiliation Orders Rehab Potential: Fair Rehab Orders: ROM Exercises, Evaluation for Physical Therapy, Evaluation for Occupational Therapy - Diet Orders Cardiac CERTIFICATION: I certify that the transfer of the above named patient to an Extended Care Facility is necessary for the continuing treatment of the diagnosis listed. The above information is true and accurate reflection of patient's current condition. Confidential - Redisclosure prohibited without a patient's written consent.
[2017-09-01] MEDS: Ertapenem 1,000 MG in 0.9 % Sodium Chloride Mini Bag 100 ML IVPB SCH (17:54)
[2017-09-02] MEDS: OXYCODONE Oral CONC 10 MG/0.5 ML ORAL.SYG SL PRN (03:52)
[2017-09-02] MEDS: Pantoprazole 40 MG VIAL IVP SCH ×2 (06:01→17:29)
[2017-09-02] MEDS: *HR* Heparin 5,000 UNIT/ML VIAL SQ SCH ×2 (06:07→17:29)
[2017-09-02] MEDS: *HR* OxyCODONE Oral Soln 5 MG/5 ML UD.LIQ PO PRN ×3 (09:54→18:58)
[2017-09-02] MEDS: Megestrol Acetate 400 MG/10 ML UDC PO SCH (09:54)
[2017-09-02] MEDS: Metoprolol XL (24 HR) Succ 25 MG TAB.ER.24H PO SCH (09:55)
[2017-09-02] MEDS: Sennosides/Docusate Sodium TABLET PO SCH (09:55)
[2017-09-02] MEDS: amLODIPine 5 MG TABLET PO SCH (09:55)
[2017-09-02 11:00] VITALS: BP 158/77
--- NOTE | 2017-09-02 13:03 | Oncology Inp Progress Note ---
Date of Encounter: 09/02/17 Time of Encounter: 10:00 (1) Adenocarcinoma of pancreas, stage 4 Status: Chronic Assessment and plan: Newly diagnosed, planned for potential second opinion at [facility]/palliative treatment with Gemzar/Abraxane S/P palliative gastrojejunostomy on 08/22/17 with liver biopsy which confirmed metastatic poorly differentiated carcinoma, favor pancreatic origin (pancreatic carcinoma) Post op period complicated by septic shock/bacteremia, likely from intra- abdominal source. 2/2 blood cultures from August 23 grew Enterobacter cloacae. Repeat blood cultures from August 24 are negative. Currently on IV ertapenem. Following multiple conversations with patient, family and social service, patient is planned to go home with home health with the goal to be able to join her family on their family beach vacation next week. She would likely not be able to receive the full benefit from inpatient rehabilitation being that she is planned to leave this weekend for their vacation. I agree that this vacation is very important to the patient and the patients family, we have discussed the risks of her leaving the state away from her medical team, patient/patients family understand these risks. They will be taking patients records/images should she need medical care while on vacation. I obtained and shredded the previously printed prescriptions for patients xanax , oxycodone and fentanyl patch. I re-wrote the prescriptions to give enough quantity to allow for 2 weeks worth so the patient will have an adequate number to last through their family vacation until she follows up with us in two weeks. Discussed with treating physician Dr. Wallace. Patient and patients were given thorough education on usage of the scheduled fentanyl patch and usage of xanax/oxycodone ONLY for breakthrough. Do not administer xanax/oxycodone at same time. They understand that usage of any of these medications can depress her breathing, and do not administer if she is drowsy. Verbalized understanding of medications risks and side effects. They can call with any questions or concerns. She was given follow up information with Dr. Wallace when they return in approximately 2 weeks. Appreciate the assistance from hospitalist team in transition to discharge home with home health. Oncology: Subj Interval history: Ms. Salas is drowsy today but more alert than the previous morning. Appetite is slightly better. She was able to have a few bowel movements last evening. at bedside. Pain well controlled. NO nausea or vomiting. - Constitutional Vitals: Vital Signs Temp Pulse Resp BP Pulse Ox 09/02/17 10:59 98.0 F 97 14 158/77 97 09/02/17 06:51 97.9 F 99 11 143/76 96 09/02/17 03:55 97.6 F 93 15 148/75 96 09/01/17 23:52 97.3 F L 96 16 153/73 96 09/01/17 18:57 97.6 F 97 15 159/76 94 Intake and Output 09/01/17 09/02/17 09/02/17 23:59 07:59 15:59 Intake Total 200 / 200 0 / 0 480 / 480 Output Total 0 / 0 150 / 150 Balance 200 / 200 0 / 0 330 / 330 Intake: IV Fluids 200 / 200 INVanz 1,000 MG In 0.9 % Sodium 200 / 200 Chloride (Mini-Bag +) 100 ML @ 100 mls/hr IVPB Q24H [facility] Rx#: [id number] Oral 0 / 0 0 / 0 480 / 480 Output: Urine 0 / 0 150 / 150 Other: Meal Breakfast Percent of Meal Consumed 25% Stool Size Small Stool Consistency soft formed Stool Characteristics Normal for Patient Stool Color Brown # Voids 1 1 # Bowel Movements 1 General appearance: cooperative, no acute distress, no febrile Exam: chronically ill appearing, drowsy but arouses to voice, cachectic - Head Head exam: Present: atraumatic - ENT ENT exam: Present: mucous membranes moist - Respiratory Respiratory exam: Present: decreased breath sounds, CTAB. Absent: respiratory distress - Cardiovascular Cardiovascular exam: Present: RRR, +S1, +S2 - GI/Abdominal GI/Abdominal exam: Present: hypoactive bowel sounds, soft, tenderness Additional comments: mild diffuse tenderness, post op ezra intact - Extremities Exam Extremities exam: Present: normal inspection. Absent: calf tenderness - Neurological Exam Neurological exam: Present: alert, oriented X3, no focal deficits, strengths equal and symetr throughout - Psychiatric Psychiatric exam: Present: normal affect, normal mood - Skin Skin exam: Present: dry, intact, normal color, warm Oncology: Obj Data - Labs CBC & Chem 7: 08/31/17 03:49 08/31/17 03:49 - ABG Interpretation ABG results: PT/INR, D-dimer PT 12.9 Seconds (9.4-12.1) H 05/31/18 11:52 Consult Discharge Plan - Plan Additional Instructions: General Surgical Discharge Instructions 1. No pushing, pulling, or lifting greater than 15 lbs for 4 weeks (depending upon procedure). 2. You may shower beginning today, but no tub baths, soaking, or swimming for 2 weeks. 3. You may resume driving when you are off narcotics and are safe to react in a car. 4. Continue your home narcotics for discomfort. 5. Take stool softeners (Colace) or a water based laxative (Miralax) while taking narcotics. You may hold for loose stools. 6. Report any fevers greater than 100.5F, increase abdominal discomfort, drainage that looks like pus, increased redness or pain at the surgical site, or any vomiting. 7. Report any pain in the calves, shortness of breath, or rapid heartbeat. 8. Follow-up in the office as directed. 9. If you were prescribed antibiotics, do not stop them without talking to your provider. Referrals: Jet Burns MD [Partnered Physician] - 09/05/17 10:05 am Karly Wallace MD [Partnered Physician] - 09/16/17 8:30 am (Oncology follow up pancreatic cancer ) Prescriptions: ALPRAZolam [Xanax 0.25 MG Tablet] 0.25 mg PO Q8HR PRN 14 Days #42 tablet PRN Reason: Anxiety RX: Ertapenem [INVanz] 1,000 mg IVPB DAILY #5 vial RX: FentaNYL PATCH [Duragesic] 1 each TD Q72H 14 Days #5 patch.td72 OXYCODONE Oral CONC [Oxycodone Oral Conc] 10 mg PO Q6H PRN 14 Days #56 oral.syg PRN Reason: cancer related pain
--- NOTE | 2017-09-02 14:21 | Physician Discharge Referral ---
Home Health/Hosp Referral Info Transfer to: Home Health - Respiratory Orders Smoking Cessation: Smoking cessation has been advised. For more information, call the [place] Tobacco Quit Line at 0-174-SUMX-NOW. - Services Needed Following services are medically necessary services: Nursing, Home Health Aide, Physical Therapy, Occupational Therapy - Transfer Medications Prescriptions: OXYCODONE Oral CONC [Oxycodone Oral Conc] 10 mg SL Q6HR PRN 5 Days #10 oral.syg PRN Reason: Severe Pain ALPRAZolam [Xanax 0.25 MG Tablet] 0.25 mg PO Q8HR PRN 3 Days #5 tablet PRN Reason: Anxiety Ertapenem [INVanz] 1,000 mg IVPB DAILY #5 vial FentaNYL PATCH [Duragesic] 50 mcg TD Q72H 9 Days #3 patch.td72 Home Medications: Amlodipine Besylate 10 mg PO DAILY 08/06/17 [History] Atorvastatin Calcium [Lipitor] 20 mg PO HS 08/06/17 [History] Escitalopram [Lexapro] 20 mg PO DAILY 08/06/17 [History] Multivitamin [One Daily Multivitamin] 1 tab PO DAILY 08/06/17 [History] Omeprazole [PriLOSEC] 20 mg PO DAILY 08/06/17 [History] Triamterene/HCTZ 37.5/25mg [Dyazide] 1 tab PO DAILY 08/06/17 [History] Albuterol Sulfate [Albuterol Inhaler] 2 puff IH Q4HR PRN #1 hfa.aer.ad 08/08/17 [Rx] Ondansetron ODT [Zofran ODT] 4 mg SL Q6HR PRN #6 tab.rapdis 08/08/17 [Rx] Potassium Chloride 20 meq PO BID #4 tab.er.prt 08/08/17 [Rx] Docusate Sodium [Colace] 1 cap PO BID #60 capsule 08/14/17 [Rx] Lipase/Protease/Amylase [Creon Dr 24,000 Units Capsule] 1 each PO ACHS #90 cap 08/14/17 [Rx] Polyethylene Glycol 3350 [MiraLAX] 17 gm PO DAILY #30 powd.pack 08/14/17 [Rx] ALPRAZolam [Xanax 0.25 MG Tablet] 0.25 mg PO Q8HR PRN 3 Days #5 tablet 09/01/17 [Rx] Ertapenem [INVanz] 1,000 mg IVPB DAILY #5 vial 09/01/17 [Rx] FentaNYL PATCH [Duragesic] 50 mcg TD Q72H 9 Days #3 patch.td72 09/01/17 [Rx] Megestrol Acetate [Megace] 400 mg PO DAILY udc 09/01/17 [Rx] Metoprolol XL (24 HR) Succ [Toprol Xl] 12.5 mg PO DAILY tab.er.24h 09/01/17 [Rx ] OXYCODONE Oral CONC [Oxycodone Oral Conc] 10 mg SL Q6HR PRN 5 Days #10 oral.syg 09/01/17 [Rx] Sennosides/Docusate Sodium [Senna Plus] 2 each PO BID tablet 09/01/17 [Rx] Allergies/Adverse Reactions: 3 Allergy/AdvReac Type Severity Reaction Status Date / Time Penicillins Allergy Hives Verified 08/19/17 15:30 Sulfa (Sulfonamide Allergy Hives Verified 08/19/17 15:30 Antibiotics) Certification: Further, I certify that my clinical findings support that this patient is homebound (i.e. absences from home require considerable and taxing effort and are for medical reasons or gnosticist services or infrequently or short duration when for other reasons) because: Homebound Reason: Patient requires assistance of a person or device to safely leave home Attestation: My signature below is to certify that this patient is under my care and that I, or nurse practitioner, or a physician's special education assistant working with me, has a face-to -face encounter with this patient.
[2017-09-02] MEDS: Ertapenem 1,000 MG in 0.9 % Sodium Chloride Mini Bag 100 ML IVPB SCH (17:28)
== END 2017-09-02 19:32 | disposition home health service (06) | DRG 420 ==
LOC: 3NENU 12:43 → EMEROO 12:43 → 3NENU 17:02 → SUATTDRO 18:02 → 3BNU 08-20 07:40 → 3ANU 08-22 10:58 → 2NNU 08-23 18:52 → ICNU 08-24 01:16 → 3ANU 08-27 15:15
PROVIDERS: ADMIT Internal Medicine Nephrology; ATTEND Hospitalist

== ENCOUNTER 2017-09-11 17:14 | Inpatient (IN) ==
--- NOTE | 2017-09-11 17:53 | Emergency Department Note ---
Disposition Clinical Impression: Pancreatic cancer metastasized to liver Disposition: Admitted As Inpatient Condition: Serious Forms: ED Satisfaction Letter Time of Disposition: 21:00 Weakness HPI - General Stated complaint: cancer pt, malnourished Time Seen by Provider: 09/11/17 17:40 Source: patient, family Limitations: no limitations Nursing Notes Reviewed: Yes Vital Signs Reviewed: Yes - History of Present Illness HPI Narrative: Mrs. Salas is a pleasant 67-year-old female who presents here with her and other family members for generalized weakness and abdominal pain. She was diagnosed about 3 weeks ago with stage IV pancreatic cancer with metastasis to her liver. She recently returned from vacation when she had a sudden worsening of her general health status, she is feeling weak, confused, and having moderate upper abdominal pain. She follows with oncologist Dr. Wallace here at [facility]. On initial presentation to the emergency department, when questioned about her CODE STATUS the family is adamant about pursuing possible clinical trial at [facility] and have an appointment within the next 1-2 weeks to speak with oncology about this possibility. She is currently a full code and they have not considered hospice or palliative care Pain Scale: 4 - Related Data Home Medications Medication Instructions Recorded Confirmed Amlodipine Besylate 10 mg PO DAILY 08/06/17 09/11/17 Atorvastatin Calcium [Lipitor] 20 mg PO HS 08/06/17 09/11/17 Escitalopram [Lexapro] 20 mg PO DAILY 08/06/17 09/11/17 Multivitamin [One Daily 1 tab PO DAILY 08/06/17 09/11/17 Multivitamin] Omeprazole [PriLOSEC] 20 mg PO DAILY 08/06/17 09/11/17 Triamterene/HCTZ 37.5/25mg 1 tab PO DAILY 08/06/17 09/11/17 [Dyazide] Lipase/Protease/Amylase [Creclint Dr 1 cap PO QID 09/11/17 09/11/17 24,000 Units Capsule] Previous Rx's Medication Instructions Recorded Albuterol Sulfate [Albuterol 2 puff IH Q4HR PRN #1 hfa.aer.ad 08/08/17 Inhaler] Ondansetron ODT [Zofran ODT] 4 mg SL Q6HR PRN #6 tab.rapdis 08/08/17 Potassium Chloride 20 meq PO BID #4 tab.er.prt 08/08/17 Docusate Sodium [Colace] 1 cap PO BID #60 capsule 08/14/17 Polyethylene Glycol 3350 [MiraLAX] 17 gm PO DAILY #30 powd.pack 08/14/17 Ertapenem [INVanz] 1,000 mg IVPB DAILY #5 vial 09/01/17 Megestrol Acetate [Megace] 400 mg PO DAILY udc 09/01/17 Metoprolol XL (24 HR) Succ [Toprol 12.5 mg PO DAILY tab.er.24h 09/01/17 Xl] Sennosides/Docusate Sodium [Senna 2 each PO BID tablet 09/01/17 Plus] ALPRAZolam [Xanax 0.25 MG Tablet] 0.25 mg PO Q8HR PRN 14 Days #42 09/02/17 tablet FentaNYL PATCH [Duragesic] 1 each TD Q72H 14 Days #5 09/02/17 patch.td72 OXYCODONE Oral CONC [Oxycodone 10 mg PO Q6H PRN 14 Days #56 09/02/17 Oral Conc] oral.syg Allergies Allergy/AdvReac Type Severity Reaction Status Date / Time Penicillins Allergy Hives Verified 08/19/17 15:30 Sulfa (Sulfonamide Allergy Hives Verified 08/19/17 15:30 Antibiotics) Constitutional: Denies: fever, chills Eyes: Reports: as per HPI Cardiovascular: Denies: chest pain, palpitations, dyspnea on exertion, edema, syncope Respiratory: Denies: cough, dyspnea, wheezes, hemoptysis, stridor Gastrointestinal: Reports: abdominal pain, constipation (Having bowel movements every 2-3 days.). Denies: nausea, vomiting, diarrhea, hematemesis, melena, hematochezia Genitourinary: Denies: urgency, dysuria, frequency, hematuria Musculoskeletal: Denies: back pain, neck pain Integumentary: Denies: rash, abrasion, lesions Neurological: Denies: headache, numbness, paresthesias Psychiatric: Denies: anxiety, depression, suicidal thoughts, homicidal thoughts , auditory hallucinations, visual hallucinations Past Medical History - Past Medical History Medical history: Reports: cancer, GI bleed, hypertension, other Surgical history: Reports: no surgical history Psychiatric history: Reports: anxiety - Social History Smoking Status: Former smoker Smokeless Tobacco Status: No Alcohol use: Reports: none Drug use: Reports: none Physical Exam - General Limitations: no limitations General appearance: alert, cachectic - Head Head exam: atraumatic, normocephalic, normal inspection - Eye Eye exam: Present: normal appearance, PERRL, EOMI - ENT ENT exam: normal oropharynx, mucous membranes dry - Chest Chest inspection: Present: normal inspection, symmetric chest wall rise - Respiratory Respiratory exam: Present: normal lung sounds bilaterally - Cardiovascular Cardiovascular exam: Present: regular rate, normal rhythm, normal heart sounds - Abdominal Exam Abdominal exam: Present: soft, tenderness, incision (Well healing incision of the mid abdomen. Dry, no drainage, no streaking, no erythema). Absent: distention, guarding Abdominal tenderness: Present: LUQ - Extremities Exam Extremities exam: Present: normal inspection. Absent: tenderness, pedal edema - Neurological Exam Neurological exam: Present: alert, oriented X3. Absent: motor sensory deficit - Skin Skin exam: Present: warm, dry, intact Course Course Narrative: Patient was seen and evaluated bedside with her and other family members in the room. She is alert and oriented. She is uncomfortable and frail -appearing however in no acute distress. We discussed her recent medical history of being diagnosed with metastatic pancreatic history and the family is still hopeful that there is some type of medical treatment available at [facility] and have an appointment with them scheduled in 1-2 weeks. . 20:00 Discussed hemoglobin of 5.0. Patient has no sources of bleeding. I discussed the progression of the size of the tumor in the pancreas as well as the worsening metastatic lesions of the liver with the family and gave them an initial idea that this indicates rapid progression of her disease and likely poor prognosis. I discussed the case with Dr. Gale general surgeon being that Dr. Burns had done a gastrojejunostomy about [address] Gale does not believe this is a surgical issue. I also discussed the case with Dr. Omar brown's oncologist who is familiar with the patient's case and does not have any current recommendations for the patient although states that the oncology group will follow with her in the hospital. . 2100 I discussed the case with hospitalist who will accept the patient - Reevaluation(s) Reevaluation #1: Patient was given IV fentanyl in addition to her fentanyl patch and medication for nausea. She tells me she is currently not having any abdominal pain or other pain. She is comfortable. Her family is concerned about her having too much pain medication because they do not want her to become "out of it" and confused and requested that we try to balance management of her pain with keeping her coherent Time: 20:00 Vital Signs Temperature 97.7 F 09/11/17 17:35 Pulse Rate 126 09/11/17 17:35 Respiratory Rate 18 09/11/17 17:35 Blood Pressure 97/65 09/11/17 17:35 O2 Sat by Pulse Oximetry 98 09/11/17 17:35 Temperature 97.7 F 09/11/17 17:42 Pulse Rate 100 09/11/17 20:43 Respiratory Rate 14 09/11/17 20:43 Blood Pressure 119/53 09/11/17 20:43 O2 Sat by Pulse Oximetry 99 09/11/17 20:43 Oxygen Delivery Oxygen Delivery Room Air Weakness - MDM Narrative Medical decision making narrative: Will obtain initial labs and CT head, chest, abdomen/pelvis . Imaging shows progression of the pancreatic mass as well as the hepatic lesions. Patient's alkaline phosphatase is also trending upward relative to recent testing and her calcium is also elevated indicating disease progression. We will keep her comfortable here in the emergency department while we coordinate consultations with different specialists . Her hemoglobin came back low at 5.0 and we will type and screen and give 2 units here in the emergency department - Lab Data Lab results reviewed: Yes I reviewed the patient's lab results. Result diagrams: 09/11/17 18:38 09/11/17 18:14 Lab Results 09/11/17 09/11/17 09/11/17 Range/Units 17:39 18:14 18:38 WBC 12.7 H (4.3-11.1) K/mcL RBC 1.85 L (3.82-4.97) M/mcL Hgb 5.0 L* (11.5-15.4) g/dL Hct 16.5 L (35.3-44.9) % MCV 89.2 (83.0-100.0) fL MCH 27.0 L (28.0-33.3) pg MCHC 30.3 L (31.6-35.5) g/dL RDW 16.6 H (11.5-14.5) % Plt Count 81 L (140-400) K/mcL MPV 12.4 (9.4-12.4) fL Immature Gran % 0.9 (0-4) % Seg Neutrophils % 72.0 % Lymphocytes % 18.8 % Monocytes % 7.8 % Eosinophils % 0.3 % Basophils % 0.2 % Neutrophils # 9.1 H (1.6-8.9) K/mcL Lymphocytes # 2.4 (0.6-4.6) K/mcL Monocytes # 1.0 (0.0-1.3) K/mcL Eosinophils # 0.0 (0.0-0.6) K/mcL Basophils # 0.0 (0.0-0.2) K/mcL Nucleated RBCs/100 WBC 0.6 H (0) /100 WBC Platelet Estimate Decreased L (Normal) Large Platelets Present A (Not Present) Hypochromasia Present A (Not Present) Anisocytosis 1+ A (Not Present) Microcytosis Present A (Not Present) Sodium 135 L (136-145) mEq/L Potassium 3.9 (3.5-5.1) mEq/L Chloride 101 (98-107) mEq/L Carbon Dioxide 24 (23-29) mEq/L BUN 33 H (8-23) mg/dL Creatinine 0.69 (0.60-1.20) mg/dL Est GFR ( Amer) > 60 (> 60) Est GFR (Non-Af Amer) > 60 (> 60) BUN/Creatinine Ratio 48 H (6-26) Glucose 114 H (70-105) mg/dL Calculated Osmolality 288 (280-300) Lactic Acid (0.5-2.2) mmol/L Calcium 10.9 H (8.6-10.3) mg/dL Phosphorus 2.6 L (2.7-4.5) mg/dL Magnesium 1.6 (1.6-2.6) mg/dL Total Bilirubin (0.3-1.0) mg/dL Direct Bilirubin (0.0-0.2) mg/dL Indirect Bilirubin (0.0-1.2) mg/dL AST (13-39) Units/L ALT (7-52) Units/L Alkaline Phosphatase 357 H (34-104) Units/L Serum Total Protein (6.4-8.9) g/dL Albumin (3.5-5.7) g/dL Globulin (2.4-3.5) g/dL Albumin/Globulin Ratio (1.1-2.2) Lipase 24 (11-82) Units/L Urine Color Dark Yellow (Yellow) Urine Clarity Clear (Clear) Urine pH 5.5 (5.0-8.0) pH Units Ur Specific Perry 1.023 (1.010-1.025) Urine Protein Trace (Neg-Trace) mg/dL Urine Glucose (UA) Normal (Normal) mg/dL Urine Ketones 15 H (Negative) mg/dL Urine Blood Negative (Negative) Urine Nitrite Negative (Negative) Urine Bilirubin Moderate H (Negative) Urine Urobilinogen Normal (Normal) mg/dL Ur Leukocyte Esterase Small H (Negative) Urine Microscopic RBC 0-3 (0-3) per hpf Urine Microscopic WBC 5-15 H (0-3) per hpf Ur Squamous Epith Cells Many H (None-Few) per lpf Calcium Oxalate Crystal Present Urine Bacteria Few (None-Few) per hpf Hyaline Casts Few (None-Few) per lpf Ur Culture Indicated? NO. A (NO) Blood Type 09/11/17 09/11/17 09/11/17 Range/Units 19:36 20:20 20:20 WBC (4.3-11.1) K/mcL RBC (3.82-4.97) M/mcL Hgb (11.5-15.4) g/dL Hct (35.3-44.9) % MCV (83.0-100.0) fL MCH (28.0-33.3) pg MCHC (31.6-35.5) g/dL RDW (11.5-14.5) % Plt Count (140-400) K/mcL MPV (9.4-12.4) fL Immature Gran % (0-4) % Seg Neutrophils % % Lymphocytes % % Monocytes % % Eosinophils % % Basophils % % Neutrophils # (1.6-8.9) K/mcL Lymphocytes # (0.6-4.6) K/mcL Monocytes # (0.0-1.3) K/mcL Eosinophils # (0.0-0.6) K/mcL Basophils # (0.0-0.2) K/mcL Nucleated RBCs/100 WBC (0) /100 WBC Platelet Estimate (Normal) Large Platelets (Not Present) Hypochromasia (Not Present) Anisocytosis (Not Present) Microcytosis (Not Present) Sodium (136-145) mEq/L Potassium (3.5-5.1) mEq/L Chloride (98-107) mEq/L Carbon Dioxide (23-29) mEq/L BUN (8-23) mg/dL Creatinine (0.60-1.20) mg/dL Est GFR ( Amer) (> 60) Est GFR (Non-Af Amer) (> 60) BUN/Creatinine Ratio (6-26) Glucose (70-105) mg/dL Calculated Osmolality (280-300) Lactic Acid 1.2 (0.5-2.2) mmol/L Calcium (8.6-10.3) mg/dL Phosphorus (2.7-4.5) mg/dL Magnesium (1.6-2.6) mg/dL Total Bilirubin 1.2 H (0.3-1.0) mg/dL Direct Bilirubin 0.5 H (0.0-0.2) mg/dL Indirect Bilirubin 0.7 (0.0-1.2) mg/dL AST 32 (13-39) Units/L ALT 22 (7-52) Units/L Alkaline Phosphatase 335 H (34-104) Units/L Serum Total Protein 5.3 L (6.4-8.9) g/dL Albumin 2.5 L (3.5-5.7) g/dL Globulin 2.8 (2.4-3.5) g/dL Albumin/Globulin Ratio 0.9 L (1.1-2.2) Lipase (11-82) Units/L Urine Color (Yellow) Urine Clarity (Clear) Urine pH (5.0-8.0) pH Units Ur Specific Perry (1.010-1.025) Urine Protein (Neg-Trace) mg/dL Urine Glucose (UA) (Normal) mg/dL Urine Ketones (Negative) mg/dL Urine Blood (Negative) Urine Nitrite (Negative) Urine Bilirubin (Negative) Urine Urobilinogen (Normal) mg/dL Ur Leukocyte Esterase (Negative) Urine Microscopic RBC (0-3) per hpf Urine Microscopic WBC (0-3) per hpf Ur Squamous Epith Cells (None-Few) per lpf Calcium Oxalate Crystal Urine Bacteria (None-Few) per hpf Hyaline Casts (None-Few) per lpf Ur Culture Indicated? (NO) Blood Type O POSITIVE - Radiology Data Radiology results reviewed: Yes I reviewed the patient's radiology results. - EKG Data EKG attestation: Yes I reviewed and interpreted this EKG. EKG results narrative: EKG reviewed: Sinus tachycardia, rate of 107 bpm, AL interval 132 ms, QRS 102 ms , QT 333 ms, QTC 395 ms, there are no ST elevations or depressions, there are no T-wave abnormalities Attestation Statement - Attestation Attestation: I, Baljinder Echavarria DO, examined this patient [id number] and my medical decision-making was reviewed with Rock Epstein PGY-3, Resident Physician. I agree with the documented findings, disposition and treatment plan as described except to the extent set forth below. Please see my progress notes for details.
[2017-09-11] MEDS ORDERED: *HR* FentaNYL (PF) 100 MCG/2 ML VIAL IVP ONE (18:43)
[2017-09-11] MEDS ORDERED: Ondansetron 4 MG/2 ML VIAL IVP ONE (18:46)
[2017-09-11 19:37] LABS: Basophils % 0.2 %; Red Cell Distribution Width 16.6 % (11.5-14.5)
[2017-09-11 19:38] LABS: Eosinophils % 0.3 %; Hematocrit 16.5 % (35.3-44.9); Immature Granulocytes % 0.9 % (0-4); Lymphocytes # 2.4 K/mcL (0.6-4.6); Lymphocytes % 18.8 %; Mean Corpuscular HGB Conc 30.3 g/dL (31.6-35.5); Mean Corpuscular Volume 89.2 fL (83.0-100.0); Mean Platelet Volume 12.4 fL (9.4-12.4); Monocytes % 7.8 %; Neutrophils # 9.1 K/mcL (1.6-8.9); Nucleated Red Blood Cells 0.6 /100 WBC (0); Red Blood Count 1.85 M/mcL (3.82-4.97)
[2017-09-11 19:39] LABS: Platelet Count 81 K/mcL (140-400)
[2017-09-11 19:42] LABS: Alkaline Phosphatase 357 Units/L (34-104); BUN/Creatinine Ratio 48 (6-26); Blood Urea Nitrogen 33 mg/dL (8-23); Calcium 10.9 mg/dL (8.6-10.3); Carbon Dioxide 24 mEq/L (23-29); Chloride 101 mEq/L (98-107); Glucose 114 mg/dL (70-105); Lipase 24 Units/L (11-82); Magnesium 1.6 mg/dL (1.6-2.6); Osmolality,Calculated 288 (280-300); Phosphorous 2.6 mg/dL (2.7-4.5); Potassium 3.9 mEq/L (3.5-5.1); Sodium 135 mEq/L (136-145); eGFR For African Americans > 60 (> 60); eGFR For Non-African Americans > 60 (> 60)
[2017-09-11 19:50] LABS: Bilirubin,Urine Moderate (Negative); Blood,Urine Negative (Negative); Clarity,Urine Clear (Clear); Color,Urine Dark Yellow (Yellow); Glucose,Urine (UA) Normal (Normal); Ketones,Urine 15 mg/dL (Negative); Leukocyte Esterase,Urine Small (Negative); Nitrite,Urine Negative (Negative); PH,Urine 5.5 pH Units (5.0-8.0); Protein,Urine Trace mg/dL (Neg-Trace); Specific Gravity,Urine 1.023 (1.010-1.025); Urobilinogen,Urine Normal (Normal)
[2017-09-11 19:51] LABS: RBC,Urine 0-3 per hpf (0-3); Squamous Epithelial Cell,Urine Many per lpf (None-Few)
[2017-09-11 20:00] LABS: Anisocytosis 1+ (Not Present); Hypochromasia Present (Not Present); Platelet Estimate Decreased (Normal)
--- NOTE | 2017-09-11 20:00 | Emergency Department Note ---
Disposition Clinical Impression: Anemia, Pancreatic cancer, Thrombocytopenia, Abdominal pain Disposition: Admitted As Inpatient Condition: Critical Referrals: Brenda Titus MD [Non-Partnered Physician] - Forms: ED Satisfaction Letter Time of Disposition: 21:03 General Adult HPI - General Chief complaint: ED Weakness Stated complaint: cancer pt, malnourished Time Seen by Provider: 09/11/17 17:40 Source: patient, family Limitations: physical limitation - History of Present Illness Pain Scale: 0 - Related Data Home Medications Medication Instructions Recorded Confirmed Amlodipine Besylate 10 mg PO DAILY 08/06/17 08/19/17 Atorvastatin Calcium [Lipitor] 20 mg PO HS 08/06/17 08/19/17 Escitalopram [Lexapro] 20 mg PO DAILY 08/06/17 08/19/17 Multivitamin [One Daily 1 tab PO DAILY 08/06/17 08/19/17 Multivitamin] Omeprazole [PriLOSEC] 20 mg PO DAILY 08/06/17 08/19/17 Triamterene/HCTZ 37.5/25mg 1 tab PO DAILY 08/06/17 08/19/17 [Dyazide] Lipase/Protease/Amylase [Creon Dr 1 cap PO QID 09/11/17 09/11/17 24,000 Units Capsule] Previous Rx's Medication Instructions Recorded Albuterol Sulfate [Albuterol 2 puff IH Q4HR PRN #1 hfa.aer.ad 08/08/17 Inhaler] Ondansetron ODT [Zofran ODT] 4 mg SL Q6HR PRN #6 tab.rapdis 08/08/17 Potassium Chloride 20 meq PO BID #4 tab.er.prt 08/08/17 Docusate Sodium [Colace] 1 cap PO BID #60 capsule 08/14/17 Polyethylene Glycol 3350 [MiraLAX] 17 gm PO DAILY #30 powd.pack 08/14/17 Ertapenem [INVanz] 1,000 mg IVPB DAILY #5 vial 09/01/17 Megestrol Acetate [Megace] 400 mg PO DAILY udc 09/01/17 Metoprolol XL (24 HR) Succ [Toprol 12.5 mg PO DAILY tab.er.24h 09/01/17 Xl] Sennosides/Docusate Sodium [Senna 2 each PO BID tablet 09/01/17 Plus] ALPRAZolam [Xanax 0.25 MG Tablet] 0.25 mg PO Q8HR PRN 14 Days #42 09/02/17 tablet FentaNYL PATCH [Duragesic] 1 each TD Q72H 14 Days #5 09/02/17 patch.td72 OXYCODONE Oral CONC [Oxycodone 10 mg PO Q6H PRN 14 Days #56 09/02/17 Oral Conc] oral.syg Allergies Allergy/AdvReac Type Severity Reaction Status Date / Time Penicillins Allergy Hives Verified 08/19/17 15:30 Sulfa (Sulfonamide Allergy Hives Verified 08/19/17 15:30 Antibiotics) Past Medical History - Past Medical History Medical history: Reports: cancer, GI bleed, hypertension, other Surgical history: Reports: no surgical history Psychiatric history: Reports: anxiety - Social History Smoking Status: Former smoker Smokeless Tobacco Status: No Alcohol use: Reports: none Drug use: Reports: none Physical Exam - General Limitations: physical limitation General appearance: alert Course Vital Signs Temperature 97.7 F 09/11/17 17:35 Pulse Rate 126 09/11/17 17:35 Respiratory Rate 18 09/11/17 17:35 Blood Pressure 97/65 09/11/17 17:35 O2 Sat by Pulse Oximetry 98 09/11/17 17:35 Temperature 97.7 F 09/11/17 17:42 Pulse Rate 100 09/11/17 20:43 Respiratory Rate 14 09/11/17 20:43 Blood Pressure 119/53 09/11/17 20:43 O2 Sat by Pulse Oximetry 99 09/11/17 20:43 Oxygen Delivery Oxygen Delivery Room Air Medical Decision Making - Lab Data Result diagrams: 09/11/17 18:38 09/11/17 18:14 Lab Results 09/11/17 09/11/17 09/11/17 Range/Units 17:39 18:14 18:38 WBC 12.7 H (4.3-11.1) K/mcL RBC 1.85 L (3.82-4.97) M/mcL Hgb 5.0 L* (11.5-15.4) g/dL Hct 16.5 L (35.3-44.9) % MCV 89.2 (83.0-100.0) fL MCH 27.0 L (28.0-33.3) pg MCHC 30.3 L (31.6-35.5) g/dL RDW 16.6 H (11.5-14.5) % Plt Count 81 L (140-400) K/mcL MPV 12.4 (9.4-12.4) fL Immature Gran % 0.9 (0-4) % Seg Neutrophils % 72.0 % Lymphocytes % 18.8 % Monocytes % 7.8 % Eosinophils % 0.3 % Basophils % 0.2 % Neutrophils # 9.1 H (1.6-8.9) K/mcL Lymphocytes # 2.4 (0.6-4.6) K/mcL Monocytes # 1.0 (0.0-1.3) K/mcL Eosinophils # 0.0 (0.0-0.6) K/mcL Basophils # 0.0 (0.0-0.2) K/mcL Nucleated RBCs/100 WBC 0.6 H (0) /100 WBC Platelet Estimate Decreased L (Normal) Large Platelets Present A (Not Present) Hypochromasia Present A (Not Present) Anisocytosis 1+ A (Not Present) Microcytosis Present A (Not Present) Sodium 135 L (136-145) mEq/L Potassium 3.9 (3.5-5.1) mEq/L Chloride 101 (98-107) mEq/L Carbon Dioxide 24 (23-29) mEq/L BUN 33 H (8-23) mg/dL Creatinine 0.69 (0.60-1.20) mg/dL Est GFR ( Amer) > 60 (> 60) Est GFR (Non-Af Amer) > 60 (> 60) BUN/Creatinine Ratio 48 H (6-26) Glucose 114 H (70-105) mg/dL Calculated Osmolality 288 (280-300) Lactic Acid (0.5-2.2) mmol/L Calcium 10.9 H (8.6-10.3) mg/dL Phosphorus 2.6 L (2.7-4.5) mg/dL Magnesium 1.6 (1.6-2.6) mg/dL Total Bilirubin (0.3-1.0) mg/dL Direct Bilirubin (0.0-0.2) mg/dL Indirect Bilirubin (0.0-1.2) mg/dL AST (13-39) Units/L ALT (7-52) Units/L Alkaline Phosphatase 357 H (34-104) Units/L Serum Total Protein (6.4-8.9) g/dL Albumin (3.5-5.7) g/dL Globulin (2.4-3.5) g/dL Albumin/Globulin Ratio (1.1-2.2) Lipase 24 (11-82) Units/L Urine Color Dark Yellow (Yellow) Urine Clarity Clear (Clear) Urine pH 5.5 (5.0-8.0) pH Units Ur Specific [place] 1.023 (1.010-1.025) Urine Protein Trace (Neg-Trace) mg/dL Urine Glucose (UA) Normal (Normal) mg/dL Urine Ketones 15 H (Negative) mg/dL Urine Blood Negative (Negative) Urine Nitrite Negative (Negative) Urine Bilirubin Moderate H (Negative) Urine Urobilinogen Normal (Normal) mg/dL Ur Leukocyte Esterase Small H (Negative) Urine Microscopic RBC 0-3 (0-3) per hpf Urine Microscopic WBC 5-15 H (0-3) per hpf Ur Squamous Epith Cells Many H (None-Few) per lpf Calcium Oxalate Crystal Present Urine Bacteria Few (None-Few) per hpf Hyaline Casts Few (None-Few) per lpf Ur Culture Indicated? NO. A (NO) Blood Type 09/11/17 09/11/17 09/11/17 Range/Units 19:36 20:20 20:20 WBC (4.3-11.1) K/mcL RBC (3.82-4.97) M/mcL Hgb (11.5-15.4) g/dL Hct (35.3-44.9) % MCV (83.0-100.0) fL MCH (28.0-33.3) pg MCHC (31.6-35.5) g/dL RDW (11.5-14.5) % Plt Count (140-400) K/mcL MPV (9.4-12.4) fL Immature Gran % (0-4) % Seg Neutrophils % % Lymphocytes % % Monocytes % % Eosinophils % % Basophils % % Neutrophils # (1.6-8.9) K/mcL Lymphocytes # (0.6-4.6) K/mcL Monocytes # (0.0-1.3) K/mcL Eosinophils # (0.0-0.6) K/mcL Basophils # (0.0-0.2) K/mcL Nucleated RBCs/100 WBC (0) /100 WBC Platelet Estimate (Normal) Large Platelets (Not Present) Hypochromasia (Not Present) Anisocytosis (Not Present) Microcytosis (Not Present) Sodium (136-145) mEq/L Potassium (3.5-5.1) mEq/L Chloride (98-107) mEq/L Carbon Dioxide (23-29) mEq/L BUN (8-23) mg/dL Creatinine (0.60-1.20) mg/dL Est GFR ( Amer) (> 60) Est GFR (Non-Af Amer) (> 60) BUN/Creatinine Ratio (6-26) Glucose (70-105) mg/dL Calculated Osmolality (280-300) Lactic Acid 1.2 (0.5-2.2) mmol/L Calcium (8.6-10.3) mg/dL Phosphorus (2.7-4.5) mg/dL Magnesium (1.6-2.6) mg/dL Total Bilirubin 1.2 H (0.3-1.0) mg/dL Direct Bilirubin 0.5 H (0.0-0.2) mg/dL Indirect Bilirubin 0.7 (0.0-1.2) mg/dL AST 32 (13-39) Units/L ALT 22 (7-52) Units/L Alkaline Phosphatase 335 H (34-104) Units/L Serum Total Protein 5.3 L (6.4-8.9) g/dL Albumin 2.5 L (3.5-5.7) g/dL Globulin 2.8 (2.4-3.5) g/dL Albumin/Globulin Ratio 0.9 L (1.1-2.2) Lipase (11-82) Units/L Urine Color (Yellow) Urine Clarity (Clear) Urine pH (5.0-8.0) pH Units Ur Specific [place] (1.010-1.025) Urine Protein (Neg-Trace) mg/dL Urine Glucose (UA) (Normal) mg/dL Urine Ketones (Negative) mg/dL Urine Blood (Negative) Urine Nitrite (Negative) Urine Bilirubin (Negative) Urine Urobilinogen (Normal) mg/dL Ur Leukocyte Esterase (Negative) Urine Microscopic RBC (0-3) per hpf Urine Microscopic WBC (0-3) per hpf Ur Squamous Epith Cells (None-Few) per lpf Calcium Oxalate Crystal Urine Bacteria (None-Few) per hpf Hyaline Casts (None-Few) per lpf Ur Culture Indicated? (NO) Blood Type O POSITIVE Critical Care Time Critical Care Time: Yes Total Critical Care Time: 45 Attestation: Critical care performed: Time is exclusive of separately billable procedures. Time includes: direct patient care, patient reassessment, coordination of patient care, interpretation of data (laboratory data, radiology data, and respiratory data), review of patient's medical records, medical consultation and documentation of patient care. Procedures included in critical care time: Procedures excluded from critical care time: Attestation Statement - Attestation Attestation: I, Baljinder Echavarria DO, examined this patient [id number] and my medical decision-making was reviewed with Rock Epstein PGY-3, Resident Physician. I agree with the documented findings, disposition and treatment plan as described except to the extent set forth below. Please see my progress notes for details. 67-year-old female presents emergency room for evaluation of generalized malaise and abdominal pain. Patient is newly diagnosed with pancreatic cancer with mass and metastases to the liver. She had a gastrojejunostomy and jejunostomy completed 2 weeks ago secondary to obstruction. This is completed at this facility. Since being home she said persistently worsening abdominal pain and inability to eat and intolerance to food or fluid. Patient denies any trauma or injury. Denies any fevers or chills chest pain shortness of breath headache or vision change. She has had persistently worsening nausea and intermittent vomiting. Denies any diarrhea. Patient is very frail. She does have a slight yellow discoloration to the skin. She does appear to have dry mucous membranes. She does disclose that she has not been able to eat or drink anything. Patient has a newly diagnosed pancreatic cancer with surgical incision site abdomen abdomen where she had a gastrojejunostomy. Surgical site appears to be stable. Patient has no guarding rigidity which is persistently worsening epigastric pain that radiates into her back. She also has pain in her lower sacrum and her pelvis. She denies any history metastases noted at this point. Patient is concerning for failure to thrive, progression of her pancreatic disease, obstructive pathology secondary to mass effect causing elevated bilirubin and liver failure. Full workup to be establishing this time including CT of the head chest and abdomen considering the patient has had intermittent symptoms with headache and vision related issues. There is concern for metastases was other metabolic pathology. Disposition will most likely be admission to hospital for failure to thrive. Fluids were restarted. Pain medication nausea medication will be given. Currently the patient is a full code based on the most recent diagnosis and information that they have at this time. See detailed documentation of the physical exam, medical intervention, medical decision-making and disposition in the resident physician' s note. 2014 CT imaging of the head shows possible lytic lesions to the bone. Patient does have progressive disease in the lungs liver in the pancreatic area of the abdomen. She also has ascites. Hemoglobin is 5.0. She does have an elevated white blood cell count. Her platelet count is 81. There is concern for metastatic disease causing bony deterioration. Her alkaline phosphatase and calcium are elevated as well. Patient is dumping bilirubin in the urine. General surgery was consulted just to make sure there is nothing other concerned about with the ascites and the anemia. Follow along as needed the hospital setting but the patient is to critical at this point secondary to her cancer toward any surgical intervention if there anything determined. Currently there is no surgical necessity at this time. Oncology contacted at this point in the recommendations will be collected and admission process will be completed. 2100 Patient was discussed with oncology and the outcome is most likely poor for this patient. Blood transfusions were ordered at this time. Symptomatic control has been completed. Several attempts at counseling and discussion and answering questions were completed at the bedside with the family. Currently is they are just trying to wrap her head around the prognosis. Patient will be admitted for symptomatic control and continuation of her care. Patient is critically ill and could have decompensate and potentially passively in the hospital setting. Currently she is a full code and family has not change that status here at this point.
[2017-09-11 20:01] LABS: Large Platelets Present (Not Present); Microcytosis Present (Not Present)
[2017-09-11 20:06] LABS: Hyaline Casts,Urine Few per lpf (None-Few)
[2017-09-11 20:08] LABS: Bacteria,Urine Few per hpf (None-Few); Calcium Oxalate Crystals,Urine Present
[2017-09-11 20:50] LABS: Albumin 2.5 g/dL (3.5-5.7); Albumin/Globulin Ratio 0.9 (1.1-2.2); Bilirubin,Direct 0.5 mg/dL (0.0-0.2); Bilirubin,Indirect 0.7 mg/dL (0.0-1.2); Bilirubin,Total 1.2 mg/dL (0.3-1.0); Globulin 2.8 g/dL (2.4-3.5); Total Protein 5.3 g/dL (6.4-8.9)
[2017-09-11] MEDS ORDERED: 0.9 % Sodium Chloride 250 ML ONE (21:26)
[2017-09-11] MEDS ORDERED: Naloxone 0.4 MG/ML INJ IVP PRN (23:14)
[2017-09-11] MEDS ORDERED: ALPRAZolam 0.25 MG TABLET PO PRN (23:22)
[2017-09-11] MEDS ORDERED: Ondansetron ODT 4 MG TAB.RAPDIS SL PRN (23:22)
[2017-09-11] MEDS ORDERED: *HR* FentaNYL PATCH 50 MCG PATCH TD SCH (23:30)
--- NOTE | 2017-09-11 23:37 | Internal Med History&Physical ---
Date of Encounter: 09/11/17 Time of Encounter: 22:55 Internal Medicine - H&P: HPI Chief complaint: weak; symptomatic anemia; pancreatic cancer Admitted From: Emergency Dept Plans for Post Hospital Care: Home History of present illness: Ms. Salas is a 67 year old female who presents to the ER tonight directly from vacation in [place]. Patient was recently diagnosed with gastric outlet obstruction several weeks ago, required surgery to bypass her obstruction , and was was diagnosed with stage IV pancreatic cancer at that time. After her surgery and treatment for her bacteremia, patient was released on vacation with her family and then was due to return home to follow-up with oncology for planned treatment. She and her had to cut her vacation short, and they came today directly to the ER where she was seen and evaluated. She was noted to be profoundly anemic with a hemoglobin of 5.0. She was very weak and feeble and quite symptomatic. CT scan imaging was performed which revealed patient to have significant progression of her disease since her initial diagnosis only a few weeks ago. She was subsequently admitted to hospitalist service for further treatment and oncology consultation as well. Upon my assessment of the patient, she appears to be quite weak, feeble, dehydrated, and malnourished. Patient is somnolent but does respond appropriately. History was mostly obtained from and old records. Patient and both confirmed above history. states that during vacation, she has had very little oral intake. She is moving her bowels and urinating. However, her appetite and oral hydration intake have been minimal. She has become very weak and feeble and unable to care for herself now. She has not yet had any treatment for her pancreatic cancer. She did finish her IV antibiotics and has had no fevers, chills, or night sweats. Her pain is well controlled with the fentanyl patch and when necessary oxycodone. However, patient and family would like to minimize pain meds so she can be more coherent and interactive. Patient and both deny any GI or blood loss. She has had no hematemesis, melena, hematochezia, or hematuria. She has had no hemoptysis. She denies any chest pain or shortness of breath. Past Med Surg Social Fam HX - Past Medical History Attestation: Yes The following information was validated with the patient. Source: patient, old records reviewed, obtained from family Medical history: cancer (pancreatic), GERD, GI bleed, hypertension Additional medical history: bleeding ulcer Psychiatric history: anxiety - Past Surgical History Additional surgical history: c section. gastrojejunostomy - Social History Smoking Status: Former smoker Smokeless Tobacco Status: No Alcohol use: none Drug use: none Current living situation: Home, With Family Activity Level: Independent ambulation Recent Out of Country Travel Within the Last 8 Weeks: No - Family History Father History Unknown: Yes Adopted: No Twin of Family Member: Yes, Fraternal Living Status: Still Living Hx Family Cardiac Disorders: No Hx Family Respiratory Disorders: No Hx Family Cancer: No Hx Family GI Disorders: No Hx Family Endocrine Disorder: No Hx Family Neuromuscular Disorders: No Hx Family Neurologic Disorders: No Hx Family HEENT Disorders: No Hx Family Autoimmune Disorders: No Internal Medicine - H&P: Meds Amlodipine Besylate 10 mg PO DAILY 08/06/17 [History] Atorvastatin Calcium [Lipitor] 20 mg PO HS 08/06/17 [History] Escitalopram [Lexapro] 20 mg PO DAILY 08/06/17 [History] Multivitamin [One Daily Multivitamin] 1 tab PO DAILY 08/06/17 [History] Omeprazole [PriLOSEC] 20 mg PO DAILY 08/06/17 [History] Triamterene/HCTZ 37.5/25mg [Dyazide] 1 tab PO DAILY 08/06/17 [History] Albuterol Sulfate [Albuterol Inhaler] 2 puff IH Q4HR PRN #1 hfa.aer.ad 08/08/17 [Rx] Ondansetron ODT [Zofran ODT] 4 mg SL Q6HR PRN #6 tab.rapdis 08/08/17 [Rx] Potassium Chloride 20 meq PO BID #4 tab.er.prt 08/08/17 [Rx] Docusate Sodium [Colace] 1 cap PO BID #60 capsule 08/14/17 [Rx] Polyethylene Glycol 3350 [MiraLAX] 17 gm PO DAILY #30 powd.pack 08/14/17 [Rx] Ertapenem [INVanz] 1,000 mg IVPB DAILY #5 vial 09/01/17 [Rx] Megestrol Acetate [Megace] 400 mg PO DAILY udc 09/01/17 [Rx] Metoprolol XL (24 HR) Succ [Toprol Xl] 12.5 mg PO DAILY tab.er.24h 09/01/17 [Rx ] Sennosides/Docusate Sodium [Senna Plus] 2 each PO BID tablet 09/01/17 [Rx] ALPRAZolam [Xanax 0.25 MG Tablet] 0.25 mg PO Q8HR PRN 14 Days #42 tablet [Rx] FentaNYL PATCH [Duragesic] 1 each TD Q72H 14 Days #5 patch.td72 09/02/17 [Rx] OXYCODONE Oral CONC [Oxycodone Oral Conc] 10 mg PO Q6H PRN 14 Days #56 oral.syg 09/02/17 [Rx] Lipase/Protease/Amylase [Creon Dr 24,000 Units Capsule] 1 cap PO QID 09/11/17 [ History] 3 Allergy/AdvReac Type Severity Reaction Status Date / Time Penicillins Allergy Hives Verified 08/19/17 15:30 Sulfa (Sulfonamide Allergy Hives Verified 08/19/17 15:30 Antibiotics) - Constitutional Constitutional: anorexia, fatigue, malaise, weakness, weight loss, no chills, no fever(s), no night sweats - EENT Eyes: no blurry vision, no change in vision Ears: no ear pain, no tinnitus Nose, mouth and throat: no nasal congestion, no nasal discharge - Cardiovascular Cardiovascular ROS IM: no chest pain, no dyspnea, no dyspnea on exertion, no edema - Respiratory Respiratory: no cough, no hemoptysis, no pain on inspiration, no chest congestion, no excessive phlegm production, no change in phlegm color - Gastrointestinal Gastrointestinal: abdominal pain, bloating, no diarrhea, no hematemesis, no hematochezia, no melena, no vomiting - Genitourinary Genitourinary: no dysuria, no flank pain, no hematuria - Musculoskeletal Musculoskeletal ROS IM: no back pain - Integumentary Integumentary IM: no rash, no jaundice - Neurological Neurological ROS: dizziness, no focal weakness, no frequent falls, no headache(s ) - Psychiatric Psychiatric: no anxiety, no depression - Endocrine Endocrine IM: no polydipsia, no polyuria - Allergic/Immunologic Allergic/Immunologic: no GI upset with certain foods - Constitutional Vitals: Temp Pulse Resp BP Pulse Ox 97.2 F L 97 16 131/74 98 09/11/17 23:12 09/11/17 23:12 09/11/17 23:12 09/11/17 23:12 09/11/17 23:12 General appearance: Present: cooperative, A&O X 3, pleasant, answers questions appropriately Exam: somnolent but awakens and answers appropriately - Head Head exam: Present: atraumatic, normal inspection - Eye Eye exam: Present: EOMI, PERRL. Absent: scleral icterus - ENT ENT exam: Present: mucous membranes dry, normal exam, normal oropharynx - Neck Neck exam general surgery: Present: full ROM, supple. Absent: tenderness, nuchal rigidity, thyromegaly - Respiratory Respiratory exam: Present: CTAB. Absent: chest wall tenderness, rales, respiratory distress, rhonchi, wheezes - Cardiovascular Cardiovascular exam: Present: distant heart sounds, RRR, +S1, +S2. Absent: diastolic murmur, systolic murmur - GI/Abdominal GI/Abdominal exam: Present: hepatomegaly, hypoactive bowel sounds, soft, tenderness (mild). Absent: guarding, rebound, splenomegaly, no peritoneal signs - Extremities Exam Extremities exam: Present: full ROM, normal capillary refill, warm, radial pulses palpable and symmetrical. Absent: calf tenderness, joint swelling - Back Exam Back exam: Absent: CVA tenderness (L), CVA tenderness (R) - Neurological Exam Neurological exam: Present: CN II-XII intact, oriented X3, no focal deficits - Psychiatric Psychiatric exam: Present: flat affect - Skin Skin exam: Present: dry, intact, warm Internal Med - H&P Results - Labs CBC & Chem 7: 09/11/17 18:38 09/11/17 18:14 - Diagnostic Studies CT scan - abdomen Additional comments: Report reviewed: progression of pancreatic mass with liver metastases Chest x-ray Status: image reviewed by me (negative) - Assessment and plan (1) Symptomatic anemia Current Visit: Yes Status: Acute Assessment and plan: 1. Patient with profound anemia and no report of GI blood loss. 2. Will transfuse PRBC's and monitor H/H. 3. Will check FOBT. (2) Malnourished Current Visit: Yes Status: Acute Assessment and plan: 1. Will hydrate gingerly with IVF and transfuse as above. 2. Will order dose of potassium phosphate to correct hypophosphatemia and hypokalemia. 3. Hold diuretics. 4. Consult PICC team for possible replacement of PICC as current one is not functioning. 5. May need TPN if patient plans to proceed with treatment for pancreatic cancer. Qualifiers: Malnutrition type: protein-calorie malnutrition Protein-calorie malnutrition severity: moderate Qualified Code(s): E44.0 - Moderate protein- calorie malnutrition (3) Adenocarcinoma of pancreas, stage 4 Current Visit: Yes Status: Chronic Assessment and plan: 1. Consult oncology for treatment options. 2. Patient with rapid progression of disease and clinical decline. 3. Given recent diagnosis and lack of initial treatment, patient and family do not wish to consider palliative care/Hospice at this time. 4. Code status is full code for now. (4) DVT prophylaxis Current Visit: Yes Status: Acute Assessment and plan: 1. EPCD's.
[2017-09-12] MEDS ORDERED: 0.9 % Sodium Chloride 250 ML ONE ×3 (00:38→13:53)
[2017-09-12] MEDS: OXYCODONE Oral CONC 10 MG/0.5 ML ORAL.SYG PO PRN ×3 (03:02→22:44)
[2017-09-12 07:54] LABS: Basophils % 0.2 %; Immature Granulocytes % 1.1 % (0-4); Nucleated Red Blood Cells 0.5 /100 WBC (0)
[2017-09-12 07:56] LABS: Eosinophils # 0.2 K/mcL (0.0-0.6); Eosinophils % 1.6 %; Hematocrit 26.6 % (35.3-44.9); Hemoglobin 8.7 g/dL (11.5-15.4); Immature Platelets 9.8 % (1.1-6.1); Lymphocytes # 2.1 K/mcL (0.6-4.6); Lymphocytes % 15.6 %; Mean Corpuscular HGB Conc 32.7 g/dL (31.6-35.5); Mean Corpuscular Hemoglobin 28.9 pg (28.0-33.3); Mean Corpuscular Volume 88.4 fL (83.0-100.0); Mean Platelet Volume 11.2 fL (9.4-12.4); Monocytes % 7.6 %; Neutrophils # 9.8 K/mcL (1.6-8.9); Red Blood Count 3.01 M/mcL (3.82-4.97); Red Cell Distribution Width 15.6 % (11.5-14.5); Segmented Neutrophils % 73.9 %
[2017-09-12 08:01] LABS: INR 2.5; Prothrombin Time 27.4 Seconds (9.4-12.1)
[2017-09-12 08:03] LABS: Activated Partial Thrombo Time 34.7 Seconds (26.0-36.0)
[2017-09-12 08:06] LABS: Platelet Count 77 K/mcL (140-400)
[2017-09-12 08:07] LABS: Alanine Aminotransferase 24 Units/L (7-52); Albumin 2.7 g/dL (3.5-5.7); Albumin/Globulin Ratio 0.9 (1.1-2.2); Alkaline Phosphatase 368 Units/L (34-104); Aspartate Amino Transferase 37 Units/L (13-39); BUN/Creatinine Ratio 57 (6-26); Bilirubin,Total 1.5 mg/dL (0.3-1.0); Blood Urea Nitrogen 28 mg/dL (8-23); Calcium 10.7 mg/dL (8.6-10.3); Carbon Dioxide 23 mEq/L (23-29); Chloride 104 mEq/L (98-107); Glucose 103 mg/dL (70-105); Magnesium 1.6 mg/dL (1.6-2.6); Osmolality,Calculated 288 (280-300); Phosphorous 3.2 mg/dL (2.7-4.5); Potassium 3.9 mEq/L (3.5-5.1); Sodium 136 mEq/L (136-145); Total Protein 5.7 g/dL (6.4-8.9); eGFR For African Americans > 60 (> 60); eGFR For Non-African Americans > 60 (> 60)
[2017-09-12] MEDS: Megestrol Acetate 400 MG/10 ML UDC PO SCH (08:34)
[2017-09-12] MEDS: Metoprolol XL (24 HR) Succ 25 MG TAB.ER.24H PO SCH (08:34)
[2017-09-12] MEDS: Sennosides/Docusate Sodium TABLET PO SCH ×2 (08:34→22:05)
[2017-09-12] MEDS: Multivit/Ca/Min/Fe/FA 1 TAB TABLET PO SCH (08:34)
[2017-09-12] MEDS: 0.9 % Sodium Chloride 1,000 ML IVC SCH (10:00)
[2017-09-12] MEDS ORDERED: Furosemide 40 MG/4 ML VIAL IVP ONE (14:55)
[2017-09-12] MEDS: Furosemide 40 MG/4 ML VIAL IVP ONE ×2 (15:02→15:04)
--- NOTE | 2017-09-12 17:10 | Internal Med Progress Note ---
Date of Encounter: 09/12/17 Time of Encounter: 09:20 - Assessment and plan (1) Symptomatic anemia Current Visit: Yes Status: Acute Assessment and plan: Hemoglobin levels have improved to 8.7 after blood transfusion. We will continue to monitor. No reported hematemesis or melena. (2) Adenocarcinoma of pancreas, stage 4 Current Visit: Yes Status: Chronic Assessment and plan: With metastasis to lung and liver. Increased size compared to last CT scan done in July. Poor prognosis overall. Consulted with hematology/oncology for evaluation and recommendations. Given the significant progress in her lesion, I suspect she has less than 6 months to live and would benefit from hospice. Family at this time still considering evaluation at [facility] for clinical trials. However given her poor functional status, I suspect she will not be qualified for any trials. However if she still wishes to be evaluated, will consider transfer to [facility]. Await hematology/oncology recommendations (3) Malnourished Current Visit: Yes Status: Acute Assessment and plan: Nutrition has been consulted. Patient unable to take oral diet due to pain. Family had broached the subject of TPN. However given the patient's poor overall prognosis, I do not think this would be appropriate as it would simply make the patient more at risk for infections which could harm her much more quickly than her cancer. Qualifiers: Malnutrition type: protein-calorie malnutrition Protein-calorie malnutrition severity: moderate Qualified Code(s): E44.0 - Moderate protein- calorie malnutrition (4) DVT prophylaxis Current Visit: Yes Status: Acute Assessment and plan: On SCDs alone given her anemia and thrombocytopenia. - Time Spent With Patient Total time spent is greater than 50% in coordination of care (as documented) at patient's floor/unit and/or counseling patient: - Subjective Interval history: Patient is lying down in bed. Complains of abdominal pain. Has been present at bedside. Has not been able to tolerate oral diet Due to pain. No fever or chills reported overnight. - Constitutional Vitals: Temp Pulse Resp BP Pulse Ox 98.1 F 100 16 171/75 98 09/12/17 14:35 09/12/17 14:35 09/12/17 14:35 09/12/17 14:35 09/12/17 14:30 General appearance: Present: cooperative, mild distress, A&O X 3, pleasant, underweight, answers questions appropriately - Neck Neck exam general surgery: Present: supple, trachea midline. Absent: lymphadenopathy - Respiratory Respiratory exam: Present: CTAB. Absent: accessory muscle use, rales, rhonchi, wheezes - Cardiovascular Cardiovascular exam: Present: RRR, +S1, +S2. Absent: diastolic murmur, gallop, rubs, systolic murmur - GI/Abdominal GI/Abdominal exam: Present: normal bowel sounds, soft, tenderness (Severe tenderness generalized), no peritoneal signs. Absent: distended - Extremities Exam Extremities exam: Present: warm, radial pulses palpable and symmetrical. Absent : calf tenderness, cyanotic, pedal edema - Neurological Exam Neurological exam: Present: CN II-XII intact, oriented X3, no focal deficits. Absent: facial droop, speech deficit Internal Medicine: Result - Labs CBC & Chem 7: 09/12/17 07:36 09/12/17 07:36 Labs: Short CBC 09/12/17 Range/Units 07:36 WBC 13.3 H (4.3-11.1) K/mcL Hgb 8.7 L D (11.5-15.4) g/dL Hct 26.6 L (35.3-44.9) % Plt Count 77 L (140-400) K/mcL Neutrophils # 9.8 H (1.6-8.9) K/mcL BMP 09/12/17 07:36 Sodium 136 Potassium 3.9 Chloride 104 Carbon Dioxide 23 BUN 28 H Creatinine 0.49 L Glucose 103 Calcium 10.7 H Liver Function 09/12/17 Range/Units 07:36 Total Bilirubin 1.5 H (0.3-1.0) mg/dL AST 37 (13-39) Units/L ALT 24 (7-52) Units/L Alkaline Phosphatase 368 H (34-104) Units/L Albumin 2.7 L (3.5-5.7) g/dL - ABG Interpretation ABG results: PT/INR, D-dimer PT 27.4 Seconds (9.4-12.1) H 09/12/17 07:36 Consult Discharge Plan - Plan Referrals: Brenda Titus MD [Primary Care Provider] -
--- NOTE | 2017-09-12 18:08 | Oncology Inp Consult Note ---
<HarpreetKatya Carr - Last Filed: 09/14/17 10:27> Date of Encounter: 09/12/17 Time of Encounter: 17:00 Assessment and Plan (1) Adenocarcinoma of pancreas, stage 4 Status: Chronic Assessment and plan: Metastatic pancreatic cancer. Newly diagnosed, treatment naive. Radiographic evidence of liver metastases and primary pancreatic mass progression on CT abdomen/pelvis 09/11/2017 and compared to July 2017. S/P palliative gastrojejunostomy July 2017. Introduced the idea of Hospice. Family wish to discuss further with patient. Family understand patients terminal diagnosis. Given patients rapid clinical decline, chemotherapy is not recommended at this time as it provide more harm than benefit. (2) Malnourished Status: Acute Assessment and plan: Now presents with failure to thrive, malnourishment, dehydration. Continue supportive treatment with IVF and PO intake as tolerated. Family state she was able to eat small amounts of food today. Dr. Wallace has long discussion with patients family regarding PEG/TPN which is not recommended at this time. Qualifiers: Malnutrition type: protein-calorie malnutrition Protein-calorie malnutrition severity: moderate Qualified Code(s): E44.0 - Moderate protein- calorie malnutrition (3) Anemia Status: Acute Assessment and plan: Presented with acute anemia, hgb increased to 8.7 s/p PRBC transfusions Multifactorial secondary to chronic disease, malnutrition, malignancy, potential acute blood loss although patient/family deny s/s of recent bleeding Coagulapathy with INR elevated to 2.5, likely secondary to liver metastases and malnourishment-will order vitamin K IV once Thrombocytopenia-check Fibrinogen Qualifiers: Qualified Code(s): D64.9 - Anemia, unspecified - Data of Consult Patient: known to practice within the last 3 years Consult date: 09/12/17 Requesting Physician: Chepe Barber [facility] Consult Narrative Reason for consult: stage IV pancreatic adenocarcinoma History of present illness: Ms. Salas is a 67 year old female diagnosed with stage IV pancreatic adenocarcinoma. She has not started treatment as of yet. She is s/p palliative gastrojejunostomy during recent admission, post op period complicated by spetic shock/bacteremia. She was discharged on 09/02/2017, her family had attempted to take her on their annual family vacation which was unfortunately cut short due to her physical decline, poor intake and essentially failure to thrive. Past Med Surg Social Fam HX - Past Medical History Medical history: cancer (pancreatic), GERD, GI bleed, hypertension Additional medical history: bleeding ulcer Psychiatric history: anxiety - Past Surgical History Surgical History: no surgical history Additional surgical history: c section. gastrojejunostomy - Social History Smoking Status: Former smoker Smokeless Tobacco Status: No Alcohol use: none Drug use: none - Family History Father History Unknown: Yes Adopted: No Twin of Family Member: Yes, Fraternal Living Status: Still Living Hx Family Cardiac Disorders: No Hx Family Respiratory Disorders: No Hx Family Cancer: No Hx Family GI Disorders: No Hx Family Endocrine Disorder: No Hx Family Neuromuscular Disorders: No Hx Family Neurologic Disorders: No Hx Family HEENT Disorders: No Hx Family Autoimmune Disorders: No Medications and Allergies Amlodipine Besylate 10 mg PO DAILY 08/06/17 [History] Atorvastatin Calcium [Lipitor] 20 mg PO HS 08/06/17 [History] Escitalopram [Lexapro] 20 mg PO DAILY 08/06/17 [History] Multivitamin [One Daily Multivitamin] 1 tab PO DAILY 08/06/17 [History] Omeprazole [PriLOSEC] 20 mg PO DAILY 08/06/17 [History] Triamterene/HCTZ 37.5/25mg [Dyazide] 1 tab PO DAILY 08/06/17 [History] Albuterol Sulfate [Albuterol Inhaler] 2 puff IH Q4HR PRN #1 hfa.aer.ad 08/08/17 [Rx] Ondansetron ODT [Zofran ODT] 4 mg SL Q6HR PRN #6 tab.rapdis 08/08/17 [Rx] Potassium Chloride 20 meq PO BID #4 tab.er.prt 08/08/17 [Rx] Docusate Sodium [Colace] 1 cap PO BID #60 capsule 08/14/17 [Rx] Polyethylene Glycol 3350 [MiraLAX] 17 gm PO DAILY #30 powd.pack 08/14/17 [Rx] Ertapenem [INVanz] 1,000 mg IVPB DAILY #5 vial 09/01/17 [Rx] Megestrol Acetate [Megace] 400 mg PO DAILY udc 09/01/17 [Rx] Metoprolol XL (24 HR) Succ [Toprol Xl] 12.5 mg PO DAILY tab.er.24h 09/01/17 [Rx ] Sennosides/Docusate Sodium [Senna Plus] 2 each PO BID tablet 09/01/17 [Rx] ALPRAZolam [Xanax 0.25 MG Tablet] 0.25 mg PO Q8HR PRN 14 Days #42 tablet [Rx] FentaNYL PATCH [Duragesic] 1 each TD Q72H 14 Days #5 patch.td72 09/02/17 [Rx] OXYCODONE Oral CONC [Oxycodone Oral Conc] 10 mg PO Q6H PRN 14 Days #56 oral.syg 09/02/17 [Rx] Lipase/Protease/Amylase [Creon Dr 24,000 Units Capsule] 1 cap PO QID 09/11/17 [ History] 3 Allergy/AdvReac Type Severity Reaction Status Date / Time Penicillins Allergy Hives Verified 08/19/17 15:30 Sulfa (Sulfonamide Allergy Hives Verified 08/19/17 15:30 Antibiotics) ROS unobtainable: due to mental status Review of systems: patient is somnolent but awakes to voice for short periods of time, difficult to obtain ROS and mainly obtained from chart review Constitutional: Present: anorexia, fatigue, weakness, weight loss. Absent: chills, fever(s) Eyes: Absent: change in vision Nose, mouth and throat: Absent: dysphagia Cardiovascular: Absent: chest pain, palpitations Respiratory: Present: dyspnea. Absent: cough, hemoptysis Gastrointestinal: Present: as per HPI, abdominal pain, nausea. Absent: hematemesis, hematochezia, melena, vomiting Genitourinary: Absent: dysuria Musculoskeletal: Present: muscle weakness Integumentary: Absent: rash, wounds Neurological: Absent: focal weakness Hematologic/Lymphatic: Present: as per HPI Oncology - Exam - Constitutional Vitals: Temp Pulse Resp BP Pulse Ox 98.2 F 94 16 159/82 97 09/12/17 17:18 09/12/17 17:18 09/12/17 17:18 09/12/17 17:18 09/12/17 17:18 General appearance: no acute distress, no febrile Exam: chronically ill, cachectic appearing - ENT ENT exam: Present: mucous membranes moist - Respiratory Respiratory exam: Present: decreased breath sounds. Absent: respiratory distress - Cardiovascular Cardiovascular exam: Present: RRR, +S1, +S2 - GI/Abdominal GI/Abdominal exam: Present: normal bowel sounds, soft, tenderness. Absent: guarding, rebound - Extremities Exam Extremities exam: Present: normal inspection. Absent: calf tenderness - Neurological Exam Neurological exam: Present: altered, no focal deficits Additional comments: Drowsy but awakens to voice, quickly falls back to sleep - Psychiatric Psychiatric exam: Present: normal affect, normal mood - Skin Skin exam: Present: dry, intact, normal color, warm Oncology - Results Labs: 3 09/12/17 09/12/17 09/12/17 07:36 07:36 07:36 WBC 13.3 H RBC 3.01 L Hgb 8.7 L D Hct 26.6 L MCV 88.4 MCH 28.9 MCHC 32.7 RDW 15.6 H Plt Count 77 L MPV 11.2 Immature Gran % 1.1 Seg Neutrophils % 73.9 Lymphocytes % 15.6 Monocytes % 7.6 Eosinophils % 1.6 Basophils % 0.2 Neutrophils # 9.8 H Lymphocytes # 2.1 Monocytes # 1.0 Eosinophils # 0.2 Basophils # 0.0 Nucleated RBCs/100 WBC 0.5 H Immature Plt Fraction 9.8 H PT 27.4 H INR 2.5 APTT 34.7 Sodium 136 Potassium 3.9 Chloride 104 Carbon Dioxide 23 BUN 28 H Creatinine 0.49 L Est GFR ( Amer) > 60 Est GFR (Non-Af Amer) > 60 BUN/Creatinine Ratio 57 H Glucose 103 Calculated Osmolality 288 Calcium 10.7 H Phosphorus 3.2 Magnesium 1.6 Total Bilirubin 1.5 H AST 37 ALT 24 Alkaline Phosphatase 368 H Serum Total Protein 5.7 L Albumin 2.7 L Globulin 3.0 Albumin/Globulin Ratio 0.9 L Consult Discharge Plan - Plan Referrals: Brenda Titus MD [Primary Care Provider] - <Karly Wallace - Last Filed: 09/15/17 10:21> Date of Encounter: 09/15/17 - Data of Consult Requesting Physician: Chepe Barber Primary Care Provider: Brenda Kaufman - Consult Narrative History of present illness: Ms. Salas is a 67 year old female Oncology - Exam - Constitutional Vitals: Temp Pulse Resp BP Pulse Ox 99.0 F 96 14 162/72 98 09/12/17 20:31 09/12/17 20:31 09/12/17 20:31 09/12/17 20:31 09/12/17 20:31 Oncology - Results Labs: 3 09/12/17 09/12/17 09/12/17 18:42 18:42 07:36 WBC RBC Hgb 11.1 L D Hct 33.4 L MCV MCH MCHC RDW Plt Count MPV Immature Gran % Seg Neutrophils % Lymphocytes % Monocytes % Eosinophils % Basophils % Neutrophils # Lymphocytes # Monocytes # Eosinophils # Basophils # Nucleated RBCs/100 WBC Immature Plt Fraction PT INR APTT Fibrinogen 74 L* Sodium 136 Potassium 3.9 Chloride 104 Carbon Dioxide 23 BUN 28 H Creatinine 0.49 L Est GFR ( Amer) > 60 Est GFR (Non-Af Amer) > 60 BUN/Creatinine Ratio 57 H Glucose 103 Calculated Osmolality 288 Calcium 10.7 H Phosphorus 3.2 Magnesium 1.6 Total Bilirubin 1.5 H AST 37 ALT 24 Alkaline Phosphatase 368 H Serum Total Protein 5.7 L Albumin 2.7 L Globulin 3.0 Albumin/Globulin Ratio 0.9 L 3 09/12/17 09/12/17 07:36 07:36 WBC 13.3 H RBC 3.01 L Hgb 8.7 L D Hct 26.6 L MCV 88.4 MCH 28.9 MCHC 32.7 RDW 15.6 H Plt Count 77 L MPV 11.2 Immature Gran % 1.1 Seg Neutrophils % 73.9 Lymphocytes % 15.6 Monocytes % 7.6 Eosinophils % 1.6 Basophils % 0.2 Neutrophils # 9.8 H Lymphocytes # 2.1 Monocytes # 1.0 Eosinophils # 0.2 Basophils # 0.0 Nucleated RBCs/100 WBC 0.5 H Immature Plt Fraction 9.8 H PT 27.4 H INR 2.5 APTT 34.7 Fibrinogen Sodium Potassium Chloride Carbon Dioxide BUN Creatinine Est GFR ( Amer) Est GFR (Non-Af Amer) BUN/Creatinine Ratio Glucose Calculated Osmolality Calcium Phosphorus Magnesium Total Bilirubin AST ALT Alkaline Phosphatase Serum Total Protein Albumin Globulin Albumin/Globulin Ratio - Attending Attestation 1. Metastatic pancreatic cancer. Extensive liver metastasis which has progressed by recent CT abdomen and pelvis 09/11/2017 and compared to July 2017. Pancreatic mass has also increased by CT 2. She had gastric outlet obstruction secondary to pancreatic cancer and had palliative gastrojejunostomy on July 2017. Since then she went on vacation which was cut short because she is feeling worse 3. Admitted with failure to thrive decreased level of consciousness decreased overall functional status. Dehydration. Currently she is on IV fluids Had a long discussion is been in family. Putting a PEG tube and feeding may not improve her symptoms and she may not be able to process food. Also family wants to know the role of TPN which is very limited. They understand her cancer is progressed and its terminal. She has periods of normal level of consciousness and able to walk to the bathroom and carry on limited conversation. Patient and family has not decided on hospice. Advised the family members to discuss with patient as to what her wishes are. The also understand at her current situation chemotherapy is not helpful and potentially harmful. May consider Foundation 1 testing to see if she has any actionable [place]. Also to assess total mutation burden. If total mutation burden is high may consider immunotherapy. Also MSI testing 2. Her INR elevated at 2.5. This is secondary to liver metastasis We will give 1 dose of vitamin K 2.5 mg IV.
[2017-09-12] MEDS: Acetaminophen 325 MG TABLET PO PRN (18:40)
[2017-09-12 18:59] LABS: Hematocrit 33.4 % (35.3-44.9)
[2017-09-12 19:01] LABS: Hemoglobin 11.1 g/dL (11.5-15.4)
--- NOTE | 2017-09-12 20:29 | Event Note ---
Date of Encounter: 09/12/17 Time of Encounter: 20:26 The patient recently had blood transfusions for hgb of 5.0, the patient had a total of 2-3 units PBRC'S. The fibrinogen level likely decreased due to the transfusions. Will give 1 FFP and 1 cryo and repeat fibrinogen in am. The patient INR is 2.5 and the hgb is 11.1
[2017-09-12] MEDS ORDERED: 0.9 % Sodium Chloride Mini Bag 100 ML ONE (21:48)
[2017-09-13] MEDS: Acetaminophen 325 MG TABLET PO PRN ×3 (01:17→20:02)
[2017-09-13 05:04] LABS: Hematocrit 29.5 % (35.3-44.9); Hemoglobin 9.8 g/dL (11.5-15.4)
[2017-09-13 05:05] LABS: Basophils % 0.2 %; Mean Corpuscular Volume 86.7 fL (83.0-100.0); Red Cell Distribution Width 15.5 % (11.5-14.5)
[2017-09-13 05:07] LABS: Eosinophils # 0.1 K/mcL (0.0-0.6); Eosinophils % 1.4 %; Hematocrit 28.6 % (35.3-44.9); Hemoglobin 9.3 g/dL (11.5-15.4); Immature Platelets 9.2 % (1.1-6.1); Lymphocytes # 1.5 K/mcL (0.6-4.6); Mean Corpuscular HGB Conc 32.5 g/dL (31.6-35.5); Mean Corpuscular Hemoglobin 28.2 pg (28.0-33.3); Mean Platelet Volume 11.5 fL (9.4-12.4); Monocytes # 0.8 K/mcL (0.0-1.3); Monocytes % 9.2 %; Neutrophils # 6.2 K/mcL (1.6-8.9); Nucleated Red Blood Cells 0.5 /100 WBC (0); Segmented Neutrophils % 71.2 %
[2017-09-13 05:08] LABS: Platelet Count 61 K/mcL (140-400)
[2017-09-13 05:12] LABS: INR 1.8; Prothrombin Time 19.5 Seconds (9.4-12.1)
[2017-09-13 05:23] LABS: BUN/Creatinine Ratio 46 (6-26); Blood Urea Nitrogen 21 mg/dL (8-23); Carbon Dioxide 24 mEq/L (23-29); Chloride 105 mEq/L (98-107); Glucose 103 mg/dL (70-105); Osmolality,Calculated 287 (280-300); Potassium 3.3 mEq/L (3.5-5.1); Sodium 137 mEq/L (136-145); eGFR For African Americans > 60 (> 60); eGFR For Non-African Americans > 60 (> 60)
[2017-09-13] MEDS: Metoprolol XL (24 HR) Succ 25 MG TAB.ER.24H PO SCH (07:25)
[2017-09-13] MEDS: Megestrol Acetate 400 MG/10 ML UDC PO SCH (07:25)
[2017-09-13] MEDS: Multivit/Ca/Min/Fe/FA 1 TAB TABLET PO SCH (07:27)
[2017-09-13] MEDS: Sennosides/Docusate Sodium TABLET PO SCH ×2 (07:27→20:14)
[2017-09-13] MEDS ORDERED: *HR* FentaNYL PATCH 50 MCG PATCH TD SCH (09:00)
[2017-09-13] MEDS: 0.9 % Sodium Chloride 1,000 ML IVC SCH (09:11)
[2017-09-13] MEDS: OXYCODONE Oral CONC 10 MG/0.5 ML ORAL.SYG PO PRN ×2 (09:11→16:36)
[2017-09-13] MEDS ORDERED: 0.9 % Sodium Chloride 1,000 ML ONE (09:14)
[2017-09-13 12:59] LABS: Hematocrit 29.4 % (35.3-44.9); Hemoglobin 9.8 g/dL (11.5-15.4)
--- NOTE | 2017-09-13 13:15 | Internal Med Progress Note ---
Date of Encounter: 09/13/17 Time of Encounter: 11:00 - Assessment and plan (1) Symptomatic anemia Current Visit: Yes Status: Acute Assessment and plan: Hemoglobin levels have improved with blood transfusion. Patient does have low fibrinogen levels and was given cryoprecipitate overnight. W we will continue to monitor blood counts closely. (2) Adenocarcinoma of pancreas, stage 4 Current Visit: Yes Status: Chronic Assessment and plan: Patient was seen by oncology and recommended hospice. I discussed this further with patient's family today. Explained to them the process of getting the patient on hospice. Explained discuss CODE STATUS with them. At this time patient is full code. We will decide on changing CODE STATUS first and then plan about hospice. Poor prognosis overall given metastatic adenocarcinoma with aggressive progression. (3) Malnourished Current Visit: Yes Status: Acute Assessment and plan: Patient not a candidate for parenteral nutrition due to poor prognosis and high risk for complications from TPN. Given adenocarcinoma of pancreas, she also has poor appetite. Nutrition following. Supplemental nutrition with ensure can also be arranged. Qualifiers: Malnutrition type: protein-calorie malnutrition Protein-calorie malnutrition severity: moderate Qualified Code(s): E44.0 - Moderate protein- calorie malnutrition (4) DVT prophylaxis Current Visit: Yes Status: Acute Assessment and plan: With SCDs alone - Time Spent With Patient Total time spent is greater than 50% in coordination of care (as documented) at patient's floor/unit and/or counseling patient: - Subjective Interval history: Patient lying down in bed. Awake and alert. Complains of low abdominal pain. Denies any chest pain or palpitations. No shortness of breath. - Constitutional Vitals: Temp Pulse Resp BP Pulse Ox 98.1 F 101 16 145/73 97 09/13/17 06:22 09/13/17 06:22 09/13/17 06:22 09/13/17 06:22 09/13/17 07:39 General appearance: Present: cooperative, mild distress, A&O X 3, pleasant, underweight, answers questions appropriately - Neck Neck exam general surgery: Present: supple, trachea midline. Absent: lymphadenopathy - Respiratory Respiratory exam: Present: CTAB. Absent: accessory muscle use, rales, rhonchi, wheezes - Cardiovascular Cardiovascular exam: Present: RRR, +S1, +S2. Absent: diastolic murmur, gallop, rubs, systolic murmur - GI/Abdominal GI/Abdominal exam: Present: normal bowel sounds, soft, tenderness, no peritoneal signs. Absent: distended - Extremities Exam Extremities exam: Present: warm, radial pulses palpable and symmetrical. Absent : calf tenderness, cyanotic, pedal edema - Neurological Exam Neurological exam: Present: CN II-XII intact, oriented X3, no focal deficits. Absent: facial droop, speech deficit - Skin Skin exam: Present: dry, intact Internal Medicine: Result - Labs CBC & Chem 7: 09/13/17 12:45 09/13/17 04:22 Labs: Short CBC 09/12/17 09/13/17 09/13/17 Range/Units 18:42 04:22 04:22 WBC 8.7 (4.3-11.1) K/mcL Hgb 11.1 L D 9.8 L 9.3 L (11.5-15.4) g/dL Hct 33.4 L 29.5 L 28.6 L (35.3-44.9) % Plt Count 61 L (140-400) K/mcL Neutrophils # 6.2 (1.6-8.9) K/mcL 09/13/17 Range/Units 12:45 WBC (4.3-11.1) K/mcL Hgb 9.8 L (11.5-15.4) g/dL Hct 29.4 L (35.3-44.9) % Plt Count (140-400) K/mcL Neutrophils # (1.6-8.9) K/mcL BMP 09/13/17 04:22 Sodium 137 Potassium 3.3 L Chloride 105 Carbon Dioxide 24 BUN 21 Creatinine 0.46 L Glucose 103 Calcium 10.0 - ABG Interpretation ABG results: PT/INR, D-dimer PT 19.5 Seconds (9.4-12.1) H 09/13/17 04:22 Consult Discharge Plan - Plan Referrals: Brenda Titus MD [Primary Care Provider] -
[2017-09-13 20:40] LABS: Hematocrit 30.5 % (35.3-44.9); Hemoglobin 9.8 g/dL (11.5-15.4)
[2017-09-14] MEDS: OXYCODONE Oral CONC 10 MG/0.5 ML ORAL.SYG PO PRN ×3 (00:04→20:07)
[2017-09-14 02:19] LABS: Hematocrit 28.8 % (35.3-44.9); Hemoglobin 9.4 g/dL (11.5-15.4)
[2017-09-14 02:28] LABS: INR 1.5; Prothrombin Time 16.3 Seconds (9.4-12.1)
[2017-09-14] MEDS: Acetaminophen 325 MG TABLET PO PRN ×3 (06:03→22:47)
[2017-09-14] MEDS: Sennosides/Docusate Sodium TABLET PO SCH ×2 (08:49→21:40)
[2017-09-14] MEDS: Multivit/Ca/Min/Fe/FA 1 TAB TABLET PO SCH (08:49)
[2017-09-14] MEDS: Megestrol Acetate 400 MG/10 ML UDC PO SCH (09:07)
[2017-09-14] MEDS: Metoprolol XL (24 HR) Succ 25 MG TAB.ER.24H PO SCH (09:07)
--- NOTE | 2017-09-14 09:36 | Oncology Inp Progress Note ---
Date of Encounter: 09/14/17 Time of Encounter: 09:00 (1) Pancreatic cancer metastasized to liver Current Visit: Yes Status: Acute Assessment and plan: Pancreatic cancer, metastatic disease, with progressive disease noted and recent imaging. She is status post palliative jejunal bypass. Poor nutrition status, failure to thrive. Does not complain of pain and is comfortable. Hospice care has been offered to her. She has not started any treatment and appears to be a full code. Oncology: Subj Interval history: Patient appears comfortable, sleeping, family at bedside. She denies any pain - Constitutional Vitals: Vital Signs Temp Pulse Resp BP Pulse Ox 09/14/17 09:14 98 09/14/17 07:40 98.1 F 102 16 128/76 98 09/14/17 00:00 97.9 F 98 16 138/68 98 09/13/17 22:20 80 132/62 09/13/17 21:32 98.4 F 93 14 173/71 97 09/13/17 15:26 98.3 F 95 15 137/81 97 Intake and Output 09/13/17 09/14/17 09/14/17 23:59 07:59 15:59 Intake Total 1000 / 1000 Output Total 150 / 150 Balance -150 / -150 1000 / 1000 Intake: IV Fluids 1000 / 1000 Output: Urine 150 / 150 Other: Weight 57.1 kg Patient Weight 09/14/17 23:59 Weight 57.1 kg General appearance: thin - Head Head exam: Present: atraumatic, normal inspection - Eye Eye exam: Present: sclera anicteric - ENT ENT exam: Present: mucous membranes dry - Respiratory Respiratory exam: Present: CTAB - Cardiovascular Cardiovascular exam: Present: +S1, +S2 - Extremities Exam Extremities exam: Present: normal inspection Oncology: Obj Data - Labs CBC & Chem 7: 09/14/17 02:01 09/13/17 04:22 Labs: Laboratory Results - last 24 hr 09/13/17 09/13/17 09/14/17 12:45 20:04 02:01 Hgb 9.8 L 9.8 L 9.4 L Hct 29.4 L 30.5 L 28.8 L PT INR Fibrinogen 09/14/17 09/14/17 02:01 02:01 Hgb Hct PT 16.3 H INR 1.5 Fibrinogen 76 L* - ABG Interpretation ABG results: PT/INR, D-dimer PT 16.3 Seconds (9.4-12.1) H 09/14/17 02:01 Consult Discharge Plan - Plan Referrals: Brenda Titus MD [Primary Care Provider] -
[2017-09-14] MEDS ORDERED: Ringers Solution, Lactated 1,000 ML ONE (11:00)
[2017-09-14] MEDS: Ringers Solution, Lactated 1,000 ML IVC SCH ×2 (11:05→22:56)
[2017-09-14 12:00] LABS: Hematocrit 29.6 % (35.3-44.9); Hemoglobin 9.6 g/dL (11.5-15.4)
--- NOTE | 2017-09-14 16:25 | Internal Med Progress Note ---
Date of Encounter: 09/14/17 Time of Encounter: 09:20 - Assessment and plan (1) Symptomatic anemia Current Visit: Yes Status: Acute Assessment and plan: Hemoglobin levels are stable. Due to metastatic pancreatic cancer. Patient may also have a component of DIC given low platelets and low fibrinogen levels. No overt bleeding at this time. (2) Adenocarcinoma of pancreas, stage 4 Current Visit: Yes Status: Chronic Assessment and plan: Metastatic adenocarcinoma of pancreas. Progressive. Poor prognosis. Terminal condition. She is status post palliative jejunal bypass. Recommended hospice. Family wants to talk with her primary oncologist again before deciding on CODE STATUS and hospice. At this time she remains full code. (3) Malnourished Current Visit: Yes Status: Acute Assessment and plan: Poor appetite and cachectic related to pancreatic cancer. Supportive care. Qualifiers: Malnutrition type: protein-calorie malnutrition Protein-calorie malnutrition severity: moderate Qualified Code(s): E44.0 - Moderate protein- calorie malnutrition (4) DVT prophylaxis Current Visit: Yes Status: Acute Assessment and plan: On SCDs - Time Spent With Patient Total time spent is greater than 50% in coordination of care (as documented) at patient's floor/unit and/or counseling patient: - Subjective Interval history: Patient complains of abdominal pain but controlled. No chest pain or palpitations. No shortness of breath. Feels weak and tired. Still has poor appetite. - Constitutional Vitals: Temp Pulse Resp BP Pulse Ox 97.4 F L 101 17 138/85 98 09/14/17 15:30 09/14/17 15:30 09/14/17 15:30 09/14/17 15:30 09/14/17 15:30 General appearance: Present: cooperative, mild distress, A&O X 3, pleasant, underweight, answers questions appropriately - Respiratory Respiratory exam: Present: CTAB. Absent: accessory muscle use, rales, rhonchi, wheezes - Cardiovascular Cardiovascular exam: Present: RRR, +S1, +S2. Absent: diastolic murmur, gallop, rubs, systolic murmur - GI/Abdominal GI/Abdominal exam: Present: normal bowel sounds, soft, tenderness (Generalized) , no peritoneal signs. Absent: distended - Extremities Exam Extremities exam: Present: warm, radial pulses palpable and symmetrical. Absent : calf tenderness, cyanotic, pedal edema - Neurological Exam Neurological exam: Present: alert, oriented X3, no focal deficits. Absent: facial droop, speech deficit - Skin Skin exam: Present: dry, intact, pallor Internal Medicine: Result - Labs CBC & Chem 7: 09/14/17 11:51 09/13/17 04:22 Labs: Short CBC 09/13/17 09/14/17 09/14/17 Range/Units 20:04 02:01 11:51 Hgb 9.8 L 9.4 L 9.6 L (11.5-15.4) g/dL Hct 30.5 L 28.8 L 29.6 L (35.3-44.9) % - ABG Interpretation ABG results: PT/INR, D-dimer PT 16.3 Seconds (9.4-12.1) H 09/14/17 02:01 - VTE Documentation of Mechanical Device: Intermittent pneumatic compression device Consult Discharge Plan - Plan Referrals: Brenda Titus MD [Primary Care Provider] -
[2017-09-14 19:43] LABS: Hematocrit 27.5 % (35.3-44.9); Hemoglobin 8.9 g/dL (11.5-15.4)
[2017-09-15] MEDS: OXYCODONE Oral CONC 10 MG/0.5 ML ORAL.SYG PO PRN ×2 (02:31→13:12)
--- NOTE | 2017-09-15 06:38 | Electrocardiograph Report ---
[address] [place], [place] [address] Test Date: 2017-09-11 Pat Name: Destiny Salas Department: 103 Room: [facility] Gender: F Deployment Engineer: ROSANGELA : [id number] Requested By: Rock Epstein Order Number: [id number] Reading MD: Fran Trinidad Measurements Intervals [place] Rate: 107 P: 73 NV: 132 QRS: 6 QRSD: 102 T: 44 QT: 333 QTc: 395 Interpretive Statements SINUS TACHYCARDIA Electronically Signed On 09-15-2017 6:36:23 EDT by Fran Trinidad
[2017-09-15] MEDS: Acetaminophen 325 MG TABLET PO PRN (07:37)
[2017-09-15] MEDS: Multivit/Ca/Min/Fe/FA 1 TAB TABLET PO SCH (07:38)
[2017-09-15] MEDS: Metoprolol XL (24 HR) Succ 25 MG TAB.ER.24H PO SCH (07:38)
[2017-09-15] MEDS: Megestrol Acetate 400 MG/10 ML UDC PO SCH (07:38)
[2017-09-15] MEDS: Sennosides/Docusate Sodium TABLET PO SCH (09:23)
[2017-09-15 11:14] VITALS: BP 130/73
--- NOTE | 2017-09-15 11:17 | Oncology Inp Progress Note ---
<Katya Mullins L - Last Filed: 09/15/17 14:23> Date of Encounter: 09/15/17 Time of Encounter: 11:00 (1) Adenocarcinoma of pancreas, stage 4 Status: Chronic Assessment and plan: Patients and daughter in law at bedside today. Patients state that over weekend he has talked with patient/family and have decided they wish to go home with hospice. Patients state she is anxious to go home and hoping to go home tonight. Patient appears fatigued, she is very weak, she has had little PO intake, she is cachectic and moulnourished. Her most recent imaging shows evidence of disease progression. Unfortunately, she would not be able to tolerate chemotherapy in her current condition given her very poor performance status. Patients understands that hospice will now take over comfort care measures to allow for transition home to spend quality time with family and friends. Discussed with palliative care [employer] FLOATER Larissa Gonzales who will assist with transition home with hospice. Appreciate further input per palliative care team. Please refer to Dr. Wallace's attestation below for additional details. Oncology: Subj Interval history: Ms. Salas was assisted to the [facility] and resting in chair. She appears very weak, tired and cachectic. She reports nausea with no vomiting, pain controlled with oral oxycodone/fentanyl patch. She is constipated, will change stool softeners to liquid form. and daughter in law at bedside - Constitutional Vitals: Vital Signs Temp Pulse Resp BP Pulse Ox 09/15/17 11:13 98.5 F 109 16 130/73 98 09/15/17 07:07 98.4 F 105 17 153/76 100 09/15/17 03:31 98.1 F 105 16 156/81 97 09/15/17 00:09 97.9 F 102 16 150/72 94 09/14/17 19:00 98.9 F 98 14 148/72 97 09/14/17 15:30 97.4 F L 101 17 138/85 98 09/14/17 11:41 98.7 F 98 17 145/77 97 Intake and Output 09/14/17 09/15/17 09/15/17 23:59 07:59 15:59 Intake Total 1000 / 1000 75 / 75 0 / 0 Output Total 225 / 225 100 / 100 Balance 775 / 775 -25 / -25 0 / 0 Intake: IV Fluids 1000 / 1000 Lactated Ringers 1,000 ML @ 75 1000 / 1000 mls/hr IVC .[id number] PATTI Rx#: [id number] Oral 75 / 75 0 / 0 Output: Urine 225 / 225 100 / 100 Other: Meal Breakfast Percent of Meal Consumed 20% # Voids 2 General appearance: no acute distress, thin, no febrile - Head Head exam: Present: atraumatic - ENT ENT exam: Present: mucous membranes moist - Respiratory Respiratory exam: Present: decreased breath sounds. Absent: respiratory distress - Cardiovascular Cardiovascular exam: Present: RRR, +S1, +S2 - GI/Abdominal GI/Abdominal exam: Present: normal bowel sounds, soft, tenderness. Absent: guarding, rebound - Extremities Exam Extremities exam: Present: normal inspection. Absent: calf tenderness - Neurological Exam Neurological exam: Present: alert, no focal deficits Additional comments: drowsy, responds to voice - Psychiatric Psychiatric exam: Present: flat affect - Skin Skin exam: Present: dry, intact, normal color, warm Oncology: Obj Data - Labs CBC & Chem 7: 09/14/17 19:31 09/13/17 04:22 Labs: Laboratory Results - last 24 hr 09/14/17 09/14/17 09/15/17 11:51 19:31 00:44 Hgb 9.6 L 8.9 L Hct 29.6 L 27.5 L Fibrinogen 61 L* - ABG Interpretation ABG results: PT/INR, D-dimer PT 16.3 Seconds (9.4-12.1) H 09/14/17 02:01 Consult Discharge Plan - Plan Instructions: Anemia (GEN) Additional Instructions: Follow-up appointments: If there is not an appointment listed below, please call your physician and schedule a follow-up appointment. If you have congestive heart failure and your symptoms return, make an appointment with your physician. Medication List: Carry an up to date list of medications you are taking at all time. We have given you an updated medication list including any new medications that you have been prescribed. Please provide that list to your primary provider Symptoms: If your condition changes or you experience any of the following symptoms, notify your physician immediately: Unusual or worsening pain, fever, persistent nausea and vomiting, bleeding, increase in swelling (especially in your legs), sudden weight gain, extreme dizziness, chest pain, increased drainage or redness from a wound or incision. Go to the emergency department if you experience a problem with breathing. Weights: If you have a history of swelling or shortness of breath, weigh yourself daily and notify your physician if you have a weight gain of two or more pounds in one day or 5 or more pounds in a week. If you experience any of the warning signs for stroke: Sudden numbness or weakness of the face, arm or leg; especially on one side of the body, sudden confusion, trouble speaking or understanding, sudden trouble seeing in one or both eyes, sudden trouble walking, dizziness, loss of balance or coordination, sudden sever headache with no cause; Call 911 or go to the emergency room. Stroke is a medical emergency. Some risk factors for stroke: Age, cigarette smoking, diabetes, excessive alcohol consumption, family history , high blood pressure, overweight, physical inactivity, prior stroke, heart attack, diagnosis of carotid artery stenosis or other artery disease. If you smoke, STOP: Smoking or tobacco use significantly increases your risk of heart and lung disease. Your chance of disease greatly increases if you continue to smoke. For more information, call the [employer] quit line for smoking cessation 3 QUIT-NOW ( ) Referrals: Brenda Titus MD [Primary Care Provider] - Prescriptions: Hyoscyamine SL [Levsin SL] 0.125 mg SL Q4HR PRN #12 tab.subl PRN Reason: upper airway secretions Bisacodyl [Dulcolax] 10 mg RC DAILY PRN #4 supp.rect PRN Reason: constipation Lactulose 10 gm PO BID PRN #30 mls PRN Reason: Constipation LORazepam Oral Conc [Ativan Oral Conc] 0.5 - 1 mg PO Q4H PRN 4 Days #15 mls PRN Reason: Anxiety <Karly Wallace S - Last Filed: 09/15/17 18:27> Date of Encounter: 09/15/17 - Constitutional Vitals: Vital Signs Temp Pulse Resp BP Pulse Ox 09/15/17 11:13 98.5 F 109 16 130/73 98 09/15/17 07:07 98.4 F 105 17 153/76 100 09/15/17 03:31 98.1 F 105 16 156/81 97 06/18/18 00:09 97.9 F 102 16 150/72 94 09/14/17 19:00 98.9 F 98 14 148/72 97 Intake and Output 09/15/17 09/15/17 09/15/17 07:59 15:59 23:59 Intake Total 75 / 75 0 / 0 Output Total 100 / 100 Balance -25 / -25 0 / 0 Intake: Oral 75 / 75 0 / 0 Output: Urine 100 / 100 Other: Meal Breakfast Percent of Meal Consumed 20% Oncology: Obj Data - Labs CBC & Chem 7: 09/14/17 19:31 09/13/17 04:22 Labs: Laboratory Results - last 24 hr 09/14/17 09/15/17 09/15/17 19:31 00:44 13:22 Hgb 8.9 L Hct 27.5 L Fibrinogen 61 L* Ammonia 72 H - ABG Interpretation ABG results: PT/INR, D-dimer PT 16.3 Seconds (9.4-12.1) H 09/14/17 02:01 - Attending Attestation I examined this patient and my medical decision-making was reviewed with the Advanced Practice Nurse. I agree with the documented findings, disposition and treatment plan as described except to the extent set forth below. Rapidly progressing metastatic pancreatic cancer with multiple liver metastasis. Family decided on hospice which is very reasonable. She still constipated. Ammonia mildly elevated at 73. We will try some lactulose. 3. Failure to thrive. She is able to drink some fluids and keep it down. 4. Coagulopathy. Improved 1.5 after vitamin K 2.5 mg IV fibrinogen 61. Likely this is from liver disease rather than DIC. Clinically no bleeding 5. Anemia. Hemoglobin was around 5.5 on admission 09/11/2017. Currently stable around 9
[2017-09-15] MEDS ORDERED: Lactulose Oral Soln 20 GM/30 ML UDC PO SCH (12:00)
--- NOTE | 2017-09-15 13:12 | Discharge Summary ---
- NOTES TO OUTPATIENT PROVIDER Notes to Outpatient Provider: Patient with recently diagnosed metastatic pancreatic adenocarcinoma with aggressive progression hospitalized here with symptomatic anemia. Was treated with blood transfusion. After several discussions with hematology/oncology and palliative care, patient has now been transitioned to DNR comfort care and hospice. She will be discharged today. Orders not resulted at time of discharge: Pending orders 09/12/17 17:00 Occult Blood,Stool [BF] Routine Date of Encounter: 09/15/17 Time of Encounter: 13:08 - Discharge Diagnosis (1) Symptomatic anemia Priority: Primary Status: Acute (2) Adenocarcinoma of pancreas, stage 4 Priority: Secondary Status: Chronic (3) Malnourished Priority: Secondary Status: Acute Qualifiers: Malnutrition type: protein-calorie malnutrition Protein-calorie malnutrition severity: moderate Qualified Code(s): E44.0 - Moderate protein- calorie malnutrition (4) DVT prophylaxis Priority: Secondary Status: Acute Hospital course: Ms. Salas is a 67 year old female Patient with recently diagnosed metastatic pancreatic adenocarcinoma status post palliative divisional bypass with aggressive progression hospitalized here with symptomatic anemia. She received 4 units PRBC and 1 unit of cryoprecipitate. After several discussions with hematology/oncology and palliative care, patient has now been transitioned to DNR comfort care and hospice. She will be discharged today. Discharge discussed with: patient, family, nurse, biztalk consultant - Time Spent with Patient Total time spent providing and/or coordinating discharge services: Greater than 30 minutes (32 min) - Discharge Medications Prescriptions: Hyoscyamine SL [Levsin SL] 0.125 mg SL Q4HR PRN #12 tab.subl PRN Reason: upper airway secretions Bisacodyl [Dulcolax] 10 mg RC DAILY PRN #4 supp.rect PRN Reason: constipation Lactulose 10 gm PO BID PRN #30 mls PRN Reason: Constipation LORazepam Oral Conc [Ativan Oral Conc] 0.5 - 1 mg PO Q4H PRN 4 Days #15 mls PRN Reason: Anxiety Home Medications: Amlodipine Besylate 10 mg PO DAILY 08/06/17 [History] Atorvastatin Calcium [Lipitor] 20 mg PO HS 08/06/17 [History] Escitalopram [Lexapro] 20 mg PO DAILY 08/06/17 [History] Multivitamin [One Daily Multivitamin] 1 tab PO DAILY 08/06/17 [History] Omeprazole [PriLOSEC] 20 mg PO DAILY 08/06/17 [History] Triamterene/HCTZ 37.5/25mg [Dyazide] 1 tab PO DAILY 08/06/17 [History] Albuterol Sulfate [Albuterol Inhaler] 2 puff IH Q4HR PRN #1 hfa.aer.ad 08/08/17 [Rx] Ondansetron ODT [Zofran ODT] 4 mg SL Q6HR PRN #6 tab.rapdis 08/08/17 [Rx] Potassium Chloride 20 meq PO BID #4 tab.er.prt 08/08/17 [Rx] Docusate Sodium [Colace] 1 cap PO BID #60 capsule 08/14/17 [Rx] Polyethylene Glycol 3350 [MiraLAX] 17 gm PO DAILY #30 powd.pack 08/14/17 [Rx] Megestrol Acetate [Megace] 400 mg PO DAILY udc 09/01/17 [Rx] Metoprolol XL (24 HR) Succ [Toprol Xl] 12.5 mg PO DAILY tab.er.24h 09/01/17 [Rx ] Sennosides/Docusate Sodium [Senna Plus] 2 each PO BID tablet 09/01/17 [Rx] ALPRAZolam [Xanax 0.25 MG Tablet] 0.25 mg PO Q8HR PRN 14 Days #42 tablet [Rx] FentaNYL PATCH [Duragesic] 1 each TD Q72H 14 Days #5 patch.td72 09/02/17 [Rx] OXYCODONE Oral CONC [Oxycodone Oral Conc] 10 mg PO Q6H PRN 14 Days #56 oral.syg 09/02/17 [Rx] Lipase/Protease/Amylase [Creon Dr 24,000 Units Capsule] 1 cap PO QID 09/11/17 [ History] Bisacodyl [Dulcolax] 10 mg RC DAILY PRN #4 supp.rect 09/15/17 [Rx] Hyoscyamine SL [Levsin SL] 0.125 mg SL Q4HR PRN #12 tab.subl 09/15/17 [Rx] LORazepam Oral Conc [Ativan Oral Conc] 0.5 - 1 mg PO Q4H PRN 4 Days #15 mls [Rx] Lactulose 10 gm PO BID PRN #30 mls 09/15/17 [Rx] Allergies/Adverse Reactions: 3 Allergy/AdvReac Type Severity Reaction Status Date / Time Penicillins Allergy Hives Verified 08/19/17 15:30 Sulfa (Sulfonamide Allergy Hives Verified 08/19/17 15:30 Antibiotics) Date of admission: 09/11/17 23:14 Primary care physician: Brenda Kaufman Consults: 09/11/17 23:26 Consult to PICC team [Consult to Invasive Line Access Team] [CONS] Routine Reason for Consult: PICC not working; may need new PICC; check with oncology first please. Line Type: PICC 09/12/17 12:08 Consult to [employer] Processing [employer] Leader [CONS] Routine Reason for SW Consult: new ca diagnosis, may need help at home 09/15/17 08:54 Consult to Palliative Care [CONS] Routine Comment: Consulting Provider: [facility] [place] Reason for Consult: Pancreatic adenoCA pt. Considering hospice Time Notified: 08:55 Call Completed: Yes Discharging clinician: Obdulio Patton Anticipated date of discharge: 09/15/17 - Constitutional Vitals: Temp Pulse Resp BP Pulse Ox 98.5 F 109 16 130/73 98 09/15/17 11:13 09/15/17 11:13 09/15/17 11:13 09/15/17 11:13 09/15/17 11:13 General appearance: Present: mild distress, pleasant, underweight, answers questions appropriately Exam: somnolent - Skin Skin exam: Present: dry, intact, pallor - Patient Status Disposition: Hospice - Home Condition: Serious Functional capacity at discharge: bed bound Overall status at discharge: patient is not back to baseline - Discharge Instructions Instructions: Anemia (GEN) Follow Up With: Brenda Titus MD [Primary Care Provider] - Additional Instructions: Follow-up appointments: If there is not an appointment listed below, please call your physician and schedule a follow-up appointment. If you have congestive heart failure and your symptoms return, make an appointment with your physician. Medication List: Carry an up to date list of medications you are taking at all time. We have given you an updated medication list including any new medications that you have been prescribed. Please provide that list to your primary provider Symptoms: If your condition changes or you experience any of the following symptoms, notify your physician immediately: Unusual or worsening pain, fever, persistent nausea and vomiting, bleeding, increase in swelling (especially in your legs), sudden weight gain, extreme dizziness, chest pain, increased drainage or redness from a wound or incision. Go to the emergency department if you experience a problem with breathing. Weights: If you have a history of swelling or shortness of breath, weigh yourself daily and notify your physician if you have a weight gain of two or more pounds in one day or 5 or more pounds in a week. If you experience any of the warning signs for stroke: Sudden numbness or weakness of the face, arm or leg; especially on one side of the body, sudden confusion, trouble speaking or understanding, sudden trouble seeing in one or both eyes, sudden trouble walking, dizziness, loss of balance or coordination, sudden sever headache with no cause; Call 911 or go to the emergency room. Stroke is a medical emergency. Some risk factors for stroke: Age, cigarette smoking, diabetes, excessive alcohol consumption, family history , high blood pressure, overweight, physical inactivity, prior stroke, heart attack, diagnosis of carotid artery stenosis or other artery disease. If you smoke, STOP: Smoking or tobacco use significantly increases your risk of heart and lung disease. Your chance of disease greatly increases if you continue to smoke. For more information, call the [place] tobacco quit line for smoking cessation QUIT-NOW ( ) - Diet and Activity Activity: other (as tolerated) Diet: advance to your usual diet (as tolerated) - VTE Documentation of Mechanical Device: Intermittent pneumatic compression device
--- NOTE | 2017-09-15 13:23 | Physician Discharge Referral ---
Home Health/Hosp Referral Info Transfer to: Hospice Provider in Charge Post Discharge: PCP - Diagnosis (1) Symptomatic anemia Priority: Primary Status: Acute (2) Adenocarcinoma of pancreas, stage 4 Priority: Secondary Status: Chronic (3) Malnourished Priority: Secondary Status: Acute (4) DVT prophylaxis Priority: Secondary Status: Acute - Respiratory Orders Smoking Cessation: Smoking cessation has been advised. For more information, call the [place] Tobacco Quit Line at 3-369-DNMP-NOW. - Diet/Nutrition Diet/Nutrition: List: As tolerated - Activity Activity Orders: Bedrest - Services Needed Following services are medically necessary services: Nursing, Home Health Aide, Med Social Work - Transfer Medications Prescriptions: Hyoscyamine SL [Levsin SL] 0.125 mg SL Q4HR PRN #12 tab.subl PRN Reason: upper airway secretions Bisacodyl [Dulcolax] 10 mg RC DAILY PRN #4 supp.rect PRN Reason: constipation Lactulose 10 gm PO BID PRN #30 mls PRN Reason: Constipation LORazepam Oral Conc [Ativan Oral Conc] 0.5 - 1 mg PO Q4H PRN 4 Days #15 mls PRN Reason: Anxiety Home Medications: Amlodipine Besylate 10 mg PO DAILY 08/06/17 [History] Atorvastatin Calcium [Lipitor] 20 mg PO HS 08/06/17 [History] Escitalopram [Lexapro] 20 mg PO DAILY 08/06/17 [History] Multivitamin [One Daily Multivitamin] 1 tab PO DAILY 08/06/17 [History] Omeprazole [PriLOSEC] 20 mg PO DAILY 08/06/17 [History] Triamterene/HCTZ 37.5/25mg [Dyazide] 1 tab PO DAILY 08/06/17 [History] Albuterol Sulfate [Albuterol Inhaler] 2 puff IH Q4HR PRN #1 hfa.aer.ad 08/08/17 [Rx] Ondansetron ODT [Zofran ODT] 4 mg SL Q6HR PRN #6 tab.rapdis 08/08/17 [Rx] Potassium Chloride 20 meq PO BID #4 tab.er.prt 08/08/17 [Rx] Docusate Sodium [Colace] 1 cap PO BID #60 capsule 08/14/17 [Rx] Polyethylene Glycol 3350 [MiraLAX] 17 gm PO DAILY #30 powd.pack 08/14/17 [Rx] Megestrol Acetate [Megace] 400 mg PO DAILY udc 09/01/17 [Rx] Metoprolol XL (24 HR) Succ [Toprol Xl] 12.5 mg PO DAILY tab.er.24h 09/01/17 [Rx ] Sennosides/Docusate Sodium [Senna Plus] 2 each PO BID tablet 09/01/17 [Rx] ALPRAZolam [Xanax 0.25 MG Tablet] 0.25 mg PO Q8HR PRN 14 Days #42 tablet [Rx] FentaNYL PATCH [Duragesic] 1 each TD Q72H 14 Days #5 patch.td72 09/02/17 [Rx] OXYCODONE Oral CONC [Oxycodone Oral Conc] 10 mg PO Q6H PRN 14 Days #56 oral.syg 09/02/17 [Rx] Lipase/Protease/Amylase [Creon Dr 24,000 Units Capsule] 1 cap PO QID 09/11/17 [ History] Bisacodyl [Dulcolax] 10 mg RC DAILY PRN #4 supp.rect 09/15/17 [Rx] Hyoscyamine SL [Levsin SL] 0.125 mg SL Q4HR PRN #12 tab.subl 09/15/17 [Rx] LORazepam Oral Conc [Ativan Oral Conc] 0.5 - 1 mg PO Q4H PRN 4 Days #15 mls [Rx] Lactulose 10 gm PO BID PRN #30 mls 09/15/17 [Rx] Allergies/Adverse Reactions: 3 Allergy/AdvReac Type Severity Reaction Status Date / Time Penicillins Allergy Hives Verified 08/19/17 15:30 Sulfa (Sulfonamide Allergy Hives Verified 08/19/17 15:30 Antibiotics) Certification: Further, I certify that my clinical findings support that this patient is homebound (i.e. absences from home require considerable and taxing effort and are for medical reasons or jain services or infrequently or short duration when for other reasons) because: Homebound Reason: Patient requires assistance of a person or device to safely leave home (Patient with terminal cancer on hospice), Severity of cardiac or pulmonary status limits activity tolerance Attestation: My signature below is to certify that this patient is under my care and that I, or nurse practitioner, or a physician's family readiness support assistant working with me, has a face-to -face encounter with this patient.
--- NOTE | 2017-09-15 13:23 | Palliative - Consult Note ---
Date of Encounter: 09/16/17 Time of Encounter: 13:10 - Assessment and Plan (1) Cancer associated pain Status: Acute Assessment and plan: Continue Fentanyl patch 50mcg and Oxycodone. Will increase Oxycodone interval to every 3 hours PRN. (2) Constipation Status: Acute Assessment and plan: Will order Lactulose and Dulcolax PRN. Qualifiers: Constipation type: unspecified constipation type Qualified Code(s): K59.00 - Constipation, unspecified (3) Anxiety Status: Acute Assessment and plan: Unable to take po Xanax. Will write script for Lorazepam liquid. (4) Counseling regarding advanced care planning and goals of care Status: Acute Assessment and plan: Patient and daughter n law at bedside asking for her to be discharged as soon as possible, and he wants to take her home by car. Requested [facility] - referral info called to [facility], and DME ordered (BSC, O2, bed with air mattress, Overbed table) - pt brother will be at house if delivered before she gets there. Discussed code status - transitioned to DNR-Comfort care - state form completed and copies provided to . Prescriptions for Lorazepam, Levsin, Dulcolax, and Lactulose faxed to pharmacy. Patient states they still have Oxycodone and Fentanyl patches at home. D/W primary nurse Arlyn and Dr. Patton. (5) Pancreatic cancer metastasized to liver Status: Acute (6) Malnourished Status: Acute Qualifiers: Malnutrition type: protein-calorie malnutrition Protein-calorie malnutrition severity: moderate Qualified Code(s): E44.0 - Moderate protein- calorie malnutrition Palliative-CN HPI - Data of Consult Requesting Physician: Obdulio Patton MD Primary Care Provider: Brenda [facility] - Consult Narrative History of present illness: Ms. Salas is a 67 year old female CC: Obdulio Patton MD Past Med Surg Social Fam HX - Past Medical History Medical history: cancer (pancreatic), GERD, GI bleed, hypertension Additional medical history: bleeding ulcer Psychiatric history: anxiety - Past Surgical History Surgical History: no surgical history Additional surgical history: c section. gastrojejunostomy - Social History Smoking Status: Former smoker Smokeless Tobacco Status: No Alcohol use: none Drug use: none - Family History Father History Unknown: Yes Adopted: No Twin of Family Member: Yes, Fraternal Living Status: Still Living Hx Family Cardiac Disorders: No Hx Family Respiratory Disorders: No Hx Family Cancer: No Hx Family GI Disorders: No Hx Family Endocrine Disorder: No Hx Family Neuromuscular Disorders: No Hx Family Neurologic Disorders: No Hx Family HEENT Disorders: No Hx Family Autoimmune Disorders: No Medications and Allergies Amlodipine Besylate 10 mg PO DAILY 08/06/17 [History] Atorvastatin Calcium [Lipitor] 20 mg PO HS 08/06/17 [History] Escitalopram [Lexapro] 20 mg PO DAILY 08/06/17 [History] Multivitamin [One Daily Multivitamin] 1 tab PO DAILY 08/06/17 [History] Omeprazole [PriLOSEC] 20 mg PO DAILY 08/06/17 [History] Triamterene/HCTZ 37.5/25mg [Dyazide] 1 tab PO DAILY 08/06/17 [History] Albuterol Sulfate [Albuterol Inhaler] 2 puff IH Q4HR PRN #1 hfa.aer.ad 08/08/17 [Rx] Ondansetron ODT [Zofran ODT] 4 mg SL Q6HR PRN #6 tab.rapdis 08/08/17 [Rx] Potassium Chloride 20 meq PO BID #4 tab.er.prt 08/08/17 [Rx] Docusate Sodium [Colace] 1 cap PO BID #60 capsule 08/14/17 [Rx] Polyethylene Glycol 3350 [MiraLAX] 17 gm PO DAILY #30 powd.pack 08/14/17 [Rx] Megestrol Acetate [Megace] 400 mg PO DAILY udc 09/01/17 [Rx] Metoprolol XL (24 HR) Succ [Toprol Xl] 12.5 mg PO DAILY tab.er.24h 09/01/17 [Rx ] Sennosides/Docusate Sodium [Senna Plus] 2 each PO BID tablet 09/01/17 [Rx] ALPRAZolam [Xanax 0.25 MG Tablet] 0.25 mg PO Q8HR PRN 14 Days #42 tablet [Rx] FentaNYL PATCH [Duragesic] 1 each TD Q72H 14 Days #5 patch.td72 09/02/17 [Rx] OXYCODONE Oral CONC [Oxycodone Oral Conc] 10 mg PO Q6H PRN 14 Days #56 oral.syg 09/02/17 [Rx] Lipase/Protease/Amylase [Armond Smart 24,000 Units Capsule] 1 cap PO QID 09/11/17 [ History] Bisacodyl [Dulcolax] 10 mg RC DAILY PRN #4 supp.rect 09/15/17 [Rx] Hyoscyamine SL [Levsin SL] 0.125 mg SL Q4HR PRN #12 tab.subl 09/15/17 [Rx] LORazepam Oral Conc [Ativan Oral Conc] 0.5 - 1 mg PO Q4H PRN 4 Days #15 mls [Rx] Lactulose 10 gm PO BID PRN #30 mls 09/15/17 [Rx] 3 Allergy/AdvReac Type Severity Reaction Status Date / Time Penicillins Allergy Hives Verified 08/19/17 15:30 Sulfa (Sulfonamide Allergy Hives Verified 08/19/17 15:30 Antibiotics) ROS unobtainable: due to mental status Palliative Care-Exam - Constitutional Vitals: Temp Pulse Resp BP Pulse Ox 98.5 F 109 16 130/73 98 09/15/17 11:13 09/15/17 11:13 09/15/17 11:13 09/15/17 11:13 09/15/17 11:13 General appearance: Present: no acute distress, thin - Head Head Exam: Present: normal inspection, normocephalic - Respiratory Respiratory exam: Present: decreased breath sounds, CTAB - Cardiovascular Cardiovascular exam: Present: tachycardia - GI/Abdominal Exam GI/Abdominal exam: Present: distended, soft - Extremities Exam Extremities exam: Present: normal capillary refill, normal inspection - Neurological Exam Neurological exam: Present: alert Additional comments: Patient lethargic - does awaken at intervals. Generalized weakness. Can follow simple commands when awake. Unable to stay awake to participate in much discussion. Internal Medicine - CN: Reslt - Labs CBC & Chem 7: 09/14/17 19:31 09/13/17 04:22 Labs: Short CBC 09/14/17 Range/Units 19:31 Hgb 8.9 L (11.5-15.4) g/dL Hct 27.5 L (35.3-44.9) % - ABG Interpretation ABG results: PT/INR, D-dimer PT 16.3 Seconds (9.4-12.1) H 09/14/17 02:01 Consult Discharge Plan - Plan Instructions: Anemia (GEN) Additional Instructions: Follow-up appointments: If there is not an appointment listed below, please call your physician and schedule a follow-up appointment. If you have congestive heart failure and your symptoms return, make an appointment with your physician. Medication List: Carry an up to date list of medications you are taking at all time. We have given you an updated medication list including any new medications that you have been prescribed. Please provide that list to your primary provider Symptoms: If your condition changes or you experience any of the following symptoms, notify your physician immediately: Unusual or worsening pain, fever, persistent nausea and vomiting, bleeding, increase in swelling (especially in your legs), sudden weight gain, extreme dizziness, chest pain, increased drainage or redness from a wound or incision. Go to the emergency department if you experience a problem with breathing. Weights: If you have a history of swelling or shortness of breath, weigh yourself daily and notify your physician if you have a weight gain of two or more pounds in one day or 5 or more pounds in a week. If you experience any of the warning signs for stroke: Sudden numbness or weakness of the face, arm or leg; especially on one side of the body, sudden confusion, trouble speaking or understanding, sudden trouble seeing in one or both eyes, sudden trouble walking, dizziness, loss of balance or coordination, sudden sever headache with no cause; Call 911 or go to the emergency room. Stroke is a medical emergency. Some risk factors for stroke: Age, cigarette smoking, diabetes, excessive alcohol consumption, family history , high blood pressure, overweight, physical inactivity, prior stroke, heart attack, diagnosis of carotid artery stenosis or other artery disease. If you smoke, STOP: Smoking or tobacco use significantly increases your risk of heart and lung disease. Your chance of disease greatly increases if you continue to smoke. For more information, call the [place] tobacco quit line for smoking cessation QUIT-NOW ( ) Referrals: Brenda Titus MD [Primary Care Provider] - Prescriptions: Hyoscyamine SL [Levsin SL] 0.125 mg SL Q4HR PRN #12 tab.subl PRN Reason: upper airway secretions Bisacodyl [Dulcolax] 10 mg RC DAILY PRN #4 supp.rect PRN Reason: constipation Lactulose 10 gm PO BID PRN #30 mls PRN Reason: Constipation LORazepam Oral Conc [Ativan Oral Conc] 0.5 - 1 mg PO Q4H PRN 4 Days #15 mls PRN Reason: Anxiety Palliative Quality Palliative Quality: Screen for Code Status: Yes, Screen for Goals of Care: Yes, Screen for Pain: Yes, If Pain Regimen Started, Initiate Bowel Regimen: Yes, Screen for Nausea/Vomitting: Yes Code Status: 09/15/17 12:58 DNR [Resuscitation Status: Active] [RES] Routine Comment: Resuscitation Status: DNR-Comfort Care
[2017-09-15] MEDS ORDERED: OXYCODONE Oral CONC 10 MG/0.5 ML ORAL.SYG PO PRN (13:24)
== END 2017-09-15 15:13 | disposition hospice, home (50) | DRG 812 ==
LOC: EMEROO 17:14 → 3ANU 17:14 → 3NENU 22:11 → SUATTDRO 23:14
PROVIDERS: ADMIT Internal Medicine; ATTEND Internal Medicine